=== PATIENT | female | born 1990 | race Caucasian/White ===

== ENCOUNTER 2023-08-01 11:36 | Outpatient (OUT) | payer SELFPAY ==
--- NOTE | 2023-08-01 11:52 | XR_ITS ---
The [place] [id number] Patient Name: FAIZAN CRANDALL MRN: [id number] date: 1990 Sex: F Assigned Patient Location: [facility] Current Patient Location: [facility] Accession/Order Number: [id number] Exam Date: 08/01/2023 11:57 Report Date: 08/01/2023 12:23 At the request of: MAXX ALANIS Procedure: XR finger LT min 2V STUDY: XR finger LT min 2V, [id number] HISTORY: Finger Sprain COMPARISON: None FINDINGS/IMPRESSION: Faint transverse lucency through the base of the third middle phalanx (seen on the oblique view) which could represent variant trabeculation versus nondisplaced fracture. Recommend follow-up x-rays in 10-14 days for further evaluation. No other potentially acute fracture. No dislocation or suspicious osseous lesion. Electronically authenticated by: JUAN JOSE LLANOS Date: 08/01/2023 12:23
== END 2023-08-01 11:37 | disposition home or self-care (01) ==
LOC: RAD 11:41
PROVIDERS: Visit Provider Nurse Practitioner Family
DX: S63.613A Unspecified sprain of left middle finger, initial encounter (principal)
CPT/HCPCS: 73140

== ENCOUNTER 2023-09-14 10:28 | Outpatient (OUT) | payer OTHER, SELFPAY ==
--- NOTE | 2023-09-14 10:33 | MR_ITS ---
The [address] [address] Patient Name: FAIZAN CRANDALL MRN: [id number] date: 1990 Sex: F Assigned Patient Location: MRI Current Patient Location: MRI Accession/Order Number: [id number] Exam Date: 09/14/2023 10:45 Report Date: 09/14/2023 14:53 At the request of: CECILE AVENDAÑO Procedure: MR head/brain wo con MR head/brain wo con COMPARISON: None. CLINICAL HISTORY: Chronic migraine headaches. Increased severity and frequency TECHNIQUE: Sagittal, axial,and coronal T1, axial flair, axial T2 FSE, axial DWI FINDINGS: There is no diffusion abnormality.. Motion mildly degrades exam. The brain demonstrates normal morphology and signal. There is no mass, mass effect, nor hydrocephalus. The vascular flow voids are patent. The internal auditory canals appear unremarkable. The mastoid air cells are patent. There is mild ethmoid sinus mucosal disease. There are no areas of hemosiderin staining. The orbits, sella, and craniocervical junction appear unremarkable MR/MR head/brain wo con IMPRESSION: SOME LIMITATION WITH MOTION. NO MRI EVIDENCE FOR ACUTE ISCHEMIA. UNREMARKABLE UNENHANCED MRI APPEARANCE OF THE BRAIN. MILD SINUS MUCOSAL DISEASE Electronically authenticated by: MOSES LOVE Date: 09/14/2023 14:53
== END 2023-09-14 10:29 | disposition home or self-care (01) ==
LOC: MRI 10:29
PROVIDERS: Visit Provider Nurse Practitioner Family
DX: R27.0 Ataxia, unspecified (principal); G43.709 Chronic migraine without aura, not intractable, without status migrainosus; G44.52 New daily persistent headache (NDPH)
CPT/HCPCS: 70551

== ENCOUNTER 2023-09-17 10:01 | Outpatient (OUT) | payer OTHER, SELFPAY ==
--- NOTE | 2023-09-17 | ECG_ITS ---
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
[2023-09-17 10:47] LABS: Basophils Percent Auto 0.4 % (0.2-2.0); Eosinophils Absolute Auto 0.2 10^3/uL (0.0-0.7); Eosinophils Percent Auto 2.3 % (0.9-7.0); Hematocrit 41.2 % (36.0-48.0); Hemoglobin 13.1 g/dL (12.0-16.0); Immature Granulocytes Abs Auto 0.04 10^3/uL (0.00-0.03); Immature Granulocytes Pct Auto 0.4 % (0.0-0.5); Lymphocytes Absolute Auto 2.8 10^3/uL (1.2-3.8); Lymphocytes Percent Auto 28.6 % (20.5-60.0); Mean Corpuscular HGB Conc 31.8 g/dL (29.9-35.2); Mean Corpuscular Hemoglobin 28.5 pg (26.7-34.0); Mean Corpuscular Volume 89.8 fL (81.0-99.0); Monocytes Absolute Auto 0.5 10^3/uL (0.3-0.8); Monocytes Percent Auto 4.9 % (1.7-12.0); Neutrophils Absolute Auto 6.1 10^3/uL (1.4-6.5); Neutrophils Percent Auto 63.4 % (43.0-75.0); Platelet Count 239 10^3/uL (150-450); Red Blood Count 4.59 10^6/uL (4.20-5.40); Red Cell Distribution Width 13.3 % (11.0-15.0); White Blood Count 9.7 10^3/uL (4.0-11.0)
[2023-09-17 11:03] LABS: Alanine Aminotransferase 40 U/L (14-59); Albumin Globulin Ratio 0.8; Albumin Level 3.6 g/dL (3.4-5.0); Alkaline Phosphatase 102 U/L (46-116); Anion Gap 9.9; Aspartate Amino Transferase 19 U/L (15-37); BUN Creatinine Ratio 21.5; Bilirubin Total 0.3 mg/dL (0.2-1.0); Calcium 8.7 mg/dL (8.5-10.1); Carbon Dioxide 30.4 mmol/L (21.0-32.0); Chloride 101 mmol/L (98-107); Estimated GFR (African America >60 (>=60); Estimated GFR (Non-African Ame >60 (>=60); Globulin 4.3 g/dL; Glucose 89 mg/dL (74-106); Potassium 4.3 mmol/L (3.5-5.1); Sodium 137 mmol/L (136-145); Total Protein 7.9 g/dL (6.4-8.2)
== END 2023-09-17 10:02 | disposition home or self-care (01) ==
LOC: CARD 10:01
DX: Z01.810 Encounter for preprocedural cardiovascular examination (principal); G56.03 Carpal tunnel syndrome, bilateral upper limbs
CPT/HCPCS: 36415; 80053; 85025; 93005

== ENCOUNTER 2024-04-05 08:50 | Outpatient (OUT) | payer OTHER, SELFPAY ==
--- OUTSIDE RECORDS SUMMARY | 2024-04-05 08:54 | XMS_ITS | CCD ---
Author Organization [facility] Care Team Providers Care Embedded Engineer Name Role Phone Gui Alvarez III Primary Care Physician Unavailable Primary Care Provider Unavailabl e PROVIDER, UNKNOWN Attending Unavailable PROVIDER, UNKNOWN Admitting Unavailable JAVI, DR CLARENCE Garcia Admitting Unavailable JAVI, DR CLARENCE Garcia Attending Unavailable JAVI, DR CLARENCE Garcia Consulting Unavailable MISC, DR GARCIA Primary Care Unavailable SARA, GIANA RAMIREZ Consulting Unavailable ERNESTO, ALLISON Consulting Unavailable GLORIA, DR MCCRAY Admitting Unavailable CYNTHIA, DR ALLISON Coffey Consulting Unavailable MISC, DR GARCIA Primary Care Unavailable GLORIA, DR MCCRAY Attending Unavailable GLORIA, DR MCCRAY Consulting Unavailable JAVI, DR CLARENCE Garcia Admitting Unavailable MISC, DR GARCIA Primary Care Unavailable JAVI, DR CLARENCE Garcia Attending Unavailable JAVI, DR CLARENCE Garcia Consulting Unavailable BIJAN, PILAR Attending Unavailable BIJAN, PILAR Consulting Unavailable MISC, DR GARCIA Primary Care Unavailable BIJAN, PILAR Admitting Unavailable KIKO KNOX Consulting Unavailable ELTABRYAN, DR WONG Admitting Unavailable REQUEST, DR VLEAZQUEZ LISTED Primary Care Unavaila bogdan PEARLTA, DR WONG Attending Unavailable RADHA, DR WONG Consulting Unavailable DO Gui Alvarez III Primary Care Provider MD Philipp Espitia Attending Provider [phone] Jun Peng Unavailable DO Chong Cat Attending Provider MARYSE Peng Attending Provider Chong Cat Unavailable DO Gui Alvarez III R Primary Care Provider MD Philipp Espitia Attending Provider DO Chong Cat Attending Provider MARYSE Peng Attending Provider ROSANNA PERALTA Attending Unavailable ANITA CORONA Attending Unavailable Brayden Bennett Admitting Unavailab Brayden De La Rosa Attending Unavailab le Alvarez III, Gui R Primary Care Unavailabl Chong Dixon Attending Unavailable Alvarez III, [facility] R Primary Care Unavailabl e Chong Cat Admitting Unavailable Alvarez III, Gui R Primary Care Unavailabl e Stephania, Chong A Admitting Unavailable Chong Cat Attending Unavailable Chong Cat Attending Unavailable Alvarez III, [facility] R Primary Care Unavailabl e Stephania, Chong Hinojosa Admitting Unavailable Jun Peng Admitting Unavailable Jun Peng Attending Unavailable Alvarez III, [facility] R Primary Care Unavailabl Philipp Prakash Admitting Unavailable Philipp Espitia Attending Unavailable [facility], [facility] Primary Care Unavailabl e TIFFANY IRAHETA Attending Unavailable Allergies Allergy Classification Reported Allergen(s) Allergy Type Date of Onset Reaction(s) Facility (20 sources) Nalbuphine; Translations: [nalbuphine] Drug Allergy 9 shortness of breath, rash, Anaphylaxis, Unknown [facility] (20 sources) predniSONE; Translations: [prednisone] Drug Allergy 9 Hives, Itching, Unknown [facility] (1 source) Nalbuphine Drug Allergy [facility] (1 source) predniSONE Drug Allergy 2 [facility] (1 source) Nalbuphine Drug Allergy 4 [facility] (1 source) predniSONE Drug Allergy 4 [facility] Medications Current Medications Medication Drug Class(es) Dates Sig (Normalized) Sig (Original) amitriptyline hydrochloride 25 mg oral tablet (18 sources) Tricyclic Antidepressant Start: 09-21-2023 take 25 mg by mouth once daily Amitriptyline Active 25 MG PO Daily September 21, 2023 12:00am Start: 05-24-2021 take 1 tablet by sarah th once daily at bedtime amitriptyline 10 mg Tab 10 mg = 1 tab(s), Oral, Once a day (at bedtime), # 90 tab(s), Refills(s) 3, Pharmacy: [facility], 158, cm, 05/24/21 12:23:00 EDT, Height/Length Dosing, 110.3, kg, 05/24/21 12:23:00 EDT, Weight Dosing Start Date: 05/24/21 Status: Ordered Start: 09-08-2019 End: 09-21-2023 take 10 mg by mouth three times daily Amitriptyline Discontinued 10 MG PO Three times daily September 08, 2019 12:00am September 21, 2023 8:35am colchicine 0.6 mg oral tablet (4 sources) Start: 10-06-2022 End: 10-15-2023 take 1 tablet by mouth twice daily colchicine 0.6 mg Tab 0.6 mg, Oral, BID, X 90 day(s), # 180 tab(s), Refills(s) 3, Pharmacy: [facility]acy #[id number], 158, cm, 10/06/22 11:50:00 EST, Height/Length Dosing, 108.4, kg, 10/06/22 11:50:00 EST, Weight Dosing Start Date: 10/20/22 Stop Date: 10/15/23 Status: Ordered colestipol hydrochloride 1000 mg oral tablet (1 source) Bile Acid Sequestrant Start: 02-05-2024 take 1 g by mouth twice daily Colestipol Active 1 GM PO Twice daily 60 February 05, 2024 12:00am dicyclomine hydrochloride 20 mg oral tablet (12 sources) Anticholinergic Start: 10-03-2023 take 20 mg by mouth three times daily Dicyclomine Active 20 MG PO Three times daily October 19, 2023 1:00am Start: 09-08-2019 End: 09-21-2023 take 10 mg by mouth four times daily Dicyclomine Discontinued 10 MG PO Four times daily September 08, 2019 12:00am September 21, 2023 8:35am Levonorg-Eth Estrad Triphasic (3 sources) Progestin, Estrogen, Progestin-containing Intrauterine Device Start: 09-08-2019 take 50-0.4 tablets by mouth once daily Levonorg-Eth Estrad Triphasic (Trivora (28)) 50-30 (6)/75-40 (5)/125-30(10) Tablet Active 1 TAB PO Daily September 08, 2019 12:00am Fiber (9 sources) Fiber Active ibuprofen 600 mg oral tablet (4 sources) Nonsteroidal Anti-inflammatory Drug Start: 10-06-2022 End: 10-01-2023 take 1 tablet by mouth every eight hours ibuprofen 600 mg Tab 600 mg = 1 tab(s), Oral, q8hr, X 90 day(s), # 270 tab(s), Refills(s) 3, Pharmacy: [facility]/pharmacy #[id number], 158, cm, 10/06/22 11:50:00 EST, Height/Length Dosing, 108.4, kg, 10/06/22 11:50:00 EST, Weight Dosing Start Date: 10/06/22 Stop Date: 10/01/23 Status: Ordered indomethacin 25 mg oral capsule (1 source) Nonsteroidal Anti-inflammatory Drug Start: 09-27-2022 End: 10-11-2022 take 1 capsule by mouth three times daily indomethacin 25 mg Cap 25 mg = 1 cap(s), Oral, TID, X 14 day(s), # 42 cap(s), Refills(s) 0, Pharmacy: [facility]/pharmacy #[id number], 158, cm, 09/26/22 11:41:00 EST, Height/Length Dosing, 107, kg, 09/26/22 11:41:00 EST, Weight Dosing Start Date: 09/27/22 Stop Date: 10/11/22 Status: Ordered L.Rhamnosus-B.Anim trae (Crunchfish) 3 billion cell capsule (1 source) Start: 02-05-2024 L.Rhamnosus-B.Anim trae (Crunchfish) 3 billion cell capsule Active CAP PO February 05, 2024 12:00am lisinopril 20 mg oral tablet (12 sources) Angiotensin Converting Enzyme Inhibitor Start: 09-04-2023 take 20 mg by mouth once daily Lisinopril Active 20 MG PO Daily September 21, 2023 12:00am loperamide hydrochloride 2 mg oral tablet (15 sources) Opioid Agonist Start: 09-08-2019 take 2 mg by mouth every four hours Loperamide Active 2 MG PO Q4H September 08, 2019 12:00am omeprazole 40 mg oral tablet (17 sources) Proton Pump Inhibitor Start: 02-05-2024 take 40 mg by mouth twice daily Omeprazole Active 40 MG PO Twice daily 60 February 05, 2024 12:00am Start: 02-05-2024 take 40 mg by mouth once daily Omeprazole Active 40 MG PO Daily February 05, 2024 12:00am Start: 09-26-2023 take 1 tablet by sarah th once daily Omeprazole 40 MG 1 tablet 30 minutes before morning meal Orally Once a day for 90 days 40mg Sep, Active Start: 09-26-2023 take 1 tablet by sarah th once daily Omeprazole 20 MG 1 tablet 30 minutes before morning meal Orally Once a day for 90 days Sep, Active take 1 tablet by sarah th once daily PriLOSEC OTC 20 MG 1 tablet 30 minutes before morning meal Orally Once a day for 30 days Active ondansetron 4 mg disintegrating oral tablet (10 sources) Serotonin-3 Receptor Antagonist Start: 02-05-2024 take 4 mg by mouth three times daily Ondansetron Active 4 MG PO Three times daily 90 February 05, 2024 12:00am Start: 09-08-2019 End: 09-21-2023 take 4 mg by mouth every eight hours Ondansetron Hcl Discontinued 4 MG PO Q8H September 08, 2019 12:00am September 21, 2023 8:36am probiotic (4 sources) probiotic as directed Active psyllium 3400 mg powder for oral suspension (1 source) Start: 02-05-2024 Psyllium Husk (Aspartame) ([employer] Fiber) 3.4 gram/5.8 gram powder Active EACH PO February 05, 2024 12:00am traMADol hydrochloride 50 mg oral tablet (10 sources) Opioid Agonist Start: 09-20-2023 take 1 tablet by mouth every six hours traMADol HCl 50 MG 1 tablet as needed Orally every 6 hours for 5 days to be used post op Sep, Active Completed/Discontinued Medications Medication Drug Class(es) Dates Sig (Normalized) Sig (Original) cholecalciferol 0.025 mg oral tablet (6 sources) Vitamin D Start: 09-12-2019 End: 09-21-2023 take 2000 [IU] by mouth once daily Cholecalciferol (Vitamin D3) Discontinued 2000 UNIT PO Daily 60 September 12, 2019 12:00am September 21, 2023 8:35am gabapentin 100 mg oral capsule (6 sources) Anti-epileptic Agent Start: 09-08-2019 End: 09-21-2023 take 100 mg by mouth at bedtime Gabapentin Discontinued 100 MG PO Bedtime September 08, 2019 12:00am September 21, 2023 8:35am Levonorg-Eth Estrad Triphasic (Trivora (28)) 50-30 (6)/75-40 (5)/125-30(10) Tablet (3 sources) Start: 09-08-2019 End: 09-21-2023 take 50-0.4 tablets by mouth once daily Levonorg-Eth Estrad Triphasic (Trivora (28)) 50-30 (6)/75-40 (5)/125-30(10) Tablet Discontinued 1 TAB PO Daily September 07, 2019 11:00pm September 21, 2023 7:36am Start: 09-08-2019 End: 09-21-2023 take 50-0.4 tablets by mouth once daily Levonorg-Eth Estrad Triphasic (Trivora (28)) 50-30 (6)/75-40 (5)/125-30(10) Tablet Discontinued 1 TAB PO Daily September 08, 2019 12:00am September 21, 2023 8:36am lithium carbonate 450 mg extended release oral tablet (6 sources) Start: 09-12-2019 End: 09-21-2023 take 900 mg by mouth once daily at bedtime Enterprise Carbonate Discontinued 900 MG PO Daily at bedtime 60 September 12, 2019 12:00am September 21, 2023 8:35am Omeprazole Magnesium (Prilosec Otc) 20 mg tablet,delayed release (DR/EC) (3 sources) Start: 09-21-2023 End: 02-05-2024 take 1 tablet by mouth once daily Omeprazole Magnesium (Prilosec Otc) 20 mg tablet,delayed release (DR/EC) Discontinued 20 MG PO Daily September 21, 2023 12:00am February 05, 2024 10:24am Start: 09-21-2023 take 1 tablet by sarah once daily Omeprazole Magnesium (Prilosec Otc) 20 mg tablet,delayed release (DR/EC) Active 20 MG PO Daily September 20, 2023 11:00pm Start: 09-21-2023 take 1 tablet by sarah th once daily Omeprazole Magnesium (Prilosec Otc) 20 mg tablet,delayed release (DR/EC) Active 20 MG PO Daily September 21, 2023 12:00am vortioxetine 10 mg oral tablet (6 sources) Start: 09-12-2019 End: 09-21-2023 take 1 tablet by mouth at bedtime Vortioxetine (Trintellix) 10 mg Tablet Discontinued 15 MG PO Bedtime September 12, 2019 12:00am September 21, 2023 8:36am Problems Active Problems Problem Classification Problem Date Documented Da te Episodic/Chronic Abdominal pain (1 source) Abdominal pain; Translations: [Unspecified abdominal pain] Onset: 2 Episodic Anxiety disorders (11 sources) Mixed anxiety and depressive disorder 04-25-2022 Chronic Cardiac dysrhythmias (2 sources) Tachycardia, unspecified; Translations: [Tachycardia, unspecified] Onset: 4 Episodic Esophageal disorders (20 sources) Gastroesophageal reflux disease; Translations: [Gastro-esophageal reflux disease without esophagitis] Chronic Essential hypertension (2 sources) Essential (primary) hypertension; Translations: [Essential (primary) hypertension] Onset: 3 Chronic Mood disorders (12 sources) Depressive disorder; Translations: [Depression] 09-08-2019 Chronic Nonspecific chest pain (9 sources) Chest pain; Translations: [Chest pain, unspecified] Onset: 2 Episodic Other aftercare (1 source) Other care home (current) drug therapy; 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] Onset: 2 Episodic Other gastrointestinal disorders (15 sources) Irritable bowel syndrome; Translations: [Irritable bowel syndrome without diarrhea] 09-09-2019 Chronic Other gastrointestinal disorders (5 sources) Irritable bowel syndrome without diarrhea; Translations: [Irritable bowel syndrome] Chronic Other nervous system disorders (9 sources) Carpal tunnel syndrome; Translations: [Carpal tunnel syndrome, bilateral upper limbs] Chronic Other nervous system disorders (8 sources) Bilateral carpal tunnel syndrome; Translations: [Carpal tunnel syndrome, bilateral upper limbs] Chronic Other nutritional; endocrine; and metabolic disorders (20 sources) Body mass index 30+ - obesity 01-25-2021 Chronic Other nutritional; endocrine; and metabolic disorders (11 sources) Obesity 12-30-2020 Chronic Other nutritional; endocrine; and metabolic disorders (2 sources) Morbid (severe) obesity due to excess calories; Translations: [Morbid (severe) obesity due to excess calories] Onset: 3 Chronic Other nutritional; endocrine; and metabolic disorders (2 sources) Body mass index (BMI) 40.0-44.9, adult; Translations: [Body mass index (BMI) 40.0-44.9, adult] Onset: 3 Chronic Other skin disorders (4 sources) Rash and other nonspecific skin eruption; Translations: [RASH OTH NONSPECIFIC SKIN ERUPTION] Onset: 3 Episodic Arcelia-; endo-; and myocarditis; cardiomyopathy (except that caused by tuberculosis or sexually transmitted disease) (11 sources) Pericarditis 04-25-2022 Episodic Comment on above: 2020 Residual codes; unclassified (3 sources) Other specified postprocedural states Episodic Suicide and intentional self-inflicted injury (6 sources) Suicidal thoughts; Translations: [Suicidal ideations] 09-08-2019 Episodic Unclassified (1 source) OTH PERICARDIAL EFFUSION NONINFLAMM; Translations: [OTH PERICARDIAL EFFUSION NONINFLAMM] Onset: 2 Unclassified (2 sources) COUGH, UNSPECIFIED; Translations: [COUGH, UNSPECIFIED] Onset: 2 Unclassified (1 source) CONTACT W/AND (SUSP) EXPOS COVID-19; Translations: [CONTACT W/AND (SUSP) EXPOS COVID-19] Onset: 2 Unclassified (1 source) Carpal tunnel syndrome, right upper limb; Translations: [Carpal tunnel syndrome, right upper limb] Onset: 3 Unclassified (1 source) Carpal tunnel syndrome, left upper limb; Translations: [Carpal tunnel syndrome, left upper limb] Onset: 3 Unclassified (1 source) Irritable bowel syndrome without diarrhea; Translations: [Irritable bowel syndrome without diarrhea] Onset: 3 Unclassified (1 source) Carpal tunnel syndrome, bilateral upper limbs; Translations: [Carpal tunnel syndrome, bilateral upper limbs] Onset: 3 Past or Other Problems Problem Classification Problem Date Documented Da te Episodic/Chronic E Codes: Fall (1 source) Fall (on) (from) unspecified stairs and steps, initial encounter; Translations: [FALL ON FROM UNS STAIRS STEPS INIT] Onset: 08-23-2022 Episodic Immunizations and screening for infectious disease (11 sources) Infectious disease carrier Onset: 12-12-2015 12-15-2015 Episodic Comment on above: ESBL E coli in cervi vipul culture 12/12/15 Inflammation; infection of eye (except that caused by tuberculosis or sexually transmitteddisease) (1 source) Other mucopurulent conjunctivitis, bilateral; Translations: [OTH MUCOPURULNT CONJUNCTIVIT NELSON] Onset: 08-10-2022 Episodic Malaise and fatigue (1 source) Other fatigue; Translations: [Other fatigue] Onset: 08-14-2023 Episodic Other injuries and conditions due to external causes (3 sources) Unspecified injury of right foot, initial encounter; Translations: [UNSPECIFIED INJURY RT FOOT INITIAL] Onset: 08-22-2022 Episodic Other upper respiratory infections (1 source) Acute upper respiratory infection, unspecified; Translations: [ACUTE UP RESPIRATORY INFECTION UNS] Onset: 08-10-2022 Episodic Otitis media and related conditions (1 source) Otitis media, unspecified, left ear; Translations: [OTITIS MEDIA UNSPECIFIED LEFT EAR] Onset: 08-10-2022 Episodic Superficial injury; contusion (1 source) Contusion of right lesser toe(s) without damage to nail, initial encounter; Translations: [CONTUS RT LESR TOES W/O DMG NL INIT] Onset: 08-23-2022 Episodic Unclassified (20 sources) Onset: 10-08-2013 Resolved: 02-07-2021 05-27-2015 Unclassified (1 source) COUGH, UNSPECIFIED; Translations: [COUGH, UNSPECIFIED] Onset: 08-09-2022 Results Test Name Value Interpretation Reference Range Facility Office Visiton 02-13-2024 Follow-up visit [id number] Jennifer Motley 1990 F Date Provider Department Center 02/13/2024 Donnie-ROSANNA PERALTA CARD [facility] Family History Problem Relation Age of Onset Coronary artery disease Father Atrial fibrillation Father Family Status - Relation Status Age at Father Level of Service:25726 PA OFFICE/OUTPATIENT ESTABLISHED LOW MDM 20 MIN Normal [facility] HCG ( test) IA.soli d Ql (U)Ordered By: Thaddeus Marshall on 10-19-2023 HCG ( test) Ql (U) Negative [facility] HCG,Urineon 10-19-2023 Beta HCG ( test) Ql (U) Negative Normal [facility] Comment on above: Result Comment: PERF ORMED BY: [place] [address] PATHOLOGIST FLEET MECHANIC RHONA LOPEZ M.D. Performed By: #### C K, TSH3 #### [place] [address] [place] #### WILLIE #### [facility] , Basic Metabolic Panelon 11-0 Anion gap [Moles/Vol] Not performed Normal 6.0-15.0 [facility] Comment on above: Performed By: #### C K, TSH3 #### [place] [address] [place] #### WILLIE #### [facility] , Calcium [Mass/Vol] 9.3 mg/dL Normal 8.6-10.3 [facility] Comment on above: Performed By: #### C K, TSH3 #### [place] [address] [place] #### WILLIE #### [facility] , Chloride [Moles/Vol] 103 mmol/L Normal 98-107 [facility] Comment on above: Performed By: #### C K, TSH3 #### [place] [address] [place] #### WILLIE #### [facility] , CO2 [Moles/Vol] 28.0 mmol/L Normal 21.0-31.0 [facility] Comment on above: Performed By: #### C K, TSH3 #### [place] [address] [place] #### WILLIE #### [facility] , Creatinine [Mass/Vol] 0.63 mg/dL Normal 0.60-1.20 [facility] Comment on above: Performed By: #### C K, TSH3 #### [place] [address] [place] #### WILLIE #### [facility] , Creatinine Clr Calc Pharmacy 148.12 Normal [facility] Comment on above: Result Comment: PERF ORMED BY: [place] [address] PATHOLOGIST FLEET MECHANIC RHONA LOEPZ M.D. Performed By: #### C K, TSH3 #### [address] #### WILLIE #### [facility] , GFR/1.73 sq M.predicted MDRD (S/P/Bld) [Vol rate/Area] mL/min/{1.73_m2} Normal [facility] Comment on above: Performed By: #### C K, TSH3 #### [place] [address] [place] #### WILLIE #### [facility] , Glucose [Mass/Vol] 87 mg/dL Normal 70-100 [facility] Comment on above: Result Comment: Steele Glucose Reference Range is dependent on time and content of last meal. Glucose of more than 200 mg/dL in a nonstressed, ambulatory subject supports the diagnosis of Diabetes Mellitus. ADA recommended reference range Performed By: #### C K, TSH3 #### [place] [address] [place] #### WILLIE #### [facility] , Potassium Normal 3.5-5.1 [facility] Comment on above: Result Comment: Spec imen hemolyzed, redraw requested Performed By: #### C K, TSH3 #### [place] [address] [place] #### WILLIE #### [facility] , Sodium [Moles/Vol] 138 mmol/L Normal 136-145 [facility] Comment on above: Performed By: #### C K, TSH3 #### [facility] [address] [place] [address] [place] #### WILLIE #### [facility] , Urea nitrogen [Mass/Vol] 12 mg/dL Normal 7-25 [facility] Comment on above: Performed By: #### C K, TSH3 #### [facility] [address] [place] [address] [place] #### WILLIE #### [facility] , Calcium [Mass/volume] in Ser um or PlasmaOrdered By: Arthur Rao on 09-21-2023 Calcium [Mass/Vol] 9.3 mg/dL 8.6-10.3 [facility] Carbon dioxide, total [Moles /volume] in Serum or PlasmaOrdered By: Arthur Rao on 09-21-2023 CO2 [Moles/Vol] 28.0 mmol/L 21.0-31.0 [facility] Chloride [Moles/volume] in S yanique or PlasmaOrdered By: Arthur Rao on 09-21-2023 Chloride [Moles/Vol] 103 mmol/L 98-107 [facility] Creatinine [Mass/volume] in Serum or PlasmaOrdered By: Arthur Rao on 09-21-2023 Creatinine [Mass/Vol] 0.63 mg/dL 0.60-1.20 [facility] Glucose [Mass/volume] in Ser um or PlasmaOrdered By: Arthur Rao on 09-21-2023 Glucose [Mass/Vol] 87 mg/dL 70-100 [facility] Comment on above: ADA recommended refe rence rangeRandom Glucose Reference Range is dependent on time and content of last meal. Glucose of more than 200 mg/dL in a nonstressed, ambulatory subject supports the diagnosis of Diabetes Mellitus. HCG ( test) IA.rapi d Ql (U)Ordered By: Arthur Rao on 09-21-2023 HCG ( test) Ql (U) Negative [facility] HCG,Urineon 09-21-2023 Beta HCG ( test) Ql (U) Negative Normal [facility] Comment on above: Result Comment: PERF ORMED BY: [place] [address] PATHOLOGIST FLEET MECHANIC RHONA LOPEZ M.D. Performed By: #### C K, TSH3 #### [place] [address] [place] #### WILLIE #### [facility] , No Panel InformationOrdered By: Arthur Rao on 09-21-2023 Estimated GFR (CKD-EPI) > 60.0 mL/Min [facility] Creatinine Clearance (Chem 148.12 [facility] Potassium [Moles/volume] in Serum or PlasmaOrdered By: Arthur Rao on 09-21-2023 Potassium [Moles/Vol] See comment 3.5-5.1 [facility] Comment on above: Specimen hemolyzed, redraw requested Serum or plasma anion gap de terminationOrdered By: Arthur Rao on 09-21-2023 Anion gap [Moles/Vol] TNP [facility] Comment on above: Test not performed Sodium [Moles/volume] in Ser um or PlasmaOrdered By: Arthur Rao on 09-21-2023 Sodium [Moles/Vol] 138 mmol/L 136-145 [facility] Urea nitrogen [Mass/volume] in Serum or PlasmaOrdered By: Arthur Rao on 09-21-2023 Urea nitrogen [Mass/Vol] 12 mg/dL 7-25 [facility] C reactive protein [Mass/vol ume] in Serum or PlasmaOrdered By: Jun Peng on 09-19-2023 CRP [Mass/Vol] 1.7 mg/dL 0.0-0.5 [facility] C-Reactive Proteinon 023 C-Reactive Protein 1.7 mg/dL High 0.0-0.5 [facility] Comment on above: Order Comment: Reaso n for Exam Irritable bowel syndrome, unspecified type Performed By: #### C RP, TSH3, ESR, CUSTOOL #### [facility] [address] [place] [address] [place] #### ELASTASE STOOL, HIV SCREEN, OPEXAM, CALPROTECT, CELIAC #### [facility] , Calprotectin [Mass/mass] in StoolOrdered By: Jun Peng on 09-19-2023 Calprotectin (Stl) [Mass/Mass] 32 ug/g 0-120 [facility] Comment on above: Concentration Interp retation Follow-Up< 5 - 50 ug/g Normal None>50 -120 ug/g Borderline Re-evaluate in 4-6 weeks >120 ug/g Abnormal Repeat as clinically indicatedPerformed at: [facility] [address] [id number] Director: Diomedes Arguello MD, Phone: [phone] Calprotectin, Fecalon 2022 Calprotectin, Fecal 32 Normal 0-120 [facility] Comment on above: Order Comment: Reaso n for Exam Irritable bowel syndrome, unspecified type Result Comment: Conc entration Interpretation Follow-Up < 5 - 50 ug/g Normal None >50 -120 ug/g Borderline Re-evaluate in 4-6 weeks >120 ug/g Abnormal Repeat as clinically indicated Performed at: [facility] [address] [id number] Super[employer] Department: Diomedes Arguello MD, Phone: [phone] PERFORMED BY: [place] [address] PATHOLOGIST FLEET MECHANIC RHONA LOPEZ M.D. Performed By: #### C K, TSH3 #### [facility] [address] #### WILLIE #### [facility] , Celiacon 09-19-2023 Deamidated Gliadin Abs, IgA 6 Normal 0-19 [facility] Comment on above: Order Comment: Reaso n for Exam Irritable bowel syndrome, unspecified type Result Comment: Nega tive 0 - 19 Weak Positive 20 - 30 Moderate to Strong Positive >30 Performed By: #### C RP, TSH3, ESR, CUSTOOL #### [address] #### ELASTASE STOOL, HIV SCREEN, OPEXAM, CALPROTECT, CELIAC #### [facility] , Deamidated Gliadin Abs, IgG 2 Normal 0-19 [facility] Comment on above: Order Comment: Reaso n for Exam Irritable bowel syndrome, unspecified type Result Comment: Nega tive 0 - 19 Weak Positive 20 - 30 Moderate to Strong Positive >30 Performed By: #### C RP, TSH3, ESR, CUSTOOL #### [address] #### ELASTASE STOOL, HIV SCREEN, OPEXAM, CALPROTECT, CELIAC #### [facility] , Endomysial Antibody IgA Negative Normal Negative T [facility] Comment on above: Order Comment: Reaso n for Exam Irritable bowel syndrome, unspecified type Performed By: #### C RP, TSH3, ESR, CUSTOOL #### [address] #### ELASTASE STOOL, HIV SCREEN, OPEXAM, CALPROTECT, CELIAC #### [facility] , Immunoglobulin A, Qn, Serum 424 mg/dL High 87-352 [facility] Comment on above: Order Comment: Reaso n for Exam Irritable bowel syndrome, unspecified type Result Comment: Perf ormed at: - [facility] [address] [id number] Supervisor [employer] Department: Korey Perkins PhD, Phone: [phone] Performed By: #### C RP, TSH3, ESR, CUSTOOL #### [place] [address] [place] #### ELASTASE STOOL, HIV SCREEN, OPEXAM, CALPROTECT, CELIAC #### [facility] , T-Transglutaminase (tTG) IgA <2 Normal 0-3 [facility] Comment on above: Order Comment: Reaso n for Exam Irritable bowel syndrome, unspecified type Result Comment: Nega tive 0 - 3 Weak Positive 4 - 10 Positive >10 Tissue Transglutaminase (tTG) has been identified as the endomysial antigen. Studies have demonstr- ated that endomysial IgA antibodies have over 99% specificity for gluten sensitive enteropathy. Performed By: #### C RP, TSH3, ESR, CUSTOOL #### [address] #### ELASTASE STOOL, HIV SCREEN, OPEXAM, CALPROTECT, CELIAC #### [facility] , T-Transglutaminase (tTG) IgG 2 Normal 0-5 [facility] Comment on above: Order Comment: Reaso n for Exam Irritable bowel syndrome, unspecified type Result Comment: Nega tive 0 - 5 Weak Positive 6 - 9 Positive >9 Performed By: #### C RP, TSH3, ESR, CUSTOOL #### [address] #### ELASTASE STOOL, HIV SCREEN, OPEXAM, CALPROTECT, CELIAC #### [facility] , Elastase.pancreatic [Mass/ma ss] in StoolOrdered By: Jun Peng on 09-19-2023 Elastase.pancreatic (Stl) [Mass/Mass] 478 >200 [facility] Comment on above: Result Units: ug [address] st./g Severe Pancreatic Insufficiency: <100 Moderate Pancreatic Insufficiency: 100 - 200 Normal: >200Performed at: - [facility] [id number] Director: Diomedes Arguello MD, Phone: [phone] Erythrocyte Sedimentation Ra taiwo 09-19-2023 ESR (Bld) [Velocity] 41 mm/h High 0-19 [facility] Comment on above: Order Comment: Reaso n for Exam Irritable bowel syndrome, unspecified type Result Comment: PERF ORMED BY: [place] [address] PATHOLOGIST FLEET MECHANIC RHONA LOPEZ M.D. Performed By: #### C RP, TSH3, ESR, CUSTOOL #### [address] #### ELASTASE STOOL, HIV SCREEN, OPEXAM, CALPROTECT, CELIAC #### [facility] , Erythrocyte sedimentation ra te by Photometric methodOrdered By: Jun Peng on 09-19-2023 ESR Photometric method (Bld) [Velocity] 41 mm/hr 0-19 [facility] HIV 1/O/2 Antigen/Antibodyon 09-19-2023 HIV Screen 4th Generation Non-Reactive Normal Non Reactive [facility] Comment on above: Order Comment: Reaso n for Exam Irritable bowel syndrome, unspecified type Result Comment: HIV Negative HIV-1/HIV-2 antibodies and HIV-1 p24 antigen were NOT detected. There is no laboratory evidence of HIV infection. Performed at: [facility] [address] [place], [place] [id number] Supervisor [employer] Department: Korey Perkins PhD, Phone: [phone] PERFORMED BY: [place] [address] PATHOLOGIST FLEET MECHANIC RHONA LOPEZ M.D. Performed By: #### C RP, TSH3, ESR, CUSTOOL #### [address] #### ELASTASE STOOL, HIV SCREEN, OPEXAM, CALPROTECT, CELIAC #### [facility] , HIV 1 and HIV-2 antibody ass ay with HIV-1 p24 antigen detectionOrdered By: Jun Peng on 09-19-2023 HIV 1+2 Ab+HIV1 p24 Ag IA Ql Non-Reactive Non Reactive [facility] Comment on above: HIV NegativeHIV-1/HI V-2 antibodies and HIV-1 p24 antigen were NOTdetected. There is no laboratory evidence of HIV infection.Performed at: [facility] [address] [id number] Director: Korey Perkins PhD, Phone: [phone] IgA [Mass/volume] in Serum o r PlasmaOrdered By: Jun Peng on 09-19-2023 IgA [Mass/Vol] 424 mg/dL [address] [place] [address] Comment on above: Performed at: [facility] [address] [id number] Director: Korey Perkins PhD, Phone: [phone] No Panel InformationOrdered By: Jun Peng on 09-19-2023 Endomysial IgA Antibody Negative Negative [facility] Ova and Parasite Result 1 [facility] Ova and Parasite Result 1 N/A [facility] OVA AND PARASITEon 3 OVA AND PARASITE Reason for Exam Irritable bowel syndrome, unspecified type Stool Reason for Exam: Irritable bowel syndrome, unspecified type : Stool Final report These results were obtained using wet preparation(s) and trichrome stained smear. This test does not include testing for Cryptosporidium parvum, Cyclospora, or Microsporidia. Reason for Exam Irritable bowel syndrome, unspecified type Stool Reason for Exam: Irritable bowel syndrome, unspecified type : Stool No ova, cysts, or parasites seen. One negative specimen does not rule out the possibility of a parasitic infection. Performed at: [facility] [place] [id number] Supervisor [employer] Department: Korey Perkins PhD, Phone: [phone] PERFORMED BY: [place] [address] PATHOLOGIST FLEET MECHANIC RHONA LOPEZ M.D. Normal [facility] Comment on above: Performed By: #### C K, TSH3 #### [address] #### WILLIE #### [facility] , Ova or parasites identificat ionOrdered By: Jun Peng on 09-19-2023 Ova and parasites identified LM Nom (Unsp spec) [facility] Ova and parasites identified LM Nom (Unsp spec) N/A [facility] Pancreatic Elastase, Stoolon 09-19-2023 Pancreatic Elastase, Stool 478 Normal >200 [facility] Comment on above: Order Comment: Reaso n for Exam Irritable bowel syndrome, unspecified type Result Comment: Resu lt Units: ug Elast./g Severe Pancreatic Insufficiency: <100 Moderate Pancreatic Insufficiency: 100 - 200 Normal: >200 Performed at: - [facility] [address] [id number] Supervisor [employer] Department: Diomedes Arguello MD, Phone: [phone] PERFORMED BY: [place] [address] PATHOLOGIST FLEET MECHANIC RHONA LOPEZ M.D. Performed By: #### C RP, TSH3, ESR, CUSTOOL #### [place] [address] [place] #### ELASTASE STOOL, HIV SCREEN, OPEXAM, CALPROTECT, CELIAC #### [facility] , Serum gliadin peptide IgA an tibody assay (units/volume)Ordered By: Jun Peng on 09-19-2023 Gliadin peptide IgA Qn (S) 6 units 0-19 [facility] Comment on above: Negative 0 - 19 Weak Positive 20 - 30 Moderate to Strong Positive >30 Serum gliadin peptide IgG an tibody assay (units/volume)Ordered By: Jun Peng on 09-19-2023 Gliadin peptide IgG Qn (S) 2 units 0-19 [facility] Comment on above: Negative 0 - 19 Weak Positive 20 - 30 Moderate to Strong Positive >30 Serum tissue transglutaminas e (tTG) IgA antibody assay (units/volume)Ordered By: Jun Peng on 09-19-2023 tTG IgA Qn (S) <2 U/mL 0-3 [facility] Comment on above: Negative 0 - 3 Weak Positive 4 - 10 Positive >10 Tissue Transglutaminase (tTG) has been identified as the endomysial antigen. Studies have demonstr- ated that endomysial IgA antibodies have over 99% specificity for gluten sensitive enteropathy. Serum tissue transglutaminas e (tTG) IgG antibody assay (units/volume)Ordered By: Jun Peng on 09-19-2023 tTG IgG Qn (S) 2 U/mL 0-5 [facility] Comment on above: Negative 0 - 5 Weak Positive 6 - 9 Positive >9 Stool Cultureon 09-19-2023 Stool culture Reason for Exam Irritable bowel syndrome, unspecified type Stool Reason for Exam: Irritable bowel syndrome, unspecified type : Stool Negative for Shiga Toxin 1 Negative for Shiga Toxin 2 A negative Shiga Toxin result may occur if the antigen level in the specimen is below the detection limit of the assay. Stool culture results No Salmonella, Shigella, Campy or E. coli 0157:H7 Isolated PERFORMED BY: [place] [address] PATHOLOGIST FLEET MECHANIC RHONA LOPEZ M.D. Normal [facility] Comment on above: Performed By: #### C RP, TSH3, ESR, CUSTOOL #### [facility] [address] [place] [address] #### ELASTASE STOOL, HIV SCREEN, OPEXAM, CALPROTECT, CELIAC #### [facility] , Stool bacteria identificatio n by cultureOrdered By: Jun Peng on 09-19-2023 Bacteria identified Cx Nom (Stl) [facility] Stool ova and parasites iden tification by concentrationOrdered By: Jun Peng on 09-19-2023 Ova and parasites identified Concentration Nom (Stl) N/A [facility] Stool ova and parasites iden tification by trichrome stainOrdered By: Jun Peng on 09-19-2023 Ova and parasites identified Trichrome stain Nom ([facility]) N/A [facility] Thyroid Stimulating Hormoneo n 09-19-2023 TSH Qn 1.58 m[IU]/L Normal 0.45-5.33 [facility] Comment on above: Order Comment: Reaso n for Exam Irritable bowel syndrome, unspecified type Result Comment: PERF ORMED BY: [place] [address] PATHOLOGIST FLEET MECHANIC RHONA LOPEZ M.D. Performed By: #### C RP, TSH3, ESR, CUSTOOL #### [place] [address] [place] #### ELASTASE STOOL, HIV SCREEN, OPEXAM, CALPROTECT, CELIAC #### [facility] , Thyrotropin [Units/volume] i n Serum or PlasmaOrdered By: Jun Peng on 09-19-2023 TSH Qn 1.58 m[IU]/L 0.45-5.33 [facility] XR hand BI 3Von 09-11-2023 XR hand BI 3V [facility] [place] [address] [place] [address] XRay Report Signed Patient: Jennifer Motley MR# : [id number] : 1990 Acct:[id number] Age/Sex: 33 / F ADM Date: 09/11/23 Loc: [facility] Room: Type: [facility] Attending Dr: Chong Cat DO Copies to: Chong Cat DO Ordering Provider: Chong Cat DO Date of Service: 09/11/23 XR/XR hand BI 3V: Bilateral carpal tunnel syndrome BILATERAL HANDS - 4 views each COMPARISON: None CLINICAL DATA: Bilateral chronic hand pain, greater on the left. AP, lateral and oblique views were obtained along with supplemental AP views of the thumbs. There is no acute fracture, dislocation or bony destruction. There is no disproportionate joint space narrowing or prominent hypertrophy. No soft tissue abnormalities are noted. XR/XR hand BI 3V IMPRESSION: NO ACUTE BONY FINDINGS. Impression dictated by: Jazzmine Hill M.D.09/11/2023 1:32 PM Dictation Location: [place] [address] Transcribed By: [facility] 09/11/23 1332 Dictated By: Jazzmine Hill MD 09/11/23 1326 Signed By: 09/11/23 1332 Normal [facility] Auth for Release of Medical Recordson 09-05-2023 Auth for Release of Medical Records [id number] Normal [facility] WILLIE Antinuclear Antibodieson 08-14-2023 Antinuclear Abs, IFA Negative Normal . [facility] Comment on above: Result Comment: Nega tive <1:80 Borderline 1:80 Positive >1:80 ICAP nomenclature: AC-0 For more information about Hep-2 cell patterns use ANApatterns.org, the official website for the International Consensus on Antinuclear Antibody (WILLIE) Patterns (ICAP). Performed at: [facility] [address] [id number] Supervisor [employer] Department: Korey Perkins PhD, Phone: [phone] PERFORMED BY: [place] [address] PATHOLOGIST FLEET MECHANIC RHONA LOPEZ M.D. Performed By: #### C K, TSH3 #### [address] #### WILLIE #### [facility] , Creatine Kinaseon 08-14-2023 CK [Catalytic activity/Vol] 118 U/L Normal 30-223 [facility] Comment on above: Result Comment: PERF ORMED BY: [place] [address] PATHOLOGIST FLEET MECHANIC RHONA LOPEZ M.D. Performed By: #### C K, TSH3 #### [place] [address] [place] #### WILLIE #### [facility] , Creatine kinase [Enzymatic a ctivity/volume] in Serum or PlasmaOrdered By: Philipp Espitia on 08-14-2023 CK [Catalytic activity/Vol] 118 U/L 30-223 [facility] Serum nuclear antibody titer Ordered By: Philipp Espitia on 08-14-2023 Nuclear Ab (S) [Titer] Negative . [facility] Comment on above: Negative <1:80 Borde rline 1:80 Positive >1:80ICAP nomenclature: AC-0For more information about Hep-2 cell patterns useANApaCultivate IT Solutions & Management Pvt[employer] Ltd[employer]erSafeBoot.org, the official website for theInternational Consensus on Antinuclear Antibody (WILLIE)Patterns (ICAP).Performed at: [facility] [employer] [id number] Director: Korey Perkins PhD, Phone: [phone] Thyroid Stimulating Hormoneo n 08-14-2023 TSH Qn 1.12 m[IU]/L Normal 0.45-5.33 [facility] Comment on above: Result Comment: PERF ORMED BY: [place] [address] PATHOLOGIST FLEET MECHANIC RHONA LOPEZ M.D. Performed By: #### C K, TSH3 #### [place] [address] [place] #### WILLIE #### [facility] , Thyrotropin [Units/volume] i n Serum or PlasmaOrdered By: Philipp Espitia on 08-14-2023 TSH Qn 1.12 m[IU]/L 0.45-5.33 [facility] Office Visiton 07-20-2023 Follow-up visit [id number] Jennifer Motley 1990 F Date Provider Department Center 07/20/2023 [facility] Family History Problem Relation Age of Onset Coronary artery disease Father Atrial fibrillation Father Family Status - Relation Status Age at Father Level of Service:08797 PA OFFICE/OUTPATIENT ESTABLISHED LOW MDM 20-29 MIN Normal [facility] FREE T4on 11-27-2022 Free T4 [Mass/Vol] 0.79 ng/dL Normal 0.76-1.46 [facility] Comment on above: Performed By: #### F T4 #### [facility] [address] [place] [address] [address] Jon Jones HS-CRPon 11-27-2022 HS-CRP 0.70 mg/L Normal <=3.00 [facility] Comment on above: Performed By: #### C MP, TSH, HSCRPT #### [facility] [address] [place] [address] [address] Jon Jones PROF 14(COMP METB)on 023 Albumin [Mass/Vol] 4.4 g/dL Normal 3.4-5.0 [facility] Comment on above: Performed By: #### C MP, TSH, HSCRPT #### [facility] [address] [place] [address] [address] Jon Jones Albumin/Globulin [Mass ratio] 1.1 {ratio} Normal [facility] Comment on above: Performed By: #### C MP, TSH, HSCRPT #### [facility] [address] [place] [address] [address] Jon Jones ALP [Catalytic activity/Vol] 109 U/L Normal 46-116 [facility] Comment on above: Performed By: #### C MP, TSH, HSCRPT #### [facility] [address] [place] [address] [address] Jon Jones ALT [Catalytic activity/Vol] 103 U/L Critically high 14-59 [facility] Comment on above: Performed By: #### C MP, TSH, HSCRPT #### [facility] [address] [place] [address] [address] oJn Jones Anion gap [Moles/Vol] 13.9 mmol/L Normal [facility] Comment on above: Performed By: #### C MP, TSH, HSCRPT #### [facility] [address] [place] [address] [address] Jon Jones AST [Catalytic activity/Vol] 55 U/L Critically high 15-37 [facility] Comment on above: Performed By: #### C MP, TSH, HSCRPT #### [facility] [address] [place] [address] [address] Jon Jones Bilirubin [Mass/Vol] 0.3 mg/dL Normal 0.2-1.0 [facility] Comment on above: Performed By: #### C MP, TSH, HSCRPT #### [facility] [address] [place] [address] [address] Jon Jones Calcium [Mass/Vol] 9.1 mg/dL Normal 8.5-10.1 [facility] Comment on above: Performed By: #### C MP, TSH, HSCRPT #### [facility] [address] [place] [address] [address] Jon Jones Chloride [Moles/Vol] 101 mmol/L Normal 98-107 [facility] Comment on above: Performed By: #### C MP, TSH, HSCRPT #### [facility] [address] [place] [address] [address] Jon Jones CO2 [Moles/Vol] 26.0 mmol/L Normal 21.0-32.0 [place] Comment on above: Performed By: #### C MP, TSH, HSCRPT #### [facility] [address] [place] [address] [address] Jon Jones Creatinine [Mass/Vol] 0.64 mg/dL Normal 0.55-1.02 [facility] Comment on above: Performed By: #### C MP, TSH, HSCRPT #### [facility] [address] [place] [address] [address] Jon Jones EGFR-AF PALESTINIAN >60 Normal >=60 [place] Comment on above: Performed By: #### C MP, TSH, HSCRPT #### [facility] [address] [place] [address] [address] Jon Jones EGFR-NON AF PALESTINIAN >60 Normal >=60 [facility] Comment on above: Performed By: #### C MP, TSH, HSCRPT #### [facility] [address] [place] [address] [address] Jon Jones Globulin (S) [Mass/Vol] 3.9 g/dL Normal [facility] Comment on above: Performed By: #### C MP, TSH, HSCRPT #### [facility] [address] [place] [address] [address] Jon Jones Glucose [Mass/Vol] 88 mg/dL Normal 74-106 [facility] Comment on above: Performed By: #### C MP, TSH, HSCRPT #### [facility] [address] [place] [address] [address] Jon Jones Potassium [Moles/Vol] 3.9 mmol/L Normal 3.5-5.1 [facility] Comment on above: Performed By: #### C MP, TSH, HSCRPT #### [facility] [address] [place] [address] [address] Jon Jones Protein [Mass/Vol] 8.3 g/dL Critically high 6.4-8.2 [facility] Comment on above: Performed By: #### C MP, TSH, HSCRPT #### [facility] [address] [place] [address] [address] Jon Jones Sodium [Moles/Vol] 137 mmol/L Normal 136-145 [facility] Comment on above: Performed By: #### C MP, TSH, HSCRPT #### [facility] [address] [place] [address] [address] Jon Jones Urea nitrogen [Mass/Vol] 15.0 mg/dL Normal 7.0-18.0 [facility] Comment on above: Performed By: #### C MP, TSH, HSCRPT #### [facility] [address] [place] [address] Dr. Jon Jones Urea nitrogen/Creatinine [Mass ratio] 23.4 mg/mg Normal [facility] Comment on above: Performed By: #### C MP, TSH, HSCRPT #### [facility] [address] [place] [address] Dr. Jon Jones SED RATE WESTBANNERRENon 2022 SED RATE 16 mm/hr Normal <=20 [facility] Comment on above: Performed By: #### S EDR ####[facility] [address] [place] [address]Dr. Jon Jones TSHon 11-27-2022 TSH 2.019 uIU/mL Normal 0.358-3.740 [facility] Comment on above: Performed By: #### C MP, TSH, HSCRPT #### [facility] [address] [place] [address] Dr. Jon Jones CBC AUTO DIFFon 11-02-2022 BASO # 0.0 103/ul Normal 0.0-0.1 [facility] Comment on above: Performed By: #### C BC ####[facility] [address] [place] [address]Dr. Jon Jones Basophils/100 WBC (Bld) 0.3 % Normal 0.2-2.0 [facility] Comment on above: Performed By: #### C BC ####[facility] [address] [place] [id number]. Jon Jones EO # 0.1 103/ul Normal 0.0-0.7 [facility] Comment on above: Performed By: #### C BC ####[facility] [address] [place] [address]Dr. Jon Jones Eosinophils/100 WBC (Bld) 0.8 % Critically low 0.9-7.0 [facility] Comment on above: Performed By: #### C BC ####[facility] [address] [place], [place] [address]Dr. Jon Jones Erythrocyte distribution width (RBC) [Ratio] 13.1 % Normal 11.0-15.0 [facility] Comment on above: Performed By: #### C BC ####[facility] [address] [place], [place] [address]Dr. Jon Jones Hematocrit (Bld) [Volume fraction] 42.9 % Normal 36.0-48.0 [facility] Comment on above: Performed By: #### C BC ####[facility] [address] [place], [place] [address]Dr. Jon Jones Hemoglobin (Bld) [Mass/Vol] 14.4 g/dL Normal 12.0-16.0 [facility] Comment on above: Performed By: #### C BC ####[facility] [address] [place], [place] [address]Dr. Jon Jones IG # 0.04 10e3/ul Critically high 0.00-0.03 [facility] Comment on above: Performed By: #### C BC ####[facility] [address] [place], [place] [address]Dr. Jon Jones IG % 0.4 % Normal 0.0-0.5 [facility] Comment on above: Performed By: #### C BC ####[facility] [address] [place], [place] [address]Dr. Jon Jones LYMPH # 2.5 103/ul Normal 1.2-3.8 [facility] Comment on above: Performed By: #### C BC ####[facility] [address] [place] [id number]. Vivianmalachi Jones Lymphocytes/100 WBC (Bld) 26.0 % Normal 20.5-60.0 [facility] Comment on above: Performed By: #### C BC ####[facility] [address] [place] [id number]. Jon Jones MANUAL DIFF REQ NO Normal [facility] Comment on above: Performed By: #### C BC ####[facility] [address] [place] [id number]. Jon Jones MCH (RBC) [Entitic mass] 29.2 pg Normal 26.7-34.0 [facility] Comment on above: Performed By: #### C BC ####[facility] [address] [place], [place] [address]Dr. Jon Jones MCHC (RBC) [Mass/Vol] 33.6 g/dL Normal 29.9-35.2 [facility] Comment on above: Performed By: #### C BC ####[facility] [address] [place] [address]Dr. Jon Jones MCV (RBC) [Entitic vol] 87.0 fL Normal 81.0-99.0 [facility] Comment on above: Performed By: #### C BC ####[facility] [address] [place], [place] [address]Dr. Jon Jones MONO # 0.7 103/ul Normal 0.3-0.8 [facility] Comment on above: Performed By: #### C BC ####[facility] [address] [place] [address]Dr. Jon Jones Monocytes/100 WBC (Bld) 7.4 % Normal 1.7-12.0 [facility] Comment on above: Performed By: #### C BC ####[facility] [address] [place], [place] [address]Dr. Jon Jones NEUT # 6.1 103/ul Normal 1.4-6.5 [facility] Comment on above: Performed By: #### C BC ####[facility] [address] [place] [id number]. Jon Jones Neutrophils/100 WBC (Bld) 65.1 % Normal 43.0-75.0 [facility] Comment on above: Performed By: #### C BC ####[facility] [address] [place] [id number]. Jon Jones Platelet mean volume (Bld) [Entitic vol] 11.0 fL Normal 9.5-13.5 [facility] Comment on above: Performed By: #### C BC ####[facility] [address] [place] [id number]. Jon Jones PLT 217 103/ul Normal 150-450 [facility] Comment on above: Performed By: #### C BC ####[facility] [address] [place] [id number]. Jon Jones RBC 4.93 106/ul Normal 4.20-5.40 [facility] Comment on above: Performed By: #### C BC ####[facility] [address] [place] [id number]. Jon Jones WBC 9.4 103/ul Normal 4.0-11.0 [facility] Comment on above: Performed By: #### C BC ####[facility] [address] [place] [id number]. Jon Jones CTA CHEST WO W CONon 12-15-2 022 CTA CHEST WO W CON EXAMINATION: CTA CHEST WO W CON HISTORY: CHEST PAIN, UNSPECIFIED COMPARISON: No relevant comparison available. TECHNIQUE: Axial, Coronal, and Sagittal images were created without and with IV contrast. Dose reduction techniques were achieved by using automated exposure control and/or adjustment of mA and/or kV according to patient size and/or use of iterative reconstruction technique. FINDINGS: LUNGS: No visible pulmonary disease. PLEURA: No mass, effusion, or pneumothorax. VASCULATURE: Normal postcontrast opacification of the central pulmonary arterial tree with no filling defects GAVINO: No mass or adenopathy. MEDIASTINUM: No mass or adenopathy. CARDIAC: No enlargement. Small pericardial effusion measuring up to 10 mm thick. No significant coronary atherosclerosis AORTA: No aneurysm or dissection. CHEST WALL: No mass or axillary adenopathy. BONES: Degenerative changes LIMITED ABDOMEN: Diffuse hypoattenuation consistent with hepatic steatosis OTHER: Negative. IMPRESSION: No central pulmonary thromboembolic disease Electronically authenticated by: ALLISON MARIE Date: 2022-11-02 10:23 Normal [facility] PROF CHEM 8 (BAS METB)on Anion gap [Moles/Vol] 14.3 mmol/L Normal [facility] Comment on above: Performed By: #### B MP, HSTROPN #### [facility] [address] [address] [address] Jon Jones Calcium [Mass/Vol] 9.3 mg/dL Normal 8.5-10.1 [facility] Comment on above: Performed By: #### B MP, HSTROPN #### [facility] [address] [address] [address] Jon Jones Chloride [Moles/Vol] 100 mmol/L Normal 98-107 [facility] Comment on above: Performed By: #### B MP, HSTROPN #### [facility] [address] [address] [address] Jon Jones CO2 [Moles/Vol] 28.6 mmol/L Normal 21.0-32.0 [place] Comment on above: Performed By: #### B MP, HSTROPN #### [facility] [address] [address] [address] Jon Jones Creatinine [Mass/Vol] 0.61 mg/dL Normal 0.55-1.02 [facility] Comment on above: Performed By: #### B MP, HSTROPN #### [facility] [address] [address] [address] Jon Jones EGFR-AF PALESTINIAN >60 Normal >=60 [facility] Comment on above: Performed By: #### B MP, HSTROPN #### [facility] [address] [address] [address] Jon Jones EGFR-NON AF PALESTINIAN >60 Normal >=60 [facility] Comment on above: Performed By: #### B MP, HSTROPN #### [facility] [address] [address] [address] Jon Jones Glucose [Mass/Vol] 101 mg/dL Normal 74-106 [facility] Comment on above: Performed By: #### B MP, HSTROPN #### [facility] [address] [place] [address] Dr. Jon Jones Potassium [Moles/Vol] 4.1 mmol/L Normal 3.5-5.1 [facility] Comment on above: Performed By: #### B MP, HSTROPN #### [facility] [address] [place] [address] Dr. Jon Jones Sodium [Moles/Vol] 139 mmol/L Normal 136-145 [facility] Comment on above: Performed By: #### B MP, HSTROPN #### [facility] [address] [place] [address] Dr. Jon Jones Urea nitrogen [Mass/Vol] 14.0 mg/dL Normal 7.0-18.0 [facility] Comment on above: Performed By: #### B MP, HSTROPN #### [facility] [address] [place] [address] Dr. Jon Jones Urea nitrogen/Creatinine [Mass ratio] 22.9 mg/mg Normal [facility] Comment on above: Performed By: #### B MP, HSTROPN #### [facility] [address] [place] [address] Dr. Jon Jones TROPONIN, HIGH SENSITIVITYon 11-02-2022 HSTROP 9.2 pg/mL Normal 4.0-51.3 [facility] Comment on above: Result Comment: CUT- OFF POINTS HAVE BEEN ESTABLISHED BASED ON THE FOURTH UNIVERSAL DEFINITIONS OF MYOCARDIAL INFARCTION. THE UPPER REFERENCE LIMIT (URL) OF TROPONIN, DEFINED THE 99TH PERCENTILE OF cTnI DISTRIBUTION IN A REFERENCE POPULATION, HAS BEEN CONFIRMED THE DECISION THRESHOLD FOR SD DIAGNOSIS. Performed By: #### B MP, HSTROPN #### [facility] [address] [place] [address] Dr. Jon Jones XR FOOT RT MIN 3 VIEWSon XR FOOT RT MIN 3 VIEWS EXAM: XR FOOT RT MIN 3 VIEWS HISTORY: Fall COMPARISON: None. TECHNIQUE: 3 views FINDINGS: No osseous lesion, fracture, dislocation or subluxation. Joint spaces are normal. No visualized effusion. No visualized soft tissue edema. IMPRESSION: Normal x-rays Electronically authenticated by: ALLISON OROZCO Date: 2022-08-22 20:21 Normal [facility] Covid-19 PCR ([facility])on 07-21 SARS-CoV-2 (COVID-19) RNA SANJU+probe Ql (Unsp spec) Not detected Normal NOT DETECTED [facility] Comment on above: Result Comment: When diagnostic testing is negative, the possibility of a false negative should be considered in the context of a patient's recent exposures and the presence of clinical signs and symptoms consistent with SARS-CoV-2. This test is not yet approved or cleared by the [place] FDA. When there are no FDA-approved or cleared tests available, and other criteria are met, FDA can make tests available under an emergency access mechanism called an Emergency Use Authorization (EUA). The EUA for this test is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 and lateral. Left lower leg-AP and lateral. Left ankle-AP, lateral views. COMPARISON: None available. RESULT: No fracture or malalignment of the left lower extremity from the left hip joint down through the ankle. EXAM 07/29/11: RIGHT FEMUR, KNEE, LOWER LEG AND ANKLE X-RAY SERIES HISTORY: Polytrauma, critical, upper ext injury suspected TECHNIQUE: Right femur-AP and lateral views. Right knee-AP and lateral. Right lower leg-AP and lateral. Right ankle-AP, lateral views. COMPARISON: None available. RESULT: No acute fracture or malalignment. Right knee joint negative for joint effusion. Visible joint spaces and articular surfaces are preserved. COMBINED IMPRESSION: 1. Right elbow, forearm and wrist: Comminuted intra-articular fracture of the right distal radius without significant displacement of fragments. 2. Left shoulder: No fracture or malalignment. 3. Left lower extremity: No acute fracture or malalignment from hip to ankle. 4. Right lower extremity: No acute fracture or malalignment from hip to ankle. [employer] Representative: NORMA Transcribe Date/Time: Sep 28 2020 8:12P Dictated by : GALILEO MANUEL MD This examination was interpreted and the report reviewed and electronically signed by: GALILEO MANUEL MD on Sep 28 2020 8:25PM EST [id number] N [facility] XR ANKLE 2V AP/LAT RTon 09-19 XR ANKLE 2V AP/LAT RT * * *Final Report* * * DATE OF EXAM: Sep 28 2020 8:03PM [id number] - XR ANKLE 2V AP/LAT RT / PROCEDURE REASON: Polytrauma, critical, lower ext injury suspected * * * * Physician Interpretation * * * * EXAM /12/22: RIGHT ELBOW, forearm and wrist X-RAY SERIES HISTORY: Polytrauma, critical, upper ext injury suspected TECHNIQUE: Right elbow-3 views. Right forearm-AP and lateral views. Right wrist-3 views. COMPARISON: None available. RESULT: Acute comminuted fracture involving the radiostyloid with extension into the distal radius articular surface. No significant displacement of fragments. Right elbow intact without fracture, malalignment or joint fluid. Remainder of the right forearm is intact. EXAM 4: LEFT SHOULDER X-RAY SERIES HISTORY: Shoulder pain, traumatic TECHNIQUE: AP, Grashey, lateral scapular Y-view COMPARISON: None available. RESULT: No fracture, dislocation or destructive changes. Joint spaces and articular surfaces are preserved. EXAM : LEFT FEMUR X-RAY SERIES HISTORY: Polytrauma, critical, lower extremity injury TECHNIQUE: Left femur-AP and lateral views. Left knee-AP and lateral. Left lower leg-AP and lateral. Left ankle-AP, lateral views. COMPARISON: None available. RESULT: No fracture or malalignment of the left lower extremity from the left hip joint down through the ankle. EXAM 07/29/11: RIGHT FEMUR, KNEE, LOWER LEG AND ANKLE X-RAY SERIES HISTORY: Polytrauma, critical, upper ext injury suspected TECHNIQUE: Right femur-AP and lateral views. Right knee-AP and lateral. Right lower leg-AP and lateral. Right ankle-AP, lateral views. COMPARISON: None available. RESULT: No acute fracture or malalignment. Right knee joint negative for joint effusion. Visible joint spaces and articular surfaces are preserved. COMBINED IMPRESSION: 1. Right elbow, forearm and wrist: Comminuted intra-articular fracture of the right distal radius without significant displacement of fragments. 2. Left shoulder: No fracture or malalignment. 3. Left lower extremity: No acute fracture or malalignment from hip to ankle. 4. Right lower extremity: No acute fracture or malalignment from hip to ankle. [employer] Bank[employer] Representative: NORMA Transcribe Date/Time: Sep 28 2020 8:12P Dictated by : GALILEO MANUEL MD This examination was interpreted and the report reviewed and electronically signed by: GALILEO MANUEL MD on Sep 28 2020 8:25PM EST [id number] N [facility] XR ELBOW 2V AP/LAT RTon 11-1 XR ELBOW 2V AP/LAT RT * * *Final Report* * * DATE OF EXAM: Sep 28 2020 8:03PM [id number] - XR ELBOW 2V AP/LAT RT / PROCEDURE REASON: Polytrauma, critical, upper ext injury suspected * * * * Physician Interpretation * * * * EXAM : RIGHT ELBOW, forearm and wrist X-RAY SERIES HISTORY: Polytrauma, critical, upper ext injury suspected TECHNIQUE: Right elbow-3 views. Right forearm-AP and lateral views. Right wrist-3 views. COMPARISON: None available. RESULT: Acute comminuted fracture involving the radiostyloid with extension into the distal radius articular surface. No significant displacement of fragments. Right elbow intact without fracture, malalignment or joint fluid. Remainder of the right forearm is intact. EXAM 4: LEFT SHOULDER X-RAY SERIES HISTORY: Shoulder pain, traumatic TECHNIQUE: AP, Grashey, lateral scapular Y-view COMPARISON: None available. RESULT: No fracture, dislocation or destructive changes. Joint spaces and articular surfaces are preserved. EXAM 5/6/7/8: LEFT FEMUR X-RAY SERIES HISTORY: Polytrauma, critical, lower extremity injury TECHNIQUE: Left femur-AP and lateral views. Left knee-AP and lateral. Left lower leg-AP and lateral. Left ankle-AP, lateral views. COMPARISON: None available. RESULT: No fracture or malalignment of the left lower extremity from the left hip joint down through the ankle. EXAM 07/29/11: RIGHT FEMUR, KNEE, LOWER LEG AND ANKLE X-RAY SERIES HISTORY: Polytrauma, critical, upper ext injury suspected TECHNIQUE: Right femur-AP and lateral views. Right knee-AP and lateral. Right lower leg-AP and lateral. Right ankle-AP, lateral views. COMPARISON: None available. RESULT: No acute fracture or malalignment. Right knee joint negative for joint effusion. Visible joint spaces and articular surfaces are preserved. COMBINED IMPRESSION: 1. Right elbow, forearm and wrist: Comminuted intra-articular fracture of the right distal radius without significant displacement of fragments. 2. Left shoulder: No fracture or malalignment. 3. Left lower extremity: No acute fracture or malalignment from hip to ankle. 4. Right lower extremity: No acute fracture or malalignment from hip to ankle. [employer] Bank[employer] Representative: PSCB Transcribe Date/Time: Sep 28 2020 8:12P Dictated by : GALILEO MANUEL MD This examination was interpreted and the report reviewed and electronically signed by: GALILEO MANUEL MD on Sep 28 2020 8:25PM EST [id number] N [facility] XR FEMUR 2V AP/LAT LTon 09-19 XR FEMUR 2V AP/LAT LT * * *Final Report* * * DATE OF EXAM: Sep 28 2020 8:03PM [id number] - XR FEMUR 2V AP/LAT LT / PROCEDURE REASON: Polytrauma, critical, lower ext injury suspected * * * * Physician Interpretation * * * * EXAM : RIGHT ELBOW, forearm and wrist X-RAY SERIES HISTORY: Polytrauma, critical, upper ext injury suspected TECHNIQUE: Right elbow-3 views. Right forearm-AP and lateral views. Right wrist-3 views. COMPARISON: None available. RESULT: Acute comminuted fracture involving the radiostyloid with extension into the distal radius articular surface. No significant displacement of fragments. Right elbow intact without fracture, malalignment or joint fluid. Remainder of the right forearm is intact. EXAM 4: LEFT SHOULDER X-RAY SERIES HISTORY: Shoulder pain, traumatic TECHNIQUE: AP, Grashey, lateral scapular Y-view COMPARISON: None available. RESULT: No fracture, dislocation or destructive changes. Joint spaces and articular surfaces are preserved. EXAM : LEFT FEMUR X-RAY SERIES HISTORY: Polytrauma, critical, lower extremity injury TECHNIQUE: Left femur-AP and lateral views. Left knee-AP and lateral. Left lower leg-AP and lateral. Left ankle-AP, lateral views. COMPARISON: None available. RESULT: No fracture or malalignment of the left lower extremity from the left hip joint down through the ankle. EXAM 07/29/11: RIGHT FEMUR, KNEE, LOWER LEG AND ANKLE X-RAY SERIES HISTORY: Polytrauma, critical, upper ext injury suspected TECHNIQUE: Right femur-AP and lateral views. Right knee-AP and lateral. Right lower leg-AP and lateral. Right ankle-AP, lateral views. COMPARISON: None available. RESULT: No acute fracture or malalignment. Right knee joint negative for joint effusion. Visible joint spaces and articular surfaces are preserved. COMBINED IMPRESSION: 1. Right elbow, forearm and wrist: Comminuted intra-articular fracture of the right distal radius without significant displacement of fragments. 2. Left shoulder: No fracture or malalignment. 3. Left lower extremity: No acute fracture or malalignment from hip to ankle. 4. Right lower extremity: No acute fracture or malalignment from hip to ankle. [employer] Representative: NORMA Transcribe Date/Time: Sep 28 2020 8:12P Dictated by : GALILEO MANUEL MD This examination was interpreted and the report reviewed and electronically signed by: GALILEO MANUEL MD on Sep 28 2020 8:25PM EST [id number] N [facility] XR FEMUR 2V AP/LAT RTon 09-19 XR FEMUR 2V AP/LAT RT * * *Final Report* * * DATE OF EXAM: Sep 28 2020 8:03PM [id number] - XR FEMUR 2V AP/LAT RT / PROCEDURE REASON: Polytrauma, critical, lower ext injury suspected * * * * Physician Interpretation * * * * EXAM : RIGHT ELBOW, forearm and wrist X-RAY SERIES HISTORY: Polytrauma, critical, upper ext injury suspected TECHNIQUE: Right elbow-3 views. Right forearm-AP and lateral views. Right wrist-3 views. COMPARISON: None available. RESULT: Acute comminuted fracture involving the radiostyloid with extension into the distal radius articular surface. No significant displacement of fragments. Right elbow intact without fracture, malalignment or joint fluid. Remainder of the right forearm is intact. EXAM 4: LEFT SHOULDER X-RAY SERIES HISTORY: Shoulder pain, traumatic TECHNIQUE: AP, Grashey, lateral scapular Y-view COMPARISON: None available. RESULT: No fracture, dislocation or destructive changes. Joint spaces and articular surfaces are preserved. EXAM : LEFT FEMUR X-RAY SERIES HISTORY: Polytrauma, critical, lower extremity injury TECHNIQUE: Left femur-AP and lateral views. Left knee-AP and lateral. Left lower leg-AP and lateral. Left ankle-AP, lateral views. COMPARISON: None available. RESULT: No fracture or malalignment of the left lower extremity from the left hip joint down through the ankle. EXAM 07/29/11: RIGHT FEMUR, KNEE, LOWER LEG AND ANKLE X-RAY SERIES HISTORY: Polytrauma, critical, upper ext injury suspected TECHNIQUE: Right femur-AP and lateral views. Right knee-AP and lateral. Right lower leg-AP and lateral. Right ankle-AP, lateral views. COMPARISON: None available. RESULT: No acute fracture or malalignment. Right knee joint negative for joint effusion. Visible joint spaces and articular surfaces are preserved. COMBINED IMPRESSION: 1. Right elbow, forearm and wrist: Comminuted intra-articular fracture of the right distal radius without significant displacement of fragments. 2. Left shoulder: No fracture or malalignment. 3. Left lower extremity: No acute fracture or malalignment from hip to ankle. 4. Right lower extremity: No acute fracture or malalignment from hip to ankle. [employer] Representative: PSCBri Transcribe Date/Time: Sep 28 2020 8:12P Dictated by : GALILEO MANUEL MD This examination was interpreted and the report reviewed and electronically signed by: GALILEO MANUEL MD on Sep 28 2020 8:25PM EST [id number] N Normal [facility] XR FOREARM 2V AP/LAT RTon XR FOREARM 2V AP/LAT RT * * *Final Repor t* * * DATE OF EXAM: Sep 28 2020 8:03PM [id number] - XR FOREARM 2V AP/LAT RT / PROCEDURE REASON: Polytrauma, critical, upper ext injury suspected * * * * Physician Interpretation * * * * EXAM : RIGHT ELBOW, forearm and wrist X-RAY SERIES HISTORY: Polytrauma, critical, upper ext injury suspected TECHNIQUE: Right elbow-3 views. Right forearm-AP and lateral views. Right wrist-3 views. COMPARISON: None available. RESULT: Acute comminuted fracture involving the radiostyloid with extension into the distal radius articular surface. No significant displacement of fragments. Right elbow intact without fracture, malalignment or joint fluid. Remainder of the right forearm is intact. EXAM 4: LEFT SHOULDER X-RAY SERIES HISTORY: Shoulder pain, traumatic TECHNIQUE: AP, Grashey, lateral scapular Y-view COMPARISON: None available. RESULT: No fracture, dislocation or destructive changes. Joint spaces and articular surfaces are preserved. EXAM : LEFT FEMUR X-RAY SERIES HISTORY: Polytrauma, critical, lower extremity injury TECHNIQUE: Left femur-AP and lateral views. Left knee-AP and lateral. Left lower leg-AP and lateral. Left ankle-AP, lateral views. COMPARISON: None available. RESULT: No fracture or malalignment of the left lower extremity from the left hip joint down through the ankle. EXAM 07/29/11: RIGHT FEMUR, KNEE, LOWER LEG AND ANKLE X-RAY SERIES HISTORY: Polytrauma, critical, upper ext injury suspected TECHNIQUE: Right femur-AP and lateral views. Right knee-AP and lateral. Right lower leg-AP and lateral. Right ankle-AP, lateral views. COMPARISON: None available. RESULT: No acute fracture or malalignment. Right knee joint negative for joint effusion. Visible joint spaces and articular surfaces are preserved. COMBINED IMPRESSION: 1. Right elbow, forearm and wrist: Comminuted intra-articular fracture of the right distal radius without significant displacement of fragments. 2. Left shoulder: No fracture or malalignment. 3. Left lower extremity: No acute fracture or malalignment from hip to ankle. 4. Right lower extremity: No acute fracture or malalignment from hip to ankle. [employer] Representative: NORMA Transcribe Date/Time: Sep 28 2020 8:12P Dictated by : GALILEO MANUEL MD This examination was interpreted and the report reviewed and electronically signed by: GALILEO MANUEL MD on Sep 28 2020 8:25PM EST [id number] N Normal [facility] XR KNEE 2V AP/LAT LTon 09-28 XR KNEE 2V AP/LAT LT * * *Final Report* * * DATE OF EXAM: Sep 28 2020 8:03PM [id number] - XR KNEE 2V AP/LAT LT / PROCEDURE REASON: Polytrauma, critical, lower ext injury suspected * * * * Physician Interpretation * * * * EXAM : RIGHT ELBOW, forearm and wrist X-RAY SERIES HISTORY: Polytrauma, critical, upper ext injury suspected TECHNIQUE: Right elbow-3 views. Right forearm-AP and lateral views. Right wrist-3 views. COMPARISON: None available. RESULT: Acute comminuted fracture involving the radiostyloid with extension into the distal radius articular surface. No significant displacement of fragments. Right elbow intact without fracture, malalignment or joint fluid. Remainder of the right forearm is intact. EXAM 4: LEFT SHOULDER X-RAY SERIES HISTORY: Shoulder pain, traumatic TECHNIQUE: AP, Grashey, lateral scapular Y-view COMPARISON: None available. RESULT: No fracture, dislocation or destructive changes. Joint spaces and articular surfaces are preserved. EXAM : LEFT FEMUR X-RAY SERIES HISTORY: Polytrauma, critical, lower extremity injury TECHNIQUE: Left femur-AP and lateral views. Left knee-AP and lateral. Left lower leg-AP and lateral. Left ankle-AP, lateral views. COMPARISON: None available. RESULT: No fracture or malalignment of the left lower extremity from the left hip joint down through the ankle. EXAM 07/29/11: RIGHT FEMUR, KNEE, LOWER LEG AND ANKLE X-RAY SERIES HISTORY: Polytrauma, critical, upper ext injury suspected TECHNIQUE: Right femur-AP and lateral views. Right knee-AP and lateral. Right lower leg-AP and lateral. Right ankle-AP, lateral views. COMPARISON: None available. RESULT: No acute fracture or malalignment. Right knee joint negative for joint effusion. Visible joint spaces and articular surfaces are preserved. COMBINED IMPRESSION: 1. Right elbow, forearm and wrist: Comminuted intra-articular fracture of the right distal radius without significant displacement of fragments. 2. Left shoulder: No fracture or malalignment. 3. Left lower extremity: No acute fracture or malalignment from hip to ankle. 4. Right lower extremity: No acute fracture or malalignment from hip to ankle. [employer] Representative: NORMA Transcribe Date/Time: Sep 28 2020 8:12P Dictated by : GALILEO MANUEL MD This examination was interpreted and the report reviewed and electronically signed by: GALILEO MANUEL MD on Sep 28 2020 8:25PM EST [id number] N Normal [facility] XR KNEE 2V AP/LAT RTon 09-28 XR KNEE 2V AP/LAT RT * * *Final Report* * * DATE OF EXAM: Sep 28 2020 8:03PM FVX 5207 - XR KNEE 2V AP/LAT RT / PROCEDURE REASON: Polytrauma, critical, lower ext injury suspected * * * * Physician Interpretation * * * * EXAM : RIGHT ELBOW, forearm and wrist X-RAY SERIES HISTORY: Polytrauma, critical, upper ext injury suspected TECHNIQUE: Right elbow-3 views. Right forearm-AP and lateral views. Right wrist-3 views. COMPARISON: None available. RESULT: Acute comminuted fracture involving the radiostyloid with extension into the distal radius articular surface. No significant displacement of fragments. Right elbow intact without fracture, malalignment or joint fluid. Remainder of the right forearm is intact. EXAM 4: LEFT SHOULDER X-RAY SERIES HISTORY: Shoulder pain, traumatic TECHNIQUE: AP, Grashey, lateral scapular Y-view COMPARISON: None available. RESULT: No fracture, dislocation or destructive changes. Joint spaces and articular surfaces are preserved. EXAM : LEFT FEMUR X-RAY SERIES HISTORY: Polytrauma, critical, lower extremity injury TECHNIQUE: Left femur-AP and lateral views. Left knee-AP and lateral. Left lower leg-AP and lateral. Left ankle-AP, lateral views. COMPARISON: None available. RESULT: No fracture or malalignment of the left lower extremity from the left hip joint down through the ankle. EXAM 07/29/11: RIGHT FEMUR, KNEE, LOWER LEG AND ANKLE X-RAY SERIES HISTORY: Polytrauma, critical, upper ext injury suspected TECHNIQUE: Right femur-AP and lateral views. Right knee-AP and lateral. Right lower leg-AP and lateral. Right ankle-AP, lateral views. COMPARISON: None available. RESULT: No acute fracture or malalignment. Right knee joint negative for joint effusion. Visible joint spaces and articular surfaces are preserved. COMBINED IMPRESSION: 1. Right elbow, forearm and wrist: Comminuted intra-articular fracture of the right distal radius without significant displacement of fragments. 2. Left shoulder: No fracture or malalignment. 3. Left lower extremity: No acute fracture or malalignment from hip to ankle. 4. Right lower extremity: No acute fracture or malalignment from hip to ankle. [employer] Representative: PSCB Transcribe Date/Time: Sep 28 2020 8:12P Dictated by : GALILEO MANUEL MD This examination was interpreted and the report reviewed and electronically signed by: GALILEO MANUEL MD on Sep 28 2020 8:25PM EST [id number] N [facility] XR SHLDR >/=3V AP/BONNIE AP/OTH R LTon 09-28-2020 XR SHLDR >/=3V AP/BONNIE AP/OTHR LT * * *Final Report* * * DATE OF EXAM: Sep 28 2020 8:03PM FVX 5252 - XR SHLDR >/=3V AP/BONNIE AP/OTHR LT / PROCEDURE REASON: Shoulder pain, traumatic * * * * Physician Interpretation * * * * EXAM : RIGHT ELBOW, forearm and wrist X-RAY SERIES HISTORY: Polytrauma, critical, upper ext injury suspected TECHNIQUE: Right elbow-3 views. Right forearm-AP and lateral views. Right wrist-3 views. COMPARISON: None available. RESULT: Acute comminuted fracture involving the radiostyloid with extension into the distal radius articular surface. No significant displacement of fragments. Right elbow intact without fracture, malalignment or joint fluid. Remainder of the right forearm is intact. EXAM 4: LEFT SHOULDER X-RAY SERIES HISTORY: Shoulder pain, traumatic TECHNIQUE: AP, Grashey, lateral scapular Y-view COMPARISON: None available. RESULT: No fracture, dislocation or destructive changes. Joint spaces and articular surfaces are preserved. EXAM : LEFT FEMUR X-RAY SERIES HISTORY: Polytrauma, critical, lower extremity injury TECHNIQUE: Left femur-AP and lateral views. Left knee-AP and lateral. Left lower leg-AP and lateral. Left ankle-AP, lateral views. COMPARISON: None available. RESULT: No fracture or malalignment of the left lower extremity from the left hip joint down through the ankle. EXAM 07/29/11: RIGHT FEMUR, KNEE, LOWER LEG AND ANKLE X-RAY SERIES HISTORY: Polytrauma, critical, upper ext injury suspected TECHNIQUE: Right femur-AP and lateral views. Right knee-AP and lateral. Right lower leg-AP and lateral. Right ankle-AP, lateral views. COMPARISON: None available. RESULT: No acute fracture or malalignment. Right knee joint negative for joint effusion. Visible joint spaces and articular surfaces are preserved. COMBINED IMPRESSION: 1. Right elbow, forearm and wrist: Comminuted intra-articular fracture of the right distal radius without significant displacement of fragments. 2. Left shoulder: No fracture or malalignment. 3. Left lower extremity: No acute fracture or malalignment from hip to ankle. 4. Right lower extremity: No acute fracture or malalignment from hip to ankle. [employer] Representative: NORMA Transcribe Date/Time: Sep 28 2020 8:12P Dictated by : GALILEO MANUEL MD This examination was interpreted and the report reviewed and electronically signed by: GALILEO MANUEL MD on Sep 28 2020 8:25PM EST [id number] N [facility] XR TIBIA FIBULA 2V AP/LAT LT on 09-28-2020 XR TIBIA FIBULA 2V AP/LAT LT * * *Final Report* * * DATE OF EXAM: Sep 28 2020 8:03PM FVX [id number] - XR TIBIA FIBULA 2V AP/LAT LT / PROCEDURE REASON: Polytrauma, critical, lower ext injury suspected * * * * Physician Interpretation * * * * EXAM : RIGHT ELBOW, forearm and wrist X-RAY SERIES HISTORY: Polytrauma, critical, upper ext injury suspected TECHNIQUE: Right elbow-3 views. Right forearm-AP and lateral views. Right wrist-3 views. COMPARISON: None available. RESULT: Acute comminuted fracture involving the radiostyloid with extension into the distal radius articular surface. No significant displacement of fragments. Right elbow intact without fracture, malalignment or joint fluid. Remainder of the right forearm is intact. EXAM 4: LEFT SHOULDER X-RAY SERIES HISTORY: Shoulder pain, traumatic TECHNIQUE: AP, Grashey, lateral scapular Y-view COMPARISON: None available. RESULT: No fracture, dislocation or destructive changes. Joint spaces and articular surfaces are preserved. EXAM : LEFT FEMUR X-RAY SERIES HISTORY: Polytrauma, critical, lower extremity injury TECHNIQUE: Left femur-AP and lateral views. Left knee-AP and lateral. Left lower leg-AP and lateral. Left ankle-AP, lateral views. COMPARISON: None available. RESULT: No fracture or malalignment of the left lower extremity from the left hip joint down through the ankle. EXAM 07/29/09/30: RIGHT FEMUR, KNEE, LOWER LEG AND ANKLE X-RAY SERIES HISTORY: Polytrauma, critical, upper ext injury suspected TECHNIQUE: Right femur-AP and lateral views. Right knee-AP and lateral. Right lower leg-AP and lateral. Right ankle-AP, lateral views. COMPARISON: None available. RESULT: No acute fracture or malalignment. Right knee joint negative for joint effusion. Visible joint spaces and articular surfaces are preserved. COMBINED IMPRESSION: 1. Right elbow, forearm and wrist: Comminuted intra-articular fracture of the right distal radius without significant displacement of fragments. 2. Left shoulder: No fracture or malalignment. 3. Left lower extremity: No acute fracture or malalignment from hip to ankle. 4. Right lower extremity: No acute fracture or malalignment from hip to ankle. [employer] Representative: NORMA Transcribe Date/Time: Sep 28 2020 8:12P Dictated by : GALILEO MANUEL MD This examination was interpreted and the report reviewed and electronically signed by: GALILEO MANUEL MD on Sep 28 2020 8:25PM EST [id number] N [facility] XR TIBIA FIBULA 2V AP/LAT RT on 09-28-2020 XR TIBIA FIBULA 2V AP/LAT RT * * *Final Report* * * DATE OF EXAM: Sep 28 2020 8:03PM FVX [id number] - XR TIBIA FIBULA 2V AP/LAT RT / PROCEDURE REASON: Polytrauma, critical, lower ext injury suspected * * * * Physician Interpretation * * * * EXAM : RIGHT ELBOW, forearm and wrist X-RAY SERIES HISTORY: Polytrauma, critical, upper ext injury suspected TECHNIQUE: Right elbow-3 views. Right forearm-AP and lateral views. Right wrist-3 views. COMPARISON: None available. RESULT: Acute comminuted fracture involving the radiostyloid with extension into the distal radius articular surface. No significant displacement of fragments. Right elbow intact without fracture, malalignment or joint fluid. Remainder of the right forearm is intact. EXAM 4: LEFT SHOULDER X-RAY SERIES HISTORY: Shoulder pain, traumatic TECHNIQUE: AP, Grashey, lateral scapular Y-view COMPARISON: None available. RESULT: No fracture, dislocation or destructive changes. Joint spaces and articular surfaces are preserved. EXAM 03/24/05/26: LEFT FEMUR X-RAY SERIES HISTORY: Polytrauma, critical, lower extremity injury TECHNIQUE: Left femur-AP and lateral views. Left knee-AP and lateral. Left lower leg-AP and lateral. Left ankle-AP, lateral views. COMPARISON: None available. RESULT: No fracture or malalignment of the left lower extremity from the left hip joint down through the ankle. EXAM 07/29/11: RIGHT FEMUR, KNEE, LOWER LEG AND ANKLE X-RAY SERIES HISTORY: Polytrauma, critical, upper ext injury suspected TECHNIQUE: Right femur-AP and lateral views. Right knee-AP and lateral. Right lower leg-AP and lateral. Right ankle-AP, lateral views. COMPARISON: None available. RESULT: No acute fracture or malalignment. Right knee joint negative for joint effusion. Visible joint spaces and articular surfaces are preserved. COMBINED IMPRESSION: 1. Right elbow, forearm and wrist: Comminuted intra-articular fracture of the right distal radius without significant displacement of fragments. 2. Left shoulder: No fracture or malalignment. 3. Left lower extremity: No acute fracture or malalignment from hip to ankle. 4. Right lower extremity: No acute fracture or malalignment from hip to ankle. [employer] Representative: PSCB Transcribe Date/Time: Sep 28 2020 8:12P Dictated by : GALILEO MANUEL MD This examination was interpreted and the report reviewed and electronically signed by: GALILEO MANUEL MD on Sep 28 2020 8:25PM EST [id number] N Normal [facility] XR WRIST 3V PA/LAT/OBL RTon 09-28-2020 XR WRIST 3V PA/LAT/OBL RT * * *Final Report* * * DATE OF EXAM: Sep 28 2020 8:03PM FVX [id number] - XR WRIST 3V PA/LAT/OBL RT / PROCEDURE REASON: Polytrauma, critical, upper ext injury suspected * * * * Physician Interpretation * * * * EXAM : RIGHT ELBOW, forearm and wrist X-RAY SERIES HISTORY: Polytrauma, critical, upper ext injury suspected TECHNIQUE: Right elbow-3 views. Right forearm-AP and lateral views. Right wrist-3 views. COMPARISON: None available. RESULT: Acute comminuted fracture involving the radiostyloid with extension into the distal radius articular surface. No significant displacement of fragments. Right elbow intact without fracture, malalignment or joint fluid. Remainder of the right forearm is intact. EXAM 4: LEFT SHOULDER X-RAY SERIES HISTORY: Shoulder pain, traumatic TECHNIQUE: AP, Grashey, lateral scapular Y-view COMPARISON: None available. RESULT: No fracture, dislocation or destructive changes. Joint spaces and articular surfaces are preserved. EXAM : LEFT FEMUR X-RAY SERIES HISTORY: Polytrauma, critical, lower extremity injury TECHNIQUE: Left femur-AP and lateral views. Left knee-AP and lateral. Left lower leg-AP and lateral. Left ankle-AP, lateral views. COMPARISON: None available. RESULT: No fracture or malalignment of the left lower extremity from the left hip joint down through the ankle. EXAM 07/29/11: RIGHT FEMUR, KNEE, LOWER LEG AND ANKLE X-RAY SERIES HISTORY: Polytrauma, critical, upper ext injury suspected TECHNIQUE: Right femur-AP and lateral views. Right knee-AP and lateral. Right lower leg-AP and lateral. Right ankle-AP, lateral views. COMPARISON: None available. RESULT: No acute fracture or malalignment. Right knee joint negative for joint effusion. Visible joint spaces and articular surfaces are preserved. COMBINED IMPRESSION: 1. Right elbow, forearm and wrist: Comminuted intra-articular fracture of the right distal radius without significant displacement of fragments. 2. Left shoulder: No fracture or malalignment. 3. Left lower extremity: No acute fracture or malalignment from hip to ankle. 4. Right lower extremity: No acute fracture or malalignment from hip to ankle. [employer] Representative: NORMA Transcribe Date/Time: Sep 28 2020 8:12P Dictated by : GALILEO MANUEL MD This examination was interpreted and the report reviewed and electronically signed by: GALILEO MANUEL MD on Sep 28 2020 8:25PM EST [id number] Normal [facility] Vital Signs Date Time Vital Sign Value Performing Clinician Facility 02-05-2024 10:0400 Body height 157.48 cm [facility] 02-05-2024 10:0400 Body mass index (BMI) [Ratio] 41.7 kg/m2 [facility] 02-05-2024 10:0400 Body weight 103.41 kg [facility] 02-05-2024 10:-0400 Diastolic blood pressure 82 mm[Hg] [facility] 02-05-2024 10:-0400 Heart rate 91 /min [facility] 02-05-2024 10:-0400 Systolic blood pressure 132 mm[Hg] [facility] 10-19-2023 08:15-0500 Diastolic blood pressure 67 mm[Hg] DO Gui Alvarez III Work Phone: [facility] 10-19-2023 08:15-0500 Heart rate 77 /min DO Gui Alvarez III Work Phone: [facility] 10-19-2023 08:15-0500 Respiratory rate 16 /min DO Gui Alvarez III Work Phone: [facility] 10-19-2023 08:15-0500 SaO2% (BldA) [Mass fraction] 100 % DO Gui Alvarez III Work Phone: [facility] 10-19-2023 08:15-0500 Systolic blood pressure 110 mm[Hg] DO Gui Alvarez III Work Phone: [facility] 10-19-2023 07:45-0500 Inhaled oxygen flow rate 6 L/min DO Gui Alvarez III Work Phone: [facility] 10-19-2023 07:15-0500 Body mass index (BMI) [Ratio] 42.4 kg/m2 DO Gui Alvarez III Work Phone: [facility] 10-19-2023 07:04-0500 Body height 157.48 cm DO Gui Alvarez III Work Phone: [facility] 10-19-2023 07:04-0500 Body weight 105.23 kg DO Gui Alvarez III Work Phone: [facility] 10-19-2023 06:03-0500 Body temperature 98.3 [degF] DO Gui Alvarez III Work Phone: [facility] 10-03-2023 11:00-0500 Body height 157.48 cm Jun Peng Other [facility] [employer] Other 10-03-2023 11:00-0500 Body mass index (BMI) [Ratio] 41.88 kg/m2 Jun Peng Other [employer] [facility] [employer] Other 10-03-2023 11:00-0500 Body weight 103.87 kg Jun Peng Other [employer] Other 10-03-2023 11:00-0500 Diastolic blood pressure 68 mm[Hg] Jun Peng Other [employer] Other 10-03-2023 11:00-0500 Systolic blood pressure 125 mm[Hg] Jun Peng Other [employer] Other 09-21-2023 11:23-0400 Diastolic blood pressure 56 mm[Hg] DO Gui Alvarez III Work Phone: [facility] 09-21-2023 11:23-0400 Heart rate 69 /min DO Gui Alvarez III Work Phone: [facility] 09-21-2023 11:23-0400 Respiratory rate 16 /min DO Gui Alvarez III Work Phone: [facility] 09-21-2023 11:23-0400 SaO2% (BldA) [Mass fraction] 93 % DO Gui Alvarez III Work Phone: [facility] 09-21-2023 11:23-0400 Systolic blood pressure 105 mm[Hg] DO Gui Alvarez III Work Phone: [facility] 09-21-2023 09:43-0400 Body height 157.48 cm DO Gui Alvarez III Work Phone: [facility] 09-21-2023 09:43-0400 Body mass index (BMI) [Ratio] 42.7 kg/m2 DO Gui Alvarez III Work Phone: [facility] 09-21-2023 09:43-0400 Body weight 106.14 kg DO Gui Alvarez III Work Phone: [facility] 09-21-2023 08:28-0400 Body temperature 98 [degF] DO Gui Alvarez III Work Phone: [facility] 09-04-2023 11:00-0400 Body height 157.48 cm Jun Peng Other [employer] Other 09-04-2023 11:00-0400 Body mass index (BMI) [Ratio] 42.54 kg/m2 Jun Peng Other [employer] Other 09-04-2023 11:00-0400 Body weight 105.51 kg Jun Peng Other [employer] Other 09-04-2023 11:00-0400 Diastolic blood pressure 68 mm[Hg] Jun Peng Other [employer] Other 09-04-2023 11:00-0400 Systolic blood pressure 120 mm[Hg] Jun Peng Other [facility] [employer] Other 10-06-2022 11:48-0500 Diastolic blood pressure 88 mm[Hg] Alfredo Wen [facility] 10-06-2022 11:48-0500 Heart rate 100 /min Alfredo Wen [facility] 10-06-2022 11:48-0500 Respiratory rate 18 /min Alfredo Wen [facility] 10-06-2022 11:48-0500 SaO2% (BldA) [Mass fraction] 99 % Alfredo Wen [facility] 10-06-2022 11:48-0500 Systolic blood pressure 138 mm[Hg] Alfredo Wen [facility] 09-26-2022 11:39-0500 Blood Pressure Location Alfredo Wen [facility] 09-26-2022 11:39-0500 Diastolic blood pressure 80 mm[Hg] Alfredo Wen [facility] 09-26-2022 11:39-0500 Heart rate 96 /min Alfredo Wen [facility] 09-26-2022 11:39-0500 Respiratory rate 18 /min Alfredo Wen [facility] 09-26-2022 11:39-0500 SaO2% (BldA) [Mass fraction] 100 % Alfredo Wen [facility] 09-26-2022 11:39-0500 Systolic blood pressure 139 mm[Hg] Alfredo Wen [facility] 07-31-2022 22:50-0400 Diastolic blood pressure 78 mm[Hg] [address] 07-31-2022 22:50-0400 Heart rate 72 /[facility]-31-[facility]22 22:50-0400 Respiratory rate 13 /min [facility] 07-31-2022 22:50-0400 SaO2% (BldA) [Mass fraction] 97 % [facility] Comment on above: RA 07-31-2022 22:50-0400 Systolic blood pressure 135 mm[Hg] [facility] 07-07-2022 01:00-0400 Body temperature 98.6 [degF] Kaylinn Dokken [facility] 07-07-2022 01:00-0400 Diastolic blood pressure 63 mm[Hg] Kaylinn Dokken [facility] 07-07-2022 01:00-0400 Heart rate 70 /min Kaylinn Dokken [facility] 07-07-2022 01:00-0400 Mean blood pressure 75 mm[Hg] Kaylinn Dokken [facility] 07-07-2022 01:00-0400 Respiratory rate 18 /min Kaylinn Dokken [facility] 07-07-2022 01:00-0400 SaO2% (BldA) [Mass fraction] 100 % Kaylinn Dokken [facility] 07-07-2022 01:00-0400 Systolic blood pressure 98 mm[Hg] Kaylinn Dokken [facility] 07-07-2022 00:00-0400 Diastolic blood pressure 60 mm[Hg] Kaylinn Dokken [facility] 07-07-2022 00:00-0400 Heart rate 72 /min Kaylinn Dokken [facility] 07-07-2022 00:00-0400 Mean blood pressure 77 mm[Hg] Kaylinn Dokken [facility] 07-07-2022 00:00-0400 Respiratory rate 17 /min Kaylinn Dokken [facility] 07-07-2022 00:00-0400 SaO2% (BldA) [Mass fraction] 96 % Kaylinn Dokken [facility] 07-07-2022 00:00-0400 Systolic blood pressure 110 mm[Hg] Kaylinn Dokken [facility] 07-06-2022 23:00-0400 Diastolic blood pressure 118 mm[Hg] Kaylinn Dokken [facility] 07-06-2022 23:00-0400 Heart rate 93 /min Kaylinn Dokken [facility] 07-06-2022 23:00-0400 Mean blood pressure 126 mm[Hg] Kaylinn Dokken [facility] 07-06-2022 23:00-0400 SaO2% (BldA) [Mass fraction] 97 % Kaylinn Dokken [facility] 07-06-2022 23:00-0400 Systolic blood pressure 143 mm[Hg] Kaylinn Dokken [facility] 07-06-2022 22:47-0400 Heart rate 75 /min Kaylinn Dokken [facility] 06-12-2022 15:52-0400 Blood Pressure Location Alfredo Wen [facility] 06-12-2022 15:52-0400 Diastolic blood pressure 80 mm[Hg] Alfredo Wen [facility] 06-12-2022 15:52-0400 Heart rate 74 /min Alfredo Wen [facility] 06-12-2022 15:52-0400 Respiratory rate 18 /min Alfredo Wen [facility] 06-12-2022 15:52-0400 SaO2% (BldA) [Mass fraction] 100 % Alfredo Wen [facility] 06-12-2022 15:52-0400 Systolic blood pressure 140 mm[Hg] Alfredo Wen [facility] 05-12-2022 15:51-0400 Blood Pressure Location Alfredo Wen [facility] 05-12-2022 15:51-0400 Diastolic blood pressure 81 mm[Hg] Alfredo Wen [facility] 05-12-2022 15:51-0400 Heart rate 85 /min Alfredo Wen [facility] 05-12-2022 15:51-0400 Respiratory rate 18 /min Alfredo Wen [facility] 05-12-2022 15:51-0400 SaO2% (BldA) [Mass fraction] 98 % Alfredo Wen [facility] 05-12-2022 15:51-0400 Systolic blood pressure 123 mm[Hg] Alfredo Wen [facility] 04-25-2022 13:48-0400 Diastolic blood pressure 72 mm[Hg] Favio Doran [facility] 04-25-2022 13:48-0400 Heart rate 85 /min Favio Doran [facility] 04-25-2022 13:48-0400 Mean blood pressure 85 mm[Hg] Favio Doran [facility] 04-25-2022 13:48-0400 Respiratory rate 12 /min Favio Andreea [facility] 04-25-2022 13:48-0400 SaO2% (BldA) [Mass fraction] 97 % Favio Andreea [facility] 04-25-2022 13:48-0400 Systolic blood pressure 111 mm[Hg] Favio Andreea [facility] 04-25-2022 13:27-0400 Heart rate 70 /min Favio Andreea [facility] 04-25-2022 13:27-0400 Respiratory rate 12 /min Favio Andreea [facility] 04-25-2022 13:27-0400 SaO2% (BldA) [Mass fraction] 98 % Favio Andreea [facility] 04-25-2022 12:16-0400 Diastolic blood pressure 86 mm[Hg] Favio Andreea [facility] 04-25-2022 12:16-0400 Heart rate 72 /min Favio Andreea [facility] 04-25-2022 12:16-0400 Hourly Rounding Favio Andreea [facility] 04-25-2022 12:16-0400 Mean blood pressure 99 mm[Hg] Favio Andreea [facility] 04-25-2022 12:16-0400 Promise to Return Favio Andreea [facility] 04-25-2022 12:16-0400 Respiratory rate 22 /min Favio Andreea [facility] 04-25-2022 12:16-0400 SaO2% (BldA) [Mass fraction] 96 % Favio Andreea [facility] 04-25-2022 12:16-0400 Systolic blood pressure 125 mm[Hg] Favio Meyere [facility] 04-25-2022 11:21-0400 Hourly Rounding Faivo Meyere [facility] 04-25-2022 11:21-0400 Promise to Return Favio Meyere [facility] 04-25-2022 11:20-0400 Diastolic blood pressure 80 mm[Hg] Favio Andreea [facility] 04-25-2022 11:20-0400 Mean blood pressure 94 mm[Hg] Favio Meyere [facility] 04-25-2022 11:20-0400 Systolic blood pressure 122 mm[Hg] Favio Meyere [facility] 04-25-2022 10:53-0400 gluc 113 mg/dL Favio Andreea [facility] 04-25-2022 10:53-0400 gluc Favio Meyere [facility] 04-25-2022 10:46-0400 Body temperature 97.88 [degF] Favio Meyere [facility] 04-25-2022 10:46-0400 Heart rate 85 /min Favio Andreea [facility] 04-25-2022 10:46-0400 Respiratory rate 18 /min Favio Meyere [facility] Encounters Encounter Date Encounter Type Care Provider Facility Start: 04-02-2024 End: 04-02-2024 ambulatory TIFFANY IRAHETA Not Available Start: 02-13-2024 End: 02-13-2024 ambulatory ROSANNA [facility] Start: 02-05-2024 End: 02-05-2024 ambulatory [facility] Work Phone: Start: 02-05-2024 End: 02-05-2024 Patient encounter procedure [facility] Work Phone: Start: 01-02-2024 ambulatory Brayden Bartholomew acility:[facility] Start: 11-07-2023 End: 11-07-2023 ambulatory Jun Peng Other [facility] Other Start: 11-07-2023 Telephone encounter [facility] Start: 11-05-2023 End: 11-05-2023 ambulatory Jun Peng Other [facility] Other Start: 11-05-2023 Telephone encounter Jun Bartholomew [facility] Start: 10-30-2023 End: 10-30-2023 ambulatory Chong Cat Other [facility] Other Start: 10-30-2023 Postop follow up visit related to original px Chong Cat [facility] Start: 10-19-2023 End: 10-19-2023 ambulatory Gui R Alvarez III Facility:[facility] Start: 10-19-2023 End: 10-19-2023 Admission to same day surgery center DO Gui Alvarez III Work Phone: [facility] [place] Start: 10-19-2023 End: 10-19-2023 ambulatory DO Gui R Alvarez III Work Phone: [facility] Work Phone: Start: 10-03-2023 End: 10-03-2023 ambulatory Jun Peng Other [facility] Other Start: 10-03-2023 Office outpatient visit 15 minutes Jun Peng [facility] Start: 10-02-2023 End: 10-02-2023 ambulatory Chong Cat Other [facility] Other Start: 10-02-2023 Postop follow up visit related to original px Chong Cat [facility] Start: 09-26-2023 End: 09-26-2023 ambulatory Jun Peng Other [facility] Other Start: 09-26-2023 Telephone encounter Jun Peng [facility] Start: 09-21-2023 End: 09-21-2023 ambulatory Chong Cat Facility:[facility] Start: 09-21-2023 End: 09-21-2023 Admission to same day surgery center DO Gui Alvarez III Work Phone: [facility] [place] Start: 09-21-2023 End: 09-21-2023 ambulatory DO Gui R Alvarez III Work Phone: [facility] Work Phone: Start: 09-20-2023 End: 09-20-2023 ambulatory Chong Cat Other [facility] Other Start: 09-20-2023 Telephone encounter Chong Cat [facility] Start: 09-19-2023 End: 09-19-2023 ambulatory Jun Peng Facility:[facility] Start: 09-19-2023 End: 09-19-2023 ambulatory DO Gui R Alvarez III Work Phone: [facility] Work Phone: Start: 09-19-2023 End: 09-19-2023 Patient encounter procedure DO Gui Alvarez III Work Phone: [facility] [place] Work Phone: Start: 09-11-2023 End: 09-11-2023 ambulatory Chong Cat Facility:[facility] Start: 09-11-2023 End: 09-11-2023 ambulatory DO Gui R Alvarez III Work Phone: [facility] Work Phone: Start: 09-11-2023 End: 09-11-2023 Patient encounter procedure DO Gui Alvarez III Work Phone: [facility] Start: 09-07-2023 End: 09-07-2023 ambulatory Jun Peng Other [facility] Other Start: 09-07-2023 Telephone encounter [facility] Start: 09-04-2023 End: 09-04-2023 ambulatory Jun Pneg Other [facility] Other Start: 09-04-2023 Office outpatient new 30 minutes Jun Peng [facility] Start: 08-14-2023 End: 08-14-2023 ambulatory Philipp Vargasjohntyesha Facility:[facility] Start: 08-14-2023 End: 08-14-2023 ambulatory DO Gui R Alvarez III Work Phone: [facility] Work Phone: Start: 08-14-2023 End: 08-14-2023 Patient encounter procedure DO Gui Alvarez III Work Phone: [facility] [address] Work Phone: Start: 07-20-2023 End: 07-20-2023 ambulatory ANITA CORONA [facility] Start: 11-27-2022 End: 11-28-[address] ROSANNA PERALTA Facility:[facility] Start: 11-19-2022 End: 11-19-[address] CLARENCE CALDWELL Facility:[facility] Start: 11-02-2022 End: 11-02-[address] SHAZIA CASTRO Facility:[facility] Start: 10-06-2022 End: 10-21-2022 Pre-admission assessment Alfredo Wen [facility] Start: 10-06-2022 End: 10-06-2022 Patient encounter procedure Alfredo Wen [facility] Start: 09-26-2022 End: 09-26-2022 Patient encounter procedure Alfredo Wen [facility] Start: 08-22-2022 End: 08-22-[address] CLARENCE CALDWELL Facility:[facility] Start: 08-09-2022 End: 08-09-2022 ambulatory PILAR THAKKAR Facility:[facility] Start: 08-02-2022 End: 08-09-2022 ambulatory UNKNOWN PROVIDER [facility] Start: 08-01-2022 End: 08-01-2022 Patient encounter procedure Alfredo Wen [facility] Start: 07-31-2022 End: 07-31-2022 ambulatory [facility] Triage, Treat and Transport Start: 07-31-2022 End: 07-31-2022 Emergency department patient visit [facility] Emergency Triage, Treat and Transport Comment on above: Arrived Start: 07-06-2022 End: 07-07-2022 Emergency department patient visit Libertad Doan [facility] Start: 06-12-2022 End: 06-12-2022 Patient encounter procedure Alfredo Wen [facility] Start: 06-08-2022 End: 06-08-2022 Patient encounter procedure Alfredo Wen [facility] Start: 05-27-2022 End: 05-27-2022 Patient encounter procedure Alfredo Wen [facility] Start: 05-19-2022 End: 05-19-2022 Patient encounter procedure Alfredo Anthony Behzad [facility] Start: 05-12-2022 End: 05-12-2022 Patient encounter procedure Alfredo Anthony Behzad [facility] Start: 04-25-2022 End: 04-25-2022 Emergency department patient visit Favio Doran [facility] Procedures Date Procedure Procedure Detail Performing Clinician Start: 10-19-2023 Decompression of med gaston nerve DO Gui Alvarez III Work Phone: Start: 09-21-2023 Decompression of med gaston nerve DO Gui Alvarez III Work Phone: Start: 09-19-2023 Microbial ova-parasi te examination, fecal DO Gui Alvarez III Work Phone: Start: 09-19-2023 Ova and Parasite Result 1 DO Gui Alvarez III Work Phone: Start: 09-19-2023 Ova OR parasites identification DO Gui Alvarez III Work Phone: Start: 09-19-2023 Stool culture for bacteria DO Gui Alvarez III Work Phone: Start: 09-11-2023 Plain X-ray of bilat eral hands DO Gui Alvarez III Work Phone: Start: 02-07-2021 section Favio juáerz Start: 09-28-2020 Antibody screen Comment on above: Performed By: #### T SCR ####[address] [id number] Start: 03-20-2014 suction curettage Favio Doran Start: 08-28-2013 R/O right superficia l neck mass Favio Doran 2014 Favio Droan Myringotomy and inse rtion of T tube Favio Doran Plan of Treatment Date Care Activity Detail Author Start: 2042 Shingles (RZV) Vaccine (1 of 2) Shingles (RZV) Vaccine (1 of 2) [facility] Start: 10-20-2023 [facility] Start: 10-19-2023 End: 10-19-2023 [facility] Start: 09-21-2023 End: 09-21-2023 [facility] Start: 09-19-2023 Ova and Parasite Concentrate Exam Ova and Parasite Concentrate Exam [facility] Start: 08-14-2023 [facility] Start: 08-19-2022 Influenza vaccination Influenza Vaccine (#1) [facility] Start: 2013 Screening for malignant neoplasm of cervix Pap Smear [facility] Start: 2010 Hepatitis C screening Hepatitis C Antibody [facility] Start: 2010 Tetanus + diphtheria + acellular pertussis vaccine (product) Tdap Booster [facility] Start: 2007 HIV screening HIV Test [facility] Start: 02-28-1993 COVID-19 Vaccine (#1) COVID-19 Vaccine (#1) [facility] Bacteria identified in Stool by Culture [facility] Calprotectin [Mass/m ass] in Stool [facility] Elastase.pancreatic [Mass/mass] in Stool [facility] Endomysial antibody IgA level [facility] Gliadin peptide IgA Ab [Units/volume] in Serum [facility] Gliadin peptide IgG Ab [Units/volume] in Serum [facility] HIV 1+2 Ab+HIV1 p24 Ag [Presence] in Serum or Plasma by Immunoassay [facility] Homogenous nuclear A b pattern [Titer] in Serum [facility] IgA [Mass/volume] in Serum or Plasma [facility] Nuclear Ab [Titer] in Serum [facility] Ova and parasites identified in Unspecified specimen by Light microscopy [facility] Tissue transglutamin ase IgA Ab [Units/volume] in Serum [facility] Tissue transglutamin ase IgG Ab [Units/volume] in Serum [facility] Immunizations Immunization Date Immunization Notes Care Provider Reese hahn 02-07-2021 tetanus toxoid, redu marek diphtheria toxoid, and acellular pertussis vaccine, adsorbed; Translations: [Adacel (Tdap)] Favio Doran [facility] Comment on above: Reason for Medicatio n: Other (see comment) 12-16-2020 tetanus toxoid, redu marek diphtheria toxoid, and acellular pertussis vaccine, adsorbed Favio Doran [facility] 09-10-2019 influenza, injectabl e, quadrivalent, preservative free DO Gui Alvarez III Work Phone: [facility] 05-08-2015 tetanus toxoid, redu marek diphtheria toxoid, and acellular pertussis vaccine, adsorbed Favio Doran [facility] Payers Date Payer Category Payer Unknown [id number] 2023 Self-pay [id number] 2022 Unknown 1 1992 Unknown [id number] 2.16. [id number] 1992 Unknown [id number] 2.16.84 [id number] 1992 Unknown [id number] 2.16.84 [id number] 1992 Unknown [id number] 2.16.84 [id number] 1992 Unknown [id number] 2.16.84 [id number] 1992 Unknown [id number] 2.16.84 [id number] 1992 Unknown [id number] 2.16.84 [id number] 1959 Unknown [id number] Unknown Kendrickre [id number] Unknown [id number] 2.16.8 [id number] Unknown [id number] 2.16.8 [id number] Unknown [id number] 2.16.8 [id number] Unknown [id number] 2.16.8 [id number] Unknown [id number] 2.16.8 [id number] Unknown [id number] 2.16.8 [id number] Social History Date Type Detail Facility Start: 05-24-2021 End: 10-19-2023 Tobacco smoking status Never smoked tobacco (finding) [facility] Comment on above: denies Tobacco smoking status Never [facility] Comment on above: denies Sex Assigned At Female [facility] Tobacco smoking status NHIS Tobacco smoking consumption unknown [facility] Start: 1992 Sex Assigned At Not on file [facility] Start: 1992 Sex Assigned At Female [facility] Goals Date Patient Goal Desired Activity /State Functional Status Date Assessment Result Facility 10-06-2022 Functional Status No [facility] 09-26-2022 Functional Status N/A [facility] 07-06-2022 Functional Status N/A [facility] 06-12-2022 Functional Status N/A [facility] 05-12-2022 Functional Status N/A [facility] Clinical Notes 06-12-2020 to 02-13-2024 Note Date & Type Note Facility 02-13-[address] [facility] Cardiology Clinic Note Chief Complaint: Patient here for 6 mo follow up hypertension. Lisinopril was increased to 20mg daily at last apt in Jul 2023. Both her mother and father since last visit. She did see GI and rheumatology, and was diagnosed with fibromyalgia. She states her chest pain is no different than before. BP at home is running in the 130-140's/87-91. HR is elevated today in the office, but her Apple Watch says her average resting HR is 62. HPI: Sonia Motley is a 33 y.o. female Who started having chest pain when she was with her now 2-year-old son. She was apparently diagnosed with pericarditis at some time in the past. She was started on nonsteroidal anti-inflammatory drugs with no significant relief. She was recently started on colchicine; this has not improved her symptoms and indeed has caused her to have severe diarrhea. She has a history of inflammatory bowel disease. Her chest pain is constant, it is unrelated to exertion. It is unrelated to deep breaths. She states that it occasionally gets worse when she lies down at night. She has no associated exertional shortness of breath. She also complains of palpitations. She has had Elevated blood pressure readings recently. She has had multiple stress test in the past that have been nonischemic. She had an echocardiogram that showed a small pericardial effusion and a recent echocardiogram that showed the effusion to be trivial UPDATE 02/13/2024 She has had a very stressful. Since I last saw her; unfortunately both her parents . Her father had a heart attack after and in October. Her mother was diagnosed with metastatic cancer and in January. Her chest pain has been on and off since. It is associated with chest wall tenderness. 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 Her blood pressure at home has been improved. The upper number is typically in the 130s to 140s. Heart rate is usually in the 70s to 90s per her description. Pertinently, she is in discomfort this morning with pain and tenderness over the left chest. Cardiology ROS: Review of Systems Cardiovascular: Positive for chest pain ( discomfort ). Neurological: Positive for headaches and numbness. Sees neurology All other systems reviewed and are negative. Past Medical History She has a past medical history of IBS (irritable bowel syndrome) and Pericarditis. Surgical History She has a past surgical history that includes section, classic. Social History She reports that she has never smoked. She has never used smokeless tobacco. She reports that she does not drink alcohol. No history on file for drug use. Family History Family History Problem Relation Name Age of Onset Coronary artery disease Father Atrial fibrillation Father Allergies Nalbuphine and Prednisone Medications Current Outpatient Medications: lisinopril 20 mg tablet, Take 1 tablet (20 mg) by mouth in the morning., Disp: 90 tablet, Rfl: 3 Last Recorded Vitals BP (!) 126/92 (BP Location: Left arm, Patient Position: Sitting) Pulse (!) 112 Ht 1.575 m (5' 2 ) Wt 106 kg (233 lb) SpO2 98% BMI 42.62 kg/m??? Physical Examination: GENERAL: alert and oriented x3, well developed, in no acute distress. HEAD: atraumatic, normocephalic. EYES: ELI, EOMI. NECK: trachea midline, no JVD present, no carotid bruits present. CARDIAC: S1, S2 present. RRR. No murmur, rubs, or gallops. RESPIRATORY: CTAB, no increased effort of breathing, no rales, rhonchi, or wheezing. ABDOMEN: soft, nontender, nondistended. EXTREMITIES: no lower extremity edema, peripheral pulses are 2+ bilaterally. No rash/skin discoloration present. NEURO: strength/sensation equal and symmetric in bilateral upper and lower extremities. PSYCH: appropriate mood, affect, and judgement. 12 lead EKG 02/13/2024 Normal sinus Normal ECG HR 86 bpm Assessment: Atypical chest pain Newly diagnosed hypertension Palpitations Shortness of breath Obesity Inflammatory bowel disease Fibromyalgia Plan: Her chest discomfort is likely related to her fibromyalgia She is to monitor her heart rate and blood pressure at home and let her family physician know if significant fluctuations. Her antihypertensive regimen can be adjusted as appropriate. She is to continue follow-up with her selenium plant operator and pheresis specialist. Given her current clinical picture, plausible explanations for her chest pain, and multiple prior investigations, I do not believe further cardiovascular testing is warranted. We would be happy to see her on an as-needed basis. Rosanna Peralta MD, MPH, FACC, [facility] Interventional Cardiology Pager Email: [email or web address] 11-07-2023 Evaluation note Encounter Date Diagnosis Assessment Notes Oct, Irritable bowel syndrome, unspecified type (ICD-10 - K58.9) Oct, GERD (gastroesophage al reflux disease) (ICD-10 - K21.9) [facility] Other 12-18-2023 Evaluation note* Encounter Date Diagnosis Assessment Notes Treatment Notes Treatment Clinical Notes Oct, Irritable bowel syndrome, unspecified type (ICD-10 - K58.9) Oct, GERD (gastroesophageal reflux disease) (ICD-10 - K21.9) [facility] Other 12-12-2023 Evaluation note* Encounter Date Diagnosis Assessment Notes Treatment Notes Treatment Clinical Notes Oct, Status post carpal tunnel release (ICD-10 - Z98.890) Patient is doing well after surgery. Incision is healing well. Sutures were removed today. Incisional care was discussed with the patient. Recommend covering with a Band-Aid for a few more days. No strenuous activity with this hand for another 1-2 weeks. No scrubbing or incisional massages until 4 weeks. Follow-up as needed or call the office with questions. [facility] Other 11-15-2023 Evaluation note* Encounter Date Diagnosis Assessment Notes Treatment Notes Treatment Clinical Notes Sep, GERD (gastroesophageal reflux disease) (ICD-10 - K21.9) Sep, Irritable bowel syndrome, unspecified type (ICD-10 - K58.9) Pt states she is having a bowel movement 3-6 times a day. Pt advised to control celiac by gluten free diet Pt to hold imodium prn - to use this on a bad day Pt to start dicyclomine 20mg tid- before eating Pt RTO in a month [facility] Other 11-14-2023 Evaluation note* Encounter Date Diagnosis Assessment Notes Treatment Notes Treatment Clinical Notes Sep, Status post carpal tunnel release (ICD-10 - Z98.890) Patient is doing well after surgery. Incision is healing well. Sutures were removed today. Incisional care was discussed with the patient. Recommend covering with a Band-Aid for a few more days. No strenuous activity with this hand for another 1-2 weeks. No scrubbing or incisional massages until 4 weeks. Follow-up as needed or call the office with questions. She is scheduled for right carpal tunnel release on 10/19/23. She will follow up 10-14 days after next surgery. [facility] Other 11-08-2023 Evaluation note* Encounter Date Diagnosis Assessment Notes Treatment Notes Treatment Clinical Notes Sep, Gastroesophageal ref lux disease without esophagitis (ICD-10 - K21.9) [facility] Other 11-02-2023 Evaluation note* Encounter Date Diagnosis Assessment Notes Treatment Notes Treatment Clinical Notes Sep, Other specified postprocedural states (ICD-10 - Z98.890) [facility] Other 10-17-2023 Evaluation note* Encounter Date Diagnosis Assessment Notes Treatment Notes Treatment Clinical Notes Aug, Irritable bowel syndrome, unspecified type (ICD-10 - K58.9) Patient reports that she has daily diarrhea Patient reports that she did have a colonoscopy/EGD that was unremarkable with Dr. Garibay records will be obtained Patient advised to take OTC probiotic Patient advised to increase water intake Patient can take OTC imodium up to 8 times daily RTO 1 month Aug, GERD (gastroesophageal reflux disease) (ICD-10 - K21.9) Patient is to increase Prilosec to 40 mg daily and is to take this 30 minutes prior to a meal [facility] Other 09-01-2023 NoteF/u with [facility]CPUn[facility]-2023 NoteHypertension is uncontrolled at home and b/p is typically 130-140/80-90 Will increase dose to lisinopril 20 mg daily with repeat bmp in 1-2 weeks to assess renal functionUnAshtabula County Medical Center09-01-2023 NotePatient here for elevated BP's lately. She called off work yesterday because she was shaky and felt out of it . Says BP was 143/86. Her chest discomfort went away when she started lisinopril. It has come back and is getting worse the past month. Denies palpitations and SOB. Says BP has been running high 130's-high 140's over 89-92. Review of Systems Cardiovascular: Positive for chest pain ( discomfort ). Neurological: Positive for light-headedness. All other systems reviewed and are negative.[facility] 07-20-2023 NoteUTP CARDIOLOGY PROGRESS NOTE HPI: Sonia Motley is a 32 y.o. female here for HTN Patient here for elevated BP's lately. She called off work yesterday because she was shaky and felt out of it . Says BP was 143/86. Her chest discomfort went away when she started lisinopril. It has come back and is getting worse the past month. Denies palpitations and SOB. Says BP has been running high 130's-high 140's over 89-92. She presents to clinic with 3 young very active boys- all under school age. Review of Systems Cardiovascular: Positive for chest pain ( discomfort ). Neurological: Positive for light-headedness. All other systems reviewed and are negative. Visit Vitals BP 125/83 (BP Location: Right arm, Patient Position: Sitting) Pulse 96 Ht 1.575 m (5' 2 ) Wt 103 kg (228 lb) SpO2 98% BMI 41.70 kg/m??? Smoking Status Never BSA 2.12 m??? Allergies Allergen Reactions Nalbuphine Rash and Shortness of breath Prednisone Hives Medications: Current Outpatient Medications on File Prior to Visit Medication Sig Dispense Refill [DISCONTINUED] lisinopril 10 mg tablet Take 1 tablet (10 mg) by mouth in the morning. 90 tablet 3 [DISCONTINUED] colchicine 0.6 mg tablet Take 0.6 mg by mouth in the morning and at bedtime. [DISCONTINUED] ibuprofen 600 mg tablet Take 600 mg by mouth in the morning, at noon, and at bedtime. No current facility-administered medications on file prior to visit. Physical Exam: Constitutional: Appearance: Normal appearance. Without apparent distress, obese HENT: Head: Normocephalic and atraumatic. Nose: Nose normal. Mouth/Throat: Mouth: Mucous membranes are moist. Eyes: Extraocular Movements: Extraocular movements intact. Conjunctiva/sclera: Conjunctivae normal. Neck: Vascular: No JVD. Cardiovascular: Rate and Rhythm: Normal rate and regular rhythm. Pulses: Dorsalis pedis pulses are 3 on the right side and 3on the left side. Posterior tibial pulses are 3 on the right side and 3 on the left side. Heart sounds: Normal heart sounds, S1 normal and S2 normal. Pulmonary: Effort: Pulmonary effort is normal. Breath sounds: Normal breath sounds. Abdominal: General: Bowel sounds are normal. Palpations: Abdomen is soft. Musculoskeletal: General: Normal range of motion. Cervical back: Normal range of motion. Right lower leg: No edema. Left lower leg: No edema. Skin: General: Skin is warm and dry. Capillary Refill: Capillary refill takes less than 2 seconds. Neurological: General: No focal deficit present. Mental Status: She is alert and oriented to person, place, and time. Psychiatric: Mood and Affect: Mood normal. Behavior: Behavior normal. Thought Content: Thought content normal. Judgment: Judgment normal. Labs: 11/27/22 Renal function normal K+ normal Liver functin stable Thyroid function normal Last lab values have been reviewed CV Testin05/2022 TTE Normal LV systolic function ejection fraction 75% RV normal in size and function Bilateral atrium is normal size Trivial mitral valve regurg Trivial tricuspid valve regurg with normal right-sided pressures. 07/2022 Treadmill stress test, normal myocardial perfusion, normal EF, no ischemia No echocardiogram results found for the past 12 months Assessment/Plan: Primary hypertension Hypertension is uncontrolled at home and b/p is typically 130-140/80-90 Will increase dose to lisinopril 20 mg daily with repeat bmp in 1-2 weeks to assess renal function Ob[facility] Plan note Future Scheduled Tests Laboratory* C-Reactive Protein High Sensitivity 10/06/22 Radiology* Echo Transthoracic Lmtd 12/27/22 * Echo Transthoracic Complete 10/06/22 [facility]09-14-2022 History of Present illness Narrative* Bereket Vaughn DO - 08/02/2022 1:04 PM EDT Images from the original note were not included. EMERGENCY TRIAGE, TREAT AND TRANSPORT (ET3) DOCUMENTATION OF TELEHEALTH VISIT Date / Time: 07/31/20222249 Name: Sonia Motley : 1990 SSN: (Not on file) [facility] [x] Verbal consent obtained [] Implied consent - patient with potential emergency medical condition requiring assessment of capacity to refuse treatment and/or transport VITAL SIGNS: see flowsheet documentation Reason for Telehealth Visit: Chief Complaint Patient presents with Chest symptoms/complaints History of Present Ilness: 31 yo female called EMS for chest pain. Onset intermittently for >1 year. Pt is more persistent today. Has been following w/ cardiology as an out pt. Had outpt stress that she couldn't complete so nuclear stress has been ordered and planned for tomorrow. No exertional component. Location is left upper chest w/ radiation to left arm. No SOB, palpitations, fever, chills, abd pain, NVD Additional pertinent PMHx, SocHx, FamHx: PMH cp Meds no AC Social no ETOH Review of Systems: Denies the following: denies SOB, palpitations, fever, chills Exam: General: Awake, no distress ENT: normocephalic, atraumatic Pulmonary: No respiratory distress Cardiovascular: Well perfused Neurologic: Oriented to person, place, time and events. Moving all extremities equally. Psychiatric: Appropriate. Good insight and judgement. Medical Decision Makin yo female with intermittent hx of CP Has appt for nuclear stress test tomorrow. EKG NSR, RR, no STEMI. No prior for comparison. Pt is non toxic well appearing in NAD. No indication of ACS or PE Considering the reassuring VS, chronic long standing hx of these sx and the fact that she is following w/ cardiology and has appt tomorrow for nuclear stress, I think it best we do everythignn we celestina make sure she makes the appt tomorrow for her stress test. She is not high risk of ACS and her current presentation are not typical of ACS. Pt updated on my concerns and desire to have her complete her out pt stress test tomorrow. She is in agreement with this course. No questions. Pt agrees with plan. Disposition Supported by Telehealth Assessment: ET3 transport decisions: Treat in place EMS Disposition Reported: Same ET3 Encounter Completed by: Bereket Vaughn DO documented in this [id number] Hospital Discharge instructions Patient Education 07/07/2022 01:32:46 Abdominal Pain, Adult, Yobn-kj-Fwli Abdominal Pain, Adult Many things can cause belly (abdominal) pain. Most times, belly pain is not dangerous. Many cases of belly pain can be watched and treated at home. Sometimes, though, belly pain is serious. Your doctor will try to find the cause of your belly pain. Follow these instructions at home: Medicines Take vjof-lci-qtxefac and prescription medicines only as told by your doctor. Do not take medicines that help you poop (laxatives) unless told by your doctor. General instructions Watch your belly pain for any changes. Drink enough fluid to keep your pee (urine) pale yellow. Keep all follow-up visits as told by your doctor. This is important. Contact a doctor if: Your belly pain changes or gets worse. You are not hungry, or you lose weight without trying. You are having trouble pooping (constipated) or have watery poop (diarrhea) for more than 2 3 days. You have pain when you pee or poop. Your belly pain wakes you up at night. Your pain gets worse with meals, after eating, or with certain foods. You are vomiting and cannot keep anything down. You have a fever. You have blood in your pee. Get help right away if: Your pain does not go away as soon as your doctor says it should. You cannot stop vomiting. Your pain is only in areas of your belly, such as the right side or the left lower part of the belly. You have bloody or black poop, or poop that looks like tar. You have very bad pain, cramping, or bloating in your belly. You have signs of not having enough fluid or water in your body (dehydration), such as: ?Dark pee, very little pee, or no pee. ?Cracked lips. ?Dry mouth. ?Sunken eyes. ?Sleepiness. ?Weakness. You have trouble breathing or chest pain. Summary Many cases of belly pain can be watched and treated at home. Watch your belly pain for any changes. Take tpff-yvx-rawxzpm and prescription medicines only as told by your doctor. Contact a doctor if your belly pain changes or gets worse. Get help right away if you have very bad pain, cramping, or bloating in your belly. This information is not intended to replace advice given to you by your health care provider. Make sure you discuss any questions you have with your health care provider. Document Released: 04/23/2009 Document Revised: 03/15/2020 Document Reviewed: 03/15/2020 [employer] Patient Education 2020 [employer]. Follow Up Care 07/06/2022 22:47:40 With:Gui Alvarez Address: [address] [place], [place] [address] [address] Business (1) When:07/10/2022 Comments:Can use the nausea medication every 6 hours as needed for nausea, please follow-up with your primary care doctor in the next 2 to 3 days for further evaluation management. If your pain worsens or if you have any new or concerning symptoms please return to the ED for further evaluation and management. [facility]08-18-2022 Evaluation + Plan noteExtracted from: Title:ED Note Author:Libertad Doan DO Date :07/06/22 Abdominal pain, acute (R10.9 : Unspecified abdominal pain) Orders: Al hydroxide/Mg hydroxide/simethicone, 30 mL, Susp-Oral, Oral, Once, Stop date 07/06/22 23:54:00 EDT, STAT, Start date 07/06/22 23:54:00 EDT atropine/hyoscyamine/PB/scopolamine, 10 mL, Elixir, Oral, Once, Stop date 07/06/22 23:54:00 EDT, STAT, Start date 07/06/22 23:54:00 EDT ketorolac, 30 mg = 1 mL, Injection, IntraMuscular, Once, Stop date 07/06/22 23:16:00 EDT, STAT, Start date 07/06/22 23:16:00 EDT, 07/06/22 23:16:00 EDT lidocaine topical, 200 mg, 10 mL, Soln-Oral, Oral, Once, Stop date 07/06/22 23:54:00 EDT, STAT, Start date 07/06/22 23:54:00 EDT ondansetron, 4 mg = 1 tab(s), Oral, q8hr, PRN Nausea/Vomiting, # 12 tab(s), Refills(s) 0 Sodium Chloride 0.9% intravenous solution 1,000 mL, 1,000 mL, IV, 20 mL/hr, STAT, Start date 07/06/22 23:54:00 EDT, 50 hour(s), Total volume (mL): 1,000, 108 kg, 2.17, m2 Automated Diff Basic Metabolic Panel CBC w/ Auto Diff eGFR Hepatic Function Panel Lipase Level U Beta Hcg Qual UA With Cult Reflex Future Appointments Appointment Date:08/01/2022 11:30:00 AM Scheduled Provider: Location:.[facility] Appointment Type:NM Myocard Spect Multi Rest/Stress-Res Appointment Date:08/01/2022 12:30:00 PM Scheduled [facility]: [facility] Type:NM Myocard Spect Multi Rest/Stress - R Appointment Date:08/01/2022 01:00:00 PM Scheduled Provider: Location:.[facility] Appointment Type:NM Myocard Spect Multi Rest/Stress-Str Appointment Date:08/01/2022 02:00:00 PM Scheduled Provider: Location:.[facility] Appointment Type:NM Myocar Spect Multi Rest/Stress - St Appointment Date:08/09/2022 03:15:00 PM Scheduled Provider:Alfredo Wen MD Location[facility] Appointment Type:Cardiology Follow Up (FT) Future Scheduled Tests Radiology* NM Myocardial Spect Rest/Stress 1 Day 08/01/22 [facility]06-07-2022 Hospital Discharge instructions Patient Education 04/25/2022 13:22:14 Pain Without a Known Cause Pain Without a Known Cause Pain can occur in any part of the body and can range from mild to severe. Sometimes no cause can befound for why you are having pain. Some types of pain that can occur without a known cause include: Headache. Back pain. Abdominal pain. Neck pain. Your health care provider will do tests to try to find the cause of your pain. If no cause is found, your health care provider may diagnose you with pain without a known cause. In some cases, your health care provider may repeat tests and look further for a possible cause. Follow these instructions at home: Managing pain, stiffness, and swelling Take iott-orv-uwzxpio and prescription medicines only as told by your health care provider. Do not drive or use heavy machinery while taking prescription pain medicine. Stop any activities that cause pain. Rest during periods of severe pain. If directed, put ice on the painful area: ?Put ice in a plastic bag. ?Place a towel between your skin and the bag. ? Leave the ice on for 20 minutes, 2 3 times a day. If directed, apply heat to the affected area. Use the heat source that your health care provider recommends, such as a moist heat pack or a heating pad. ?Place a towel between your skin and the heat source. ?Leave the heat on for 20 30 minutes. ?Remove the heat if your skin turns bright red. This is especially important if you are unable to feel pain, heat, or cold. You may have a greater risk of getting burned. General instructions Reduce your stress with activities such as yoga or meditation. Talk with your health care provider about other ways to reduce stress. Exercise regularly. Ask your health care provider what activities are safe for you. Eat a balanced diet that includes fruits and vegetables, whole grains, lean meat, and low-fat dairy. Talk with your health care provider if you have any questions about your diet. If you are taking prescription pain medicine, take actions to prevent or treat constipation. Your health care provider may recommend that you: ? Drink enough fluid to keep your urine pale yellow. ?Eat foods that are high in fiber, such as fresh fruits and vegetables, whole grains, and beans. ?Limit foods that are high in fat and processed sugars, such as fried and sweet foods. ?Take an nuuh-pje-eiglegm or prescription medicine for constipation. Contact a health care provider if you: Have pain, and no reason can be found for it. Do not get better, even after treatment. Get help right away if: Your pain is making you want to harm yourself. If you ever feel like you may hurt yourself or others, or have thoughts about taking your own life,get help right away. You can go to your nearest emergency department or call: Your local emergency services (911 in the [place] A suicide crisis helpline, such as the National Suicide Prevention Lifeline at . Thisis open 24 hours a day. Summary Pain can occur in any part of the body and can range from mild to severe. Your health care provider will do tests to try to find the cause of your pain. If no cause is found, your health care provider may diagnose you with pain without a known cause. To help your pain, take medicines as told by your health care provider, apply ice or heat, exercise, reduce stress, and eat a healthy diet. This information is not intended to replace advice given to you by your health care provider. Make sure you discuss any questions you have with your health care provider. Document Released: 07/31/2002 Document Revised: 01/01/2020 Document Reviewed: 11/25/2018 [employer] Patient Education 2020 [employer]. 04/25/2022 13:22:14 Nonspecific Chest Pain, Adult Nonspecific Chest Pain, Adult Chest pain can be caused by many different conditions. It can be caused by a condition that is life-threatening and requires treatment right away. It can also be caused by something that is not life-threatening. If you have chest pain, it can be hard to know the difference, so it is important to get help right away to make sure that you do not have a serious condition. Some life-threatening causes of chest pain include: Heart attack. A tear in the body's main blood vessel (aortic dissection). Inflammation around your heart (pericarditis). A problem in the lungs, such as a blood clot (pulmonary embolism) or a collapsed lung (pneumothorax). Some non life-threatening causes of chest pain include: Heartburn. Anxiety or stress. Damage to the bones, muscles, and cartilage that make up your chest wall. Pneumonia or bronchitis. Shingles infection (varicella-zoster virus). Chest pain can feel like: Pain or discomfort on the surface of your chest or deep in your chest. Crushing, pressure, aching, or squeezing pain. Burning or tingling. Dull or sharp pain that is worse when you move, cough, or take a deep breath. Pain or discomfort that is also felt in your back, neck, jaw, shoulder, or arm, or pain that spreads to any of these areas. Your chest pain may come and go. It may also be constant. Your health care provider will do lab tests and other studies to find the cause of your pain. Treatment will depend on the cause of your chest pain. Follow these instructions at home: Medicines Take stjx-knp-velxryr and prescription medicines only as told by your health care provider. If you were prescribed an antibiotic, take it as told by your health care provider. Do not stop taking the antibiotic even if you start to feel better. Lifestyle Rest as directed by your health care provider. Do not use any products that contain nicotine or tobacco, such as cigarettes and e-cigarettes. If you need help quitting, ask your health care provider. Do not drink alcohol. Make healthy lifestyle choices as recommended. These may include: ?Getting regular exercise. Ask your health care provider to suggest some activities that are safe for you. ?Eating a heart-healthy diet. This includes plenty of fresh fruits and vegetables, whole grains, low-fat (lean) protein, and low-fat dairy products. A dietitian can help you find healthy eating options.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 Directives No September 08, 2019 9:41am Advance Directive Response Recorded Date/ Time Advance Directives No September 08, 2019 8:41am Chief Complaint and Reason for Visit Chief Complaint fatigue/hx ofpericad tis/M79.1 Chief Complaint fatigue/hx ofpericad tis/M79.1 G56.03 K58.9 Chief Complaint fatigue/hx ofpericad tis/M79.1 G56.03 K58.9 Left Carpal Tunnel Syndrome Chief Complaint fatigue/hx ofpericad tis/M79.1 G56.03 K58.9 Left Carpal Tunnel Syndrome Right Carpal Tunnel Syndrome Chief Complaint follow up Reason for Visit GERD (gastroesophage al reflux disease) IBS (irritable bowel syndrome) Additional Source Comments INFORMATION SOURCE (unrecogn ized section and content) DATE CREATED AUTHOR 09/30/2020 [facility] DATE CREATED AUTHOR AUTHOR'S ORGANIZ ATION 10/07/2020 [facility] DATE CREATED AUTHOR AUTHOR'S ORGANIZ ATION 12/12/2021 [facility] DATE CREATED AUTHOR AUTHOR'S ORGANIZ ATION 08/28/2022 [facility] DATE CREATED AUTHOR AUTHOR'S ORGANIZ ATION 11/30/2022 [facility] DATE CREATED AUTHOR AUTHOR'S ORGANIZ ATION [facility]/13/2023 [facility] DATE CREATED AUTHOR AUTHOR'S ORGANIZ ATION 02/14/2024 [facility] DATE CREATED AUTHOR AUTHOR'S ORGANIZ ATION 03/10/2024 [facility] DATE CREATED AUTHOR AUTHOR'S ORGANIZ ATION 04/04/2024 [facility] EPIC Care Team (unrecognized sect ion and content) Team Status: Active Member Role Status Dates Gui Alvarez III , DO Primary Care Provider Active Team Status: Inactive Member Role Status Dates Gui Alvarez III , DO Primary Care Provider Active Philipp Espitia MD Attending Provider Active Team Status: Inactive Member Role Status Dates Gui Alvarez III , DO Primary Care Provider Active Chong Cat DO Attending Provider Active Team Status: Inactive Member Role Status Dates Gui Alvarez III , DO Primary Care Provider Active Jun Peng APRN Attending Provider Active Team Status: Inactive Member Role Status Dates Gui Alvarez III , DO Primary Care Provider Active Start: February 05, 2024 End: February 05, 2024 Jun Peng APRN Attending Provider Active Start: February 05, 2024 End: February 05, 2024 Reason for Visit (unrecogniz ed section and content) Reason Comments Chest symptoms/complaints Goals (unrecognized section and content) Goals may be documented in a n alternate section FOR RECORDS PERTAINING TO PATIENTS WHO ARE OR HAVE BEEN ENROLLED IN A CHEMICAL DEPENDENCY/SUBSTANCEABUSE PROGRAM, SOME INFORMATION MAY BE OMITTED. This clinical summary was aggregated from multiple sources. Caution should be exercised in using it in the provision of clinical care. This summary normalizes information from multiple sources, and as a consequence, information in this document may materially change the coding, format and clinical context of patient data. In addition, data may be omitted in some cases. CLINICAL DECISIONS SHOULD BE BASED ON THE PRIMARY CLINICAL RECORDS. [facility] [employer] [facility]. provides no warranty or guarantee of the accuracy or completeness of information in this document.
[2024-04-05 12:47] LABS: Estimated Average Glucose 108 mg/dL; Glycohemoglobin A1C 5.4 % (4.5-6.2)
== END 2024-04-05 08:51 | disposition home or self-care (01) ==
PROVIDERS: Visit Provider Nurse Practitioner Family
DX: R20.2 Paresthesia of skin (principal); Z79.899 Other long term (current) drug therapy
CPT/HCPCS: 36415; 82607; 83036; 84207; 84443

== ENCOUNTER 2024-04-05 08:56 | Outpatient (OUT) | payer OTHER, SELFPAY ==
--- OUTSIDE RECORDS SUMMARY | 2024-04-05 09:01 | XMS_ITS | CCD ---
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 Phone Gui Alvarez III Primary [...] ELTABRYAN, DR WONG Admitting Unavailable REQUEST, DR VELAZQUEZ LISTED Primary Care Unavaila bogdan PERALTA, DR WONG Attending Unavailable RADHA, DR WONG Consulting Unavailable DO Gui Alvarez III Primary Care Provider MD Philipp Espitia Attending Provider Jun Peng Unavailable DO Chong Cat Attending [...] Unavailabl Chong Dixon Attending Unavailable Alvarez III, [facility] R Primary Care Unavailabl e Chong Cat Admitting Unavailable Alvarez III, Gui R Primary Care Unavailabl e Stephania, Chong A Admitting Unavailable Chong Cat Attending Unavailable Chong Cat Attending Unavailable Alvarez III, [facility] R Primary Care Unavailabl e Stephania, Chong Hinojosa Admitting Unavailable Jun Peng Admitting Unavailable Jun Peng Attending Unavailable Alvarez III, [facility] R Primary Care Unavailabl Philipp Prakash Admitting Unavailable Philipp Espitia Attending Unavailable [facility], [facility] Primary Care Unavailabl e TIFFANY IRAHETA Attending Unavailable Allergies Allergy Classification Reported Allergen(s) Allergy Type Date of Onset Reaction(s) Facility (20 sources) Nalbuphine; Translations: [nalbuphine] Drug Allergy 9 shortness of breath, rash, Anaphylaxis, Unknown [facility] (20 sources) predniSONE; Translations: [prednisone] Drug Allergy 9 Hives, Itching, Unknown [facility] (1 source) Nalbuphine Drug Allergy [facility] (1 source) predniSONE Drug Allergy 2 [facility] (1 source) Nalbuphine Drug Allergy 4 [facility] Repository (1 source) predniSONE Drug Allergy 4 [facility] Repository Medications Current Medications Medication Drug Class(es) [...] day(s), # 180 tab(s), Refills(s) 3, Pharmacy: [facility]/pharmacy #[id number], 158, cm, 10/06/22 11:50:00 EST, Height/Length [...] day(s), # 270 tab(s), Refills(s) 3, Pharmacy: [facility]/pharmacy #[id number], 158, cm, 10/06/22 11:50:00 EST, Height/Length [...] day(s), # 42 cap(s), Refills(s) 0, Pharmacy: [facility]/pharmacy #[id number], 158, cm, 09/26/22 11:41:00 EST, Height/Length Dosing, 107, kg, 09/26/22 11:41:00 EST, Weight Dosing Start Date: 09/27/22 Stop Date: 10/11/22 Status: Ordered L.Rhamnosus-B.Anim trae (Wellcentive) 3 billion cell capsule (1 source) Start: 02-05-2024 L.Rhamnosus-B.Anim trae (Wellcentive) 3 billion cell capsule Active CAP PO [...] mg by mouth once daily at bedtime Copan Carbonate Discontinued 900 MG PO Daily at [...] 2 Episodic Other aftercare (1 source) Other group home (current) drug therapy; 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] Onset: 2 Episodic Other [...] Range Facility Office Visiton 02-13-2024 Follow-up visit [id number] Jennifer Motley 1990 F Date Provider Department Center 02/13/2024 Donnie-ROSANNA PERALTA [facility]ARD [facility] Family History Problem Relation Age of Onset Coronary artery disease Father Atrial fibrillation Father Family Status - Relation Status Age at Father Level of Service:88355 ME OFFICE/OUTPATIENT ESTABLISHED LOW MDM 20 MIN Normal [facility] HCG ( test) IA.soli d Ql (U)Ordered By: Thaddeus Marshall on 10-19-2023 HCG ( test) Ql (U) Negative [facility] HCG,Urineon 10-19-2023 Beta HCG ( test) Ql (U) Negative Normal [facility] Comment on above: Result Comment: PERF ORMED BY: [place] [address] PATHOLOGIST [employer]AG [employer]ODUCTION WORKER RHONA LOPEZ M.D. Performed By: #### C K, TSH3 #### [place] [address] [place] #### WILLIE #### [facility] , Basic Metabolic Panelon 11-0 Anion gap [Moles/Vol] Not performed Normal 6.0-15.[address] [facility] Comment on above: Performed By: #### C K, TSH3 #### [place] [address] [place] #### WILLIE #### [facility] , Calcium [Mass/Vol] 9.3 mg/dL Normal 8.6-10.3 [facility] Comment on above: Performed By: #### C K, TSH3 #### [place] [address] [place] #### WILLIE #### [facility] , Chloride [Moles/Vol] 103 mmol/L Normal 98-[address] [facility] Comment on above: Performed By: #### C K, TSH3 #### [place] [address] [place] #### WILLIE #### [facility] , CO2 [Moles/Vol] 28.0 mmol/L Normal 21.0-31.0 [facility] Comment on above: Performed By: #### C K, TSH3 #### [place] [address] [place] #### WILLIE #### [facility] , Creatinine [Mass/Vol] 0.63 mg/dL Normal 0.60-1.[address] [facility] Comment on above: Performed By: #### C K, TSH3 #### [place] [address] [place] #### WILLIE #### [facility] , Creatinine Clr Calc Pharmacy 148.[address] [facility] Comment on above: Result Comment: PERF ORMED BY: [place] [address] PATHOLOGIST [employer] WORKER RHONA LOPEZ M.D. Performed By: #### C K, TSH3 #### [address] #### WILLIE #### [facility] , GFR/1.73 sq M.predicted MDRD (S/P/Bld) [Vol rate/Area] mL/min/{1.73_m2} Normal [facility] Comment on above: Performed By: #### C K, TSH3 #### [place] [address] [place] #### WILLIE #### [facility] , Glucose [Mass/Vol] 87 mg/dL Normal 70-100 [facility] Comment on above: Result Comment: [place] Glucose Reference Range is dependent on time and content of last meal. Glucose of more than 200 mg/dL in a nonstressed, ambulatory subject supports the diagnosis of Diabetes Mellitus. ADA recommended reference range Performed By: #### C K, TSH3 #### [place] [address] [place] #### WILLIE #### [facility] , Potassium Normal 3.5-5.[address] [facility] Comment on above: Result Comment: Spec imen hemolyzed, redraw requested Performed By: #### C K, TSH3 #### [place] [address] [place] #### WILLIE #### [facility] , Sodium [Moles/Vol] 138 mmol/L Normal 136-145 [facility] Comment on above: Performed By: #### C K, TSH3 #### [facility] [address] [place] [address] [place] #### WILLIE #### [facility] , Urea nitrogen [Mass/Vol] 12 mg/dL Normal 7-[address] [facility] Comment on above: Performed By: #### C K, TSH3 #### [facility] [address] [place] [address] [place] #### WILLIE #### [facility] , Calcium [Mass/volume] in Ser um or PlasmaOrdered By: Arthur Rao on 09-21-2023 Calcium [Mass/Vol] 9.3 mg/dL 8.6-10.3 [facility] Carbon dioxide, total [Moles /volume] in Serum or PlasmaOrdered By: Arhtur Rao on 09-21-2023 CO2 [Moles/Vol] 28.0 mmol/L 21.0-31.0 [facility] Chloride [Moles/volume] in S yanique or PlasmaOrdered By: Arthur Rao on 09-21-2023 Chloride [Moles/Vol] 103 mmol/L 98-107 [facility] Creatinine [Mass/volume] in Serum or PlasmaOrdered By: Arthur Rao on 09-21-2023 Creatinine [Mass/Vol] 0.63 mg/dL 0.60-1.20 [facility] Glucose [Mass/volume] in Ser um or PlasmaOrdered By: Arthur Rao on 09-21-2023 Glucose [Mass/Vol] 87 mg/dL 70-100 [facility] Comment on above: ADA recommended refe rence rangeRandom Glucose Reference Range is dependent on time and content of last meal. Glucose of more than 200 mg/dL in a nonstressed, ambulatory subject supports the diagnosis of Diabetes Mellitus. HCG ( test) IA.rapi d Ql (U)Ordered By: Arthur Rao on 09-21-2023 HCG ( test) Ql (U) Negative [facility] HCG,Urineon 09-21-2023 Beta HCG ( test) Ql (U) Negative Normal [facility] Comment on above: Result Comment: PERF ORMED BY: [place] [address] PATHOLOGIST [employer] WORKER RHONA LOPEZ M.D. Performed By: #### C K, TSH3 #### [place] [address] [place] #### WILLIE #### [facility] , No Panel InformationOrdered By: Arthur Rao on 09-21-2023 Estimated GFR (CKD-EPI) > 60.0 mL/Min [facility] Creatinine Clearance (Chem 148.12 [facility] Potassium [Moles/volume] in Serum or PlasmaOrdered By: Arthur Rao on 09-21-2023 Potassium [Moles/Vol] See comment 3.5-5.1 [facility] Comment on above: Specimen hemolyzed, redraw requested Serum or plasma anion gap de terminationOrdered By: Arthur Rao on 09-21-2023 Anion gap [Moles/Vol] TNP [facility] Comment on above: Test not performed Sodium [Moles/volume] in Ser um or PlasmaOrdered By: Arthur Rao on 09-21-2023 Sodium [Moles/Vol] 138 mmol/L 136-145 [facility] Urea nitrogen [Mass/volume] in Serum or PlasmaOrdered By: Arthur Rao on 09-21-2023 Urea nitrogen [Mass/Vol] 12 mg/dL 7-25 [facility] C reactive protein [Mass/vol ume] in Serum or PlasmaOrdered By: Jun Peng on 09-19-2023 CRP [Mass/Vol] 1.7 mg/dL 0.0-0.5 [facility] C-Reactive Proteinon 023 C-Reactive Protein 1.7 mg/dL High 0.0-0.5 [facility] Comment on above: Order Comment: Reaso n for Exam Irritable bowel syndrome, unspecified type Performed By: #### C RP, TSH3, ESR, CUSTOOL #### [facility] [address] [place] [address] [place] #### ELASTASE STOOL, HIV SCREEN, OPEXAM, CALPROTECT, CELIAC #### [facility] , Calprotectin [Mass/mass] in StoolOrdered By: Jun Peng on 09-19-2023 Calprotectin (Stl) [Mass/Mass] 32 ug/g 0-120 [facility] Comment on above: Concentration Interp retation Follow-Up< 5 - 50 ug/g Normal None>50 -120 ug/g Borderline Re-evaluate in 4-6 weeks >120 ug/g Abnormal Repeat as clinically indicatedPerformed at: [facility] [address] [id number] Director: Diomedes Arguello MD, Phone: [phone] Calprotectin, Fecalon 2022 Calprotectin, Fecal 32 Normal 0-120 [facility] Comment on above: Order Comment: Reaso n for Exam Irritable bowel syndrome, unspecified type Result Comment: Conc entration Interpretation Follow-Up < 5 - 50 ug/g Normal None >50 -120 ug/g Borderline Re-evaluate in 4-6 weeks >120 ug/g Abnormal Repeat as clinically indicated Performed at: [facility] [id number] Switchboard Installer: Diomedes Arguello MD, Phone: [phone] PERFORMED BY: [place] [address] PATHOLOGIST [employer] WORKER RHONA LOPEZ M.D. Performed By: #### C K, TSH3 #### [facility] [address] #### WILLIE #### [facility] , Celiacon 09-19-2023 Deamidated Gliadin Abs, IgA 6 Normal 0-[address] [facility] Comment on above: Order Comment: Reaso n for Exam Irritable bowel syndrome, unspecified type Result Comment: Nega tive 0 - 19 Weak Positive 20 - 30 Moderate to Strong Positive >30 Performed By: #### C RP, TSH3, ESR, CUSTOOL #### [address] #### ELASTASE STOOL, HIV SCREEN, OPEXAM, CALPROTECT, CELIAC #### [facility] , Deamidated Gliadin Abs, IgG 2 Normal 0-[address] [facility] Comment on above: Order Comment: Reaso n for Exam Irritable bowel syndrome, unspecified type Result Comment: Nega tive 0 - 19 Weak Positive 20 - 30 Moderate to Strong Positive >30 Performed By: #### C RP, TSH3, ESR, CUSTOOL #### [address] #### ELASTASE STOOL, HIV SCREEN, OPEXAM, CALPROTECT, CELIAC #### [facility] , Endomysial Antibody IgA Negative Normal Negative T [facility] Comment on above: Order Comment: Reaso n for Exam Irritable bowel syndrome, unspecified type Performed By: #### C RP, TSH3, ESR, CUSTOOL #### [address] #### ELASTASE STOOL, HIV SCREEN, OPEXAM, CALPROTECT, CELIAC #### [facility] , Immunoglobulin A, Qn, Serum 424 mg/dL High 87-[address] [facility] Comment on above: Order Comment: Reaso n for Exam Irritable bowel syndrome, unspecified type Result Comment: Perf ormed at: - [facility] [address] [id number] Switchboard Installer: Korey Perkins PhD, Phone: [phone] Performed By: #### C RP, TSH3, ESR, CUSTOOL #### [place] [address] [place] #### ELASTASE STOOL, HIV SCREEN, OPEXAM, CALPROTECT, CELIAC #### [facility] , T-Transglutaminase (tTG) IgA <2 Normal 0-[address] [facility] Comment on above: Order Comment: [...] #### C RP, TSH3, ESR, CUSTOOL #### [address] #### ELASTASE STOOL, HIV SCREEN, OPEXAM, CALPROTECT, CELIAC #### [facility] , T-Transglutaminase (tTG) IgG 2 Normal 0-[address] [facility] Comment on above: Order Comment: Reaso n for Exam Irritable bowel syndrome, unspecified type Result Comment: Nega tive 0 - 5 Weak Positive 6 - 9 Positive >9 Performed By: #### C RP, TSH3, ESR, CUSTOOL #### [address] #### ELASTASE STOOL, HIV SCREEN, OPEXAM, CALPROTECT, CELIAC #### [facility] , Elastase.pancreatic [Mass/ma ss] in StoolOrdered By: Jun Peng on 09-19-2023 Elastase.pancreatic (Stl) [Mass/Mass] 478 >200 [facility] Comment on above: Result Units: ug [address] st./g Severe Pancreatic Insufficiency: <100 Moderate Pancreatic Insufficiency: 100 - 200 Normal: >200Performed at: - [facility] [id number] Director: Diomedes Arguello MD, Phone: [phone] Erythrocyte Sedimentation Ra taiwo 09-19-2023 ESR (Bld) [Velocity] 41 mm/h High 0-[address] [facility] Comment on above: Order Comment: Reaso n for Exam Irritable bowel syndrome, unspecified type Result Comment: PERF ORMED BY: [place] [address] PATHOLOGIST [employer] WORKER RHONA LOPEZ M.D. Performed By: #### C RP, TSH3, ESR, CUSTOOL #### [address] #### ELASTASE STOOL, HIV SCREEN, OPEXAM, CALPROTECT, CELIAC #### [facility] , Erythrocyte sedimentation ra te by Photometric methodOrdered By: Jun Peng on 09-19-2023 ESR Photometric method (Bld) [Velocity] 41 mm/hr 0-19 [facility] HIV 1/O/2 Antigen/Antibodyon 09-19-2023 HIV Screen 4th Generation Non-Reactive Normal Non Reactive [facility] Comment on above: Order Comment: Reaso n for Exam Irritable bowel syndrome, unspecified type Result Comment: HIV Negative HIV-1/HIV-2 antibodies and HIV-1 p24 antigen were NOT detected. There is no laboratory evidence of HIV infection. Performed at: [facility] [place] [address] [place], [place] [id number] Switchboard Installer: Korey Perkins PhD, Phone: [phone] PERFORMED BY: [place] [address] PATHOLOGIST [employer] PRODUCTION WORKER RHONA LOPEZ M.D. Performed By: #### C RP, TSH3, ESR, CUSTOOL #### [address] #### ELASTASE STOOL, HIV SCREEN, OPEXAM, CALPROTECT, CELIAC #### [facility] , HIV 1 and HIV-2 antibody ass ay with HIV-1 p24 antigen detectionOrdered By: Jun Peng on 09-19-2023 HIV 1+2 Ab+HIV1 p24 Ag IA Ql Non-Reactive Non Reactive [facility] Comment on above: HIV NegativeHIV-1/HI V-2 antibodies and HIV-1 p24 antigen were NOTdetected. There is no laboratory evidence of HIV infection.Performed at: [facility] [address] [id number] Director: Korey Perkins PhD, Phone: [phone] IgA [Mass/volume] in Serum o r PlasmaOrdered By: Jun Peng on 09-19-2023 IgA [Mass/Vol] 424 mg/dL [address] [place] [address] Comment on above: Performed at: [facility] [address] [id number] Director: Korey Perkins PhD, Phone: [phone] No Panel InformationOrdered By: Jun Peng on 09-19-2023 Endomysial IgA Antibody Negative Negative [facility] Ova and Parasite Result 1 [facility] Ova and Parasite Result 1 N/A [facility] OVA AND PARASITEon 3 OVA AND PARASITE [...] possibility of a parasitic infection. Performed at: [facility] [place] [id number] Switchboard Installer: Korey Perkins PhD, Phone: [phone] PERFORMED BY: [place] [address] PATHOLOGIST [employer] PRODUCTION WORKER RHONA LOPEZ M.D. Normal [facility] Comment on above: Performed By: #### C K, TSH3 #### [address] #### WILLIE #### [facility] , Ova or parasites identificat ionOrdered By: Jun Peng on 09-19-2023 Ova and parasites identified LM Nom (Unsp spec) [facility] Ova and parasites identified LM Nom (Unsp spec) N/A [facility] Pancreatic Elastase, Stoolon 09-19-2023 Pancreatic Elastase, Stool 478 Normal >[address] [facility] Comment on above: Order Comment: Reaso n for Exam Irritable bowel syndrome, unspecified type Result Comment: Resu lt Units: ug Elast./g Severe Pancreatic Insufficiency: <100 Moderate Pancreatic Insufficiency: 100 - 200 Normal: >200 Performed at: - [facility] [address] [id number] Switchboard Installer: Diomedes Arguello MD, Phone: [phone] PERFORMED BY: [place] [address] PATHOLOGIST [employer] PRODUCTION WORKER RHONA LOPEZ M.D. Performed By: #### C RP, TSH3, ESR, CUSTOOL #### [place] [address] [place] #### ELASTASE STOOL, HIV SCREEN, OPEXAM, CALPROTECT, CELIAC #### [facility] , Serum gliadin peptide IgA an tibody assay (units/volume)Ordered By: Jun Peng on 09-19-2023 Gliadin peptide IgA Qn (S) 6 units 0-19 [facility] Comment on above: Negative 0 - 19 Weak Positive 20 - 30 Moderate to Strong Positive >30 Serum gliadin peptide IgG an tibody assay (units/volume)Ordered By: Jun Peng on 09-19-2023 Gliadin peptide IgG Qn (S) 2 units 0-19 [facility] Comment on above: Negative 0 - 19 Weak Positive 20 - 30 Moderate to Strong Positive >30 Serum tissue transglutaminas e (tTG) IgA antibody assay (units/volume)Ordered By: Jun Peng on 09-19-2023 tTG IgA Qn (S) <2 U/mL 0-3 [facility] Comment on above: Negative 0 - 3 Weak Positive 4 - 10 Positive >10 Tissue Transglutaminase (tTG) has been identified as the endomysial antigen. Studies have demonstr- ated that endomysial IgA antibodies have over 99% specificity for gluten sensitive enteropathy. Serum tissue transglutaminas e (tTG) IgG antibody assay (units/volume)Ordered By: Jun Peng on 09-19-2023 tTG IgG Qn (S) 2 U/mL 0-5 [facility] Comment on above: Negative 0 - 5 [...] or E. coli 0157:H7 Isolated PERFORMED BY: [place] [address] PATHOLOGIST [employer] WORKER RHONA LOPEZ M.D. Normal [facility] Comment on above: Performed By: #### C RP, TSH3, ESR, CUSTOOL #### [facility] [address] [place] [address] #### ELASTASE STOOL, HIV SCREEN, OPEXAM, CALPROTECT, CELIAC #### [facility] , Stool bacteria identificatio n by cultureOrdered By: Jun Peng on 09-19-2023 Bacteria identified Cx Nom (Stl) [facility] Stool ova and parasites iden tification by concentrationOrdered By: Jun Peng on 09-19-2023 Ova and parasites identified Concentration Nom (Stl) N/A [facility] Stool ova and parasites iden tification by trichrome stainOrdered By: Jun Peng on 09-19-2023 Ova and parasites identified Trichrome stain Nom ([facility]) N/A [facility] Thyroid Stimulating Hormoneo n 09-19-2023 TSH Qn 1.58 m[IU]/L Normal 0.45-5.33 [facility] Comment on above: Order Comment: Reaso n for Exam Irritable bowel syndrome, unspecified type Result Comment: PERF ORMED BY: [place] [address] PATHOLOGIST [employer] WORKER RHONA LOPEZ M.D. Performed By: #### C RP, TSH3, ESR, CUSTOOL #### [place] [address] [place] #### ELASTASE STOOL, HIV SCREEN, OPEXAM, CALPROTECT, CELIAC #### [facility] , Thyrotropin [Units/volume] i n Serum or PlasmaOrdered By: Jun Peng on 09-19-2023 TSH Qn 1.58 m[IU]/L 0.45-5.33 [facility] XR hand BI 3Von 09-11-2023 XR hand BI 3V [facility] [place] [address] [place] [address] XRay Report Signed Patient: Jennifer Motley MR# : [id number] : 1990 Acct:[id number] Age/Sex: 33 / F ADM Date: 09/11/23 [address]: [facility] Room: Type: [facility] Attending Dr: Chong Cat DO Copies to: [...] Jazzmine Hill M.D.09/11/2023 1:32 PM Dictation Location: [place] [address] Transcribed By: [facility] 09/11/23 1332 Dictated By: Jazzmine Hill MD 09/11/23 1326 Signed By: 09/11/[address] [facility] Auth for Release of Medical Recordson 09-05-2023 Auth for Release of Medical Records [id number] Normal [facility] WILLIE Antinuclear Antibodieson 08-14-2023 Antinuclear Abs, IFA Negative Normal . [facility] Comment on above: Result Comment: Nega tive <1:80 Borderline 1:80 Positive >1:80 ICAP nomenclature: AC-0 For more information about Hep-2 cell patterns use ANApatterns.org, the official website for the International Consensus on Antinuclear Antibody (WILLIE) Patterns (ICAP). Performed at: [facility] [id number] Switchboard Installer: Korey Perkins PhD, Phone: [phone] PERFORMED BY: [place] [address] PATHOLOGIST [employer] PRODUCTION WORKER RHONA LOPEZ M.D. Performed By: #### C K, TSH3 #### [address] #### WILLIE #### [facility] , Creatine Kinaseon 08-14-2023 CK [Catalytic activity/Vol] 118 U/L Normal 30-[address] [facility] Comment on above: Result Comment: PERF ORMED BY: [place] [address] PATHOLOGIST [employer] WORKER RHONA LOPEZ M.D. Performed By: #### C K, TSH3 #### [place] [address] [place] #### WILLIE #### [facility] , Creatine kinase [Enzymatic a ctivity/volume] in Serum or PlasmaOrdered By: Pihlipp Espitia on 08-14-2023 CK [Catalytic activity/Vol] 118 U/L 30-223 [facility] Serum nuclear antibody titer Ordered By: Philipp Espitia on 08-14-2023 Nuclear Ab (S) [Titer] Negative . [facility] Comment on above: Negative <1:80 Borde rline 1:80 Positive >1:80ICAP nomenclature: AC-0For more information about Hep-2 cell patterns useANApaQUALIA (formerly known as LocalResponse)erGoldpocket Interactive.org, the official website for theInternational Consensus on Antinuclear Antibody (WILLIE)Patterns (ICAP).Performed at: [facility] [id number] Director: Korey Perkins PhD, Phone: [phone] Thyroid Stimulating Hormoneo n 08-14-2023 TSH Qn 1.12 m[IU]/L Normal 0.45-5.33 [facility] Comment on above: Result Comment: PERF ORMED BY: [place] [address] PATHOLOGIST [employer] WORKER RHONA LOPEZ M.D. Performed By: #### C K, TSH3 #### [place] [address] [place] #### WILLIE #### [facility] , Thyrotropin [Units/volume] i n Serum or PlasmaOrdered By: Philipp Espitia on 08-14-2023 TSH Qn 1.12 m[IU]/L 0.45-5.33 [facility] Office Visiton 07-20-2023 Follow-up visit [id number] Jennifer Motley 1990 F Date Provider Department Center 07/20/2023 ANITA BALLARD [facility] Family History Problem Relation Age of Onset Coronary artery disease Father Atrial fibrillation Father Family Status - Relation Status Age at Father Level of Service:28498 ME OFFICE/OUTPATIENT ESTABLISHED LOW MDM 20-29 MIN Normal [facility] FREE T4on 11-27-2022 Free T4 [Mass/Vol] 0.79 ng/dL Normal 0.76-1.46 [facility] Comment on above: Performed By: #### F T4 #### [facility] [address] [place] [address] [address] Jon Jones HS-CRPon 11-27-2022 HS-CRP 0.70 mg/L Normal <=3.00 [facility] Comment on above: Performed By: #### C MP, TSH, HSCRPT #### [facility] [address] [place] [address] [address] Jon Jones PROF 14(COMP METB)on 023 Albumin [Mass/Vol] 4.4 g/dL Normal 3.4-5.0 [facility] Comment on above: Performed By: #### C MP, TSH, HSCRPT #### [facility] [address] [address] [address] Jon Jones Albumin/Globulin [Mass ratio] 1.1 {ratio} Normal [facility] Comment on above: Performed By: #### C MP, TSH, HSCRPT #### [facility] [address] [address] [address] Jon Jones ALP [Catalytic activity/Vol] 109 U/L Normal 46-116 [facility] Comment on above: Performed By: #### C MP, TSH, HSCRPT #### [facility] [address] [address] [address] Jon Jones ALT [Catalytic activity/Vol] 103 U/L Critically high 14-59 [facility] Comment on above: Performed By: #### C MP, TSH, HSCRPT #### [facility] [address] [address] [address] Jon Jones Anion gap [Moles/Vol] 13.9 mmol/L Normal [facility] Comment on above: Performed By: #### C MP, TSH, HSCRPT #### [facility] [address] [address] [address] Jon Jones AST [Catalytic activity/Vol] 55 U/L Critically high 15-37 [facility] Comment on above: Performed By: #### C MP, TSH, HSCRPT #### [facility] [address] [address] [address] Jon Jones Bilirubin [Mass/Vol] 0.3 mg/dL Normal 0.2-1.0 [facility] Comment on above: Performed By: #### C MP, TSH, HSCRPT #### [facility] [address] [address] [address] Jon Jones Calcium [Mass/Vol] 9.1 mg/dL Normal 8.5-10.1 [facility] Comment on above: Performed By: #### C MP, TSH, HSCRPT #### [facility] [address] [address] [address] Jon Jones Chloride [Moles/Vol] 101 mmol/L Normal 98-107 [facility] Comment on above: Performed By: #### C MP, TSH, HSCRPT #### [facility] [address] [address] [address] Jon Jones CO2 [Moles/Vol] 26.0 mmol/L Normal 21.0-32.0 [facility] Comment on above: Performed By: #### C MP, TSH, HSCRPT #### [facility] [address] [address] [address] Jon Jones Creatinine [Mass/Vol] 0.64 mg/dL Normal 0.55-1.02 [facility] Comment on above: Performed By: #### C MP, TSH, HSCRPT #### [facility] [address] [address] [address] Jon Jones EGFR-AF RWANDAN >60 Normal >=60 [facility] Comment on above: Performed By: #### C MP, TSH, HSCRPT #### [facility] [address] [address] [address] Jon Jones EGFR-NON AF RWANDAN >60 Normal >=60 [facility] Comment on above: Performed By: #### C MP, TSH, HSCRPT #### [facility] [address] [address] [address] Jon Jones Globulin (S) [Mass/Vol] 3.9 g/dL Normal [facility] Comment on above: Performed By: #### C MP, TSH, HSCRPT #### [facility] [address] [address] [address] Jon Jones Glucose [Mass/Vol] 88 mg/dL Normal 74-106 [facility] Comment on above: Performed By: #### C MP, TSH, HSCRPT #### [facility] [address] [address] [address] Jon Jones Potassium [Moles/Vol] 3.9 mmol/L Normal 3.5-5.1 [facility] Comment on above: Performed By: #### C MP, TSH, HSCRPT #### [facility] [address] [address] [address] Jon Jones Protein [Mass/Vol] 8.3 g/dL Critically high 6.4-8.2 [facility] Comment on above: Performed By: #### C MP, TSH, HSCRPT #### [facility] [address] [address] [address] Jon Jones Sodium [Moles/Vol] 137 mmol/L Normal 136-145 [facility] Comment on above: Performed By: #### C MP, TSH, HSCRPT #### [facility] [address] [address] [address] Jon Jones Urea nitrogen [Mass/Vol] 15.0 mg/dL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 09-04-2023 11:00-0400 Body mass index (BMI) [Ratio] 42.54 kg/m2 Jun Peng Other [employer] Other 09-04-2023 11:00-0400 Body weight 105.51 kg Jun Peng Other [employer] Other 09-04-2023 11:00-0400 Diastolic blood pressure 68 mm[Hg] Jun Peng Other [employer] Other 09-04-2023 11:00-0400 Systolic blood pressure 120 mm[Hg] Jun Peng Other [facility] [employer] Other 10-06-2022 11:48-0500 Diastolic blood pressure 88 mm[Hg] Alfredo Wen [facility] 10-06-2022 11:48-0500 Heart rate 100 /min Alfredo [facility] 10-06-2022 11:48-0500 Respiratory rate 18 /min [facility]o [facility] 10-06-2022 11:48-0500 SaO2% (BldA) [Mass fraction] 99 % Alfredo [facility] 10-06-2022 11:48-0500 Systolic blood pressure 138 mm[Hg] Alfredo [facility] 09-26-2022 11:39-0500 Blood Pressure Location Alfredo Wen [facility] 09-26-2022 11:39-0500 Diastolic blood pressure 80 mm[Hg] Alfredo [facility] 09-26-2022 11:39-0500 Heart rate 96 /min [facility]o [facility] 09-26-2022 11:39-0500 Respiratory rate 18 /min [facility]o [facility] 09-26-2022 11:39-0500 SaO2% (BldA) [Mass fraction] 100 % Alfredo [facility] 09-26-2022 11:39-0500 Systolic blood pressure 139 mm[Hg] Alfredo Wen [facility] 07-31-2022 22:50-0400 Diastolic blood pressure 78 mm[Hg] [address] 07-31-2022 22:50-0400 Heart rate 72 /min [facility] 22:50-0400 Respiratory rate 13 /min [facility] 07-31-2022 22:50-0400 SaO2% (BldA) [Mass fraction] 97 % [facility] Comment on above: RA 07-31-2022 22:50-0400 Systolic blood pressure 135 mm[Hg] [facility] 07-07-2022 01:00-0400 Body temperature 98.6 [degF] Kaylinn Dokken [facility] 07-07-2022 01:00-0400 Diastolic blood pressure 63 mm[Hg] Kaylinn Dokken [facility] 07-07-2022 01:00-0400 Heart rate 70 /min [facility]linn [facility] 07-07-2022 01:00-0400 Mean blood pressure 75 mm[Hg] Kaylinn Dokken [facility] 07-07-2022 01:00-0400 Respiratory rate 18 /min [facility]linn [facility] 07-07-2022 01:00-0400 SaO2% (BldA) [Mass fraction] 100 % [facility]linn Dok[facility] 07-07-2022 01:00-0400 Systolic blood pressure 98 mm[Hg] Kaylinn Dok[facility] 07-07-2022 00:00-0400 Diastolic blood pressure 60 mm[Hg] Kaylinn D[facility] 07-07-2022 00:00-0400 Heart rate 72 /min [facility] 07-07-2022 00:00-0400 Mean blood pressure 77 mm[Hg] Kaylinn D[facility] 07-07-2022 00:00-0400 Respiratory rate 17 /min [facility] 07-07-2022 00:00-0400 SaO2% (BldA) [Mass fraction] 96 % [facility]linn D[facility] 07-07-2022 00:00-0400 Systolic blood pressure 110 mm[Hg] Kaylinn D[facility] 07-06-2022 23:00-0400 Diastolic blood pressure 118 mm[Hg] Kaylinn [facility] 07-06-2022 23:00-0400 Heart rate 93 /min [facility] 07-06-2022 23:00-0400 Mean blood pressure 126 mm[Hg] Kaylinn [facility] 07-06-2022 23:00-0400 SaO2% (BldA) [Mass fraction] 97 % [facility]linn [facility] 07-06-2022 23:00-0400 Systolic blood pressure 143 mm[Hg] [facility]linn [facility] 07-06-2022 22:47-0400 Heart rate 75 /min [facility] 06-12-2022 15:52-0400 Blood Pressure Location Alfredo Wen [facility] 06-12-2022 15:52-0400 Diastolic blood pressure 80 mm[Hg] [facility]o [facility] 06-12-2022 15:52-0400 Heart rate 74 /min [facility]o [facility] 06-12-2022 15:52-0400 Respiratory rate 18 /min [facility]o [facility] 06-12-2022 15:52-0400 SaO2% (BldA) [Mass fraction] 100 % [facility]o [facility] 06-12-2022 15:52-0400 Systolic blood pressure 140 mm[Hg] [facility]o [facility] 05-12-2022 15:51-0400 Blood Pressure Location Alfredo Wen [facility] 05-12-2022 15:51-0400 Diastolic blood pressure 81 mm[Hg] Alfredo [facility] 05-12-2022 15:51-0400 Heart rate 85 /min [facility]o [facility] 05-12-2022 15:51-0400 Respiratory rate 18 /min [facility]o [facility] 05-12-2022 15:51-0400 SaO2% (BldA) [Mass fraction] 98 % [facility]o [facility] 05-12-2022 15:51-0400 Systolic blood pressure 123 mm[Hg] Alfredo [facility] 04-25-2022 13:48-0400 Diastolic blood pressure 72 mm[Hg] Favio Doran [facility] 04-25-2022 13:48-0400 Heart rate 85 /min Favio Doran [facility] 04-25-2022 13:48-0400 Mean blood pressure 85 mm[Hg] Favio Doran [facility] 04-25-2022 13:48-0400 Respiratory rate 12 /min Favio Andreea [facility] 04-25-2022 13:48-0400 SaO2% (BldA) [Mass fraction] 97 % Favio Andreea [facility] 04-25-2022 13:48-0400 Systolic blood pressure 111 mm[Hg] Favio Andreea [facility] 04-25-2022 13:27-0400 Heart rate 70 /min Favio [facility]reea [facility] 04-25-2022 13:27-0400 Respiratory rate 12 /min Favio [facility]reea [facility] 04-25-2022 13:27-0400 SaO2% (BldA) [Mass fraction] 98 % Favio Andreea [facility] 04-25-2022 12:16-0400 Diastolic blood pressure 86 mm[Hg] Favio [facility]reea [facility] 04-25-2022 12:16-0400 Heart rate 72 /min Favio [facility]reea [facility] 04-25-2022 12:16-0400 Hourly Rounding Favio Andreea [facility] 04-25-2022 12:16-0400 Mean blood pressure 99 mm[Hg] Favio Andreea [facility] 04-25-2022 12:16-0400 Promise to Return Favio Andreea [facility] 04-25-2022 12:16-0400 Respiratory rate 22 /min Favio [facility]reea [facility] 04-25-2022 12:16-0400 SaO2% (BldA) [Mass fraction] 96 % Favio Andreea [facility] 04-25-2022 12:16-0400 Systolic blood pressure 125 mm[Hg] Favio Meyere [facility] 04-25-2022 11:21-0400 Hourly [address] Favio Meyere [facility] 04-25-2022 11:21-0400 Promise to Return Favio Meyere [facility] 04-25-2022 11:20-0400 Diastolic blood pressure 80 mm[Hg] Favio Andreea [facility] 04-25-2022 11:20-0400 Mean blood pressure 94 mm[Hg] Favio Meyere [facility] 04-25-2022 11:20-0400 Systolic blood pressure 122 mm[Hg] Favio Meyere [facility] 04-25-2022 10:53-0400 gluc 113 mg/dL Favio Andreea [facility] 04-25-2022 10:53-[address] [facility] 04-25-2022 10:46-0400 Body temperature 97.88 [degF] Favio Meyere [facility] 04-25-2022 10:46-0400 Heart rate 85 /min Favio Andreea [facility] 04-25-2022 10:46-0400 Respiratory rate 18 /min Favio Meyere [facility] Encounters Encounter Date Encounter Type Care Provider Facility Start: 04-02-2024 End: 04-02-2024 ambulatory TIFFANY IRAHETA Not Available Start: 02-13-2024 End: 02-13-2024 ambulatory ROSANNA [facility] Start: 02-05-2024 End: 02-05-2024 ambulatory [facility] Work Phone: Start: 02-05-2024 End: 02-05-[address] [facility] Work Phone: Start: 01-02-2024 ambulatory Brayden Bartholomew acility:[facility] Start: 11-07-2023 End: 11-07-2023 ambulatory Jun Peng Other [facility] Other Start: 11-07-2023 Telephone encounter Jun [facility]ome[facility] Start: 11-05-2023 End: 11-05-2023 ambulatory Jun Peng Other [facility] Other Start: 11-05-2023 Telephone encounter Jun [facility]tholomew [facility] Start: 10-30-2023 End: 10-30-2023 ambulatory Chong Cat Other [facility] Other Start: 10-30-2023 Postop follow up visit related to original px Chong Cat [facility] Start: 10-19-2023 End: 10-19-2023 ambulatory Gui R Alvarez III Facility:[facility] Start: 10-19-2023 End: 10-19-2023 Admission to same day surgery center DO Gui Alvarez III Work Phone: [facility] [place] Start: 10-19-2023 End: 10-19-2023 ambulatory DO Gui R Alvarez III Work Phone: [facility] Work Phone: Start: 10-03-2023 End: 10-03-2023 ambulatory Jun Peng Other [facility] Other Start: 10-03-2023 Office outpatient visit 15 minutes Jun Peng [facility] Start: 10-02-2023 End: 10-02-2023 ambulatory Chong Cat Other [facility] Other Start: 10-02-2023 Postop follow up visit related to original px Chong Cat [facility] Start: 09-26-2023 End: 09-26-2023 ambulatory Jun Peng Other [facility] Other Start: 09-26-2023 Telephone encounter Jun Peng [facility] Start: 09-21-2023 End: 09-21-2023 ambulatory Chong Cat Facility:[facility] Start: 09-21-2023 End: 09-21-2023 Admission to same day surgery center DO Gui Alvarez III Work Phone: [facility] [place] Start: 09-21-2023 End: 09-21-2023 ambulatory DO Gui R Alvarez III Work Phone: [facility] Work Phone: Start: 09-20-2023 End: 09-20-2023 ambulatory Chong Cat Other [facility] Other Start: 09-20-2023 Telephone encounter Chong Cat [facility] Start: 09-19-2023 End: 09-19-2023 ambulatory Jun Peng Facility:[facility] Start: 09-19-2023 End: 09-19-2023 ambulatory DO Gui R Alvarez III Work Phone: [facility] Work Phone: Start: 09-19-2023 End: 09-19-2023 Patient encounter procedure DO Gui Alvarez III Work Phone: [facility] [place] Work Phone: Start: 09-11-2023 End: 09-11-2023 ambulatory Chong Cat Facility:[facility] Start: 09-11-2023 End: 09-11-2023 ambulatory DO Gui R Alvarez III Work Phone: [facility] Work Phone: Start: 09-11-2023 End: 09-11-2023 Patient encounter procedure DO Gui Alvarez III Work Phone: [facility] Start: 09-07-2023 End: 09-07-2023 ambulatory Jun Peng Other [facility] Other Start: 09-07-2023 Telephone encounter [facility] Start: 09-04-2023 End: 09-04-2023 ambulatory Jun Peng Other [facility] Other Start: 09-04-2023 Office outpatient new 30 minutes Jun Peng [facility] Start: 08-14-2023 End: 08-14-2023 ambulatory Philipp Vargasjohntyesha Facility:[facility] Start: 08-14-2023 End: 08-14-2023 ambulatory DO Gui R Alvarez III Work Phone: [facility] Work Phone: Start: 08-14-2023 End: 08-14-2023 Patient encounter procedure DO Gui Alvarez III Work Phone: [facility] [address] Work Phone: Start: 07-20-2023 End: 07-20-2023 ambulatory ANITA CORONA [facility] Start: 11-27-2022 End: 11-28-[address] ROSANNA PERALTA Facility:[facility] Start: 11-19-2022 End: 11-19-[address] CLARENCE CALDWELL Facility:[facility] Start: 11-02-2022 End: 11-02-[address] SHAZIA CASTRO Facility:[facility] Start: 10-06-2022 End: 10-21-2022 Pre-admission assessment Alfredo Wen [facility] Start: 10-06-2022 End: 10-06-2022 Patient encounter procedure Alfredo Wen [facility] Start: 09-26-2022 End: 09-26-2022 Patient encounter procedure Alfredo Wen [facility] Start: 08-22-2022 End: 08-22-[address] CLARENCE CALDWELL Facility:[facility] Start: 08-09-2022 End: 08-09-2022 ambulatory PILAR THAKKAR Facility:[facility] Start: 08-02-2022 End: 08-09-2022 ambulatory [facility] PROVIDER [facility] Start: 08-01-2022 End: 08-01-2022 Patient encounter procedure [facility]o [facility] Start: 07-31-2022 End: 07-31-2022 ambulatory [facility] T[facility] Treat and Transport Start: 07-31-2022 End: 07-31-2022 Emergency department patient visit [facility] Emergency Triage, Treat and Transport Comment on above: Arrived Start: 07-06-2022 End: 07-07-2022 Emergency department patient visit Libertad Doan [facility] Start: 06-12-2022 End: 06-12-2022 Patient encounter procedure [facility]o [facility] Start: 06-08-2022 End: 06-08-2022 Patient encounter procedure [facility]o [facility] Start: 05-27-2022 End: 05-27-2022 Patient encounter procedure Alfredo [facility] Start: 05-19-2022 End: 05-19-2022 Patient encounter procedure Alfredo Anthony Behzad [facility] Start: 05-12-2022 End: 05-12-2022 Patient encounter procedure Alfredo Anthony [facility]zad [facility] Start: 04-25-2022 End: 04-25-2022 Emergency department patient visit Favio Doran [facility] Procedures Date Procedure Procedure Detail Performing Clinician Start: 10-19-2023 Decompression of med gasotn nerve DO Gui Alvarez III Work Phone: [...] III Work Phone: Start: 02-07-2021 section Favio juárez Start: 09-28-2020 Antibody screen Comment on above: Performed By: #### T SCR ####[address] [id number] Start: 03-20-2014 suction curettage Favio Doran Start: 08-28-2013 R/O right superficia l neck mass Favio Doran 2014 Favio Doran Myringotomy and inse rtion of T tube Favio Doran Plan of Treatment Date Care Activity Detail Author Start: 2042 Shingles (RZV) Vaccine (1 of 2) Shingles (RZV) Vaccine (1 of 2) [facility] Start: 10-20-2023 [facility] Start: 10-19-2023 End: 10-19-2023 [facility] Start: 09-21-2023 End: 09-21-2023 [facility] Start: 09-19-2023 Ova and Parasite Concentrate Exam Ova and Parasite Concentrate Exam [facility] Start: 08-14-2023 [facility] Start: 08-19-2022 Influenza vaccination Influenza Vaccine (#1) [facility] Start: 2013 Screening for malignant neoplasm of cervix Pap Smear [facility] Start: 2010 Hepatitis C screening Hepatitis C Antibody [facility] Start: 2010 Tetanus + diphtheria + acellular pertussis vaccine (product) [facility] Start: 2007 HIV screening HIV Test [facility] Start: 02-28-1993 COVID-19 Vaccine (#1) COVID-19 Vaccine (#1) [facility] Bacteria identified in Stool by Culture [facility] Calprotectin [Mass/m ass] in Stool [facility] Elastase.pancreatic [Mass/mass] in Stool [facility] Endomysial antibody IgA level [facility] Gliadin peptide IgA Ab [Units/volume] in Serum [facility] Gliadin peptide IgG Ab [Units/volume] in Serum [facility] HIV 1+2 Ab+HIV1 p24 Ag [Presence] in Serum or Plasma by Immunoassay [facility] Homogenous nuclear A b pattern [Titer] in Serum [facility] IgA [Mass/volume] in Serum or Plasma [facility] Nuclear Ab [Titer] in Serum [facility] Ova and parasites identified in Unspecified specimen by Light microscopy [facility] Tissue transglutamin ase IgA Ab [Units/volume] in Serum [facility] Tissue transglutamin ase IgG Ab [Units/volume] in Serum [facility] Immunizations Immunization Date Immunization Notes Care Provider Reese hahn 02-07-2021 tetanus toxoid, redu marek diphtheria toxoid, and acellular pertussis vaccine, adsorbed; Translations: [Adacel (Tdap)] Favio Doran [facility] Comment on above: Reason for Medicatio n: Other (see comment) 12-16-2020 tetanus toxoid, redu marek diphtheria toxoid, and acellular pertussis vaccine, adsorbed Favio Doran [facility] 09-10-2019 influenza, injectabl e, quadrivalent, preservative free DO Gui Alvarez III Work Phone: [facility] 05-08-2015 tetanus toxoid, redu marek diphtheria toxoid, and acellular pertussis vaccine, adsorbed Favio Doran [facility] Payers Date Payer Category Payer Unknown [id number] 2023 Self-pay [id number] 2022 Unknown 1 1992 Unknown [id number] 2.16. [id number] 1992 Unknown [id number] 2.16.84 0.1.192915.3.579.2.593 1992 Unknown [id number] 2.16.84 0.1.837797.3.579.2.593 1992 Unknown [id number] 2.16.84 0.1.024721.3.579.2.593 1992 Unknown [id number] 2.16.84 0.1.573352.3.579.2.593 1992 Unknown [id number] 2.16.84 0.1.819927.3.579.2.593 1992 Unknown [id number] 2.16.84 0.1.731463.3.579.2.1259 1959 Unknown [id number] Unknown Kendrickre [id number] Unknown [id number] 2.16.8 40.1.002404.3.579.2.531 Unknown [id number] 2.16.8 40.1.631668.3.579.2.531 Unknown [id number] 2.16.8 40.1.041623.3.579.2.531 Unknown [id number] 2.16.8 40.1.572540.3.579.2.531 Unknown [id number] 2.16.8 40.1.486717.3.579.2.531 Unknown [id number] 2.16.8 40.1.999368.3.579.2.531 Social History Date Type Detail Facility Start: 05-24-2021 End: 10-19-2023 Tobacco smoking status Never smoked tobacco (finding) [facility] Comment on above: denies Tobacco smoking status Never [facility] Comment on above: denies Sex Assigned At Female [facility] Tobacco smoking status NHIS Tobacco smoking consumption unknown [facility] Start: 1992 Sex Assigned At Not on file [facility] Start: 1990 Sex Assigned At Female [facility] Goals Date Patient Goal Desired Activity /State Functional Status Date Assessment Result Facility 10-06-2022 Functional Status No [facility] 09-26-2022 Functional Status N/A [facility] 07-06-2022 Functional Status N/A [facility] 06-12-2022 Functional Status N/A [facility] 05-12-2022 Functional Status N/A [facility] Clinical Notes 06-12-2020 to 02-13-2024 Note Date & Type Note Facility 02-13-2024 Note [facility] Cardiology Clinic Note Chief Complaint: Patient here [...] She was diagnosed with fibromyalgia by her grazing aide. 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 Given her current clinical picture, plausible explanations for her chest pain, and multiple prior investigations, I do not believe further cardiovascular testing is warranted. We would be happy to see her on an as-needed basis. Rosanna Peralta MD, MPH, FACC, ANA LAURA, [facility] Interventional Cardiology Pager Email: [email or web address] 11-07-2023 Evaluation note Encounter Date Diagnosis Assessment Notes Oct, Irritable bowel syndrome, unspecified type (ICD-10 - K58.9) Oct, GERD (gastroesophage al reflux disease) (ICD-10 - K21.9) [facility] Other 12-18-2023 Evaluation note* Encounter Date Diagnosis Assessment Notes Treatment Notes Treatment Clinical Notes Oct, Irritable bowel syndrome, unspecified type (ICD-10 - K58.9) Oct, GERD (gastroesophageal reflux disease) (ICD-10 - K21.9) [facility] Other 12-12-2023 Evaluation note* Encounter Date Diagnosis [...] needed or call the office with questions. [facility] Other 11-15-2023 Evaluation note* Encounter Date Diagnosis [...] before eating Pt RTO in a month [facility] Other 11-14-2023 Evaluation note* Encounter Date Diagnosis [...] follow up 10-14 days after next surgery. [facility] Other 11-08-2023 Evaluation note* Encounter Date Diagnosis Assessment Notes Treatment Notes Treatment Clinical Notes Sep, Gastroesophageal ref lux disease without esophagitis (ICD-10 - K21.9) [facility] Other 11-02-2023 Evaluation note* Encounter Date Diagnosis Assessment Notes Treatment Notes Treatment Clinical Notes Sep, Other specified postprocedural states (ICD-10 - Z98.890) [facility] Other 10-17-2023 Evaluation note* Encounter Date Diagnosis [...] this 30 minutes prior to a meal [facility] Other 09-01-2023 [facility]2023 NoteHypertension is uncontrolled at home and b/p is typically 130-140/80-90 Will increase dose to lisinopril 20 mg daily with repeat bmp in 1-2 weeks to assess renal functionUnRegency Hospital Company09-01-2023 NotePatient here for elevated BP's lately. She [...] light-headedness. All other systems reviewed and are negative.[facility] 07-20-2023 NoteUTP CARDIOLOGY PROGRESS NOTE HPI: Sonia [...] function Obesity F[facility] Evaluation + Plan note Future Scheduled Tests Laboratory* C-Reactive Protein High Sensitivity 10/06/22 Radiology* Echo Transthoracic Lmtd 12/27/22 * Echo Transthoracic Complete 10/06/22 [facility]09-14-2022 History of Present illness Narrative* Bereket Vaughn DO - 08/02/2022 1:04 PM EDT Images from the original note were not included. EMERGENCY TRIAGE, TREAT AND TRANSPORT (ET3) DOCUMENTATION OF TELEHEALTH VISIT Date / Time: 07/31/20222249 Name: Sonia Motley : 1990 SSN: (Not on file) EMS Agency: [facility] [x] Verbal consent obtained [] Implied [...] by: Bereket Vaughn DO documented in this [id number] Hospital Discharge instructions Patient Education 07/07/2022 01:32:46 Abdominal Pain, Adult, Tfwe-zp-Xuug Abdominal Pain, Adult Many things can cause belly (abdominal) pain. Most times, belly pain is not dangerous. Many cases of belly pain can be watched and treated at home. Sometimes, though, belly pain is serious. Your doctor will try to find the cause of your belly pain. Follow these instructions at home: Medicines Take ucba-leb-vwqisac and prescription medicines only as told by [...] your belly pain for any changes. Take hzuk-qbd-bmmxapm and prescription medicines only as told by [...] 04/23/2009 Document Revised: 03/15/2020 Document Reviewed: 03/15/2020 [employer] Patient Education 2020 [employer]. Follow Up Care 07/06/2022 22:47:40 With:Gui Alvarez Address: [address] [place], [place] [address] [address] Business (1) When:07/10/2022 Comments:Can use the nausea medication every 6 hours as needed for nausea, please follow-up with your primary care doctor in the next 2 to 3 days for further evaluation management. If your pain worsens or if you have any new or concerning symptoms please return to the ED for further evaluation and management. [facility]08-18-2022 Evaluation + Plan noteExtracted from: Title:ED [...] Rest/Stress-Res Appointment Date:08/01/2022 12:30:00 PM Scheduled [facility]: [facility] Type:NM Myocard Spect Multi Rest/Stress [...] NM Myocardial Spect Rest/Stress 1 Day 08/01/22 [facility]06-07-2022 Hospital Discharge instructions Patient Education 04/25/2022 [...] home: Managing pain, stiffness, and swelling Take wdtx-npv-kydgafm and prescription medicines only as told by [...] as fried and sweet foods. ?Take an sawg-gbs-kkohogi or prescription medicine for constipation. Contact a [...] 07/31/2002 Document Revised: 01/01/2020 Document Reviewed: 11/25/2018 [employer] Patient Education 2020 [employer]. 04/25/2022 13:22:14 Nonspecific Chest Pain, Adult Nonspecific [...] Follow these instructions at home: Medicines Take bjrl-lyp-szmpqbp and prescription medicines only as told by [...] 08/15/2006 Document Revised: 05/08/2019 Document Reviewed: 05/08/2019 [employer] Patient Education [employer]. Follow Up Care 04/25/2022 10:43:39 With:Alfredo Wen Address: [address] [place] [phone] Business (1) When:04/28/2022 13:22:01 With:Gui Alvarez Address: [address] [place] [phone]- Business (1) When:Within 3 Day(s) [facility]06-07-2022 Evaluation + Plan noteExtracted from: Title:ED [...] Troponin 9 Hr. XR Chest Single View [facility]07-23-2021 NoteHNO ID: [id number] Author: Catrachita Mcguire DO Service: ? Author [...] results and radiologist's interpretation, available in the [facility] health record. Images were reviewed with the patient/family members in the office today. My personal interpretation of the performed imaging is healing fracture CLINICAL IMPRESSION / ASSESSMENT: (S52.813R) Other closed intra-articular fracture of distal end [...] treatment plan as detailed above. Catrachita Mcguire, DOCUniversity Hospitals [facility]07-23-2021 NoteHNO ID: [id number] Author: Nikita Ang RT(R) Service: Radiology Author Type: Pre Sales Technical Engineer Type: Progress Notes Filed: 06/10/2021 3:22 PM [...] BY: RT Son(R) June 10, 2021 3:19 [facility]04-23-2021 NoteHNO ID: [id number] Author: GIANA Johnston (Pa) Service: ? Author Type: Physician Electrical Calibrator Type: Progress Notes Filed: 03/11/2021 4:17 PM [...] negative. ACTIVE PROBLEM LIST Bipolar 1 Disorder ([facility]) History of Prior With Iugr Obesity Anxiety Disorder Panic Attack Due to Exceptional Stress Schizophrenia ([facility]) Trauma PAST MEDICAL HISTORY Diagnosis Date - Anxiety disorder 09/28/2020 - Bipolar 1 disorder ([facility]) 09/28/2020 - History of prior with IUGR 09/28/2020 X 2 - Obesity 09/28/2020 BMI = 43.77 No 1 hr GCT yet - Panic attack due to exceptional stress 09/28/2020 - Schizophrenia ([facility]) 09/28/2020 PAST SURGICAL HISTORY Procedure Laterality Date [...] strength. Wrist extension: 5/5 Wrist flexion: 5/5 Spring Maker: 5/5 Tests Phalen?s Sign: negative Tinel's sign [...] strength. Wrist extension: 5/5 Wrist flexion: 5/5 Spring Maker: 5/5 Tests Phalen?s Sign: negative Alyson's test: negative Other Erythema: absent Scars: absent Sen (more content not included)...[facility]03-09-2021 NoteHNO ID: [id number] Author: Lang Jacobson (Pa) Service: ? Author Type: Physician Electrical Calibrator Type: Progress Notes Filed: 01/27/2021 6:32 PM [...] due to exceptional stress 09/28/2020 - Schizophrenia ([facility]) 09/28/2020 Current Medications Current Outpatient Medications on [...] Follow-up: 4-6 weeks with hand provider. GIANA [facility]03-09-2021 NoteHNO ID: [id number] Author: Allison (Rt) Neetu Estrada Service: ? Author Type: Pre Sales Technical Engineer Type: Progress Notes Filed: 01/25/2021 3:16 PM [...] BY: RT Fadi January 25, 2021 1:57 [facility]01-26-2021 NoteHNO ID: [id number] Author: Neetu Aponte (Rt) Service: ? Author Type: Pre Sales Technical Engineer Type: Progress Notes Filed: 12/14/2020 1:45 PM Note Text: Radiology Service Progress Note PATIENT NAME: Sonia Motley DATE OF SERVICE: December 14, 2020 [...] BY: RT Fadi December 14, 2020 1:44 [facility]01-26-2021 NoteHNO ID: [id number] Author: Lang Jacobson (Pa) Service: ? Author Type: Physician Electrical Calibrator Type: Progress Notes Filed: 12/14/2020 2:20 PM [...] due to exceptional stress 09/28/2020 - Schizophrenia ([facility]) 09/28/2020 Current Medications Current Outpatient Medications on [...] - Follow-up: 6 weeks, repeat x-rays. GIANA [facility]07-25-2020 Evaluation + Plan note Future Appointments Appointment Date:06/08/2022 03:00:00 PM Scheduled Provider: Location:[facility] Appointment Type:CV Echo (FT) Appointment Date:06/12/2022 03:45:00 PM Scheduled Provider:Alfredo Wen MD Location:[facility] Clinic Appointment Type:Cardiology Follow Up (FT) Future Scheduled Tests Laboratory* C-Reactive Protein High Sensitivity 05/12/22 * Lipid Panel 05/12/22 Radiology* Echo Transthoracic Complete 06/08/22 [facility]07-25-2020 Evaluation + Plan note Future Appointments Appointment Date:06/08/2022 03:00:00 PM Scheduled Provider: Location:.[facility] Appointment Type:CV Echo (FT) Appointment Date:06/12/2022 03:45:00 PM Scheduled Provider:Alfredo Wen MD Location:[facility] Appointment Type:Cardiology Follow Up (FT) Future Scheduled Tests Radiology* Echo Transthoracic [facility] Future Appointments Appointment Date:05/19/2022 02:30:00 PM Scheduled Provider: Location:.[facility] Appointment Type:CV Stress (FT) Appointment Date:06/12/2022 03:45:00 PM Scheduled Provider:Alfredo Wen MD Location:[facility] Appointment Type:Cardiology Follow Up (FT) Future Scheduled Tests Laboratory* C-Reactive Protein High Sensitivity 05/12/22 * Lipid Panel 05/12/22 Radiology* Echo Transthoracic Complete 05/12/22 * ECG Stress Exercise [facility] Future Appointments Appointment Date:06/12/2022 03:45:00 PM Scheduled Provider:Alfredo Wen MD Location:[facility] Appointment Type:Cardiology [facility] Future Appointments Appointment Date:07/13/2022 03:30:00 PM Scheduled Provider:Alfredo Wen MD Location:[facility] Appointment Type:Cardiology Follow Up (FT) Future Scheduled Tests Radiology* NM Myocardial Spect Rest/Stress 1 Day [facility] Future Appointments Appointment Date:08/09/2022 03:15:00 PM Scheduled Provider:Alfredo Wen MD Location:[facility] Clinic Appointment Type:Cardiology [facility] Future Scheduled Tests Radiology* Echo Transthoracic Lmtd [facility] Future Appointments Appointment Date:10/20/2022 11:45:00 AM Scheduled Provider:Alfredo Wen MD Location:[facility] Appointment Type:Cardiology Follow Up (FT) Future Scheduled Tests Laboratory* C-Reactive Protein High Sensitivity 10/06/22 Radiology* Echo Transthoracic Lmtd 12/27/22 * Echo Transthoracic [facility] Diagnosis Chest pain, unspecified type- Primary documented [facility]No assessment information availableSelect [facility] Work Phone: Evaluation noteNo InformationNortJefferson Health [employer]ches [employer] Other Evaluation note* Diagnosis Onset Date Resolution Status GERD (gastroesophageal reflux disease) acute IBS (irritable bowel syndrome) chronic [facility] Work Phone: History general Narrative - Reported* Type Description Date Medical History high blood pressure Medical History heartburn Surgical History C section X3 Surgical History D&C Surgical History cyst removal Hospitalization History childbirth [email or web address] [facility] [employer] Other Hospital course Narrative No data available [facility] this section [facility] No data available for this section [facility] Additional Instructions Post-operative Instructions Carpal Tunnel Surgery Chong Cat DO Orthopedic Surgeon [facility] The following instructions will help you know [...] any questions or concerns. Office number - [facility] Work Phone: Progress note No data available for this section [facility] Summary Purpose Family History No Family [...] section and content) DATE CREATED AUTHOR 09/30/2020 [facility] DATE CREATED AUTHOR AUTHOR'S ORGANIZ ATION 10/07/2020 [facility] DATE CREATED AUTHOR AUTHOR'S ORGANIZ ATION 12/12/2021 [facility] DATE CREATED AUTHOR AUTHOR'S ORGANIZ ATION 08/28/2022 [facility] DATE CREATED AUTHOR AUTHOR'S ORGANIZ ATION 11/30/2022 [facility] DATE CREATED AUTHOR AUTHOR'S ORGANIZ ATION 10/13/2023 [facility] DATE CREATED AUTHOR AUTHOR'S ORGANIZ ATION 02/14/2024 [facility] DATE CREATED AUTHOR AUTHOR'S ORGANIZ ATION 03/10/2024 [facility] DATE CREATED AUTHOR AUTHOR'S ORGANIZ ATION 04/04/2024 [facility] dical Specialists EPIC Care Team (unrecognized sect [...] BE BASED ON THE PRIMARY CLINICAL RECORDS. [facility] [employer] [facility]. provides no warranty or guarantee of the accuracy or completeness of information in this document.
[2024-04-05 09:58] LABS: Basophils Percent Auto 0.3 % (0.2-2.0); Eosinophils Absolute Auto 0.1 10^3/uL (0.0-0.7); Eosinophils Percent Auto 0.8 % (0.9-7.0); Hematocrit 41.1 % (36.0-48.0); Hemoglobin 13.1 g/dL (12.0-16.0); Immature Granulocytes Abs Auto 0.02 10^3/uL (0.00-0.03); Immature Granulocytes Pct Auto 0.2 % (0.0-0.5); Lymphocytes Absolute Auto 2.8 10^3/uL (1.2-3.8); Lymphocytes Percent Auto 29.9 % (20.5-60.0); Mean Corpuscular HGB Conc 31.9 g/dL (29.9-35.2); Mean Corpuscular Hemoglobin 28.2 pg (26.7-34.0); Mean Corpuscular Volume 88.6 fL (81.0-99.0); Monocytes Absolute Auto 0.6 10^3/uL (0.3-0.8); Neutrophils Percent Auto 62.8 % (43.0-75.0); Platelet Count 256 10^3/uL (150-450); Red Blood Count 4.64 10^6/uL (4.20-5.40); Red Cell Distribution Width 13.8 % (11.0-15.0); White Blood Count 9.5 10^3/uL (4.0-11.0)
[2024-04-05 10:59] LABS: Alanine Aminotransferase 47 U/L (14-59); Albumin Globulin Ratio 0.8; Albumin Level 3.6 g/dL (3.4-5.0); Alkaline Phosphatase 115 U/L (46-116); Anion Gap 7.9; Aspartate Amino Transferase 29 U/L (15-37); BUN Creatinine Ratio 22.6; Bilirubin Total 0.4 mg/dL (0.2-1.0); Calcium 9.2 mg/dL (8.5-10.1); Carbon Dioxide 31.3 mmol/L (21.0-32.0); Chloride 102 mmol/L (98-107); Estimated GFR (African America >60 (>=60); Estimated GFR (Non-African Ame >60 (>=60); Globulin 4.6 g/dL; Glucose 92 mg/dL (74-106); Potassium 4.2 mmol/L (3.5-5.1); Sodium 137 mmol/L (136-145); Total Protein 8.2 g/dL (6.4-8.2)
[2024-04-05 11:08] LABS: TSH W/ REFLEX FT4 0.937 uIU/mL (0.358-3.740)
[2024-04-06 08:10] LABS: Prolactin 13.2 ng/mL (4.8-33.4)
== END 2024-04-05 08:57 | disposition home or self-care (01) ==
PROVIDERS: Visit Provider Obstetrics & Gynecology
DX: R20.2 Paresthesia of skin (principal); Z79.899 Other long term (current) drug therapy; N92.6 Irregular menstruation, unspecified; R61 Generalized hyperhidrosis; L67.8 Other hair color and hair shaft abnormalities; Z13.29 Encounter for screening for other suspected endocrine disorder
CPT/HCPCS: 36415; 80053; 82607; 82627; 83036; 84146; 84207; 84402; 84403; 84443; 85025

== ENCOUNTER 2025-08-13 13:50 | Emergency (ER) | payer OTHER, SELFPAY ==
[2025-08-13 14:01] VITALS: BP 160/93; PULSE 106; TEMP 36.9; O2SAT 98; BMI 42.9
--- OUTSIDE RECORDS SUMMARY | 2025-08-13 14:36 | XMS_ITS | CCD ---
Author Organization [facility] Care Team Providers Care Silver Recovery Operator Name Role Phone Gui Alvarez III [...] GLORIA, DR MCCRAY Admitting Unavailable CYNTHIA, DR LALISON Coffey Consulting Unavailable MISC, DR GARCIA Primary [...] REQUEST, DR VELAZQUEZ LISTED Primary Care Unavaila ble RADHA, DR WONG Attending Unavailable RADHA, DR WONG Consulting Unavailable DO Gui Alvarez III Primary Care Provider MD Philipp Espitia Attending Provider Una Peng Unavailable DO Chong Cat Attending Provider [phone] MARYSE Peng Attending Provider Chong Cat Unavailable DO Gui Alvarez III Primary Care Provider MD Philipp Espitia Attending Provider [phone] DO Meliton Catin A Attending Provider [phone] MARYSE Peng Attending Provider ROSANNA PERALTA Attending Unavailable ANITA CORONA Attending Unavailable Alvarez III, DO Gui R Primary Care Provider MD Brayden Bennett Attending Provider Alvarez III, DO Gui R Primary Care Provider MD Brayden Bennett Attending Provider Ly, DO Salud Mendenhall Attending Provider [phone] Alvarez III, DO Gui R Primary Care Provider MD Brayden Bennett Attending Provider Alvarez DO, Gui Primary Care Provider [phone] Salud Bowman Admitting Unavailable Salud Bowman Attending Unavailable Alvarez III, Gui R Primary Care Unavailabl e Sheng Zuleta Attending Unavailable Sheng Zuleta Admitting Unavailable Alvarez III, Gui R Primary Care Unavailabl e Alvarez III, Gui R Primary Care Unavailabl e Brayden Bennett Attending Unavailab Brayden De La Rosa Admitting Unavailab Kun Fleming Attending Unavailable Yamile Gaspar Attending Unavailable Yamile Gaspar Attending Unavailable Favio Doran Attending Unavailable Yamile Gaspar Admitting Unavailable Yamile Gaspar Attending Unavailable Timmis, Osito H Admitting Unavailable Timmis, Osito H Attending Unavailable Timmis, Osito H Referring Unavailable JULIET PENG Attending Unavail able JULIET PENG Referring Unavail able JULIET PENG Admitting Unavail able Alvarez, Gui R Referring Unavailable FRAN Limon Admitting Unavailabl e Lyn Limon Attending Unavailable Alvarez, Gui R Referring Unavailable Lyn Limon Attending Unavailable Alvarez, Gui R Referring Unavailable Lyn Limon Attending Unavailable Alvarez, Gui R Referring Unavailable Limon, Lyn Admitting Unavailable Lyn Limon Attending Unavailable Davidson Jiang H Attending Unavailable Favio Doran Attending Unavailable Luis DO, Christopher Unavailable Alvarez DO, Gui Primary Care Provider Alvarez, Gui R Attending Unavailable Alvarez, Gui R Referring Unavailable Apolinar, Davidson H Attending Unavailable Yamile Gaspar Attending Unavailable Luis LONG, Christopher Unavailable Alvarez DO, Gui Primary Care Provider Alvarez III DO, Gui R Primary Care Provider Una Peng APRN Attending Provider Kathe Figueroa DO Attending Provider Dwayne Byers, Edgar Attending Provider Luis LONG, Christopher Unavailable OSITO BILLY Attending Unavailable HOLLEY BARAHONA Attending Unavailable SERGE SINGH Attending Unavailable EDGAR RICE Attending Unavailable HOLLEY BARAHONA Referring Unavailable ALMAZ DORSEY Attending Unavailable SERGE SINGH Attending Unavailable SERGE SINGH Attending Unavailable SERGE SINGH Attending Unavailable HOLLEY BARAHONA Attending Unavailable ELOISA SOTO Attending Unavailable HOLLEY BARAHONA Attending Unavailable ELOISA SOTO Attending Unavailable KHOA TERRELLM Jose Attending Unavailable NIDHI CONSTANTIN R Attending Unavailable OSITO BILLY Attending Unavailable SERGE SINGH Attending Unavailable Eloisa SOTO Admitting Unavailable Eloisa SOTO Attending Unavailable Favio Doran Attending Unavailable Mac Jolly Admitting Unavailable Mac Jolly Attending Unavailable Alvarez, Gui R Referring Unavailable Alvarez, Gui R Referring Unavailable Alvarez, Gui R Attending Unavailable SHU SOTO Attending Unavaila SHU Chappell Admitting Unavaila Kathe Hardy Referring Unavailable Fuentes Cooper Attending Unavailable Alvarez, Gui R Referring Unavailable Cathy Limonanda Attending Unavailable Cathy Limonanda Admitting Unavailable SHU SOTO Attending Unavaila bogdan SOTO, SHU Amin Admitting Unavaila ble BRITTANY, SHU Amin Referring Unavaila ble Allergies Allergy Classification Reported Allergen(s) Allergy Type Date of Onset Reaction(s) Facility Corticosteroids (2 sources) predniSONE; Translations: [Prednisone] Drug Allergy 4 Itching, Hives [facility] Nalbuphine (2 sources) Nalbuphine; Translations: [Nalbuphine] Drug Allergy 4 Anaphylaxis, shortness of breath, rash [facility] (20 sources) Nalbuphine; Translations: [nalbuphine] Drug Allergy 9 shortness of breath, rash, Anaphylaxis, Unknown [facility] (20 sources) predniSONE; Translations: [prednisone] Drug Allergy 9 Hives, Itching, Unknown [facility] (1 source) Nalbuphine Drug Allergy [facility] (1 source) predniSONE Drug Allergy 2 [facility] (20 sources) Prednisone Propensity to adverse reactions 4 [facility] (1 source) Nalbuphine Drug Allergy 4 [facility] (1 source) predniSONE Drug Allergy 4 [facility] (20 sources) Azithromycin; Translations: [azithromycin] Drug Allergy 5 Diarrhea (finding), Diarrhea [facility] Medications Current Medications Medication Drug Class(es) Dates Sig (Normalized) Sig (Original) acetaminophen 325 mg oral tablet (20 sources) take 2 tablets by mouth every six hours as needed acetaminophen (Tylenol) 325 MG tablet Take 650 mg by mouth every 6 (six) hours if needed Active acetaminophen 325 mg / butalbital 50 mg / caffeine 40 mg oral tablet (20 sources) Barbiturate, Central Nervous System Stimulant, Methylxanthine take 1 tablet by mouth every six hours as needed butalbital-acetami nophen-caffeine 50-325-40 MG tablet Take 1 tablet by mouth every 6 (six) hours if needed for migraine Active Albuterol (Eqv-Ventolin HFA) 90 mcg/inh inhalation aerosol (5 sources) Start: 12-20-2024 Albuterol (Eqv-Ventolin HFA) 90 mcg/inh inhalation aerosol 180 mcg, 2 inh, Inhalation, q6hr Wheezing, 8 gm, Refill(s) 0, [facility]/pharmacy #[id number], 157, cm, 12/20/24 12:20:00 EST, Height/Length Dosing, 106.8, kg, 12/20/24 12:20:00 EST, Weight Dosing Start Date: 12/20/24 Status: Ordered Quantity: 8.0 Unit: g Repeat number: 1 Indications: Bronchitis, not specified as acute or chronic; Influenza due to other identified influenza virus with other respiratory manifestations; Start: 12-20-2024 take 8 g by inhalati on every six hours Albuterol (Eqv-Ventolin HFA) 90 mcg/inh inhalation aerosol 180 mcg, 2 inh, Inhalation, q6hr Wheezing, 8 gm, Refill(s) 0, [facility]/pharmacy #[id number], 157, cm, 12/20/24 12:20:00 EST, Height/Length Dosing, 106.8, kg, 12/20/24 12:20:00 EST, Weight Dosing Start Date: 12/20/24 Status: Ordered alosetron 1 mg oral tablet (20 sources) Serotonin-3 Receptor Antagonist Start: 01-12-2025 alosetron (Lotronex) 1 MG tablet 02/10/2025 Active Start: 07-01-2024 End: 02-19-2025 alosetron (Lotronex) 0.5 MG tablet Take 0.5 mg by mouth 07/01/2024 02/19/2025 Discontinued (Dose adjustment) Start: 07-01-2024 End: 01-12-2025 take 1 tablet by mouth twice daily alosetron 0.5 mg oral tablet 0.5 mg = 1 tab(s), Oral, BID, Refills(s) 0 Start Date: 01/13/25 Status: Ordered Repeat number: 1 aluminum chloride 200 mg/ml topical solution (20 sources) Start: 12-29-2024 Start: 07-31-2024 End: 08-15-2024 Aluminum Chloride (Drysol Da b-O-Matic) 20 % solution Discontinued 1 APPLIC TOPICAL Daily at bedtime July 31, 2024 12:00am August 15, 2024 12:20pm Start: 07-25-2024 End: 11-20-2024 aluminum chloride (Drysol) 2 0 % external solution Indications: Primary focal hyperhidrosis Apply to arm pits. Do not apply to broken or freshly shaven skin. 30 day supply 60 mL 11 11/20/2024 Active amitriptyline hydrochloride 25 mg oral tablet (20 sources) Tricyclic Antidepressant Start: 02-05-2025 End: 05-28-2025 take 1 tablet by mouth at bedtime amitriptyline (Elavil) 50 MG tablet Indications: Chronic migraine without aura without status migrainosus, not intractable , Fibromyalgia TAKE 1 TABLET BY MOUTH AT BEDTIME 30 tablet 1 02/05/2025 05/28/2025 Discontinued Start: 10-21-2024 End: 12-20-2024 take 1 tablet by mouth at bedtime amitriptyline (Elavil) 50 MG tablet Indications: Chronic migraine without aura without status migrainosus, not intractable (CMS/HCC) , Fibromyalgia TAKE 1 TABLET BY MOUTH AT BEDTIME 30 tablet 1 12/16/2024 Active Start: 08-11-2024 End: 10-10-2024 take 1 tablet by mouth at bedtime amitriptyline (Elavil) 50 MG tablet Indications: Chronic migraine without aura without status migrainosus, not intractable (CMS/HCC) , Fibromyalgia Take 1 tablet (50 mg) by mouth at bedtime 30 tablet 1 08/11/2024 10/10/2024 Active Start: 04-17-2024 take 50 mg by mouth once daily Amitriptyline Active 50 MG PO Daily April 17, 2024 10:48am Start: 04-07-2024 End: 05-06-2025 take 2 tablets by mouth at bedtime amitriptyline (Elavil) 25 MG tablet Take 50 mg by mouth at bedtime 05/06/2025 Active Start: 09-21-2023 End: 04-17-2024 take 1 tablet by mouth once daily Amitriptyline 25 mg tablet Discontinued 25 MG PO Daily September 21, 2023 12:00am April 17, 2024 10:50am Start: 05-24-2021 take 1 tablet by sarah th once daily at bedtime amitriptyline 10 mg Tab 10 mg = 1 tab(s), Oral, Once a day (at bedtime), # 90 tab(s), Refills(s) 3, [facility], 158, cm, 05/24/21 12:23:00 EDT, Height/Length Dosing, 110.3, kg, 05/24/21 12:23:00 EDT, Weight Dosing Start Date: 05/24/21 Status: Ordered Start: 09-08-2019 End: 09-21-2023 take 1 tablet by mouth three times daily Amitriptyline 10 mg tablet Discontinued 10 MG PO Three times daily September 08, 2019 12:00am September 21, 2023 8:35am amoxicillin 875 mg oral tablet (2 sources) Penicillin-class Antibacterial Start: 01-13-2025 End: 01-23-2025 take 1 tablet by mouth twice daily amoxicillin 875 mg Tab 875 mg = 1 tab(s), Oral, BID, X 10 day(s), # 20 tab(s), Refills(s) 0, Pharmacy: [facility]/pharmacy #[id number], 157, cm, 01/13/25 12:26:00 EST, Height/Length Dosing, 106.3, kg, 01/13/25 12:26:00 EST, Weight Dosing Start Date: 01/13/25 Stop Date: 01/23/25 Status: Ordered aspirin 81 mg delayed release oral tablet (7 sources) Platelet Aggregation Inhibitor, Nonsteroidal Anti-inflammatory Drug End: 10-07-2024 take 1 tablet by mouth once daily aspirin 81 MG EC tablet Take 81 mg by mouth Daily 10/07/2024 Discontinued betamethasone 0.5 mg/ml topical cream (20 sources) Corticosteroid Start: 11-20-2024 End: 02-19-2025 betamethasone dipropionate 0.05 % cream Indications: Other atopic dermatitis Apply to affected areas, up to twice a day when flared, do not use one the face, groin, or underarms, 30 day supply 45 g 11 02/19/2025 Active brompheniramine maleate 0.4 mg/ml / dextromethorphan hydrobromide 2 mg/ml / pseudoephedrine hydrochloride 6 mg/ml oral solution (5 sources) alpha-Adrenergic Agonist, Uncompetitive B-wwnbsi-Q-aspartate Receptor Antagonist, Sigma-1 Agonist Start: 12-20-2024 take 5 mL by mouth four times daily for cough and congestion Bromfed DM oral syrup 5 mL, Oral, QID for cough and congestion, 200 mL, Refill(s) 0, [facility]/pharmacy #[id number], 157, cm, 12/20/24 12:20:00 EST, Height/Length Dosing, 106.8, kg, 12/20/24 12:20:00 EST, Weight Dosing Start Date: 12/20/24 Status: Ordered Quantity: 200.0 Unit: mL Repeat number: 1 Indications: Bronchitis, not specified as acute or chronic; Influenza due to other identified influenza virus with other respiratory manifestations; 12 hr buPROPion hydrochloride 150 mg extended release oral tablet (17 sources) Aminoketone Start: 05-12-2025 take 1 tablet by mouth once daily Start: 04-01-2025 buPROPion 150 mg/24 hours XL Tab 150 mg = 1 tab(s), Refills(s) 0 Start Date: 04/01/25 Status: Ordered Repeat number: 1 Start: 03-30-2025 buPROPion XL ( Wellbutrin XL) 150 MG 24 hr tablet 1 (one) time each day at the same time 03/30/2025 Active cetirizine hydrochloride 10 mg oral tablet (20 sources) Histamine-1 Receptor Antagonist Start: 12-30-2024 take 1 tablet by mouth in the morning [facility] Allergy Relief,Cetirizine, 10 MG tablet Take 10 mg by mouth in the morning and 10 mg before bedtime. 12/30/2024 Active clindamycin 10 mg/ml topical lotion (20 sources) Lincosamide Antibacterial Start: 02-19-2025 clindamycin (Cleocin T) 1 % lotion Indications: Acne vulgaris Apply thin later to affected areas on the body, once daily, 30 day supply 60 mL 11 02/19/2025 Active colchicine 0.6 mg oral tablet (5 sources) Start: 10-06-2022 End: 10-15-2023 take 0.6 mg by mouth twice daily colchicine 0.6 mg, Oral, BID Start Date: 10/06/22 Status: Ordered colestipol hydrochloride 1000 mg oral tablet (14 sources) Bile Acid Sequestrant Start: 04-07-2024 take 2 tablets by mouth twice daily colestipol 1 g Tab 2 gm = 2 tab(s), Oral, BID, with a full glass of water, # 120 tab(s), Refills(s) 0 Start Date: 04/07/24 Status: Ordered Start: 02-05-2024 End: 04-17-2024 Colestipol 1 gram tablet Dis continued 1 GM PO Twice daily 180 90 February 11, 2024 4:15pm April 17, 2024 10:57am dicyclomine hydrochloride 20 mg oral tablet (20 sources) Anticholinergic Start: 10-03-2023 End: 01-12-2025 take 1 tablet by mouth in the morning, then take 1 tablet by mouth in the evening, then take 1 tablet by mouth at bedtime dicyclomine (Bentyl) 20 MG tablet Take 1 tablet by mouth in the morning and 1 tablet in the evening and 1 tablet before bedtime. 01/18/2024 Active Start: 09-08-2019 End: 09-21-2023 take 1 capsule by mouth four times daily Dicyclomine 10 mg capsule Discontinued 10 MG PO Four times daily September 08, 2019 12:00am September 21, 2023 8:35am escitalopram 10 mg oral tablet (20 sources) Serotonin Reuptake Inhibitor Start: 12-20-2024 take 1 tablet by mouth once daily take 1 tablet by mouth once neeraj y escitalopram (Lexapro) 20 MG tablet Take 20 mg by mouth Daily Active esomeprazole 40 mg delayed release oral capsule (20 sources) Proton Pump Inhibitor Start: 12-29-2024 End: 03-27-2025 esomeprazole (NexIUM) [address] capsule 01/25/2025 Active Ethinyl Estradiol / Ferrous fumarate / Norethindrone (20 sources) Estrogen Start: 03-31-2025 norethindrone- ethinyl estradiol (Aurovela 12/08) 1-20 MG-MCG tablet Indications: Oral contraceptive pill surveillance TAKE 1 TABLET BY MOUTH EVERY DAY 84 tablet 1 03/31/2025 Active Start: 01-31-2025 End: 03-31-2025 take 1 tablet by mouth once daily 12/08 1-20 MG-MCG tablet Take 1 tablet by mouth Daily 01/31/2025 03/31/2025 Discontinued Start: 01-31-2025 take 1 tablet by sraah once daily 12/08 1-20 MG-MCG tablet Take 1 tablet by mouth Daily 01/31/2025 Active Start: 08-15-2024 End: 10-13-2024 Norethindrone-E.Estradiol-Ir on (Aurovela Fe 1-20 (28)) 1 mg-20 mcg (21)/75 mg (7) tablet Discontinued 1 TAB PO Daily August 15, 2024 12:00am October 13, 2024 11:18am Start: 08-15-2024 End: 10-13-2024 Norethindrone-E.Estradiol-Ir on (Aurovela Fe 1-20 (28)) 1 mg-20 mcg (21)/75 mg (7) tablet Discontinued 1 TAB PO Daily August 14, 2024 11:00pm October 13, 2024 10:18am Start: 05-26-2024 take 1 tablet by sarah th once daily Aurovela Fe 1/20 oral tablet 1 tab(s), Oral, Daily, Refill(s) 0 Start Date: 05/26/24 Status: Ordered Repeat number: 1 Start: 04-29-2024 End: 10-07-2024 norethindrone-ethinyl estrad iol (Loestrin Fe 12/08) 1-20 MG-MCG tablet Indications: Irregular periods/menstrual cycles , Oral contraception initiation Take 1 tablet by mouth Daily 84 tablet 3 04/29/2024 10/07/2024 Discontinued Start: 04-29-2024 norethindrone- ethinyl estradiol (Loestrin Fe 12/08) 1-20 MG-MCG tablet Indications: Irregular periods/menstrual cycles , Oral contraception initiation Take 1 tablet by mouth Daily 84 tablet 3 04/29/2024 Active eucalyptol 0.92 mg/ml / menthol 0.42 mg/ml / methyl salicylate 0.6 mg/ml / thymol 0.64 mg/ml mouthwash (15 sources) Mouthwashes (Bio tene Dry Mouth) liquid DIRECTED MOUTH/THROAT DAILY Active famotidine 40 mg oral tablet (20 sources) Histamine-2 Receptor Antagonist Start: take 1 tablet by mouth in the morning famotidine (Pepcid) 40 MG tablet Take 40 mg by mouth in the morning and 40 mg before bedtime. 10/04/2024 Active Start: 07-01-2024 End: 08-04-2024 take 1 tablet by mouth twice daily Fiber (9 sources) Fiber Active fluconazole 150 mg oral tablet (1 source) Azole Antifungal Start: 06-27-20 End: 06-27-20 take 1 tablet by mouth once fluconazole 150 mg Tab 150 mg = 1 tab(s), Oral, Once, # 1 tab(s), Refills(s) 0, Pharmacy: [facility]/pharmacy #[id number], 157, cm, 06/25/24 2:31:00 EDT, Height/Length Dosing, 105.1, kg, 06/25/24 2:31:00 EDT, Weight Dosing Start Date: 06/27/24 Stop Date: 06/27/24 Status: Ordered glycopyrrolate 2 mg oral tablet (20 sources) Start: 02-20-20 take 3 tablets by mouth once daily glycopyrrolate (Robinul-Forte) 2 MG tablet Indications: Primary focal hyperhidrosis Take 3 tablets by mouth, once daily, 30 day supply 90 tablet 11 02/19/2025 Active Start: 02-19-2025 glycopyrrolate (Robinul) 1 MG tablet Indications: Primary focal hyperhidrosis Take 3 tablets ONCE daily, 30 day supply. 90 tablet 11 02/19/2025 Active Start: 12-20-2024 take 2 tablets by mo ut once daily in the morning glycopyrrolate 1 mg oral tablet See Instructions, 2mg tabs- 3 tabs every morning, Refills(s) 0 Start Date: 12/20/24 Status: Ordered Repeat number: 1 Start: 08-29-2024 End: 11-20-2025 take 1 tablet by mouth in the morning glycopyrrolate (Robinul) 2 MG tablet Indications: Primary focal hyperhidrosis Take 1 tablet (2 mg) by mouth in the morning and 1 tablet (2 mg) before bedtime. 60 tablet 3 11/20/2024 02/19/2025 Discontinued (Reorder) Start: 07-25-2024 End: 07-25-2025 take 1 tablet by mouth once Glycopyrrolate 1 mg tablet Discontinued 1 MG PO Once July 31, 2024 12:00am May 12, 2025 3:35pm hydrOXYzine hydrochloride 25 mg oral tablet (11 sources) Antihistamine Start: 06-25-2024 take 1 tablet by mouth four times daily as needed hydrOXYzine hydrochloride 25 mg Tab 25 mg = 1 tab(s), Oral, QID, PRN for itching, # 40 tab(s), Refills(s) 0, Pharmacy: [facility]/pharmacy #[id number], 157, cm, 06/25/24 2:31:00 EDT, Height/Length Dosing, 105.1, kg, 06/25/24 2:31:00 EDT, Weight Dosing Start Date: 06/25/24 Status: Ordered Quantity: 40.0 Unit: tab(s) Repeat number: 1 ibuprofen 600 mg oral tablet (13 sources) Nonsteroidal Anti-inflammatory Drug Start: 10-06-2022 End: 10-01-2023 take 1 tablet by mouth every eight hours ibuprofen 600 mg Tab 600 mg = 1 tab(s), Oral, q8hr Start Date: 10/06/22 Status: Ordered indomethacin 25 mg oral capsule (1 source) Nonsteroidal Anti-inflammatory Drug Start: 09-27-2022 End: 10-11-2022 take 1 capsule by mouth three times daily indomethacin 25 mg Cap 25 mg = 1 cap(s), Oral, TID, X 14 day(s), # 42 cap(s), Refills(s) 0, Pharmacy: [facility]/pharmacy #[id number], 158, cm, 09/26/22 11:41:00 EST, Height/Length Dosing, 107, kg, 09/26/22 11:41:00 EST, Weight Dosing Start Date: 09/27/22 Stop Date: 10/11/22 Status: Ordered 12 hr loratadine 5 mg / pseudoephedrine sulfate 120 mg extended release oral tablet (1 source) alpha-Adrenergic Agonist Start: 01-31-2025 End: 02-10-2025 loratadine-pseudo ephedrine 5 mg-120 mg ER Tab 1 tab(s), Oral, q12hr for 10 day(s), 20 tab(s), Refill(s) 0, [facility]/pharmacy #[id number], 157, cm, 01/31/25 10:05:00 EDT, Height/Length Dosing, 104.4, kg, 01/31/25 10:05:00 EDT, Weight Dosing Start Date: 01/31/25 Stop Date: 02/10/25 Status: Ordered methylPREDNISolone 4 mg oral tablet (1 source) Corticosteroid Start: 12-20-2024 End: 12-26-2024 Medrol 4 mg Tab = 1 packet(s), Oral, As Directed, as directed on package labeling, X 6 day(s), # 21 tab(s), Refills(s) 0, Pharmacy: [facility]/pharmacy #[id number], 157, cm, 12/20/24 12:20:00 EST, Height/Length Dosing, 106.8, kg, 12/20/24 12:20:00 EST, Weight Dosing Start Date: 12/20/24 Stop Date: 12/26/24 Status: Ordered Misc Natural Products (FIBER 7 PO) (15 sources) End: 01-05-2025 Misc Natural Products (FIBER 7 PO) Take by mouth 01/05/2025 Discontinued (Therapy completed) Misc Natural Pro ducts (FIBER 7 PO) Take by mouth Active naproxen 500 mg oral tablet (4 sources) Nonsteroidal Anti-inflammatory Drug Start: 09-01-2024 take 1 tablet by mouth twice daily as needed for pain Naprosyn 500 mg Tab 500 mg = 1 tab(s), Oral, BID, PRN for pain, # 20 tab(s), Refills(s) 0, Pharmacy: [facility]/pharmacy #[id number], 157.5, cm, 09/01/24 10:51:00 EDT, Height/Length Dosing, 106.8, kg, 09/01/24 10:51:00 EDT, Weight Dosing Start Date: 09/01/24 Status: Ordered naratriptan 2.5 mg oral tablet (20 sources) Serotonin-1b and Serotonin-1d Receptor Agonist Start: 04-02-2025 naratriptan (Amerge) 2.5 MG tablet Indications: Chronic migraine without aura without status migrainosus, not intractable TAKE 1 TABLET NEEDED AT ONSET OF MIGRAINE.MAY REPEAT DOSE ONCE IN 4 HRS IF IT PERSISTS.MAX 2/24HR 9 tablet 1 04/02/2025 Active Start: 01-26-2025 naratriptan (A merge) 2.5 MG tablet Indications: Chronic migraine without aura without status migrainosus, not intractable (CMS/HCC) TAKE 1 TABLET NEEDED AT ONSET OF MIGRAINE.MAY REPEAT DOSE ONCE IN 4 HRS IF IT PERSISTS.MAX 2/24HR 9 tablet 1 01/26/2025 Active Start: 12-29-2024 naratriptan 2. 5 mg Tab as needed for migraines, Refills(s) 0 Start Date: 04/01/25 Status: Ordered Repeat number: 1 Start: 09-11-2024 naratriptan (A merge) 2.5 MG tablet Indications: Chronic migraine without aura without status migrainosus, not intractable (CMS/HCC) Take 1 tablet by mouth as needed at the onset of migraine. May repeat dose (1 tablet) once after 4 hours if migraine persists. Take NO more than 2 doses in 24 hours. 9 tablet 2 09/11/2024 Active omeprazole 40 mg delayed release oral capsule (20 sources) Proton Pump Inhibitor Start: 02-05-2024 End: 05-12-2025 take 1 capsule by mouth before mealtime omeprazole (PriLOSEC) [address] capsule Take 40 mg by mouth in the morning. Take before meals. 02/05/2024 Active Start: 02-05-2024 End: 04-17-2024 take 1 capsule by mouth once daily Omeprazole 40 mg capsule,delayed release(DR/EC) Discontinued 40 MG PO Daily February 05, 2024 12:00am April 17, 2024 10:49am Start: 02-05-2024 End: 04-17-2024 take 40 mg by mouth once daily Omeprazole Discontinued 40 MG PO Daily February 05, 2024 12:00am April 17, 2024 10:49am Start: 09-26-2023 take 1 tablet by sarah th once daily Omeprazole 40 MG 1 tablet 30 minutes before morning meal Orally Once a day for 90 days 40mg Sep, Active Start: 09-21-2023 End: 10-07-2024 take 1 tablet by mouth once daily Omeprazole 20 MG 1 tablet 30 minutes before morning meal Orally Once a day for 90 days Sep, Active take 1 tablet by sarah th once daily PriLOSEC OTC 20 MG 1 tablet 30 minutes before morning meal Orally Once a day for 30 days Active ondansetron 4 mg disintegrating oral tablet (20 sources) Serotonin-3 Receptor Antagonist Start: 12-20-2024 take 1 tablet by mouth every eight hours as needed for nausea Zofran 4 mg Tab 4 mg = 1 tab(s), Oral, q8hr, PRN Nausea/Vomiting, # 12 tab(s), Refills(s) 0, Pharmacy: [facility]/pharmacy #[id number], 157, cm, 12/20/24 12:20:00 EST, Height/Length Dosing, 106.8, kg, 12/20/24 12:20:00 EST, Weight Dosing Start Date: 12/20/24 Status: Ordered Quantity: 12.0 Unit: tab(s) Repeat number: 1 Start: 02-05-2024 take 1 tablet by sarah th every twenty-four hours as needed for nausea and vomiting ondansetron ODT (Zofran-ODT) 4 MG disintegrating tablet Take 4 mg by mouth Daily as needed for nausea or vomiting 02/05/2024 Active Start: 02-05-2024 End: 01-26-2025 take 1 tablet by mouth three times daily as needed for nausea and vomiting Start: 09-08-2019 End: 09-21-2023 take 1 tablet by mouth every eight hours as needed for nausea Ondansetron Hcl 4 mg tablet Discontinued 4 MG PO Q8H as needed for Nausea September 08, 2019 12:00am September 21, 2023 8:36am phentermine hydrochloride 37.5 mg oral tablet (20 sources) Sympathomimetic Amine Anorectic Start: 02-13-2025 take 1 tablet by mouth once daily phentermine (Adipex-P) 37.5 MG tablet Take 37.5 mg by mouth Daily 02/13/2025 Active pregabalin 100 mg oral capsule (20 sources) Start: 06-01-2025 pregabalin (Lyrica) 100 MG capsule Take 150 mg by mouth in the morning and 150 mg before bedtime. 06/01/2025 Active Start: 12-29-2024 take 2 capsules by m outh twice daily Start: 07-18-2024 End: 04-12-2025 take 1 capsule by mouth twice daily pregabalin 150 mg Cap 150 mg = 1 cap(s), Oral, BID, X 90 day(s), # 180 cap(s), Refills(s) 1, Pharmacy: [facility]/pharmacy #[id number], 157.5, cm, 10/14/24 11:14:00 EST, Height/Length Dosing, 108, kg, 10/14/24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 MAMMOGRAPHY IS VERY IMPORTANT TO YOUR HEALTH. THE CURRENT [employer] RECOMMENDS ANNUAL MAMMOGRAPHY BEGINNING AT AGE 40. THIS FACILITY UTILIZES A REMINDER SYSTEM TO ENSURE ALL PATIENTS RECEIVE REMINDER NOTIFICATIONS AT THE APPROPRIATE TIME BASED ON THE RECOMMENDATIONS OF THIS EXAM. Report Ordering Provider: , FINAL REPORT Dictated: 07/14/2025 3:01 pm Francisco J Tucker MD Signed (Electronic Signature): 07/14/2025 3:10 pm Signed by: Francisco J Tucker MD Transcribed by: YINA Technologist: AP Assessment: BI-RADS Category 1-Negative Recommendation: Normal interval follow-up [facility] Radiology, Radiologist, - 07/14/2025 Exam Date/Time: 07/14/2025 13:34 EDT Reason for Exam: N64.3 Report IMPRESSION: BIRADS 1 NEGATIVE, NORMAL INTERVAL FOLLOW-UP Follow-up: CLINICALLY INDICATED PER REFERRING PHYSICIAN Breast Density: Scattered areas of fibroglandular density. Vascular calcifications: Absent. EXAM: MA Mamm Diag w/CAD if perf and 3D Samir DATE: 07/14/2025 1:07 PM CLINICAL HISTORY: N64.3. COMPARISONS: None available. TECHNIQUE: Routine full-field digital mammograms and 3D breast tomosynthesis were obtained of both breasts. FINDINGS: There are no dominant masses, suspicious microcalcifications, or areas of architectural distortion identified on this baseline study. Dense Breast: No. CAD analysis was performed and used in the interpretation. Board Certified Radiologists. Accredited by the ACR and FDA. MAMMOGRAPHY IS VERY IMPORTANT TO YOUR HEALTH. THE CURRENT [employer] AND [employer] GUID[employer]ES RECOMMENDS ANNUAL MAMMOGRAPHY BEGINNING AT AGE 40. THIS FACILITY UTILIZES A REMINDER SYSTEM TO ENSURE ALL PATIENTS RECEIVE REMINDER NOTIFICATIONS AT THE APPROPRIATE TIME BASED ON THE RECOMMENDATIONS OF THIS EXAM. Report Ordering Provider: , FINAL REPORT Dictated: 07/14/2025 3:01 pm Francisco J Tucker MD Signed (Electronic Signature): 07/14/2025 3:10 pm Signed by: Francisco J Tucker MD Transcribed by: YINA Technologist: AP Assessment: BI-RADS Category 1-Negative Recommendation: Normal interval follow-up [facility] Radiology Study observation (narrative) [facility] MA MAMM DIAG W/CAD IF PERF A ND 3D BILOrdered By: Radiologist Radiology on 07-14-2025 [facility] Work Phone: MA Mamm Diag w/CAD if perf a nd 3D Bilon 07-14-2025 MA Mamm Diag w/CAD if perf and 3D Samir Exam Date/Time: 07/14/2025 13:34 EDT Reason for Exam: N64.3 Report IMPRESSION: BIRADS 1 NEGATIVE, NORMAL INTERVAL FOLLOW-UP Follow-up: CLINICALLY INDICATED PER REFERRING PHYSICIAN Breast Density: Scattered areas of fibroglandular density. Vascular calcifications: Absent. EXAM: MA Mamm Diag w/CAD if perf and 3D Samir DATE: 07/14/2025 1:07 PM CLINICAL HISTORY: N64.3. COMPARISONS: None available. TECHNIQUE: Routine full-field digital mammograms and 3D breast tomosynthesis were obtained of both breasts. FINDINGS: There are no dominant masses, suspicious microcalcifications, or areas of architectural distortion identified on this baseline study. Dense Breast: No. CAD analysis was performed and used in the interpretation. Board Certified Radiologists. Accredited by the ACR and FDA. MAMMOGRAPHY IS VERY IMPORTANT TO YOUR HEALTH. THE CURRENT [employer] AND [employer] GUID[employer]ES RECOMMENDS ANNUAL MAMMOGRAPHY BEGINNING AT AGE 40. THIS FACILITY UTILIZES A REMINDER SYSTEM TO ENSURE ALL PATIENTS RECEIVE REMINDER NOTIFICATIONS AT THE APPROPRIATE TIME BASED ON THE RECOMMENDATIONS OF THIS EXAM. Report Ordering Provider: , FINAL REPORT Dictated: 07/14/2025 3:01 pm Francisco J Tucker MD Signed (Electronic Signature): 07/14/2025 3:10 pm Signed by: Francisco J Tucker MD Transcribed by: YINA Technologist: CHARLEY Assessment: BI-RADS Category 1-Negative Recommendation: Normal interval follow-up Normal [facility] Quanton 06-02-2025 BETA HCG QNT <1 Normal 1-3 [facility] Comment on above: 'F NON < 1 - 3' ' 0.2 - 1 WEEK = 5 TO 50' ' 1 - 2 WEEKS = 50 - 500' ' 2 - 3 WEEKS = 100 - 5000' ' 3 - 4 WEEKS = 500 - 50154' ' 4 - 5 WEEKS = 1000 - 42054' ' 5 - 6 WEEKS = 31191 - 340869' ' 6 - 8 WEEKS = 09958 - 995990' ' 8 - 12 WEEKS = 58487 - 689218' Result Comment: 'F N ON < 1 - 3' ' 0.2 - 1 WEEK = 5 TO 50' ' 1 - 2 WEEKS = 50 - 500' ' 2 - 3 WEEKS = 100 - 5000' ' 3 - 4 WEEKS = 500 - 46573' ' 4 - 5 WEEKS = 1000 - 30505' ' 5 - 6 WEEKS = 31536 - 057869' ' 6 - 8 WEEKS = 25416 - 354934' ' 8 - 12 WEEKS = 17246 - 136093' Performed By: #### 2 [id number] #### [facility] [address] [place] [address] [facility] BHCG QUANTon 06-02-2025 Original Ordering Provider: SHU GIFFORD [facility] HCG ( test) Ql (U)o n 06-02-2025 Preg Test, Ur Negative Negative [facility] Prolactinon 06-02-2025 Prolactin 9.77 ng/mL Normal 3.34-26.72 [facility] Comment on above: Performed By: #### 2 [id number] #### [facility] [address] [place] [address] TSHon 06-02-2025 TSH Qn 1.23 m[IU]/L Normal 0.34-5.60 [facility] Comment on above: Performed By: #### 2 [id number] #### [facility] [address] [place] [address] Auditory function testson Bilateral Mild sensorineural hearing loss at 6K Hz only [facility] Nonvisit Note - PTon 025 Nonvisit Note - PT Nonvisit Note - PT Pt. did not show to 04/15/25 outpatient PT re-eval appt. This was pt.'s last scheduled visit. Normal [facility] Nonvisit Note - PTon 025 Nonvisit Note - PT Nonvisit Note - PT Pt cancelled appointment this date. Normal [facility] ED Note-Physicianon 02-22-20 ED Note-Physician ED Note-Physician Basic Information Time Seen: Prasanna Billings PA-C 02/20/2025 13:53 Chief Complaint c/o migraine that started around 1130, EMS states when they picked her up she mentioned new onset of left sided numbness. hx of migraines. History of Present Illness A 34-year-old female reports to the emergency department via EMS with concerns of a migraine. Reports migraine started around 1130. Reports that she had numbness in the left side of her body associate with this. States that this is new but does have chronic migraines. She reports that she is on amitriptyline for migraines and does see neurology. She reports that she cannot really move left side of her body. She states that she is having a headache associated with this. Denies any fevers or chills. Denies any chest pain shortness of breath. Review of Systems No other aggravating or relieving factors no other associated symptoms no other prior treatments or complaints. Family: Reviewed and noncontributory Social: lives at home Review of systems negative unless otherwise specified in the HPI. Physical Exam Vitals & Measurements T: 36.7 ???C(Oral) HR: 70(Monitored) RR: 16 BP: 152/102 SpO2: 100% HT: 157 cm WT: 107.9 kg BMI: 43.77 General: The patient appears well and in no apparent distress. Patient is resting comfortably on bed. Afebrile Skin: Warm, dry, no pallor noted. Head: Normocephalic, atraumatic Neck: No JVD Eye: PERRLA, EOMI ENT: Moist mucus membranes Cardiovascular: Regular rate. normal peripheral perfusion Respiratory: No respiratory distress. no accessory muscle use. no obvious audible wheezing. Lung sounds clear to auscultation Chest Wall: no deformity Musculoskeletal: normal ROM, no deformity, no swelling GI: No obvious distention Neurological: A&Ox4. moves all extremities equal strength and symmetry. Reports mild numbness and tingling left side of the body, but moves all extremities without any drift. No acute distress. Psychiatric: Cooperative and appropriate Medical Decision Making MEDICAL DECISION MAKING Number and Complexity of Problems Differential Diagnosis: [] [facility] Data External documents reviewed: [] My EKG interpretation: reviewed My CT interpretation: Reviewed My X-ray interpretation: reviewed My Ultrasound interpretation: [] Decision rules/scores evaluated: [] Discussed with: [] Treatment and Disposition ED Course: 34-year-old female reports emerged from department with concerns of migraine like headache, worsening symptoms. Reports left-sided weakness. Initial presentation here, she has no focal logical deficits. She complains of left-sided weakness, but moves all extremities with equal strength. No drift is noted on my exam. She is alert oriented x 4. Does talk to me throughout encounter. A rapid response stroke was called based on nursing protocol, but does not believe this is at all a stroke. Patient did have a stat CT of her head, that was negative for any acute findings. I did give patient migraine cocktail, with great improvement of her symptoms. No TNK was given to due to the CHOLO stroke scale being a 1, as well as no concern for ischemic stroke at this time. She did have improvement of her symptoms. I believe that this is likely more of a migraine like headache, as well as some behavioral/psychiatri c element playing a part with her symptoms as her symptoms changed from not being able to talk, to talking, to moving all extremities. Patient was able to ambulate out of the emergency department upon discharge. Discussed return precautions. Discussed follow-up with PCP. Follow-up with your primary care provider in 3 to 5 days. If symptoms worsen, do not improve, or new symptoms arise please report back to emergency department for further evaluation. The patient was understanding and agreeable to plan moving forward. Shared decision making: [] Code status: [] Assessment/Plan Migraine (G43.909: Migraine, unspecified, not intractable, without status migrainosus) Paresthesias (R20.2: Paresthesia of skin) Orders: diphenhydrAMINE, 25 mg = 0.5 mL, Injection, IV Push, Once, Stop date 02/20/25 14:16:00 EDT, STAT, Start date 02/20/25 14:16:00 EDT, 02/20/25 14:16:00 EDT ketorolac, 30 mg = 1 mL, Injection, IV Push, Once, Stop date 02/20/25 14:16:00 EDT, STAT, Start date 02/20/25 14:16:00 EDT, 02/20/25 14:16:00 EDT lorazepam, 1 mg = 0.5 mL, Injection, IV Push, Once, Stop date 02/20/25 15:39:00 EDT, STAT, Start date 02/20/25 15:39:00 EDT, 02/20/25 15:39:00 EDT ondansetron, 4 mg = 2 mL, Injection, IV Push, Once, Stop date 02/20/25 14:16:00 EDT, STAT, Start date 02/20/25 14:16:00 EDT, 02/20/25 14:16:00 EDT Sodium Chloride 0.9% intravenous solution, 1,000 mL, Soln-IV, IV, Once, Stop date 02/20/25 15:47:00 EDT, STAT, Start date 02/20/25 15:47:00 EDT, Infuse over 61, minute(s) Basic Metabolic Panel BB Draw & Hold Beta hCG Qual Cardiac Monitoring CBC w/ Auto Diff Communication Order Communicat (more content not included)... Normal [facility] Comment on above: Result Comment: Elec tronically Signed By: Prasanna Billings PA-C\.br\Date and Time Signed: 02/20/25 20:42 EDT\.br\Electronically Co-Signed By: Favio Doran DO\.br\Date and Time Co-Signed: 02/21/25 07:17 EDT B hCG Qualon 02-20-2025 Beta HCG ( test) Ql Negative Normal [facility] Comment on above: Performed By: #### 2 [id number] #### [facility] [address] [place] [address] BB Draw & Holdon 02-20-2025 BB D&H Sample drawn for Blood Ba Normal [facility] Comment on above: Performed By: #### 1 [id number] #### [facility] [address] [place] [address] BMPon 02-20-2025 Creatinine [Mass/Vol] 0.6 mg/dL Normal 0.5-1.3 [facility] Comment on above: Performed By: #### 2 [id number] #### [facility] [address] [place] [address] Urea nitrogen/Creatinine [Mass ratio] 15 No Units Normal 10-20 [facility] Comment on above: Performed By: #### 2 [id number] #### [facility] [address] [place] [address] Anion gap [Moles/Vol] 13 mmol/L Normal 6-16 [facility] Comment on above: Performed By: #### 2 [id number] #### [facility] [address] [place] [address] Calcium [Mass/Vol] 10.1 mg/dL Normal 8.9-11.1 [facility] Comment on above: Performed By: #### 2 [id number] #### [facility] [address] [place] [address] Chloride [Moles/Vol] 102 mmol/L Normal 101-111 [facility] Comment on above: Performed By: #### 2 [id number] #### [facility] [address] [place] [address] CO2 [Moles/Vol] 26 mmol/L Normal 21-31 [facility] Comment on above: Performed By: #### 2 [id number] #### [facility] [address] [place] [address] Glucose [Mass/Vol] 88 mg/dL Normal 55-199 [facility] Comment on above: Performed By: #### 2 [id number] #### [facility] [address] [place] [address] Potassium [Moles/Vol] 4.3 mmol/L Normal 3.5-5.3 [facility] Comment on above: Performed By: #### 2 [id number] #### [facility] [address] [place] [address] Sodium [Moles/Vol] 137 mmol/L Normal 135-145 [facility] Comment on above: Performed By: #### 2 [id number] #### [facility] [address] [place] [address] Urea nitrogen [Mass/Vol] 9 mg/dL Normal 5-21 [facility] Comment on above: Performed By: #### 2 [id number] #### [facility] [address] [place] [address] CBC w/ Auto Diffon 5 Basophils/100 WBC (Bld) 0.7 % Normal 0.0-2.0 [facility] Comment on above: Performed By: #### 2 [id number] #### [facility] [address] [place] [address] Basophils/Leukocytes Auto (Bld) [Pure # fraction] 0.1 E9/L Normal 0.0-0.2 [facility] Comment on above: Performed By: #### 2 [id number] #### [facility] [address] [place] [address] Eosinophils (Bld) [#/Vol] 0.0 E9/L Normal 0.0-0.5 [facility] Comment on above: Performed By: #### 2 [id number] #### [facility] [address] [place] [address] Eosinophils/100 WBC (Bld) 0.6 % Normal 0.0-8.0 [facility] Comment on above: Performed By: #### 2 [id number] #### [facility] [address] [place] [address] Erythrocyte distribution width (RBC) [Ratio] 15.2 % High 10.9-14.2 [facility] Comment on above: Performed By: #### 2 [id number] #### [facility] [address] [place] [address] Hematocrit (Bld) [Volume fraction] 42.9 % Normal 34.0-46.0 [facility] Comment on above: Performed By: #### 2 [id number] #### [facility] [address] [place] [address] Hemoglobin (Bld) [Mass/Vol] 14.7 g/dL Normal 12.0-16.0 [facility] Comment on above: Performed By: #### 2 [id number] #### [facility] [address] [place] [address] Lymphocytes (Bld) [#/Vol] 3.1 E9/L Normal 1.0-4.0 [facility] Comment on above: Performed By: #### 2 [id number] #### [facility] [address] [place] [address] Lymphocytes/100 WBC (Bld) 41.3 % Normal 14.0-50.0 [facility] Comment on above: Performed By: #### 2 [id number] #### [facility] [address] [place] [address] MCH (RBC) [Entitic mass] 28.6 pg Normal 27.0-34.0 [facility] Comment on above: Performed By: #### 2 [id number] #### [facility] [address] [place] [address] MCHC (RBC) [Mass/Vol] 34.2 g/dL Normal 31.4-36.0 [facility] Comment on above: Performed By: #### 2 [id number] #### [facility] [address] [place] [address] MCV (RBC) [Entitic vol] 83.7 fL Normal 80.0-100.0 [facility] Comment on above: Performed By: #### 2 [id number] #### [facility] [address] [place] [address] Monocytes (Bld) [#/Vol] 0.5 E9/L Normal 0.2-1.0 [facility] Comment on above: Performed By: #### 2 [id number] #### [facility] [address] [place] [address] Neutrophils (Bld) [#/Vol] 3.9 E9/L Normal 2.0-7.5 [facility] Comment on above: Performed By: #### 2 [id number] #### [facility] [address] [place] [address] Neutrophils/100 WBC (Bld) 50.6 % Normal 36.0-75.0 [facility] Comment on above: Performed By: #### 2 [id number] #### [facility] [address] [place] [address] Platelet 258.0 E9/L Normal 150.0-500.0 [facility] Comment on above: Performed By: #### 2 [id number] #### [facility] [address] [place] [address] Platelet mean volume (Bld) [Entitic vol] 9.1 fL Normal 6.4-10.8 [facility] Comment on above: Performed By: #### 2 [id number] #### [facility] [address] [place] [address] RBC (Bld) [#/Vol] 5.1 E12/L Normal 4.3-5.9 [facility] Comment on above: Performed By: #### 2 [id number] #### [facility] [address] [place] [address] WBC corrected for nucl RBC Auto (Bld) [#/Vol] 7.6 E9/L Normal 4.0-11.0 [facility] Comment on above: Performed By: #### 2 [id number] #### [facility] [address] [place] [address] CHEMISTRYOrdered By: SYSTEM SYSTEM on 02-20-2025 Anion gap [Moles/Vol] 13 mmol/L Normal 6 - 16 mEq/L [facility] Calcium [Mass/Vol] 10.1 mg/dL Normal 8.9 - 11. 1 mg/dL [facility] Chloride [Moles/Vol] 102 mmol/L Normal 101 - 1 11 mmol/L [facility] CO2 [Moles/Vol] 26 mmol/L Normal 21 - 31 mmol/L [facility] Creatinine [Mass/Vol] 0.6 mg/dL Normal 0.5 - 1.3 mg/dL [facility] eGFR 122 mL/min/1.73 m2 Normal >=59mL/mi n/ 1.73 m2 [facility] Glucose [Mass/Vol] 88 mg/dL Normal 55 - 199 mg/dL [facility] Potassium [Moles/Vol] 4.3 mmol/L Normal 3.5 - 5.3 mmol/L [facility] Sodium [Moles/Vol] 137 mmol/L Normal 135 - 145 mmol/L [facility] Troponin HS pg/mL Low 10.10 - 27.10 pg/mL [facility] Comment on above: Interpretive Data: T he 95% CI (Confidence Interval) PPV (Positive Predictive Value) for myocardial infarction in females is 38 pg/mL, in males 51 pg/mL. The results should be used in conjunction with clinical conditions of myocardial infarction. (Access High Sensitivity Troponin I Instructions For Use, Geraldine [place], June 2018) Urea nitrogen [Mass/Vol] 9 mg/dL Normal 5 - 21 mg/dL [facility] Urea nitrogen/Creatinine [Mass ratio] 15 mg/mg Normal 10 - 20 [facility] COAGULATIONOrdered By: Elisa Thapa on 02-20-2025 aPTT Coag (PPP) [Time] 31.2 s Normal 25.1 - 36.5 second(s) [facility] Comment on above: Interpretive Data: P arameter 15 days - 4 weeks 1 - 5 months 6 - 11 months 1 - 5 years 6 - 10 years 11 - 17 years PTT Mean: 35.4 (27.6-45.6) Mean: 33.5 (24.8-40.7) Mean: 32.4 (25.1-40.7) Mean: 31.6 (24.0-39.2) Mean: 31.6 (26.9-38.7) Mean: 31.0 (24.6-38.4) Pediatric Reference ranges were obtained from a study by Damion Arce et al. prepared from 1437 samples obtained at 7 different centers using the same coagulation reagent and instrumentation as [facility]. Currently there are no coagulation studies available worldwide for children to 14 days, and no normal ranges. Heparin therapeutic range (represented by Anti-Factor Xa activity of 0.2 - 0.4 U/mL) corresponds to PTT of 56.6 - 109.0 sec. INR Coag (PPP) [Relative time] 0.83 {INR} Invalid Interpretation Code [facility] Comment on above: Interpretive Data: I NR results are specifically intended to assess patients stabilized on long-term Anticoagulation therapy suggested INR s Less Intensive Anticoagulation 2.0 3.0 Conventional Range 3.0 4.5 PT Coag (PPP) [Time] 9.3 s Low 9.4 - 1 2.5 second(s) [facility] Comment on above: Interpretive Data: 1 5 days - 4 weeks 1 - 5 months 6 -11 months 1 5 years 6 10 years 11 -17 years Mean: 11.2 (9.5 12.6) Mean: 11.0 (9.7 12.8) Mean: 11.0 (9.8 13.0) Mean: 11.3 (9.9 13.4) Mean: 11.7 (10.0 14.6) Mean: 11.8 (10.0 - 14.1) Pediatric Reference ranges were obtained from a study by juan luis Jackson al. prepared from 1437 samples obtained at 7 different centers using the same coagulation reagent and instrumentation as [facility]. Currently there are no coagulation studies available worldwide for children to 14 days, and no normal ranges. CT Head or Brain w/o Contras ton 02-20-2025 CT Head or Brain w/o Contrast Exam Date/Time: 02/20/2025 14:04 EDT Reason for Exam: Neuro deficit, acute, stroke suspected;Stroke Report IMPRESSION: NO ACUTE INTRACRANIAL PROCESS IDENTIFIED. EXAM: CT Head or Brain w/o Contrast DATE: 02/20/2025 1:58 PM CLINICAL HISTORY: Stroke, Neuro deficit, acute, stroke suspected. COMPARISON: None available. TECHNIQUE: Routine. All CT scans at this facility use dose modulation, iterative reconstruction, and/or weight based dosing when appropriate to reduce radiation dose to as low as reasonably achievable. FINDINGS: There is no intracranial hemorrhage, mass effect, midline shift, extra-axial collection, evidence of hydrocephalus, skull fracture, or a recent ischemic infarct identified. There is no significant atrophy or white matter changes, for age. The mastoid air cells and visualized paranasal sinuses are essentially clear. Ordering Provider: Prasanna Billings FINAL REPORT Dictated: 02/20/2025 2:08 pm Francisco J Tucker MD Signed (Electronic Signature): 02/20/2025 2:08 pm Signed by: Francisco J Tucker MD Transcribed by: YINA Technologist: NAYA Holguin [facility] ED Clinical Summaryon 2024 ED Clinical Summary ED Clinical Summary [address] [address] ED Clinical Summary Person Information Name: SONIA MOTLEY [facility] Age: 34 Years : 1990 Sex: Female Language: Vietnamese PCP: Gui Alvarez III, DO Marital Status: Visit Id: Visit Reason: Paresthesia; Headache; MIGRAINE - LEFT SIDED NUMBNESS Speciality: Acuity: 2 Enc Type: Emergency Med Service: Emergency Arrival: 02/20/2025 13:51:14 Discharge: 02/20/2025 18:12:11 LOS: 000 04:21 Checkin: 02/20/2025 13:51:14 Checkout: 02/20/2025 18:12:11 Dispo Type: Home (Routine DC) EVENTS: Event Name Event Status Request Date/Time Start Date/Time Complete Date/Time Arrive Complete 02/20/2025 13:51:14 02/20/2025 13:51:14 02/20/2025 13:51:14 Document Home Meds Request 02/20/2025 13:51:14 Triage Complete 02/20/2025 13:51:14 02/20/2025 13:59:37 02/20/2025 13:59:37 Bed Assign Complete 02/20/2025 13:51:14 02/20/2025 13:51:14 02/20/2025 13:51:14 Dr Exam Complete 02/20/2025 13:51:14 02/20/2025 13:53:53 02/20/2025 13:53:53 RN Exam Complete 02/20/2025 13:51:14 02/20/2025 14:18:56 02/20/2025 14:18:56 Registration Complete 02/20/2025 13:53:53 02/20/2025 15:05:48 02/20/2025 15:05:48 Dr Exam Complete 02/20/2025 13:54:02 02/20/2025 13:54:02 02/20/2025 13:54:02 Dr Exam Complete 02/20/2025 13:54:04 02/20/2025 13:54:04 02/20/2025 13:54:04 EKG Complete 02/20/2025 13:54:46 02/20/2025 14:10:35 NPO Request 02/20/2025 13:54:46 Pending Labs Complete 02/20/2025 13:54:46 02/20/2025 15:36:57 02/20/2025 17:00:47 Blood Collect Request 02/20/2025 13:54:46 Lab Complete 02/20/2025 13:54:46 02/20/2025 16:03:32 Patient Care Request 02/20/2025 13:54:46 CT Complete 02/20/2025 13:54:46 02/20/2025 13:58:43 02/20/2025 14:04:48 X-Ray Complete 02/20/2025 13:54:46 02/20/2025 14:08:16 02/20/2025 14:26:09 RT Request 02/20/2025 13:54:46 Meds Admin Complete 02/20/2025 14:17:08 02/20/2025 14:41:27 RR Stroke Request 02/20/2025 14:18:56 Pending Labs Complete 02/20/2025 14:19:26 02/20/2025 14:19:26 02/20/2025 16:03:32 Lab Complete 02/20/2025 14:19:26 02/20/2025 14:19:26 02/20/2025 16:03:32 Wet Read Complete 02/20/2025 14:26:09 02/20/2025 14:34:56 02/20/2025 14:34:56 Reg Complete Request 02/20/2025 15:05:48 Reg Bed Request Complete 02/20/2025 15:05:48 02/20/2025 15:05:48 02/20/2025 15:05:48 Meds Admin Complete 02/20/2025 15:40:01 02/20/2025 15:52:46 Meds Admin Complete 02/20/2025 15:47:24 02/20/2025 15:52:46 Pending Labs Cancel 02/20/2025 17:00:47 02/20/2025 17:00:47 02/20/2025 17:03:26 Lab Cancel 02/20/2025 17:00:47 02/20/2025 17:00:47 02/20/2025 17:03:26 Pending Labs Complete 02/20/2025 17:11:08 02/20/2025 17:42:28 Pending Labs Complete 02/20/2025 17:36:45 02/20/2025 17:36:45 02/20/2025 17:36:45 Discharge Complete 02/20/2025 18:00:05 02/20/2025 18:12:16 02/20/2025 18:12:16 Transfer Complete 02/20/2025 18:12:16 02/20/2025 18:12:16 02/20/2025 18:12:16 ADDRESS: [address] [place] [id number] PHYS DOC NOTES: MEDICAL INFORMATION: Prescriptions Given: Medications to Continue with No Changes Other Medications albuterol (Albuterol (Eqv-Ventolin HFA) 90 mcg/inh inhalation aerosol) 2 Inhalation Inhalation every 6 hours as needed Wheezing. Refills: 0. alosetron (alosetron 0.5 mg oral tablet) amitriptyline (amitriptyline 25 mg Tab) 1 Tablets By Mouth once a day (at bedtime). brompheniramine/dextr omethorphan/PSE (Bromfed DM oral syrup) 5 Milliliter By Mouth 4 times a day as needed for cough and congestion. Refills: 0. dicyclomine (dicyclomine 20 mg Tab) 1 Tablets By Mouth 3 times a day. escitalopram (escitalopram 10 mg Tab) ethinyl estradiol-norethindro ne (Aurovela Fe 1/20 oral tablet) 1 Tablets By Mouth every day. famotidine (famotidine 40 mg Tab) 1 Tablets By Mouth once a day (at bedtime). fluticasone nasal (fluticasone Nasal 0.05 mg/inh [place]) 2 Sprays Nasal Inhalation every day. each nostril. glycopyrrolate (glycopyrrolate 1 mg oral tablet) hydrOXYzine (hydrOXYzine hydrochloride 25 mg Tab) 1 Tablets By Mouth 4 times a day as needed for itching. Refills: 0. lisinopril (lisinopril 20 mg Tab) 1 Tablets By Mouth every day. omeprazole (omeprazole 40 mg Cap-DR) 1 Capsules By Mouth 2 times a day. ondansetron (Zofran 4 mg Tab) 1 Tablets By Mouth every 8 hours as needed Nausea/Vomiting. Refills: 0. pregabalin (pregabalin 100 mg Cap) 1 Capsules By Mouth 2 times a day. Refills: 1. pregabalin (pregabalin 150 mg Cap) 1 Capsules By Mouth 2 times a day for 90 Days. Refills: 1. promethazine (promethazine 25 mg Tab) 1 Tablets By Mouth 3 times a day. Refills: 0. spironolactone (spironolactone 25 mg Tab) PATIENT EDUCATION INFORMATION: Instructions: Paresthesia; Migraine Headache Follow up: With: Address: When: Gui Alvarez [address] [place] [address] [id number] [facility] (1) In 3 days 02/23/2025 Comments: Call Dr for diagnosis based follow up DIAGNOSIS: Migraine; Paresthesias Normal [facility] ED Patient Summaryon 025 ED Patient Summary ED Patient Summary [address] [address] Patient Discharge Instructions Person Information Name: SONIA MOTLEY Age: 34 Years Arrival Date: 02/20/2025 13:51:14 Discharge Diagnosis: Migraine; Paresthesias Primary Care Physician: Gui Alvarez III, DO Provider Information Primary Provider: Favio Doran DO [facility] Teacher:Prasanna Billings PA-C The exam and treatment you received in the Emergency Department were for an urgent problem and are not intended as complete care. It is important that you follow up with a doctor, nurse practitioner, or physician???s salon assistant for ongoing care. If your symptoms become worse or you do not improve as expected and you are unable to reach your usual health care provider, you should return to the Emergency Department. We are available 24 hours a day. SONIA MOTLEY has been given the following list of patient education materials, prescriptions and follow-up instructions: Follow-up Instructions: With: Address: When: Gui Alvarez [address] [place] [address] [id number] [facility] (1) In 3 days 02/23/2025 Comments: Call Dr for diagnosis based follow up In the event that this physician does not participate in your insurance network, please consult with your insurance company to find a nearby participating provider. Patient Education Materials: Paresthesia; Migraine Headache A MESSAGE TO ALL PATIENTS REGARDING OPIOIDS PRESCRIPTION OPIOIDS: WHAT YOU NEED TO KNOW Prescription opioids can be used to help relieve lglmlppm-ln-akmnaf pain and are often prescribed following a surgery or injury, or for certain health conditions. These medications can be an important part of the treatment but also come with serious risks. It is important to work with your healthcare provider to make sure you are getting the safest, most effective care. WHAT ARE THE RISKS AND SIDE EFFECTS OF OPIOID USE? Prescription opioids carry serious risks of addiction and overdose, especially with prolonged use. An opioid overdose, often marked by slowed breathing, can cause sudden . The use of prescription opioids can have a number of side effects as well, even when taken as directed: ??? Tolerance???meaning you might need to take more of the medication for the same pain relief ??? Physical dependence???meaning you have symptoms of withdrawal when a medication is stopped ??? Increased sensitivity to pain ??? Constipation ??? Nausea, vomiting, and dry mouth ??? Sleepiness and dizziness ??? Confusion ??? Depression ??? Low levels of testosterone that can result in lower sex drive, energy, and strength ??? Itching and sweating RISKS ARE GREATER WITH: ??? History of drug misuse, substance use disorder, or overdose ??? Mental health conditions (such as depression or anxiety) ??? Sleep apnea ??? Older age (65 years and older) ??? Avoid alcohol while taking prescription opioids. Also, unless specifically advised by your health care provider, medications to avoid include: ??? Benzodiazepines (such as Xanax or Valium) ??? Muscle relaxants (such as Soma or Flexeril) ??? Hypnotics (such as Ambien or Lunesta) ??? Other prescription opioids KNOW YOUR OPTIONS Talk to your health care provider about ways to manage your pain that don???t involve prescription opioids. Some of these options may actually work better and have fewer risks and side effects. Options may include: ??? Pain relievers such as acetaminophen, ibuprofen, and naproxen ??? Some medication that are also used for depression or seizures ??? Physical therapy and exercise ??? Cognitive behavioral therapy, a psychological, goal-directed approach, in which patients learn how to modify physical, behavioral, and emotional triggers of pain and stress. IF YOU ARE PRESCRIBED OPIOIDS FOR PAIN: ??? Never take opioids in greater amounts or more often than prescribed. ??? Follow up with your primary health care provider. o Work together to create a plan on how to manage your pain. o Talk about ways to help manage your pain that don???t involve prescription opioids. o Talk about any and all concerns and side effects. ??? Help prevent misuse and abuse o Never sell or share prescription opioids. o Never use another person???s prescription opioids. ??? Store prescription opioids in a secure place and out of reach of others (this may include visitors, children, friends, and family). ??? Safely dispose of unused prescription opioids: Find your community drug take-back program or your pharmacy mail-back program, or flush them down the toilet, following guidance from the Food and Drug Administration (www.fda.gov/Drugs/Re sourcesForYou). ??? Visit www.cdc.gov/drugoverd ose to learn about the risks of opioids abuse and overdose. (more content not included)... Normal [facility] EMS Documentationon 02-21-20 EMS Documentation Report Please click on link to see report Normal [facility] Comment on above: Result Comment: Miss cross Attachment - attachment exceeds size limitation [email or web address] Can be viewed in source system HEMATOLOGYOrdered By: SYSTEM SYSTEM on 02-20-2025 Basophils/100 WBC (Bld) 0.7 % Normal 0.0 - 2.0 % [facility] Hem[facility] Basophils/Leukocytes Auto (Bld) [Pure # fraction] 0.1 E9/L Normal 0.0 - 0.2 E9/L [facility] Eosinophils (Bld) [#/Vol] 0.0 E9/L Normal 0.0 - 0.5 E9/L [facility] Eosinophils/100 WBC (Bld) 0.6 % Normal 0.0 - 8.0 % [facility] Erythrocyte distribution width (RBC) [Ratio] 15.2 % High 10.9 - 14.2 % [facility] Hematocrit (Bld) [Volume fraction] 42.9 % Normal 34.0 - 46.0 % [facility] Hemoglobin (Bld) [Mass/Vol] 14.7 g/dL Normal 12.0 - 16.0 gm/dL [facility] Lymphocytes (Bld) [#/Vol] 3.1 E9/L Normal 1.0 - 4.0 E9/L [facility] Lymphocytes/100 WBC (Bld) 41.3 % Normal 14.0 - 50.0 % [facility] MCH (RBC) [Entitic mass] 28.6 pg Normal 27. 0 - 34.0 pg Rem[facility] Heme MCHC (RBC) [Mass/Vol] 34.2 g/dL Normal 31.4 - 36.0 gm/dL [facility] MCV (RBC) [Entitic vol] 83.7 fL Normal 80.0 - 100.0 fL [facility] Monocytes (Bld) [#/Vol] 0.5 E9/L Normal 0.2 - 1.0 E9/L [facility] Monocytes/100 WBC (Bld) 6.8 % Normal 4.0 - 14.0 % [facility] Neutrophils (Bld) [#/Vol] 3.9 E9/L Normal 2.0 - 7.5 E9/L [facility] Neutrophils/100 WBC (Bld) 50.6 % Normal 36.0 - 75.0 % [facility] Platelet 258.0 E9/L Normal 150.0 - 500.0 E9/L [facility] Platelet mean volume (Bld) [Entitic vol] 9.1 fL Normal 6.4 - 10.8 fL [facility]e RBC (Bld) [#/Vol] 5.1 E12/L Normal 4.3 - 5.9 E12/L [facility] WBC corrected for nucl RBC Auto (Bld) [#/Vol] 7.6 E9/L Normal 4.0 - 11.0 E9/L [facility] PT & PTTon 02-20-2025 aPTT Coag (PPP) [Time] 31.2 second(s) Normal 25.1-36.5 [facility] Comment on above: Result Comment: Para meter 15 days - 4 weeks 1 - 5 months 6 - 11 months 1 - 5 years 6 - 10 years 11 - 17 years PTT Mean: 35.4 (27.6-45.6) Mean: 33.5 (24.8-40.7) Mean: 32.4 (25.1-40.7) Mean: 31.6 (24.0-39.2) Mean: 31.6 (26.9-38.7) Mean: 31.0 (24.6-38.4) Pediatric Reference ranges were obtained from a study by orin Jackson prepared from 1437 samples obtained at 7 different centers using the same coagulation reagent and instrumentation as [facility]. Currently there are no coagulation studies available worldwide for children to 14 days, and no normal ranges. Heparin therapeutic range (represented by Anti-Factor Xa activity of 0.2 - 0.4 U/mL) corresponds to PTT of 56.6 - 109.0 sec. Performed By: #### 1 [id number] #### [facility] [address] [place] [address] INR Coag (PPP) [Relative time] 0.83 {INR} Invalid Interpretation Code [facility] Comment on above: Result Comment: INR results are specifically intended to assess patients stabilized on long-term Anticoagulation therapy suggested INR???s ???Less Intensive Anticoagulation??? 2.0 ??? 3.0 Conventional Range 3.0 ??? 4.5 Performed By: #### 1 [id number] #### [facility] [address] [place] [address] PT Coag (PPP) [Time] 9.3 second(s) Low 9.4-12.5 [facility] Comment on above: Result Comment: 15 d ays - 4 weeks 1 - 5 months 6 -11 months 1 ??? 5 years 6 ??? 10 years 11 -17 years Mean: 11.2 (9.5 ??? 12.6) Mean: 11.0 (9.7 ??? 12.8) Mean: 11.0 (9.8 ??? 13.0) Mean: 11.3 (9.9 ??? 13.4) Mean: 11.7 (10.0 ??? 14.6) Mean: 11.8 (10.0 - 14.1) Pediatric Reference ranges were obtained from a study by orin Jackson prepared from 1437 samples obtained at 7 different centers using the same coagulation reagent and instrumentation as [facility]. Currently there are no coagulation studies available worldwide for children to 14 days, and no normal ranges. Performed By: #### 1 [id number] #### [facility] [address] [place] [address] Pre-Arrival Noteon Pre-Arrival Note Pre-Arrival Note [facility] Current Date: 02/20/2025 13:51:47 EDT Gender: Date of : Age: 34 Pre-Arrival Type: EMS ETA: 02/20/2025 14:16:00 EDT Primary Care Physician: Presenting Problem: migraine, left sided numbness Pre-Arrival User: Jeni Manuel Referring Source: Location: [place] Completion Date/Time: 02/20/2025 13:45:00 [facility] Emergency Department Pre-Hospital Report Form Vital Signs: Pre-Hospital Report: Treatment in Route: Response to Treatment: Misc. Issues: Normal [facility] SEROLOGYOrdered By: Sarah Thapa on 02-20-2025 Beta HCG ( test) Ql Negative (02/20/25 2:14 PM) Normal [facility] Man Sero Troponin 0 Hr.on 02-20-2025 Troponin HS <2.30 Low 10.10-27.10 [facility] Comment on above: Result Comment: The 95% CI (Confidence Interval) PPV (Positive Predictive Value) for myocardial infarction in females is 38 pg/mL, in males 51 pg/mL. The results should be used in conjunction with clinical conditions of myocardial infarction. (Access High Sensitivity Troponin I Instructions For Use, Geraldine Britni, June 2018) Performed By: #### 1 [id number] #### [facility] [address] [place] [address] UA with Cult Rflxon 02-21-20 25 Bilirubin Ql (U) Negative Normal Negative [facility] Comment on above: Performed By: #### 4 [id number] #### [facility] [address] [place] [address] Clarity (U) Clear Normal Clear [facility] Comment on above: Performed By: #### 4 [id number] #### [facility] [address] [place] [address] Color (U) Light-Yellow Normal Yellow [facility] Comment on above: Result Comment: Micr oscopic readings are only performed on those samples that meet specific criteria set forth by [facility]. Performed By: #### 4 [id number] #### [facility] [address] [place] [address] Glucose Ql (U) Negative Normal Negative [facility] Comment on above: Performed By: #### 4 [id number] #### [facility] [address] [place] [address] Hemoglobin Auto test strip (U) [Mass/Vol] Negative Normal Negative [facility] Comment on above: Performed By: #### 4 [id number] #### [facility] [address] [place] [address] Ketones Auto test strip Ql (U) Negative Normal Negative [facility] Comment on above: Performed By: #### 4 [id number] #### [facility] [address] [place] [address] Leukocyte esterase Auto test strip Ql (U) Negative Normal Negative [facility] Comment on above: Performed By: #### 4 [id number] #### [facility] [address] [place] [address] Nitrite Auto test strip Ql (U) Negative Normal Negative [facility] Comment on above: Performed By: #### 4 [id number] #### [facility] [address] [place] [address] pH (U) 8.0 [pH] Invalid Interpretation Code 5.0-9.0 [facility] Comment on above: Performed By: #### 4 [id number] #### [facility] [address] [place] [address] Protein Ql (U) Negative Normal Negative [facility] Comment on above: Performed By: #### 4 [id number] #### [facility] [address] [place] [address] Specific gravity (U) [Rel density] 1.010 Invalid Interpretation Code 1.005-1.030 [facility] Comment on above: Performed By: #### 4 [id number] #### [facility] [address] [place] [address] Urobilinogen (U) [Mass/Vol] Negative Normal Negative [facility] Comment on above: Performed By: #### 4 [id number] #### [facility] [address] [place] [id number] Type of Urine collection method Clean Catch Normal [facility] Comment on above: Performed By: #### 4 [id number] #### [facility] [address] [place] [address] Bilirubin Ql (U) see comment Invalid Interpretation Code [facility] Comment on above: Order Comment: ANGE Kahn in ER that more urine is needed to perform Urinalysis testing. Result Comment: Favian tity of urine insufficient for testing. Please recollect. Performed By: #### 4 [id number] #### [facility] [address] [place] [address] Clarity (U) see comment Invalid Interpretation Code [facility] Comment on above: Order Comment: ANGE dutton to Criss in ER that more urine is needed to perform Urinalysis testing. Result Comment: Favian tity of urine insufficient for testing. Please recollect. Performed By: #### 4 [id number] #### [facility] [address] [place] [address] Color (U) see comment Invalid Interpretation Code [facility] Comment on above: Order Comment: ANGE Kahn in ER that more urine is needed to perform Urinalysis testing. Result Comment: Favian tity of urine insufficient for testing. Please recollect. Microscopic readings are only performed on those samples that meet specific criteria set forth by [facility]. Performed By: #### 4 [id number] #### [facility] [address] [place] [address] Glucose Ql (U) see comment Invalid Interpretation Code [facility] Comment on above: Order Comment: ANGE lagos Criss in ER that more urine is needed to perform Urinalysis testing. Result Comment: Favian tity of urine insufficient for testing. Please recollect. Performed By: #### 4 [id number] #### [facility] [address] [place] [address] Hemoglobin Auto test strip (U) [Mass/Vol] see comment Invalid Interpretation Code [facility] Comment on above: Order Comment: ANGE dutton to Criss in ER that more urine is needed to perform Urinalysis testing. Result Comment: Favian tity of urine insufficient for testing. Please recollect. Performed By: #### 4 [id number] #### [facility] [address] [place] [address] Ketones Auto test strip Ql (U) see comment Invalid Interpretation Code [facility] Comment on above: Order Comment: ANGE dutton to Criss in ER that more urine is needed to perform Urinalysis testing. Result Comment: Favian tity of urine insufficient for testing. Please recollect. Performed By: #### 4 [id number] #### [facility] [address] [place] [address] Leukocyte esterase Auto test strip Ql (U) see comment Invalid Interpretation Code [facility] Comment on above: Order Comment: ANGE dutton to Criss in ER that more urine is needed to perform Urinalysis testing. Result Comment: Favian tity of urine insufficient for testing. Please recollect. Performed By: #### 4 [id number] #### [facility] [address] [place] [address] Nitrite Auto test strip Ql (U) see comment Invalid Interpretation Code [facility] Comment on above: Order Comment: ANGE Kahn in ER that more urine is needed to perform Urinalysis testing. Result Comment: Favian tity of urine insufficient for testing. Please recollect. Performed By: #### 4 [id number] #### [facility] [address] [place] [address] pH (U) see comment Invalid Interpretation Code 5.0-9.0 [facility] Comment on above: Order Comment: ANGE lagos [facility] in ER that more urine is needed to perform Urinalysis testing. Result Comment: Favian tity of urine insufficient for testing. Please recollect. Performed By: #### 4 [id number] #### [facility] [address] [place] [address] Protein Ql (U) see comment Invalid Interpretation Code [facility] Comment on above: Order Comment: ANGE lagos [facility] in ER that more urine is needed to perform Urinalysis testing. Result Comment: Favian tity of urine insufficient for testing. Please recollect. Performed By: #### 4 [id number] #### [facility] [address] [place] [address] Specific gravity (U) [Rel density] see comment Invalid Interpretation Code 1.005-1.030 [facility] Comment on above: Order Comment: ANGE lagos [facility] in ER that more urine is needed to perform Urinalysis testing. Result Comment: Favian tity of urine insufficient for testing. Please recollect. Performed By: #### 4 [id number] #### [facility] [address] [place] [address] Urobilinogen (U) [Mass/Vol] see comment Invalid Interpretation Code [facility] Comment on above: Order Comment: ANGE lagos Criss in ER that more urine is needed to perform Urinalysis testing. Result Comment: Favian tity of urine insufficient for testing. Please recollect. Performed By: #### 4 [id number] #### [facility] [address] [place] [address] Type of Urine collection method Clean Catch Normal [facility] Comment on above: Order Comment: ANGE lagos Criss in ER that more urine is needed to perform Urinalysis testing. Performed By: #### 4 [id number] #### [facility] [address] [place] [address] URINALYSISOrdered By: SYSTEM SYSTEM on 02-20-2025 Bilirubin Ql (U) Negative Normal Negativemg/ dL [facility] UA Auto SS Clarity (U) Clear (02/20/25 5:16 PM) Normal Clear [facility] UA Auto SS Color (U) Light-Yellow 2 (02/20/25 5:16 PM) Normal Yellow [facility] UA Auto SS Comment on above: Interpretive Data: M icroscopic readings are only performed on those samples that meet specific criteria set forth by [facility]. Glucose Ql (U) Negative Normal Negativemg/ dL [facility] UA Auto SS Hemoglobin Auto test strip (U) [Mass/Vol] Negative Normal Negativemg/ dL [facility] UA Auto SS Ketones Auto test strip Ql (U) Negative Normal Negativemg/ dL [facility] UA Auto SS Leukocyte esterase Auto test strip Ql (U) Negative Normal NegativeLeu /uL [facility] UA Auto SS Nitrite Auto test strip Ql (U) Negative Normal Negativemg/ dL [facility] UA Auto SS pH (U) 8.0 *NA* (02/20/25 5:16 PM) Invalid Interpretation Code 5.0 - 9.0 [facility] UA Auto SS Protein Ql (U) Negative Normal Negativemg/ dL FT UA Auto SS Specific gravity (U) [Rel density] 1.010 *NA* (02/20/25 5:16 PM) Invalid Interpretation Code 1.005 - 1.030 [facility] UA Auto SS Urobilinogen (U) [Mass/Vol] Negative Normal Negativemg/ dL [facility] UA Auto SS URINALYSISOrdered By: Jeni Manuel on 02-20-2025 UA Spec Desc Clean Catch (02/20/25 5:16 PM) Normal [facility] UA Auto SS URINALYSISOrdered By: Ann Thapa on 02-20-2025 Bilirubin Ql (U) see comment Invalid Interpretation Code [facility] UA Auto SS Comment on above: Result Comment: Favian tity of urine insufficient for testing. Please recollect. Clarity (U) see comment Invalid Interpretation Code [facility] UA Auto SS Comment on above: Result Comment: Favian tity of urine insufficient for testing. Please recollect. Color (U) see comment Invalid Interpretation Code [facility] UA Auto SS Comment on above: Result Comment: Favian tity of urine insufficient for testing. Please recollect. Interpretive Data: M icroscopic readings are only performed on those samples that meet specific criteria set forth by [facility]. Glucose Ql (U) see comment Invalid Interpretation Code [facility] UA Auto SS Comment on above: Result Comment: Favian tity of urine insufficient for testing. Please recollect. Hemoglobin Auto test strip (U) [Mass/Vol] see comment Invalid Interpretation Code [facility] Auto SS Comment on above: Result Comment: Favian tity of urine insufficient for testing. Please recollect. Ketones Auto test strip Ql (U) see comment Invalid Interpretation Code [facility] Auto SS Comment on above: Result Comment: Favian tity of urine insufficient for testing. Please recollect. Leukocyte esterase Auto test strip Ql (U) see comment Invalid Interpretation Code [facility] Auto SS Comment on above: Result Comment: Favian tity of urine insufficient for testing. Please recollect. Nitrite Auto test strip Ql (U) see comment Invalid Interpretation Code [facility] Auto SS Comment on above: Result Comment: Favian tity of urine insufficient for testing. Please recollect. pH (U) see comment Invalid Interpretation Code 5.0 - 9.0 [facility] Auto SS Comment on above: Result Comment: Favian tity of urine insufficient for testing. Please recollect. Protein Ql (U) see comment Invalid Interpretation Code [facility] Auto SS Comment on above: Result Comment: Favian tity of urine insufficient for testing. Please recollect. Specific gravity (U) [Rel density] see comment Invalid Interpretation Code 1.005 - 1.030 [facility] Auto SS Comment on above: Result Comment: Favian tity of urine insufficient for testing. Please recollect. Urobilinogen (U) [Mass/Vol] see comment Invalid Interpretation Code [facility] Auto SS Comment on above: Result Comment: Favian tity of urine insufficient for testing. Please recollect. URINALYSISOrdered By: Prasanna ludwig on 02-20-2025 UA Spec Desc Clean Catch (02/20/25 3:36 PM) Normal [facility] Auto XR Chest Single Viewon 02-20 XR Chest Single View Exam Date/Time: 02/20/2025 14:26 EDT Reason for Exam: Chest pain Report IMPRESSION: NO EVIDENCE OF ACTIVE CARDIOPULMONARY DISEASE, WITHIN THE LIMITS OF THE STUDY. EXAM: XR Chest Single View DATE: 02/20/2025 2:19 PM CLINICAL HISTORY: Chest pain. COMPARISON: None available. TECHNIQUE: A portable upright AP radiograph of the chest was obtained. FINDINGS: There are significantly shallow inspiratory volumes, without significant pulmonary infiltrate, cardiomegaly, vascular congestion, sizable pleural effusion, pneumothorax, or displaced fractures identified. Ordering Provider: Prasanna Billings FINAL REPORT Dictated: 02/20/2025 4:28 pm Francisco J Tucker MD Signed (Electronic Signature): 02/20/2025 4:28 pm Signed by: Francisco J Tucker MD Transcribed by: YINA Technologist: CC Normal [facility] eGFRon 02-20-2025 eGFR 122 mL/min/1.73 m2 Normal >=59 [facility] Comment on above: Performed By: #### 1 [id number] #### [facility] [address] [place] [address] B hCG Qualon 01-31-2025 Beta HCG ( test) Ql Negative Normal [facility] Comment on above: Performed By: #### 2 [id number] #### [facility] [address] [place] [address] BMPon 01-31-2025 Anion gap [Moles/Vol] 15 mmol/L Normal 6-16 [facility] Comment on above: Performed By: #### 2 [id number] #### [facility] [address] [place] [address] Calcium [Mass/Vol] 9.7 mg/dL Normal 8.9-11.1 [facility] Comment on above: Performed By: #### 2 [id number] #### [facility] [address] [place] [address] Chloride [Moles/Vol] 101 mmol/L Normal 101-111 [facility] Comment on above: Performed By: #### 2 [id number] #### [facility] [address] [place] [address] CO2 [Moles/Vol] 24 mmol/L Normal 21-31 [facility] Comment on above: Performed By: #### 2 [id number] #### [facility] [address] [place] [address] Creatinine [Mass/Vol] 0.6 mg/dL Normal 0.5-1.3 [facility] Comment on above: Performed By: #### 2 [id number] #### [facility] [address] [place] [address] Glucose [Mass/Vol] 118 mg/dL Normal 55-199 [facility] Comment on above: Performed By: #### 2 [id number] #### [facility] [address] [place] [address] Potassium [Moles/Vol] 3.6 mmol/L Normal 3.5-5.3 [facility] Comment on above: Performed By: #### 2 [id number] #### [facility] [address] [place] [address] Sodium [Moles/Vol] 136 mmol/L Normal 135-145 [facility] Comment on above: Performed By: #### 2 [id number] #### [facility] [address] [place] [address] Urea nitrogen [Mass/Vol] 17 mg/dL Normal 5-21 [facility] Comment on above: Performed By: #### 2 [id number] #### [facility] [address] [place] [address] Urea nitrogen/Creatinine [Mass ratio] 28 No Units High 10-20 [facility] Comment on above: Performed By: #### 2 [id number] #### [facility] [address] [place] [address] CBC w/ Auto Diffon 5 Basophils/100 WBC (Bld) 0.8 % Normal 0.0-2.0 [facility] Comment on above: Performed By: #### 2 [id number] #### [facility] [address] [place] [address] Basophils/Leukocytes Auto (Bld) [Pure # fraction] 0.1 E9/L Normal 0.0-0.2 [facility] Comment on above: Performed By: #### 2 [id number] #### [facility] [address] [place] [address] Eosinophils (Bld) [#/Vol] 0.1 E9/L Normal 0.0-0.5 [facility] Comment on above: Performed By: #### 2 [id number] #### [facility] [address] [place] [address] Eosinophils/100 WBC (Bld) 0.5 % Normal 0.0-8.0 [facility] Comment on above: Performed By: #### 2 [id number] #### [facility] [address] [place] [address] Erythrocyte distribution width (RBC) [Ratio] 15.6 % High 10.9-14.2 [facility] Comment on above: Performed By: #### 2 [id number] #### [facility] [address] [place] [address] Hematocrit (Bld) [Volume fraction] 45.6 % Normal 34.0-46.0 [facility] Comment on above: Performed By: #### 2 [id number] #### [facility] [address] [place] [address] Hemoglobin (Bld) [Mass/Vol] 15.1 g/dL Normal 12.0-16.0 [facility] Comment on above: Performed By: #### 2 [id number] #### [facility] [address] [place] [address] Lymphocytes (Bld) [#/Vol] 2.1 E9/L Normal 1.0-4.0 [facility] Comment on above: Performed By: #### 2 [id number] #### [facility] [address] [place] [address] Lymphocytes/100 WBC (Bld) 12.4 % Low 14.0-50.0 [facility] Comment on above: Performed By: #### 2 720407 #### [facility] [address] [place] [address] MCH (RBC) [Entitic mass] 28.1 pg Normal 27.0-34.0 [facility] Comment on above: Performed By: #### 2 [id number] #### [facility] [address] [place] [address] MCHC (RBC) [Mass/Vol] 33.1 g/dL Normal 31.4-36.0 [facility] Comment on above: Performed By: #### 2 [id number] #### [facility] [address] [place] [address] MCV (RBC) [Entitic vol] 85.0 fL Normal 80.0-100.0 [facility] Comment on above: Performed By: #### 2 [id number] #### [facility] [address] [place] [address] Monocytes (Bld) [#/Vol] 0.7 E9/L Normal 0.2-1.0 [facility] Comment on above: Performed By: #### 2 737874 #### [facility] [address] [place] [address] Neutrophils (Bld) [#/Vol] 14.2 E9/L High 2.0-7.5 [facility] Comment on above: Performed By: #### 2 [id number] #### [facility] [address] [place] [address] Neutrophils/100 WBC (Bld) 82.5 % High 36.0-75.0 [facility] Comment on above: Performed By: #### 2 420327 #### [facility] [address] [place] [address] Platelet 261.0 E9/L Normal 150.0-500.0 [facility] Comment on above: Performed By: #### 2 [id number] #### [facility] [address] [place] [address] Platelet mean volume (Bld) [Entitic vol] 9.0 fL Normal 6.4-10.8 [facility] Comment on above: Performed By: #### 2 [id number] #### [facility] [address] [place] [address] RBC (Bld) [#/Vol] 5.4 E12/L Normal 4.3-5.9 [facility] Comment on above: Performed By: #### 2 [id number] #### [facility] [address] [place] [address] WBC corrected for nucl RBC Auto (Bld) [#/Vol] 17.2 E9/L High 4.0-11.0 [facility] Comment on above: Result Comment: Arcelia pheral smear review performed. Performed By: #### 2 [id number] #### [facility] [address] [place] [address] CHEMISTRYOrdered By: SYSTEM SYSTEM on 01-31-2025 Albumin [Mass/Vol] 4.4 g/dL Normal 3.3 - 5.0 gm/dL Remisol Chem Albumin/Globulin [Mass ratio] 1.2 {ratio} Normal 1.1 - 2.2 [facility] ALP [Catalytic activity/Vol] 100 [iU]/d High 21 - 98 Int._Unit/L [facility] ALT No additional P-5'-P [Catalytic activity/Vol] 24 [iU]/d Normal 6 - 46 Int._Unit/L [facility] Anion gap [Moles/Vol] 15 mmol/L Normal 6 - 16 mEq/L [facility] AST [Catalytic activity/Vol] 20 [iU]/d Normal 5 - 43 Int._Unit/L [facility] Bilirubin [Mass/Vol] 0.4 mg/dL Normal 0.0 - 1 .1 mg/dL [facility] Bilirubin.direct [Mass/Vol] 0.1 mg/dL Normal 0.0 - 0.4 mg/dL [facility] Bilirubin.indirect [Mass or moles/Vol] 0.3 mg/dL Normal 0.1 - 0.9 mg/dL [facility] Calcium [Mass/Vol] 9.7 mg/dL Normal 8.9 - 11. 1 mg/dL [facility] Chloride [Moles/Vol] 101 mmol/L Normal 101 - 1 11 mmol/L [facility] CO2 [Moles/Vol] 24 mmol/L Normal 21 - 31 mmol/L [facility] Creatinine [Mass/Vol] 0.6 mg/dL Normal 0.5 - 1.3 mg/dL [facility] eGFR 122 mL/min/1.73 m2 Normal >=59mL/mi n/ 1.73 m2 [facility] Globulin (S) [Mass/Vol] 3.7 g/dL Normal 1.4 - 4.0 gm/dL [facility] Glucose [Mass/Vol] 118 mg/dL Normal 55 - 199 mg/dL [facility] Lipase [Catalytic activity/Vol] 17 U/L Normal 13 - 58 unit/L [facility] Potassium [Moles/Vol] 3.6 mmol/L Normal 3.5 - 5.3 mmol/L [facility] Protein [Mass/Vol] 8.1 g/dL High 6.0 - 7.8 gm/dL [facility] Sodium [Moles/Vol] 136 mmol/L Normal 135 - 145 mmol/L [facility] Urea nitrogen [Mass/Vol] 17 mg/dL Normal 5 - 21 mg/dL [facility] Urea nitrogen/Creatinine [Mass ratio] 28 mg/mg High 10 - 20 [facility] ED Clinical Summaryon 2024 ED Clinical Summary ED Clinical Summary [place] [address] ED Clinical Summary Person Information Name: SONIA MOTLEY [facility] Age: 34 Years : 1990 Sex: Female Language: Vietnamese PCP: Gui Alvarez III, DO Marital Status: Visit Id: Visit Reason: Throat pain - Adult; Ear pain; Vomiting; Nausea; Abdominal pain; SOB Speciality: Acuity: 3 Enc Type: Emergency Med Service: Emergency Arrival: 01/31/2025 09:59:01 Discharge: 01/31/2025 13:51:36 LOS: 000 03:52 Checkin: 01/31/2025 09:59:01 Checkout: 01/31/2025 13:51:36 Dispo Type: Home (Routine DC) EVENTS: Event Name Event Status Request Date/Time Start Date/Time Complete Date/Time Arrive Complete 01/31/2025 09:59:01 01/31/2025 09:59:01 01/31/2025 09:59:01 Document Home Meds Request 01/31/2025 09:59:01 Triage Complete 01/31/2025 09:59:01 01/31/2025 10:05:36 01/31/2025 10:05:36 Bed Assign Complete 01/31/2025 09:59:01 01/31/2025 09:59:01 01/31/2025 09:59:01 Dr Exam Complete 01/31/2025 09:59:01 01/31/2025 10:01:26 01/31/2025 10:01:26 RN Exam Complete 01/31/2025 09:59:01 01/31/2025 10:07:49 01/31/2025 10:07:49 Registration Complete 01/31/2025 10:01:26 01/31/2025 10:25:28 01/31/2025 10:25:28 Dr Exam Complete 01/31/2025 10:05:46 01/31/2025 10:05:46 01/31/2025 10:05:46 Pending Labs Complete 01/31/2025 10:12:22 01/31/2025 12:19:27 Lab Complete 01/31/2025 10:12:22 01/31/2025 11:29:43 Meds Admin Complete 01/31/2025 10:12:22 01/31/2025 10:27:42 Reg Complete Request 01/31/2025 10:25:28 Reg Bed Request Complete 01/31/2025 10:25:28 01/31/2025 10:25:28 01/31/2025 10:25:28 Pending Labs Complete 01/31/2025 10:34:07 01/31/2025 10:34:07 01/31/2025 10:59:59 Lab Complete 01/31/2025 10:34:07 01/31/2025 10:34:07 01/31/2025 10:59:59 Pending Labs Complete 01/31/2025 10:35:36 01/31/2025 10:35:36 01/31/2025 10:35:36 Discharge Complete 01/31/2025 13:23:59 01/31/2025 13:51:41 01/31/2025 13:51:41 Transfer Complete 01/31/2025 13:51:41 01/31/2025 13:51:41 01/31/2025 13:51:41 ADDRESS: [address] [place] [id number] PHYS DOC NOTES: MEDICAL INFORMATION: Prescriptions Given: New Medications [facility]/pharmacy #[id number], [address] [place] [id number], [phone] loratadine-pseudoephe drine (loratadine-pseudoeph edrine 5 mg-120 mg ER Tab) 1 Tablets By Mouth every 12 hours for 10 Days. Refills: 0. promethazine (promethazine 25 mg Tab) 1 Tablets By Mouth 3 times a day. Refills: 0. Medications to Continue with No Changes Other Medications albuterol (Albuterol (Eqv-Ventolin HFA) 90 mcg/inh inhalation aerosol) 2 Inhalation Inhalation every 6 hours as needed Wheezing. Refills: 0. alosetron (alosetron 0.5 mg oral tablet) amitriptyline (amitriptyline 25 mg Tab) 1 Tablets By Mouth once a day (at bedtime). brompheniramine/dextr omethorphan/PSE (Bromfed DM oral syrup) 5 Milliliter By Mouth 4 times a day as needed for cough and congestion. Refills: 0. dicyclomine (dicyclomine 20 mg Tab) 1 Tablets By Mouth 3 times a day. escitalopram (escitalopram 10 mg Tab) ethinyl estradiol-norethindro ne (Aurovela Fe 1/20 oral tablet) 1 Tablets By Mouth every day. famotidine (famotidine 40 mg Tab) 1 Tablets By Mouth once a day (at bedtime). fluticasone nasal (fluticasone Nasal 0.05 mg/inh [place]) 2 Sprays Nasal Inhalation every day. each nostril. glycopyrrolate (glycopyrrolate 1 mg oral tablet) hydrOXYzine (hydrOXYzine hydrochloride 25 mg Tab) 1 Tablets By Mouth 4 times a day as needed for itching. Refills: 0. lisinopril (lisinopril 20 mg Tab) 1 Tablets By Mouth every day. omeprazole (omeprazole 40 mg Cap-DR) 1 Capsules By Mouth 2 times a day. ondansetron (Zofran 4 mg Tab) 1 Tablets By Mouth every 8 hours as needed Nausea/Vomiting. Refills: 0. pregabalin (pregabalin 100 mg Cap) 1 Capsules By Mouth 2 times a day. Refills: 1. pregabalin (pregabalin 150 mg Cap) 1 Capsules By Mouth 2 times a day for 90 Days. Refills: 1. spironolactone (spironolactone 25 mg Tab) PATIENT EDUCATION INFORMATION: Instructions: Nausea and Vomiting, Adult; Sinus Infection, Adult Follow up: With: Address: When: Gui Alvarez [address] [place] [address], [facility] [place] [id number] [place] (1) In 3 days 02/03/2025 DIAGNOSIS: Nausea and vomiting; Sinusitis Normal [facility] ED Note-Physicianon 02-01-20 ED Note-Physician ED Note-Physician Basic Information Time Seen: Sanchez Iglesias PA-C 01/31/2025 10:01 Chief Complaint c/o throat pain, ear pain, cough, nausea, vomiting, abdominal pain for the past month, was seenat urgent care, unable to recall meds they gave her, states all symptoms have worsened in last 3 days. EMS gave brucemalachi in route History of Present Illness 34-year-old female comes to the ED for evaluation of sinus pain and congestion. She states been ongoing issue for several months. She states been ongoing issue for several months. Today she developed some vomiting was ultimately prompted to come to the ED. She does state when her symptoms started she was seen in urgent care and given some antibiotics but did not have much improvement. She denies any chest pain or abdominal pain. Denies feeling short of breath. Review of Systems A 10 point review of systems is negative except as noted above. Medical and Surgical History: Reviewed and noted Social history: Lives at home Tobacco: Denies Physical Exam Vitals & Measurements T: 36.6 ???C(Oral) HR: 78(Monitored) RR: 18 BP: 112/90 SpO2: 99% HT: 157 cm WT: 104.4 kg BMI: 42.35 Nurses notes and vital signs reviewed and patient is not hypoxic. General: Well-appearing, does not appear ill Skin: Warm, dry. Head: Atraumatic. Neck: No JVD. Eye: Normal conjunctiva. Ears, Nose, Mouth, and Throat: Sinus congestion, no difficulty with speaking or swallowing. TMs are clear. External canals are clear. There is no pharyngeal erythema, tonsil hypertrophy exudates. No stridor, trismus or drooling. Speech is clear and appropriate. No lymphadenopathy. Cardiovascular: Not tachycardic Chest wall: Respiratory: Respirations are nonlabored. Back: Normal range of motion. Musculoskeletal: Normal ROM with no gross deformity. Gastrointestinal: Soft and nontender Urological: Neurological: Awake and alert. No focal deficits. Follows commands. Psychiatric: Cooperative. Medical Decision Making Patient presents with sinus congestion ear pain throat pain and vomiting over the last 7 months. Physical symptoms have intensified over the last few days. She was given Reglan by EMS and given Benadryl here as she seemed to have some agitation from the Reglan. Subsequently vomiting are well-controlled. Take oral hydration well. Laboratory studies are reviewed and noted. Grossly stable. Does have some hematuria but is currently on menstrual period. Overall with serial examinations she states she feels significantly improved. She is requesting something to help with her sinus congestion. She is already been on antibiotics, we will add decongestants today. She has an allergy to steroids. She is to follow-up with her PCP. Patient was encouraged to return to the ED if symptoms worsen or change. Assessment/Plan Nausea and vomiting (R11.2: Nausea with vomiting, unspecified) Sinusitis (J32.9: Chronic sinusitis, unspecified) Orders: diphenhydrAMINE, 25 mg = 0.5 mL, Injection, IV Push, Once, Stop date 01/31/25 10:12:00 EDT, STAT, Start date 01/31/25 10:12:00 EDT, 01/31/25 10:12:00 EDT loratadine-pseudoephe drine, 1 tab(s), Oral, q12hr for 10 day(s), 20 tab(s), Refill(s) 0, [facility]/pharmacy #[id number], 157, cm, 01/31/25 10:05:00 EDT, Height/Length Dosing, 104.4, kg, 01/31/25 10:05:00 EDT, Weight Dosing promethazine, 25 mg = 1 tab(s), Oral, TID, # 15 tab(s), Refills(s) 0, Pharmacy: [facility]/pharmacy #[id number], 157, cm, 01/31/25 10:05:00 EDT, Height/Length Dosing, 104.4, kg, 01/31/25 10:05:00 EDT, Weight Dosing Basic Metabolic Panel Beta hCG Qual CBC w/ Auto Diff eGFR Extra Blue Tube Extra Vazquez Tube Hepatic Function Panel Lipase Level UA with Cult Rflx Medications Administered Given diphenhydrAMINE 50 mg/mL Inj, 25 mg, IV Push Disposition Plan Patient Discharge Condition Disposition: Discharged home Condition: Improved and stable Counseled: Patient and/or family were counseled to workup, results, treatment plan and follow-up recommendations Discharge Prescription List Prescriptions loratadine-pseudoephe drine 5 mg-120 mg ER Tab, 1 tab(s), Oral, q12hr promethazine 25 mg Tab, 25 mg= 1 tab(s), Oral, TID Follow-up With When Contact Information Gui Alvarez In 3 days 02/03/[address] [place] [address] [facility] (1) Additional Instructions: Patient Education Nausea and Vomiting, Adult Sinus Infection, Adult Attestation I performed a substantive part of the MDM during the patient???s E/M visit. I personally made or approved the documented management plan and acknowledge its risk of complications. (Independent Interpretation) My (EKG/X-Ray/US/CT) interpretation as above. (Discussion) Management/test interpretation discussed with APC. This report was transcribed using voice recognition software. Every effort was made to ensure accuracy, however, inadvertently computerized ceramic saw tender mistakes may be present. Appropriate healthcare PPE was used in evalu (more content not included)... Normal [facility] Comment on above: Result Comment: Elec tronically Signed By: Sanchez Iglesias PA-C\.br\Date and Time Signed: 01/31/25 16:39 EDT\.br\Electronically Co-Signed By: Davidson Jiang M.D.\.br\Date and Time Co-Signed: 01/31/25 18:21 EDT ED Patient Summaryon 025 ED Patient Summary ED Patient Summary [address] [address] Patient Discharge Instructions Person Information Name: SONIA MOTLEY Age: 34 Years Arrival Date: 01/31/2025 09:59:01 Discharge Diagnosis: Nausea and vomiting; Sinusitis Primary Care Physician: Gui Alvarez III, DO Provider Information Primary Provider: Davidson Jiang M.D. [facility] Teacher:Sanchez Iglesias PA-C The exam and treatment you received in the Emergency Department were for an urgent problem and are not intended as complete care. It is important that you follow up with a doctor, nurse practitioner, or physician???s salon assistant for ongoing care. If your symptoms become worse or you do not improve as expected and you are unable to reach your usual health care provider, you should return to the Emergency Department. We are available 24 hours a day. SONIA MOTLEY has been given the following list of patient education materials, prescriptions and follow-up instructions: Follow-up Instructions: With: Address: When: Gui Alvarez [address] [place] [id number] Business (1) In 3 days 02/03/2025 In the event that this physician does not participate in your insurance network, please consult with your insurance company to find a nearby participating provider. Patient Education Materials: Nausea and Vomiting, Adult; Sinus Infection, Adult A MESSAGE TO ALL PATIENTS REGARDING OPIOIDS PRESCRIPTION OPIOIDS: WHAT YOU NEED TO KNOW Prescription opioids can be used to help relieve wupxkane-zx-azmwkx pain and are often prescribed following a surgery or injury, or for certain health conditions. These medications can be an important part of the treatment but also come with serious risks. It is important to work with your healthcare provider to make sure you are getting the safest, most effective care. WHAT ARE THE RISKS AND SIDE EFFECTS OF OPIOID USE? Prescription opioids carry serious risks of addiction and overdose, especially with prolonged use. An opioid overdose, often marked by slowed breathing, can cause sudden . The use of prescription opioids can have a number of side effects as well, even when taken as directed: ??? Tolerance???meaning you might need to take more of the medication for the same pain relief ??? Physical dependence???meaning you have symptoms of withdrawal when a medication is stopped ??? Increased sensitivity to pain ??? Constipation ??? Nausea, vomiting, and dry mouth ??? Sleepiness and dizziness ??? Confusion ??? Depression ??? Low levels of testosterone that can result in lower sex drive, energy, and strength ??? Itching and sweating RISKS ARE GREATER WITH: ??? History of drug misuse, substance use disorder, or overdose ??? Mental health conditions (such as depression or anxiety) ??? Sleep apnea ??? Older age (65 years and older) ??? Avoid alcohol while taking prescription opioids. Also, unless specifically advised by your health care provider, medications to avoid include: ??? Benzodiazepines (such as Xanax or Valium) ??? Muscle relaxants (such as Soma or Flexeril) ??? Hypnotics (such as Ambien or Lunesta) ??? Other prescription opioids KNOW YOUR OPTIONS Talk to your health care provider about ways to manage your pain that don???t involve prescription opioids. Some of these options may actually work better and have fewer risks and side effects. Options may include: ??? Pain relievers such as acetaminophen, ibuprofen, and naproxen ??? Some medication that are also used for depression or seizures ??? Physical therapy and exercise ??? Cognitive behavioral therapy, a psychological, goal-directed approach, in which patients learn how to modify physical, behavioral, and emotional triggers of pain and stress. IF YOU ARE PRESCRIBED OPIOIDS FOR PAIN: ??? Never take opioids in greater amounts or more often than prescribed. ??? Follow up with your primary health care provider. o Work together to create a plan on how to manage your pain. o Talk about ways to help manage your pain that don???t involve prescription opioids. o Talk about any and all concerns and side effects. ??? Help prevent misuse and abuse o Never sell or share prescription opioids. o Never use another person???s prescription opioids. ??? Store prescription opioids in a secure place and out of reach of others (this may include visitors, children, friends, and family). ??? Safely dispose of unused prescription opioids: Find your community drug take-back program or your pharmacy mail-back program, or flush them down the toilet, following guidance from the Food and Drug Administration (www.fda.gov/Drugs/Re sourcesForYou). ??? Visit www.cdc.gov/drugoverd ose to learn about the risks of opioids abuse and overdose. ??? If you be (more content not included)... Normal [facility] Extra Blueon 01-31-2025 Tube Collected Plasma Yes Invalid Interpretation Code [facility] Comment on above: Performed By: #### 1 [id number] #### [facility] [address] [place] [address] HEMATOLOGYOrdered By: SYSTEM SYSTEM on 01-31-2025 Basophils/100 WBC (Bld) 0.8 % Normal 0.0 - 2.0 % Remisol Heme Basophils/Leukocytes Auto (Bld) [Pure # fraction] 0.1 E9/L Normal 0.0 - 0.2 E9/L Remisol Heme Eosinophils (Bld) [#/Vol] 0.1 E9/L Normal 0.0 - 0.5 E9/L Remisol Heme Eosinophils/100 WBC (Bld) 0.5 % Normal 0.0 - 8.0 % Remisol Heme Erythrocyte distribution width (RBC) [Ratio] 15.6 % High 10.9 - 14.2 % Remisol Heme Hematocrit (Bld) [Volume fraction] 45.6 % Normal 34.0 - 46.0 % Remisol Heme Hemoglobin (Bld) [Mass/Vol] 15.1 g/dL Normal 12.0 - 16.0 gm/dL Remisol Heme Lymphocytes (Bld) [#/Vol] 2.1 E9/L Normal 1.0 - 4.0 E9/L Remisol Heme Lymphocytes/100 WBC (Bld) 12.4 % Low 14.0 - 50.0 % Remisol Heme MCH (RBC) [Entitic mass] 28.1 pg Normal 27. 0 - 34.0 pg Remisol Heme MCHC (RBC) [Mass/Vol] 33.1 g/dL Normal 31.4 - 36.0 gm/dL Remisol Heme MCV (RBC) [Entitic vol] 85.0 fL Normal 80.0 - 100.0 fL Remisol Heme Monocytes (Bld) [#/Vol] 0.7 E9/L Normal 0.2 - 1.0 E9/L Remisol Heme Monocytes/100 WBC (Bld) 3.8 % Low 4.0 - 14.0 % Remisol Heme Neutrophils (Bld) [#/Vol] 14.2 E9/L High 2.0 - 7.5 E9/L Remisol Heme Neutrophils/100 WBC (Bld) 82.5 % High 36.0 - 75.0 % Remisol Heme Platelet 261.0 E9/L Normal 150.0 - 500.0 E9/L Remisol Heme Platelet mean volume (Bld) [Entitic vol] 9.0 fL Normal 6.4 - 10.8 fL Remisol Heme RBC (Bld) [#/Vol] 5.4 E12/L Normal 4.3 - 5.9 E12/L Remisol Heme WBC corrected for nucl RBC Auto (Bld) [#/Vol] 17.2 E9/L High 4.0 - 11.0 E9/L [facility] Comment on above: Result Comment: Arcelia pheral smear review performed. Hep Func Panelon 01-31-2025 Albumin [Mass/Vol] 4.4 g/dL Normal 3.3-5.0 [facility] Comment on above: Performed By: #### 2 [id number] #### [facility] [address] [place] [address] Albumin/Globulin (S) [Mass conc ratio] 1.2 Normal 1.1-2.2 [facility] Comment on above: Performed By: #### 2 [id number] #### [facility] [address] [place] [address] ALP [Catalytic activity/Vol] 100 Int._Unit/L High 21-98 [facility] Comment on above: Performed By: #### 2 [id number] #### [facility] [address] [place] [address] ALT No additional P-5'-P [Catalytic activity/Vol] 24 Int._Unit/L Normal 6-46 [facility] Comment on above: Performed By: #### 2 [id number] #### [facility] [address] [place] [address] AST [Catalytic activity/Vol] 20 Int._Unit/L Normal 5-43 [facility] Comment on above: Performed By: #### 2 [id number] #### [facility] [address] [place] [address] Bilirubin [Mass/Vol] 0.4 mg/dL Normal 0.0-1.1 Fish [facility] Comment on above: Performed By: #### 2 [id number] #### [facility] [address] [place] [address] Bilirubin.direct [Mass/Vol] 0.1 mg/dL Normal 0.0-0.4 [facility] Comment on above: Performed By: #### 2 [id number] #### [facility] [address] [place] [address] Bilirubin.indirect [Mass or moles/Vol] 0.3 mg/dL Normal 0.1-0.9 [facility] Comment on above: Performed By: #### 2 [id number] #### [facility] [address] [place] [address] Globulin (S) [Mass/Vol] 3.7 g/dL Normal 1.4-4.0 [facility] Comment on above: Performed By: #### 2 [id number] #### [facility] [address] [place] [address] Protein [Mass/Vol] 8.1 g/dL High 6.0-7.8 [facility] Comment on above: Performed By: #### 2 [id number] #### [facility] [address] [place] [address] Lipase Levelon 01-31-2025 Lipase [Catalytic activity/Vol] 17 U/L Normal 13-58 [facility] Comment on above: Performed By: #### 2 [id number] #### [facility] [address] [place] [address] Pre-Arrival Noteon Pre-Arrival Note Pre-Arrival Note Pre-Arrival Summary Name: , [facility] Current Date: 01/31/2025 09:59:22 EDT Gender: Female Date of : Age: 34 Pre-Arrival Type: EMS ETA: 01/31/2025 10:20:00 EDT Primary Care Physician: Presenting Problem: N/V amd SOB Pre-Arrival User: Hank Gunter RN Referring Source: Location: [place] Completion Date/Time: 01/31/2025 09:50:00 [facility] Emergency Department Pre-Hospital Report Form Vital Signs: Pre-Hospital Report: Treatment in Route: Response to Treatment: Misc. Issues: Normal [facility] SEROLOGYOrdered By: Barbara caro on 01-31-2025 Beta HCG ( test) Ql Negative (01/31/25 10:22 AM) Normal [facility] Man Sero UA with Cult Rflxon 02-01-20 25 Bacteria Auto Ql (U) 1+ /HPF Abnormal Trace Fish er [facility] Comment on above: Performed By: #### 4 [id number] #### [facility] [address] [place] [address] Bilirubin Ql (U) Negative Normal Negative [facility] Comment on above: Performed By: #### 4 [id number] #### [facility] [address] [place] [address] Clarity (U) Turbid Abnormal Clear [facility] Comment on above: Performed By: #### 4 [id number] #### [facility] [address] [place] [address] Color (U) Yellow Normal Yellow [facility] Comment on above: Result Comment: Micr oscopic readings are only performed on those samples that meet specific criteria set forth by [facility]. Performed By: #### 4 [id number] #### [facility] [address] [place] [address] Epithelial cells.squamous Auto (Urine sed) [#/Area] 5-8 Invalid Interpretation Code [facility] Comment on above: Performed By: #### 4 [id number] #### [facility] [address] [place] [address] Glucose Ql (U) Negative Normal Negative [facility] Comment on above: Performed By: #### 4 [id number] #### [facility] [address] [place] [address] Hemoglobin Auto test strip (U) [Mass/Vol] 3+ mg/dL Abnormal Negative [facility] Comment on above: Performed By: #### 4 [id number] #### [facility] [address] [place] [address] Ketones Auto test strip Ql (U) Trace Abnormal Negative [facility] Comment on above: Performed By: #### 4 [id number] #### [facility] [address] [place] [address] Leukocyte esterase Auto test strip Ql (U) 25 Jhonny/uL Normal Negative [facility] Comment on above: Performed By: #### 4 [id number] #### [facility] [address] [place] [address] Mucus Auto Ql (U) 2+ CD:[id number] Abnormal Negative [facility] Comment on above: Performed By: #### 4 [id number] #### [facility] [address] [place] [address] Nitrite Auto test strip Ql (U) Negative Normal Negative [facility] Comment on above: Performed By: #### 4 [id number] #### [facility] [address] [place] [address] pH (U) 8.0 [pH] Invalid Interpretation Code 5.0-9.0 [facility] Comment on above: Performed By: #### 4 [id number] #### [facility] [address] [place] [address] Protein Ql (U) 1+ mg/dL Abnormal Negative [facility] Comment on above: Performed By: #### 4 [id number] #### [facility] [address] [place] [address] RBC Ql (U) >75 Abnormal 0-3 [facility] Comment on above: Performed By: #### 4 [id number] #### [facility] [address] [place] [address] Specific gravity (U) [Rel density] 1.022 Invalid Interpretation Code 1.005-1.030 [facility] Comment on above: Performed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 carry serious risks of addiction and overdose, especially with prolonged use. An opioid overdose, often marked by slowed breathing, can cause sudden . The use of prescription opioids can have a number of side effects as well, even when taken as directed: ? Tolerance?meaning you might need to take more of the medication for the same pain relief ? Physical dependence?meaning you have symptoms of withdrawal when a medication is stopped ? Increased sensitivity to pain ? Constipation ? Nausea, vomiting, and dry mouth ? Sleepiness and dizziness ? Confusion ? Depression ? Low levels of testosterone that can result in lower sex drive, energy, and strength ? Itching and sweating RISKS ARE GREATER WITH: ? History of drug misuse, substance use disorder, or overdose ? Mental health conditions (such as depression or anxiety) ? Sleep apnea ? Older age (65 years and older) ? Avoid alcohol while taking prescription opioids. Also, unless specifically advised by your health care provider, medications to avoid include: ? Benzodiazepines (such as Xanax or Valium) ? Muscle relaxants (such as Soma or Flexeril) ? Hypnotics (such as Ambien or Lunesta) ? Other prescription opioids KNOW YOUR OPTIONS Talk to your health care provider about ways to manage your pain that don?t involve prescription opioids. Some of these options may actually work better and have fewer risks and side effects. Options may include: ? Pain relievers such as acetaminophen, ibuprofen, and naproxen ? Some medication that are also used for depression or seizures ? Physical therapy and exercise ? Cognitive behavioral therapy, a psychological, goal-directed approach, in which patients learn how to modify physical, behavioral, and emotional triggers of pain and stress. IF YOU ARE PRESCRIBED OPIOIDS FOR PAIN: ? Never take opioids in greater amounts or more often than prescribed. ? Follow up with your primary health care provider. o Work together to create a plan on how to manage your pain. o Talk about ways to help manage your pain that don?t involve prescription opioids. o Talk about any and all concerns and side effects. ? Help prevent misuse and abuse o Never sell or share prescription opioids. o Never use another person?s prescription opioids. ? Store prescription opioids in a secure place and out of reach of others (this may include visitors, children, friends, and family). ? Safely dispose of unused prescription opioids: Find your community drug take-back program or your pharmacy mail-back program, or flush them down the toilet, following guidance from the Food and Drug Administration (www.fda.gov/Drugs/Re sourcesForYou). ? Visit www.cdc.gov/drugoverd ose to learn about the risks of opioids abuse and overdose. ? If you believe you may be struggling with addiction, tell your health date night caregiver and ask for guidance or call [facility]?S National Helpline at 5-515-284-CZIL. [id number] (more content not included)... Normal [facility] [place] US Liveron 06-04-2024 US Liver Exam Date/Time: 06/04/2024 08:21 EDT Reason for Exam: [id number] Report IMPRESSION: Hepatic steatosis EXAMINATION: Ultrasound liver CLINICAL HISTORY: Hepatic steatosis COMPARISONS: None FINDINGS: The liver shows no focal parenchymal abnormality. No hepatic lesion dilatation. There is diffuse increased echogenicity. This is a nonspecific finding that can be seen with fatty infiltration. The gallbladder shows no surrounding pericholecystic fluid. The wall is not thickened. It measures 2.0 mm. Common bile duct measures 4.7 mm. The pancreas the visualized. The right cages no surrounding perinephric fluid. No hydronephrosis. Ordering Provider: UNA PENG FINAL REPORT Dictated: 06/04/2024 8:20 pm George Baez Signed (Electronic Signature): 06/04/2024 8:20 pm Signed by: George Baez Transcribed by: YINA Technologist: HW Normal [facility] [place] Amphetamine Screen Ql (U)Ord ered By: Salud Bowman on 05-20-2024 Amphetamines Ql (U) Negative Negative [facility] Barbiturates [Presence] in U rine by Screen methodOrdered By: Salud Bowman on 05-20-2024 Barbiturates Screen Ql (U) Negative Negative [facility] Benzodiazepines Screen Ql (U )Ordered By: Salud Bowman on 05-20-2024 Benzodiazepines Ql (U) Negative Negative [facility] Benzoylecgonine [Presence] i n Urine by Screen methodOrdered By: Salud Bowman on 05-20-2024 Benzoylecgonine Screen Ql (U) Negative Negative [facility] Cannabinoids [Presence] in U rine by Screen methodOrdered By: Salud Bowman on 05-20-2024 Cannabinoids Screen Ql (U) Negative Negative [facility] Comment on above: These are unconfirme d results and should not be used for legal purposes. Drug Cut-Off Concentration: AMPH 1000 ng/mL ANTHONY 200 ng/mL ARNAUD 200 ng/mL COCM 300 ng/mL OP 300 ng/mL PCP 25 ng/mL THC 20 ng/mL Drug Screen,Urineon 05-20-20 24 Amphetamine Screen,Urine Negative Normal Negative [facility] Comment on above: Performed By: #### U RDS #### [address] Barbiturate Screen,Urine Negative Normal Negative [facility] Comment on above: Performed By: #### U RDS #### [place] [address] [place] Benzodiazepines Screen,Urine Negative Normal Negative [facility] Comment on above: Performed By: #### U RDS #### [place] [address] [place] Cannabinoid Screen,Urine Negative Normal Negative [facility] Comment on above: Result Comment: Thes e are unconfirmed results and should not be used for legal purposes. Drug Cut-Off Concentration: AMPH 1000 ng/mL ANTHONY 200 ng/mL ARNAUD 200 ng/mL COCM 300 ng/mL OP 300 ng/mL PCP 25 ng/mL THC 20 ng/mL PERFORMED BY: [place] [address] PATHOLOGIST DRY DRUG WORKER RHONA LOPEZ M.D. Performed By: #### U RDS #### [place] [address] [place] Cocaine Screen,Urine Negative Normal Negative [facility] Comment on above: Performed By: #### U RDS #### [place] [address] [place] Opiate Screen,Urine Negative Normal Negative [facility] Comment on above: Performed By: #### U RDS #### [facility] [address] Phencyclidine Screen,Urine Negative Normal Negative [facility] Comment on above: Performed By: #### U RDS #### [facility] [address] HCG ( test) [place].rapi d Ql (U)Ordered By: Salud Bowman on 05-20-2024 HCG ( test) Ql (U) Negative [facility] HCG,Urineon 05-20-2024 Beta HCG ( test) Ql (U) Negative Normal [facility] Comment on above: Result Comment: PERF ORMED BY: [place] [address] PATHOLOGIST DRY DRUG WORKER RHONA LOPEZ M.D. Performed By: #### U HCG #### [place] [address] [place] 05-20-2024 L Specimen: [id number] Received: 05/20/24 Status: JUSTA Pelletier Num: [id number] Spec Type: Surgical Subm Dr: Salud Bowman DO Tissues: A Colon Biopsy (RT COLON BX) B Colon Biopsy (LT COLON BX) Procedures: HE/4, Gross/Micro L4/2 Age/ Patient Sex Location Account Attending Physician Jennifer Motley 33/F [id number] Salud Bowman DO SPEC NUM: [id number] RECD: 05/20/24 STATUS: JUSTA PELLETIER NUM: [id number] MELI: 05/20/24- SUBM DR: Salud Bowman DO ENTERED: 05/20/[address] [facility] [address]: SPEC TYPE: Surgical DEPT: S ORDERED: HE/4, Gross/Micro L4/2 ORDERED: HE/4, Gross/Micro L4/2 Pathological Diagnosis A, right colon biopsy: -Colonic mucosa with 1 small focus of minor degree of focal active colitis in 1 fragment, otherwise without microscopic colitis, or any other specific abnormality observed B, left colon biopsy: -Colonic mucosa with focal mild nonspecific mucosal disruption, otherwise without microscopic colitis, or any other specific or significant abnormality observed Clinical Information Diarrhea, rectal bleeding, rule out microscopic colitis. Gross Description Received are 2 formalin filled containers each labeled with the patient's name, date of and specific specimen site. A. Further labeled right colon BX are 4 hughes mucosal tissue fragments ranging from 0.4 x 0.3 x 0.2 cm to 0.3 x 0.2 x 0.1 cm, entirely submitted in A1. B. Further labeled left colon BX are 3 hughes mucosal tissue fragments ranging from 0.7 x 0.2 x 0.1 cm to 0.3 x 0.3 x 0.1 cm, entirely submitted in B1. -------- Specimen: [id number] Received: 05/20/24 Status: JUSTA Pelletier Num: [id number] Spec Type: Surgical Subm Dr: Salud Bowman DO Tissues: A Colon Biopsy (RT COLON BX) B Colon Biopsy (LT COLON BX) Procedures: SERA/[place], Gross/Micro L4/2 -------- Patient: Jennifer Motley [id number] (Continued) -------- Specimen: [id number] Received: 05/20/24 (Continued) Signed (signature on file) Kavitha Jones MD 05/21/241950 -------- Specimen: [id number] Received: 05/20/24 Status: JUSTA Michaelkelsey Num: [id number] Spec Type: Surgical Subm Dr: Salud Bowman DO Tissues: A Colon Biopsy (RT COLON BX) B Colon Biopsy (LT COLON BX) Procedures: HE/[place], Gross/Micro L4/2 -------- Patient: Jennifer Motley [id number] (Continued) -------- Specimen: Received: 05/20/24 (Continued) Microscopic Description Microscopic examinations are performed supporting the above interpretation CPT Codes 50457 X. 2 -------- -------- Specimen: [id number] Received: 05/20/24 Status: JUSTA Michaelkelsey Num: [id number] Spec Type: Surgical Subm Dr: Salud Bowman DO Tissues: A Colon Biopsy (RT COLON BX) B Colon Biopsy (LT COLON BX) Procedures: Uday IRENE/Joss L4/2 -------- Patient: Jennifer Motley [id number] (Continued) -------- Signed (signature on file) Kavitha Jones MD 05/21/241950 Normal [facility] Opiates [Presence] in Urine by Screen methodOrdered By: Salud Bowman on 05-20-2024 Opiates Screen Ql (U) Negative Negative [facility] Phencyclidine Screen Ql (U)O rdered By: Salud Bowman on 05-20-2024 Phencyclidine Ql (U) Negative Negative [facility] Consent for Treatmenton 03-20 Consent for Treatment [id number] Normal [facility] [place] Consultation Noteon 04-07-20 Consultation Note Patient: SONIA MOTLEY Age: 33 years Sex: Female : 1990 Associated Diagnoses: None Author: Lyn Limon PA-C Basic Information Accompanied by: Family member. Source of history: Self. Referral source: Gui Alvarez III, DO History limitation: None. Chief Complaint 04/07/2024 10:29 EDT fibromyalgia-low back hips neck History of Present Illness Patient is a 33-year-old female who presents today with her 2 young sons. They are 3 and 6. She has a third son who is 9 who is in second grade. She states that she is here today after being diagnosed with fibromyalgia. She states that she was diagnosed in the fall by her wrapper leaf inspector and was recommended to go to aquatic therapy 3-4 times a week. 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 She states he does not have the time. She tried to see different rheumatologists to try to get some sort of treatment plan in place and she was advised that they do not treat fibromyalgia. She tracey her neck, upper back, hands, buttocks and legs on her visual analog scale. She rates it a 5/10. This affects her ability to get comfortable. It affects her quality of life. It affects her activities and affects her ability to do the things she wants to do. She states that she has done some research and she knows there are some medications that are used to treat fibromyalgia and she would like to get started on 1 if she can. She states that she has no problem coming to appointments. Review of Systems Constitutional: No fever, No chills. Eye: No recent visual problem. Ear/Nose/Mouth/Throat : No decreased hearing. Respiratory: No shortness of breath, No cough. Cardiovascular: No chest pain. Gastrointestinal: No nausea, No vomiting. Genitourinary: No dysuria, No hematuria. Hematology/Lymphatics : No bruising tendency, No bleeding tendency. Endocrine: No excessive thirst. Immunologic: Not immunocompromised. Musculoskeletal: Back pain, Neck pain, Muscle pain. Integumentary: No rash, No pruritus. Neurologic: Alert and oriented X4, No numbness, No tingling. Psychiatric: No anxiety, No depression. Health Status Allergies: Allergic Reactions (Selected) Severity Not Documented Nubain- Shortness of breath and rash. PredniSONE- Hives. Current medications: No qualifying data available Problem list: All Problems ESBL E. coli carrier / SNOMED CT 684771771 / Confirmed ESBL E coli in cervical culture 12/12/15 BMI 30+ - obesity / SNOMED CT 1478948921 / Confirmed BMI 30+ - obesity / SNOMED CT 8761243127 / Confirmed BMI 30+ - obesity / SNOMED CT 7321828593 / Confirmed Obesity / SNOMED CT 7929294891 / Confirmed Hypertension / SNOMED CT 9867967974 / Confirmed TMJ (dislocation of temporomandibular joint) / SNOMED CT 377755234 / Confirmed Obesity / SNOMED CT [id number] / Possible Inactive: Pericarditis / SNOMED CT 3969282 2020 Resolved: / SNOMED CT 554275846 Resolved: / SNOMED CT 113069365 Resolved: / SNOMED CT 057394772 Resolved: / SNOMED CT 012409456 Resolved: Anxiety depression / SNOMED CT 595775702 Canceled: Bipolar / SNOMED CT 452383136 Canceled: Schizophrenia / SNOMED CT 00978998 Canceled: Depression / SNOMED CT 887356221 Canceled: anxiety disorder Canceled: panic attacks Canceled: Missed miscarriage / SNOMED CT [id number] Canceled: Obesity complicating , first trimester / SNOMED CT 5851504367 Canceled: Supervision of high risk in first trimester / SNOMED CT 01771214 Canceled: Hx of intrauterine growth restriction in prior , currently / SNOMED CT 875765448 Canceled: Supervision of high risk in second trimester / SNOMED CT 48561997 Canceled: Obesity complicating , second trimester / SNOMED CT 0937655791 Canceled: Sinus arrhythmia seen on electrocardiogram / SNOMED CT 4854852404 Canceled: Supervision of high risk in third trimester / SNOMED CT 17884576 Canceled: Obesity complicating , third trimester / SNOMED CT 5786045782 Canceled: Previous section complicating , antepartum condition or complication / SNOMED CT 065359346 Histories Past Medical History: Resolved ([id number]): Onset on 05/21/2020 at 29 years. Resolved on 02/07/2021 at 30 years. ([id number]): Onset on 03/29/2017 at 26 years. Resolved on 12/27/2017 at 27 years. ([id number]): Onset on 09/19/2014 at 24 years. Resolved on 05/07/2015 at 24 years. ([id number]): Onset on 10/08/2013 at 23 years. Resolved in 2013 at 23 years. Anxiety depression ([id number]): Resolved. Family History: Hypertension Father Hypothyroidism Mother (Malika) Diabetes mellitus type 2 Mother (Malika) Psychosis Mother (Malika) Hyperlipidemia Father Mother (Malika) Procedure history: section (SNOM (more content not included)... [facility] Comment on above: Result Comment: Elec tronically Signed By: Lyn Limon PA-C\.br\Date and Time Signed: 04/07/24 11:02 EDT HIPAA Forms Officeon 024 HIPAA Forms Office [id number]# 1.00TIFF [facility] Legal Correspondence Officeo n 04-07-2024 Legal Correspondence Office [id number]# 1.00TIFF [facility] Office/Clinic Note-Physician on 04-07-2024 Office/Clinic Note-Physician [id number]# 1.00TIFF [facility] Patient Correspondenceon Patient Correspondence [id number]# 1.00TIFF Normal [facility] [place] Patient Correspondence [id number]# 1.00TIFF Normal [facility] Patient Correspondence [id number]# 1.00TIFF Normal [facility] Patient Correspondence [id number]# 1.00TIFF Normal [facility] Patient Correspondence [id number]# 1.00TIFF Normal [facility] [place] Patient History Officeon Patient History Office [id number]# 1.00TIFF Normal [facility] [place] Patient History Office [id number]# 1.00TIFF Normal [facility] [place] Office Visiton 02-13-2024 Follow-up visit [id number] Jennifer Motley 1990 F Date Provider Department Center 02/13/2024 Donnie-ROSANNA PERALTA [facility] [place] [facility] Family History Problem Relation Age of Onset Coronary artery disease Father Atrial fibrillation Father Family Status - Relation Status Age at Father Level of Service:52544 PA OFFICE/OUTPATIENT ESTABLISHED LOW MDM 20 MIN Normal [facility] HCG ( test) IA.rapi d Ql (U)Ordered By: Thaddeus Marshall on 10-19-2023 HCG ( test) Ql (U) Negative [facility] Calcium [Mass/volume] in Ser um or PlasmaOrdered By: Arthur Rao on 09-21-2023 Calcium [Mass/Vol] 9.3 mg/dL 8.6-10.3 [facility] Carbon dioxide, total [Moles /volume] in Serum or PlasmaOrdered By: Arthur Rao on 09-21-2023 CO2 [Moles/Vol] 28.0 mmol/L 21.0-31.0 [facility] Chloride [Moles/volume] in S yanique or PlasmaOrdered By: Arthur Rao on 09-21-2023 Chloride [Moles/Vol] 103 mmol/L 98-107 [facility] Creatinine [Mass/volume] in Serum or PlasmaOrdered By: Arthur Rao on 09-21-2023 Creatinine [Mass/Vol] 0.63 mg/dL 0.60-1.20 [facility] Glucose [Mass/volume] in Ser um or PlasmaOrdered By: Arthur Rao on 09-21-2023 Glucose [Mass/Vol] 87 mg/dL 70-100 [facility] Comment on above: ADA recommended refe rence rangeRandom Glucose Reference Range is dependent on time and content of last meal. Glucose of more than 200 mg/dL in a nonstressed, ambulatory subject supports the diagnosis of Diabetes Mellitus. HCG ( test) IA.rapi d Ql (U)Ordered By: Arthur Rao on 09-21-2023 HCG ( test) Ql (U) Negative [facility] No Panel InformationOrdered By: Arthur Rao on 09-21-2023 Estimated GFR (CKD-EPI) > 60.0 mL/Min [facility] Creatinine Clearance (Chem 148.12 [facility] Potassium [Moles/volume] in Serum or PlasmaOrdered By: Arthur Rao on 09-21-2023 Potassium [Moles/Vol] See comment 3.5-5.1 [facility] Comment on above: Specimen hemolyzed, redraw requested Serum or plasma anion gap de terminationOrdered By: Arthur Rao on 09-21-2023 Anion gap [Moles/Vol] TNP [facility] Comment on above: Test not performed Sodium [Moles/volume] in Ser um or PlasmaOrdered By: Arthur Rao on 09-21-2023 Sodium [Moles/Vol] 138 mmol/L 136-145 [facility] Urea nitrogen [Mass/volume] in Serum or PlasmaOrdered By: Arthur Rao on 09-21-2023 Urea nitrogen [Mass/Vol] 12 mg/dL 7-25 [facility] C reactive protein [Mass/vol ume] in Serum or PlasmaOrdered By: Una Peng on 09-19-2023 CRP [Mass/Vol] 1.7 mg/dL 0.0-0.5 [facility] Calprotectin [Mass/mass] in StoolOrdered By: Una Peng on 09-19-2023 Calprotectin (Stl) [Mass/Mass] 32 ug/g 0-120 [facility] Comment on above: Concentration Interp retation Follow-Up< 5 - 50 ug/g Normal None>50 -120 ug/g Borderline Re-evaluate in 4-6 weeks >120 ug/g Abnormal Repeat as clinically indicatedPerformed at: [facility] [id number] Director: Diomedes Arguello MD, Phone: [phone] Elastase.pancreatic [Mass/ma ss] in StoolOrdered By: Una Peng on 09-19-2023 Elastase.pancreatic (Stl) [Mass/Mass] 478 >200 [facility] Comment on above: Result Units: ug [address] st[address]g Severe Pancreatic Insufficiency: <100 Moderate Pancreatic Insufficiency: 100 - 200 Normal: >200Performed at: [facility] [id number] Director: Diomedes Arguello MD, Phone: [phone] Erythrocyte sedimentation ra te by Photometric methodOrdered By: Una Peng on 09-19-2023 ESR Photometric method (Bld) [Velocity] 41 mm/hr 0-19 [facility] HIV 1 and HIV-2 antibody ass ay with HIV-1 p24 antigen detectionOrdered By: Una Peng on 09-19-2023 HIV 1+2 Ab+HIV1 p24 Ag IA Ql Non-Reactive Non Reactive [facility] Comment on above: HIV NegativeHIV-1/HI V-2 antibodies and HIV-1 p24 antigen were NOTdetected. There is no laboratory evidence of HIV infection.Performed at: - [employer] [id number] Director: Korey Perkins PhD, Phone: [phone] IgA [Mass/volume] in Serum o r PlasmaOrdered By: Una Peng on 09-19-2023 IgA [Mass/Vol] 424 mg/dL 87-352 [facility] Comment on above: Performed at: [address] [id number] Director: Korey Perkins PhD, Phone: [phone] No Panel InformationOrdered By: Una Peng on 09-19-2023 Endomysial IgA Antibody Negative Negative F [facility] Ova and Parasite Result 1 [facility] Ova and Parasite Result 1 N/A [facility] Ova or parasites identificat ionOrdered By: Una Peng on 09-19-2023 Ova and parasites identified LM Nom (Unsp spec) [facility] Ova and parasites identified LM Nom (Unsp spec) N/A [facility] Serum gliadin peptide IgA an tibody assay (units/volume)Ordered By: Una Peng on 09-19-2023 Gliadin peptide IgA Qn (S) 6 units 0-19 [facility] Comment on above: Negative 0 - 19 Weak Positive 20 - 30 Moderate to Strong Positive >30 Serum gliadin peptide IgG an tibody assay (units/volume)Ordered By: Una Peng on 09-19-2023 Gliadin peptide IgG Qn (S) 2 units 0-19 [facility] Comment on above: Negative 0 - 19 Weak Positive 20 - 30 Moderate to Strong Positive >30 Serum tissue transglutaminas e (tTG) IgA antibody assay (units/volume)Ordered By: Una Peng on 09-19-2023 tTG IgA Qn (S) <2 U/mL 0-3 [facility] Comment on above: Negative 0 - 3 Weak Positive 4 - 10 Positive >10 Tissue Transglutaminase (tTG) has been identified as the endomysial antigen. Studies have demonstr- ated that endomysial IgA antibodies have over 99% specificity for gluten sensitive enteropathy. Serum tissue transglutaminas e (tTG) IgG antibody assay (units/volume)Ordered By: Una Peng on 09-19-2023 tTG IgG Qn (S) 2 U/mL 0-5 [facility] Comment on above: Negative 0 - 5 Weak Positive 6 - 9 Positive >9 Stool bacteria identificatio n by cultureOrdered By: Una Peng on 09-19-2023 Bacteria identified Cx Nom (Stl) [facility] Stool ova and parasites iden tification by concentrationOrdered By: Una Peng on 09-19-2023 Ova and parasites identified Concentration Nom (Stl) N/A [facility] Stool ova and parasites iden tification by trichrome stainOrdered By: Una Peng on 09-19-2023 Ova and parasites identified Trichrome stain Nom (Stl) N/A [facility] Thyrotropin [Units/volume] i n Serum or PlasmaOrdered By: Una Peng on 09-19-2023 TSH Qn 1.58 m[IU]/L 0.45-5.33 [facility] Creatine kinase [Enzymatic a ctivity/volume] in Serum or PlasmaOrdered By: Philipp Espitia on 08-14-2023 CK [Catalytic activity/Vol] 118 U/L 30-223 [facility] Serum nuclear antibody titer Ordered By: Philipp Espitia on 08-14-2023 Nuclear Ab (S) [Titer] Negative . [facility] Comment on above: Negative <1:80 Borde rline 1:80 Positive >1:80ICAP nomenclature: AC-0For more information about Hep-2 cell patterns useANApatterns.org, the official website for theInternational Consensus on Antinuclear Antibody (WILLIE)Patterns (ICAP).Performed at: [facility] [place]William [place] [id number] Director: Korey Perkins PhD, Phone: [phone] Thyrotropin [Units/volume] i n Serum or PlasmaOrdered By: Philipp Espitia on 08-14-2023 TSH Qn 1.12 m[IU]/L 0.45-5.33 [facility] Office Visiton 07-20-2023 Follow-up visit [id number] Jennifer Motley 1990 F Date Provider Department Center 07/20/2023 [facility] Family History Problem Relation Age of Onset Coronary artery disease Father Atrial fibrillation Father Family Status - Relation Status Age at Father Level of Service:39367 PA OFFICE/OUTPATIENT ESTABLISHED LOW MDM 20-29 MIN Normal [facility] FREE T4on 11-27-2022 Free T4 [Mass/Vol] 0.79 ng/dL Normal 0.76-1.46 [facility] Comment on above: Performed By: #### F T4 #### [facility] [address] [place] [address] Dr. Jon Jones HS-CRPon 11-27-2022 HS-CRP 0.70 mg/L Normal <=3.00 [facility] Comment on above: Performed By: #### C MP, TSH, HSCRPT #### [facility] [address] [place] [address] Dr. Jon Jones PROF 14(COMP METB)on 023 Albumin [Mass/Vol] 4.4 g/dL Normal 3.4-5.0 [facility] Comment on above: Performed By: #### C MP, TSH, HSCRPT #### [facility] [address] [place] [address] Dr. Jon Jones Albumin/Globulin [Mass ratio] 1.1 {ratio} Normal [facility] Comment on above: Performed By: #### C MP, TSH, HSCRPT #### [facility] [address] [place] [address] Dr. Jon Jones ALP [Catalytic activity/Vol] 109 U/L Normal 46-116 [facility] Comment on above: Performed By: #### C MP, TSH, HSCRPT #### [facility] [address] [place] [address] Dr. Jon Jones ALT [Catalytic activity/Vol] 103 U/L Critically high 14-59 [facility] Comment on above: Performed By: #### C MP, TSH, HSCRPT #### [facility] [address] [place] [address] Dr. Jon Jones Anion gap [Moles/Vol] 13.9 mmol/L Normal [facility] Comment on above: Performed By: #### C MP, TSH, HSCRPT #### [facility] [address] [place] [address] Dr. Jon Jones AST [Catalytic activity/Vol] 55 U/L Critically high 15-37 [facility] Comment on above: Performed By: #### C MP, TSH, HSCRPT #### [facility] [address] [address] [address] Jon Jones Bilirubin [Mass/Vol] 0.3 mg/dL Normal 0.2-1.0 [facility] Comment on above: Performed By: #### C MP, TSH, HSCRPT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 ####[place] [address] [place], [place] [phone] Troponin Ton 09-28-2020 Troponin T.cardiac [Mass/Vol] ug/L Normal 0.000-0.029 [facility] Comment on above: Performed By: #### T NT, CBC, ALCO, PTT, PT, CK, CMP, LIPA ####[place] [address] [place], [place] [phone] Type and Screenon 09-28-2020 ABO/RH(D) Positive [facility] Comment on above: Performed By: #### T SCR ####[place] [address] [place], [place] [phone] XR ANKLE 2V AP/LAT LTon 09-19 XR [...] fracture or malalignment from hip to ankle. Cardiovascular Lab Director: NORMA Transcribe Date/Time: Sep 28 2020 8:12P Dictated by : GALILEO MANUEL MD This examination was interpreted and the report reviewed and electronically signed by: GALILEO MANUEL MD on Sep 28 2020 8:25PM EST [id number] N [facility] XR ANKLE 2V AP/LAT RTon 11 XR ANKLE 2V AP/LAT RT * * [...] fracture or malalignment from hip to ankle. Cardiovascular Lab Director: PSCBri Transcribe Date/Time: Sep 28 2020 8:12P Dictated by : GALILEO MANUEL MD This examination was interpreted and the report reviewed and electronically signed by: GALILEO MANUEL MD on Sep 28 2020 8:25PM EST [id number] N [facility] XR ELBOW 2V AP/LAT RTon 09-19 XR ELBOW 2V AP/LAT RT * * [...] fracture or malalignment from hip to ankle. Cardiovascular Lab Director: NORMA Transcribe Date/Time: Sep 28 2020 8:12P Dictated by : GALILEO MANUEL MD This examination was interpreted and the report reviewed and electronically signed by: GALILEO MANUEL MD on Sep 28 2020 8:25PM EST [id number] N [facility] XR FEMUR 2V AP/LAT LTon 09-19 [...] fracture or malalignment from hip to ankle. Cardiovascular Lab Director: NORMA Transcribe Date/Time: Sep 28 2020 8:12P Dictated by : GALILEO MANUEL MD This examination was interpreted and the report reviewed and electronically signed by: GALILEO MANUEL MD on Sep 28 2020 8:25PM EST [id number] N [facility] XR FEMUR 2V AP/LAT RTon 09-19 [...] fracture or malalignment from hip to ankle. Cardiovascular Lab Director: NORMA Transcribe Date/Time: Sep 28 2020 8:12P Dictated by : GALILEO MANUEL MD This examination was interpreted and the report reviewed and electronically signed by: GALILEO MANUEL MD on Sep 28 2020 8:25PM EST [id number] N [facility] XR FOREARM 2V AP/LAT RTon XR FOREARM 2V AP/LAT RT * * *Final Repor t* * * DATE OF EXAM: Sep 28 2020 8:03PM FVX [id number] - XR FOREARM 2V AP/LAT RT / PROCEDURE REASON: Polytrauma, critical, upper ext injury suspected * * * * Physician Interpretation * * * * EXAM //: RIGHT ELBOW, forearm and wrist X-RAY SERIES [...] spaces and articular surfaces are preserved. EXAM //05/26: LEFT FEMUR X-RAY SERIES HISTORY: Polytrauma, critical, [...] fracture or malalignment from hip to ankle. Cardiovascular Lab Director: NORMA Transcribe Date/Time: Sep 28 2020 8:12P Dictated by : GALILEO MANUEL MD This examination was interpreted and the report reviewed and electronically signed by: GALILEO MANUEL MD on Sep 28 2020 8:25PM EST [id number] N [facility] XR KNEE 2V AP/LAT LTon 09-28 XR [...] fracture or malalignment from hip to ankle. Cardiovascular Lab Director: PSCB Transcribe Date/Time: Sep 28 2020 8:12P Dictated by : GALILEO MANUEL MD This examination was interpreted and the report reviewed and electronically signed by: GALILEO MANUEL MD on Sep 28 2020 8:25PM EST [id number] N [facility] XR KNEE 2V AP/LAT RTon 09-28 XR [...] fracture or malalignment from hip to ankle. Cardiovascular Lab Director: NORMA Transcribe Date/Time: Sep 28 2020 8:12P Dictated by : GALILEO MANUEL MD This examination was interpreted and the report reviewed and electronically signed by: GALILEO MANUEL MD on Sep 28 2020 8:25PM EST [id number] N [facility] XR SHLDR >/=3V AP/BONNIE AP/OTH R LTon [...] fracture or malalignment from hip to ankle. Cardiovascular Lab Director: NORMA Transcribe Date/Time: Sep 28 2020 8:12P Dictated by : GALILEO MANUEL MD This examination was interpreted and the report reviewed and electronically signed by: GALILEO MANUEL MD on Sep 28 2020 8:25PM EST [id number] N [facility] XR TIBIA FIBULA 2V AP/LAT LT [...] fracture or malalignment from hip to ankle. Cardiovascular Lab Director: PSCBri Transcribe Date/Time: Sep 28 2020 8:12P Dictated by : GALILEO MANUEL MD This examination was interpreted and the report reviewed and electronically signed by: GALILEO MANUEL MD on Sep 28 2020 8:25PM EST [id number] N [facility] XR TIBIA FIBULA 2V AP/LAT RT [...] fracture or malalignment from hip to ankle. Cardiovascular Lab Director: NORMA Transcribe Date/Time: Sep 28 2020 8:12P Dictated by : GALILEO MANUEL MD This examination was interpreted and the report reviewed and electronically signed by: GALILEO MANUEL MD on Sep 28 2020 8:25PM EST [id number] N [facility] [place] XR WRIST 3V PA/LAT/OBL RTon 09-28-2020 XR WRIST 3V PA/LAT/OBL RT * * *Final Report* * * DATE OF EXAM: Sep 28 2020 8:03PM FVX [id number] - XR WRIST 3V PA/LAT/OBL RT / PROCEDURE REASON: Polytrauma, critical, upper ext injury suspected * * * * Physician Interpretation * * * * EXAM //: RIGHT ELBOW, forearm and wrist X-RAY SERIES [...] spaces and articular surfaces are preserved. EXAM //05/26: LEFT FEMUR X-RAY SERIES HISTORY: Polytrauma, critical, [...] fracture or malalignment from hip to ankle. Cardiovascular Lab Director: NORMA Transcribe Date/Time: Sep 28 2020 8:12P Dictated by : GALILEO MANUEL MD This examination was interpreted and the report reviewed and electronically signed by: GALILEO MANUEL MD on Sep 28 2020 8:25PM EST [id number] N Normal [facility] Vital Signs Date Time Vital Sign Value Performing Clinician Facility 06-18-2025 15:45-0400 Body height 157.5 cm Constantin Dolce DPM FACFAS Work Phone: [facility] 06-18-2025 15:45-0400 Body mass index (BMI) [Ratio] 41.7 kg/m2 Constantin Dolce DPM FACFAS Work Phone: [facility] 06-18-2025 15:45-0400 Body weight 103.42 kg Constantin Dolce DPM FACFAS Work Phone: [facility] 06-18-2025 15:45-0400 Diastolic blood pressure 77 mm[Hg] Constantin Dolce DPM FACFAS Work Phone: [facility] 06-18-2025 15:45-0400 Heart rate 94 /min Constantin Dolce DPM FACFAS Work Phone: [facility] 06-18-2025 15:45-0400 Systolic blood pressure 128 mm[Hg] Constantin Dolce DPM FACFAS Work Phone: [facility] 06-04-2025 15:52-0400 Body height 157.5 cm Constantin Dolce DPM FACFAS Work Phone: [facility] 06-04-2025 15:52-0400 Body mass index (BMI) [Ratio] 41.7 kg/m2 Constantin Dolce DPM FACFAS Work Phone: [facility] 06-04-2025 15:52-0400 Body weight 103.42 kg Constantin Dolce DPM FACFAS Work Phone: [facility] 06-04-2025 15:52-0400 Respiratory rate 18 /min Constantin Dolce DPM FACFAS Work Phone: [facility] 06-02-2025 14:34-0400 Body height 157.5 cm Eloisa Soto [employer]UM D[employer]ER OPERATOR Work Phone: [facility] 06-02-2025 14:34-0400 Body mass index (BMI) [Ratio] 41.7 kg/m2 Eloisa Soto [employer] D[employer]ER OPERATOR Work Phone: [facility] 06-02-2025 14:34-0400 Body weight 103.42 kg Eloisa Soto [employer]UM D[employer]ER OPERATOR Work Phone: [facility] 06-02-2025 14:34-0400 Diastolic blood pressure 76 mm[Hg] Eloisa Soot [employer]UM DRIER OPERATOR Work Phone: [facility] 06-02-2025 14:34-0400 Systolic blood pressure 124 mm[Hg] Eloisa Arringtonman [employer] D[employer]ER OPERATOR Work Phone: [facility] 05-12-2025 15:21-0400 Diastolic blood pressure 82 mm[Hg] Gui Alvarez III DO Work Phone: [facility] 05-12-2025 15:21-0400 Heart rate 98 /min Gui Alvarez III DO Work Phone: [facility] 05-12-2025 15:21-0400 SaO2% (BldA) [Mass fraction] 97 % Gui Alvarez III DO Work Phone: [facility] 05-12-2025 15:21-0400 Systolic blood pressure 132 mm[Hg] Gui Alvarez III DO Work Phone: [facility] 04-01-2025 09:28-0400 Diastolic blood pressure 76 mm[Hg] Mac Jolly [facility] 04-01-2025 09:28-0400 Heart rate 84 /min Mac Jolly [facility] 04-01-2025 09:28-0400 Mean blood pressure 89 mm[Hg] Mac Jolly [facility] 04-01-2025 09:28-0400 Respiratory rate 16 /min Mac Jolly [facility] 04-01-2025 09:28-0400 Systolic blood pressure 114 mm[Hg] Mac Jolly [facility] 03-27-2025 10:20-0400 Body height 157.48 cm Gui Alvarez III DO Work Phone: [facility] 03-27-2025 10:20-0400 Body mass index (BMI) [Ratio] 41.5 kg/m2 Gui Alvarez III DO Work Phone: [facility] 03-27-2025 10:20-0400 Body weight 102.96 kg Gui Alvaerz III DO Work Phone: [facility] 03-27-2025 10:20-0400 Diastolic blood pressure 48 mm[Hg] Gui Alvarez III DO Work Phone: [facility] 03-27-2025 10:20-0400 Heart rate 104 /min Gui Alvarez III DO Work Phone: [facility] 03-27-2025 10:20-0400 Systolic blood pressure 148 mm[Hg] Gui Alvarez III DO Work Phone: [facility] 02-20-2025 17:30-0400 SaO2% (BldA) [Mass fraction] 100 % Favio Doran [facility] 02-20-2025 17:30-0400 Heart rate 70 /min Favio Meyere [facility] 02-20-2025 17:30-0400 Diastolic blood pressure 102 mm[Hg] Favio Meyere [facility] 02-20-2025 17:30-0400 Mean blood pressure 119 mm[Hg] Favio Meyere [facility] 02-20-2025 17:30-0400 Respiratory rate 16 /min Favio Meyere [facility] 02-20-2025 17:30-0400 Systolic blood pressure 152 mm[Hg] Favio Meyere [facility] 02-20-2025 17:00-0400 SaO2% (BldA) [Mass fraction] 100 % Favio Meyere [facility] 02-20-2025 17:00-0400 Heart rate 72 /min Favio Doran [facility] 02-20-2025 17:00-0400 Diastolic blood pressure 97 mm[Hg] Favio Meyere [facility] 02-20-2025 17:00-0400 Mean blood pressure 116 mm[Hg] Favio Meyere [facility] 02-20-2025 17:00-0400 Systolic blood pressure 153 mm[Hg] Favio Andreea [facility] 02-20-2025 16:00-0400 SaO2% (BldA) [Mass fraction] 99 % Favio Meyere [facility] 02-20-2025 16:00-0400 Diastolic blood pressure 92 mm[Hg] Favio Doran [facility] 02-20-2025 16:00-0400 Mean blood pressure 102 mm[Hg] Favio Doran [facility] 02-20-2025 16:00-0400 Systolic blood pressure 123 mm[Hg] Favio Doran [facility] 02-20-2025 14:13-0400 gluc 94 mg/dL Favio Doran [facility] 02-20-2025 13:55-0400 Body temperature 98.06 [degF] Favio Doran [facility] 02-20-2025 13:55-0400 Heart rate 81 /min Favio Doran [facility] 02-20-2025 13:55-0400 Respiratory rate 16 /min Favio Doran [facility] 02-17-2025 10:11-0400 Body height 157.5 cm Holley Barahona [employer]UM D[employer]ER OPERATOR Work Phone: [facility] 02-17-2025 10:11-0400 Body mass index (BMI) [Ratio] 41.7 kg/m2 Holley Barahona [employer]UM D[employer]ER OPERATOR Work Phone: [facility] 02-17-2025 10:11-0400 Body weight 103.42 kg Holley Barahona [employer]UM D[employer]ER OPERATOR Work Phone: [facility] 02-17-2025 10:11-0400 Diastolic blood pressure 78 mm[Hg] Holley Barahona [employer]UM D[employer]ER OPERATOR Work Phone: [facility] 02-17-2025 10:11-0400 Systolic blood pressure 118 mm[Hg] Holley Barahona [employer]UM D[employer]ER OPERATOR Work Phone: [facility] 01-31-2025 13:05-0400 Diastolic blood pressure 90 mm[Hg] [facility] 01-31-2025 13:05-0400 Heart rate 78 /min [facility] 01-31-2025 13:05-0400 Mean blood pressure 97 mm[Hg] [facility] 01-31-2025 13:05-0400 Respiratory rate 18 /min [facility] 01-31-2025 13:05-0400 SaO2% (BldA) [Mass fraction] 99 % [facility] 01-31-2025 13:05-0400 Systolic blood pressure 112 mm[Hg] [facility] 01-31-2025 12:07-0400 Diastolic blood pressure 48 mm[Hg] [facility] 01-31-2025 12:07-0400 Heart rate 77 /min [facility] 01-31-2025 12:07-0400 Mean blood pressure 72 mm[Hg] [facility] 01-31-2025 12:07-0400 Respiratory rate 18 /min [facility] 01-31-2025 12:07-0400 SaO2% (BldA) [Mass fraction] 99 % [facility] 01-31-2025 12:07-0400 Systolic blood pressure 119 mm[Hg] [facility] 01-31-2025 10:31-0400 Diastolic blood pressure 68 mm[Hg] [facility] 01-31-2025 10:31-0400 Heart rate 81 /min [facility] 01-31-2025 10:31-0400 Mean blood pressure 92 mm[Hg] [facility] 01-31-2025 10:31-0400 Respiratory rate 18 /min [facility] 01-31-2025 10:31-0400 SaO2% (BldA) [Mass fraction] 95 % [facility] 01-31-2025 10:31-0400 Systolic blood pressure 140 mm[Hg] [facility] 01-31-2025 09:59-0400 Body temperature 97.88 [degF] [facility] 01-31-2025 09:59-0400 Heart rate 77 /min [facility] 01-13-2025 12:23-0500 Blood Pressure Location Yamile Gaspar [facility] 01-13-2025 12:23-0500 Body temperature 97.88 [degF] Yamile Gaspar [facility] 01-13-2025 12:23-0500 Diastolic blood pressure 84 mm[Hg] Yamile Gaspar [facility] 01-13-2025 12:23-0500 Heart rate 97 /min Yamile Gaspar [facility] 01-13-2025 12:23-0500 SaO2% (BldA) [Mass fraction] 98 % Yamile Gaspar [facility] 01-13-2025 12:23-0500 Systolic blood pressure 126 mm[Hg] Yamile Gaspar [facility] 01-05-2025 08:59-0500 Body height 157.5 cm Osito Billy MD Work Phone: [facility] 01-05-2025 08:59-0500 Body mass index (BMI) [Ratio] 41.88 kg/m2 Osito Billy MD Work Phone: [facility] 01-05-2025 08:59-0500 Body weight 103.87 kg Osito Billy MD Work Phone: [facility] 01-05-2025 08:59-0500 Diastolic blood pressure 94 mm[Hg] Osito Billy MD Work Phone: [facility] 01-05-2025 08:59-0500 Heart rate 101 /min Osito Billy MD Work Phone: [facility] 01-05-2025 08:59-0500 Systolic blood pressure 129 mm[Hg] Osito Billy MD Work Phone: [facility] 12-29-2024 10:22-0500 Body height 157.48 cm [facility] 12-29-2024 10:22-0500 Body mass index (BMI) [Ratio] 41.3 kg/m2 [facility] 12-29-2024 10:22-0500 Body weight 102.51 kg [facility] 12-29-2024 10:22-0500 Diastolic blood pressure 98 mm[Hg] [facility] 12-29-2024 10:22-0500 Heart rate 87 /min [facility] 12-29-2024 10:22-0500 Systolic blood pressure 149 mm[Hg] [facility] 12-20-2024 12:18-0500 Blood Pressure Location Yamile Gaspar [facility] 12-20-2024 12:18-0500 Body temperature 98.42 [degF] Yamile Gaspar [facility] 12-20-2024 12:18-0500 Diastolic blood pressure 88 mm[Hg] Yamile Gaspar [facility] 12-20-2024 12:18-0500 Heart rate 109 /min Yamile Gaspar [facility] 12-20-2024 12:18-0500 SaO2% (BldA) [Mass fraction] 99 % Yamile Gaspar [facility] 12-20-2024 12:18-0500 Systolic blood pressure 138 mm[Hg] Yamile Gaspar [facility] 10-14-2024 11:07-0500 Diastolic blood pressure 89 mm[Hg] Lyn Limon [facility] 10-14-2024 11:07-0500 Heart rate 100 /min Lyn Limon [facility] 10-14-2024 11:07-0500 Mean blood pressure 106 mm[Hg] Lyn Limon [facility] 10-14-2024 11:07-0500 Respiratory rate 16 /min Lyn Limon [facility] 10-14-2024 11:07-0500 Systolic blood pressure 139 mm[Hg] Lyn Limon [facility] 10-13-2024 10:15-0500 Body height 157.48 cm [facility] 10-13-2024 10:15-0500 Body mass index (BMI) [Ratio] 43.1 kg/m2 [facility] 10-13-2024 10:15-0500 Body weight 107 kg [facility] 10-09-2024 13:17-0500 Body height 157.5 cm Holley Barahona DRUM DRIER OPERATOR Work Phone: [facility] 10-09-2024 13:17-0500 Body mass index (BMI) [Ratio] 43.53 kg/m2 Holley Barahona DRUM DRIER OPERATOR Work Phone: [facility] 10-09-2024 13:17-0500 Body weight 107.96 kg Holley Barahona DRUM DRIER OPERATOR Work Phone: [facility] 10-09-2024 13:17-0500 Diastolic blood pressure 86 mm[Hg] Holley Barahona DRUM DRIER OPERATOR Work Phone: [facility] 10-09-2024 13:17-0500 Heart rate 92 /min Holley Barahona [employer]UM DRIER OPERATOR Work Phone: [facility] 10-09-2024 13:17-0500 SaO2% (BldA) [Mass fraction] 97 % Holley Barahona DRUM DRIER OPERATOR Work Phone: [facility] 10-09-2024 13:17-0500 Systolic blood pressure 121 mm[Hg] Holley Barahona [employer]UM DRIER OPERATOR Work Phone: [facility] 10-07-2024 09:14-0500 Body mass index (BMI) [Ratio] 42.62 kg/m2 Eloisa Soto DRUM DRIER OPERATOR Work Phone: [facility] 10-07-2024 09:14-0500 Body weight 105.69 kg Eloisa Soto [employer]UM DRIER OPERATOR Work Phone: [facility] 10-07-2024 09:14-0500 Diastolic blood pressure 80 mm[Hg] Eloisa Soto DRUM DRIER OPERATOR Work Phone: [facility] 10-07-2024 09:14-0500 Systolic blood pressure 124 mm[Hg] Eloisa Soto [employer]UM DRIER OPERATOR Work Phone: [facility] 09-11-2024 13:09-0400 Body height 157.5 cm Holley Barahona DRUM DRIER OPERATOR Work Phone: [facility] 09-11-2024 13:09-0400 Body mass index (BMI) [Ratio] 42.62 kg/m2 Holley Barahona DRUM DRIER OPERATOR Work Phone: [facility] 09-11-2024 13:09-0400 Body weight 105.69 kg Holley Barahona DRUM DRIER OPERATOR Work Phone: [facility] 09-11-2024 13:09-0400 Diastolic blood pressure 82 mm[Hg] Holley Barahona DRUM DRIER OPERATOR Work Phone: [facility] 09-11-2024 13:09-0400 Heart rate 99 /min Holley Barahona DRUM DRIER OPERATOR Work Phone: [facility] 09-11-2024 13:09-0400 SaO2% (BldA) [Mass fraction] 99 % Holley Barahona DRUM DRIER OPERATOR Work Phone: [facility] 09-11-2024 13:09-0400 Systolic blood pressure 138 mm[Hg] Holley Barahona DRUM DRIER OPERATOR Work Phone: [facility] 09-01-2024 13:00-0400 Diastolic blood pressure 72 mm[Hg] Favio Andreea [facility] 09-01-2024 13:00-0400 Heart rate 77 /min Favio Andreea [facility] 09-01-2024 13:00-0400 Mean blood pressure 86 mm[Hg] Favio Andreea [facility] 09-01-2024 13:00-0400 SaO2% (BldA) [Mass fraction] 98 % Favio Andreea [facility] 09-01-2024 13:00-0400 Systolic blood pressure 113 mm[Hg] Favio Andreea [facility] 09-01-2024 12:30-0400 Diastolic blood pressure 68 mm[Hg] Favio Andreea [facility] 09-01-2024 12:30-0400 Heart rate 76 /min Favio Andreea [facility] 09-01-2024 12:30-0400 Mean blood pressure 89 mm[Hg] Favio Andreea [facility] 09-01-2024 12:30-0400 Respiratory rate 18 /min Favio Andreea [facility] 09-01-2024 12:30-0400 SaO2% (BldA) [Mass fraction] 96 % Favio Andreea [facility] 09-01-2024 12:30-0400 Systolic blood pressure 130 mm[Hg] Favio Andreea [facility] 09-01-2024 12:28-0400 Hourly Rounding Favio Andreea [facility] 09-01-2024 12:00-0400 Diastolic blood pressure 75 mm[Hg] Favio Andreea [facility] 09-01-2024 12:00-0400 Heart rate 72 /min Favio Doran [facility] 09-01-2024 12:00-0400 Mean blood pressure 91 mm[Hg] Favio Doran [facility] 09-01-2024 12:00-0400 Systolic blood pressure 122 mm[Hg] Favio Doran [facility] 09-01-2024 10:52-0400 Heart rate 85 /min Favio Doran [facility] 09-01-2024 10:45-0400 Body temperature 98.42 [degF] Favio Doran [facility] 09-01-2024 10:45-0400 Heart rate 83 /min Favio Doran [facility] 07-31-2024 09:46-0400 Body height 157.48 cm DO Gui Alvarez III Work Phone: [facility] 07-31-2024 09:46-0400 Body mass index (BMI) [Ratio] 43.1 kg/m2 DO Gui Alvarez III Work Phone: [facility] 07-31-2024 09:46-0400 Body weight 107.04 kg DO Gui Alvarez III Work Phone: [facility] 07-31-2024 09:46-0400 Diastolic blood pressure 84 mm[Hg] DO Gui Alvarez III Work Phone: [facility] 07-31-2024 09:46-0400 Systolic blood pressure 182 mm[Hg] DO Gui Alvarez III Work Phone: [facility] 07-18-2024 10:32-0400 Diastolic blood pressure 78 mm[Hg] Lyn Limon [facility] 07-18-2024 10:32-0400 Heart rate 83 /min Lyn Limon [facility] 07-18-2024 10:32-0400 Mean blood pressure 91 mm[Hg] Lyn Limon [facility] 07-18-2024 10:32-0400 Respiratory rate 16 /min Lyn Limon [facility] 07-18-2024 10:32-0400 Systolic blood pressure 118 mm[Hg] Lyn Limon [facility] 07-01-2024 11:02-0400 Body height 157.48 cm DO Gui Alvarez III Work Phone: [facility] 07-01-2024 11:02-0400 Body mass index (BMI) [Ratio] 41.1 kg/m2 DO [employer] Work Phone: [facility] 07-01-2024 11:02-0400 Body weight 102 kg DO Gui Alvarez III Work Phone: [facility] 06-25-2024 02:25-0400 Body temperature 98.24 [degF] Kun Rafaela [facility] 06-25-2024 02:25-0400 Diastolic blood pressure 85 mm[Hg] Kun Rafaela [facility] 06-25-2024 02:25-0400 Heart rate 109 /min Kun Rafaela [facility] 06-25-2024 02:25-0400 Respiratory rate 20 /min Kun Rafaela [facility] 06-25-2024 02:25-0400 SaO2% (BldA) [Mass fraction] 100 % Kun Rafaela [facility] 06-25-2024 02:25-0400 Systolic blood pressure 166 mm[Hg] Kun Russo [facility] 05-26-2024 10:12-0400 Diastolic blood pressure 81 mm[Hg] Lyn Limon [facility] 05-26-2024 10:12-0400 Heart rate 91 /min Lyn Limon [facility] 05-26-2024 10:12-0400 Mean blood pressure 99 mm[Hg] Lyn Limon [facility] 05-26-2024 10:12-0400 Respiratory rate 14 /min Lyn Limon [facility] 05-26-2024 10:12-0400 Systolic blood pressure 136 mm[Hg] Lyn Limon [facility] 05-20-2024 10:16-0400 Diastolic blood pressure 46 mm[Hg] DO Gui Alvarez III Work Phone: [facility] 05-20-2024 10:16-0400 Heart rate 58 /min DO Gui Alvarez III Work Phone: [facility] 05-20-2024 10:16-0400 Respiratory rate 16 /min DO Gui Alvarez III Work Phone: [facility] 05-20-2024 10:16-0400 SaO2% (BldA) [Mass fraction] 100 % DO Gui Alvarez III Work Phone: [facility] 05-20-2024 10:16-0400 Systolic blood pressure 92 mm[Hg] DO Gui Alvarez III Work Phone: [facility] 05-20-2024 08:18-0400 Body height 157.48 cm DO Gui Alvarez III Work Phone: [facility] 05-20-2024 08:18-0400 Body weight 105.68 kg DO Gui Alvarez III Work Phone: [facility] 04-17-2024 10:46-0400 Body height 157.48 cm DO Gui Alvarez III Work Phone: [facility] 04-17-2024 10:46-0400 Body mass index (BMI) [Ratio] 42.2 kg/m2 DO Gui Alvarez III Work Phone: [facility] 04-17-2024 10:46-0400 Body weight 104.77 kg DO Gui Alvarez III Work Phone: [facility] 04-17-2024 10:46-0400 Diastolic blood pressure 83 mm[Hg] DO Gui Alvarez III Work Phone: [facility] 04-17-2024 10:46-0400 Heart rate 126 /min DO Gui Alvarez III Work Phone: [facility] 04-17-2024 10:46-0400 Systolic blood pressure 122 mm[Hg] DO Gui Alvarez III Work Phone: [facility] 02-05-2024 10:21-0400 Body height 157.48 cm [facility] 02-05-2024 10:21-0400 Body mass index (BMI) [Ratio] 41.7 kg/m2 [facility] 02-05-2024 10:21-0400 Body weight 103.41 kg [facility] 02-05-2024 10:21-0400 Diastolic blood pressure 82 mm[Hg] [facility] 02-05-2024 10:21-0400 Heart rate 91 /min [facility] 02-05-2024 10:21-0400 Systolic blood pressure 132 mm[Hg] [facility] 10-19-2023 08:15-0500 Diastolic blood pressure 67 mm[Hg] DO Gui Alvarez III Work Phone: [facility] 10-19-2023 08:15-0500 Heart rate 77 /min DO Gui Alvarez III Work Phone: [facility] 10-19-2023 08:15-0500 Respiratory rate 16 /min DO Gui Alvarez III Work Phone: [facility] 10-19-2023 08:15-0500 SaO2% (BldA) [Mass fraction] 100 % DO Gui Alvarez III Work Phone: [facility] 10-19-2023 08:15-0500 Systolic blood pressure 110 mm[Hg] DO Gui Alvarez III Work Phone: [facility] 10-19-2023 07:45-0500 Inhaled oxygen flow rate 6 L/min DO Gui Alvarez III Work Phone: [facility] 10-19-2023 07:15-0500 Body mass index (BMI) [Ratio] 42.4 kg/m2 DO Gui Alvarez III Work Phone: [facility] 10-19-2023 07:04-0500 Body height 157.48 cm DO Gui Alvarez III Work Phone: [facility] 10-19-2023 07:04-0500 Body weight 105.23 kg DO Gui Alvarez III Work Phone: [facility] 10-19-2023 06:03-0500 Body temperature 98.3 [degF] DO Gui Alvarez III Work Phone: [facility] 10-03-2023 11:00-0500 Body height 157.48 cm Una Peng Other [employer] Other 10-03-2023 11:00-0500 Body mass index (BMI) [Ratio] 41.88 kg/m2 Una Peng Other [employer] Other 10-03-2023 11:00-0500 Body weight 103.87 kg Una Peng Other [employer] Other 10-03-2023 11:00-0500 Diastolic blood pressure 68 mm[Hg] Una Peng Other [facility] Other 10-03-2023 11:00-0500 Systolic blood pressure 125 mm[Hg] Una Peng Other [facility] Other 09-21-2023 11:23-0400 Diastolic blood pressure 56 mm[Hg] DO Gui Alvarez III Work Phone: [facility] 09-21-2023 11:23-0400 Heart rate 69 /min DO Gui Alvarez III Work Phone: [facility] 09-21-2023 11:23-0400 Respiratory rate 16 /min DO Gui Alvarez III Work Phone: [facility] 09-21-2023 11:23-0400 SaO2% (BldA) [Mass fraction] 93 % DO Gui Alvarez III Work Phone: [facility] 09-21-2023 11:23-0400 Systolic blood pressure 105 mm[Hg] DO Gui Alvarez III Work Phone: [facility] 09-21-2023 09:43-0400 Body height 157.48 cm DO Gui Alvarez III Work Phone: [facility] 09-21-2023 09:43-0400 Body mass index (BMI) [Ratio] 42.7 kg/m2 DO Gui Alvarez III Work Phone: [facility] 09-21-2023 09:43-0400 Body weight 106.14 kg DO Gui Alvarez III Work Phone: [facility] 09-21-2023 08:28-0400 Body temperature 98 [degF] DO Gui Alvarez III Work Phone: [facility] 09-04-2023 11:00-0400 Body height 157.48 cm Una Peng Other [employer] Other 09-04-2023 11:00-0400 Body mass index (BMI) [Ratio] 42.54 kg/m2 Una Coltonblanca Other [employer] Other 09-04-2023 11:00-0400 Body weight 105.51 kg Una Peng Other [employer] Other 09-04-2023 11:00-0400 Diastolic blood pressure 68 mm[Hg] Una Peng Other [employer] Other 09-04-2023 11:00-0400 Systolic blood pressure 120 mm[Hg] Una Peng Other [employer] Other 10-06-2022 11:48-0500 Diastolic blood pressure 88 mm[Hg] Alfredo Wen [facility] 10-06-2022 11:48-0500 Heart rate 100 /min Alfredo Wen [facility] 10-06-2022 11:48-0500 Respiratory rate 18 /min Alfredo Wen [facility] 10-06-2022 11:48-0500 SaO2% (BldA) [Mass fraction] 99 % Alfredo Wen [facility] 10-06-2022 11:48-0500 Systolic blood pressure 138 mm[Hg] Alfredo Wen [facility] 09-26-2022 11:39-0500 Blood Pressure Location Alfredo Wen [facility] 09-26-2022 11:39-0500 Diastolic blood pressure 80 mm[Hg] Alfredo Wen [facility] 09-26-2022 11:39-0500 Heart rate 96 /min Alfredo Wen [facility] 09-26-2022 11:39-0500 Respiratory rate 18 /min Alfredo Wen [facility] 09-26-2022 11:39-0500 SaO2% (BldA) [Mass fraction] 100 % Alfredo Wen [facility] 09-26-2022 11:39-0500 Systolic blood pressure 139 mm[Hg] Alfredo Wen [facility] 07-31-2022 22:50-0400 Diastolic blood pressure 78 mm[Hg] [facility]-31-[facility]22 22:50-0400 Heart rate 72 /min [employer] [facility] 07-31-2022 22:50-0400 Respiratory rate 13 /min [facility] 07-31-2022 22:50-0400 SaO2% (BldA) [Mass fraction] 97 % [employer] Comment on above: 07-31-2022 22:50-0400 Systolic blood pressure 135 mm[Hg] [employer] [facility] 07-07-2022 01:00-0400 Body temperature 98.6 [degF] Kaylinn Dokken [facility] 07-07-2022 01:00-0400 Diastolic blood pressure 63 mm[Hg] Kaylinn Dokken [facility] 07-07-2022 01:00-0400 Heart rate 70 /min Kaylinn Dokken [facility] 07-07-2022 01:00-0400 Mean blood pressure 75 mm[Hg] Kaylinn Dokken [facility] 07-07-2022 01:00-0400 Respiratory rate 18 /min Kaylinn Dokken [facility] 07-07-2022 01:00-0400 SaO2% (BldA) [Mass fraction] 100 % Kaylinn Dokken [facility] 07-07-2022 01:00-0400 Systolic blood pressure 98 mm[Hg] Kaylinn Dokken [facility] 07-07-2022 00:00-0400 Diastolic blood pressure 60 mm[Hg] Kaylinn Dokken [facility] 07-07-2022 00:00-0400 Heart rate 72 /min Kaylinn Dokken [facility] 07-07-2022 00:00-0400 Mean blood pressure 77 mm[Hg] Kaylinn Dokken [facility] 07-07-2022 00:00-0400 Respiratory rate 17 /min Kaylinn Dokken [facility] 07-07-2022 00:00-0400 SaO2% (BldA) [Mass fraction] 96 % Kaylinn Dokken [facility] 07-07-2022 00:00-0400 Systolic blood pressure 110 mm[Hg] Kaylinn Dokken [facility] 07-06-2022 23:00-0400 Diastolic blood pressure 118 mm[Hg] Kaylinn Dokken [facility] 07-06-2022 23:00-0400 Heart rate 93 /min Kaylinn Dokken [facility] 07-06-2022 23:00-0400 Mean blood pressure 126 mm[Hg] Kaylinn Dokken [facility] 07-06-2022 23:00-0400 SaO2% (BldA) [Mass fraction] 97 % Analisan Dokken [facility] 07-06-2022 23:00-0400 Systolic blood pressure 143 mm[Hg] Gabrielleinn Dokken [facility] 07-06-2022 22:47-0400 Heart rate 75 /min Analisan Dokken [facility] 06-12-2022 15:52-0400 Blood Pressure Location Alfredo Wen [facility] 06-12-2022 15:52-0400 Diastolic blood pressure 80 mm[Hg] Alfredo Wen [facility] 06-12-2022 15:52-0400 Heart rate 74 /min Alfredo Wen [facility] 06-12-2022 15:52-0400 Respiratory rate 18 /min Alfredo Wen [facility] 06-12-2022 15:52-0400 SaO2% (BldA) [Mass fraction] 100 % Alfredo Wen [facility] 06-12-2022 15:52-0400 Systolic blood pressure 140 mm[Hg] Alfredo Wen [facility] 05-12-2022 15:51-0400 Blood Pressure Location Alfredo Wen [facility] 05-12-2022 15:51-0400 Diastolic blood pressure 81 mm[Hg] Alfredo Wen [facility] 05-12-2022 15:51-0400 Heart rate 85 /min Alfredo Wen [facility] 05-12-2022 15:51-0400 Respiratory rate 18 /min Alfredo Wen [facility] 05-12-2022 15:51-0400 SaO2% (BldA) [Mass fraction] 98 % Alfredo Wen [facility] 05-12-2022 15:51-0400 Systolic blood pressure 123 mm[Hg] Alfredo Wen [facility] 04-25-2022 13:48-0400 Diastolic blood pressure 72 mm[Hg] Favio Doran [facility] 04-25-2022 13:48-0400 Heart rate 85 /min Favio Andreea [facility] 04-25-2022 13:48-0400 Mean blood pressure 85 mm[Hg] Favio Andreea [facility] 04-25-2022 13:48-0400 Respiratory rate 12 /min Favio Andreea [facility] 04-25-2022 13:48-0400 SaO2% (BldA) [Mass fraction] 97 % Favio Andreea [facility] 04-25-2022 13:48-0400 Systolic blood pressure 111 mm[Hg] Favio Andreea [facility] 04-25-2022 13:27-0400 Heart rate 70 /min Favio Andreea [facility] 04-25-2022 13:27-0400 Respiratory rate 12 /min Favio Andreea [facility] 04-25-2022 13:27-0400 SaO2% (BldA) [Mass fraction] 98 % Favio Andreea [facility] 04-25-2022 12:16-0400 Diastolic blood pressure 86 mm[Hg] Favio Andreea [facility] 04-25-2022 12:16-0400 Heart rate 72 /min Favio Andreea [facility] 04-25-2022 12:16-0400 Hourly Rounding Favio Andreea [facility] 04-25-2022 12:16-0400 Mean blood pressure 99 mm[Hg] Favio Andreea [facility] 04-25-2022 12:16-0400 Promise to Return Favio Andreea [facility] 04-25-2022 12:16-0400 Respiratory rate 22 /min Favio Andreea [facility] 04-25-2022 12:16-0400 SaO2% (BldA) [Mass fraction] 96 % Favio Andreea [facility] 04-25-2022 12:16-0400 Systolic blood pressure 125 mm[Hg] Favio Andreea [facility] 04-25-2022 11:21-0400 Hourly Rounding Favio Andreea [facility] 04-25-2022 11:21-0400 Promise to Return Favio Andreea [facility] 04-25-2022 11:20-0400 Diastolic blood pressure 80 mm[Hg] Favio Andreea [facility] 04-25-2022 11:20-0400 Mean blood pressure 94 mm[Hg] Favio Andreea [facility] 04-25-2022 11:20-0400 Systolic blood pressure 122 mm[Hg] Favio Andreea [facility] 04-25-2022 10:53-0400 gluc 113 mg/dL Favio Andreea [facility] 04-25-2022 10:53-0400 gluc Favio Doran [facility] 04-25-2022 10:46-0400 Body temperature 97.88 [degF] Favio Doran [facility] 04-25-2022 10:46-0400 Heart rate 85 /min Favio Doran [facility] 04-25-2022 10:46-0400 Respiratory rate 18 /min Favio Doran [facility] Encounters Encounter Date Encounter Type Care Provider Facility Start: 08-10-2025 End: 08-10-2025 ambulatory Gui Alvarez [facility] Start: 07-24-2025 End: 07-24-2025 ambulatory Kathe Figueroa Facility:[facility] Start: 07-14-2025 End: 07-14-2025 Clinisync Result Encounter Eloisa Soto NP Work Phone: [facility] External Department Unsolicited Start: 07-14-2025 End: 07-14-2025 Clinisync Result Encounter Eloisa Soto DRUM DRIER OPERATOR Work Phone: [facility] External Department Unsolicited Start: 07-14-2025 End: 07-14-2025 ambulatory WHNP Eloisa SOTO Facility:[facility] Start: 06-18-2025 End: 06-18-2025 Office outpatient visit 15 minutes Constantin R Dolce DPM FACFAS Work Phone: [facility] NMA POD Comment on above: Neoplasm of uncertai n behavior of skin (Primary Dx); Plantar verruca; Pain in left foot Start: 06-18-2025 End: 06-18-2025 Bamboo flowsheet Constantin R Dolce DPM FACFAS Work Phone: [facility] [place] Start: 06-18-2025 End: 06-18-2025 Bamboo flowsheet Constantin R Dolce DPM FACFAS Work Phone: [facility] [place] Start: 06-18-2025 End: 06-18-2025 Refill Constantin R Dolce DPM FACFAS Work Phone: [facility] NMA P[facility] Comment on above: Neoplasm of uncertai n behavior of skin Start: 06-04-2025 End: 06-04-2025 ambulatory CONSTANTIN R DOLCE Not Available Start: 06-04-2025 End: 06-04-2025 Office outpatient new 30 minutes Constantin R Dolce DPM FACFAS Work Phone: [facility] NMA P[facility] Comment on above: Neoplasm of uncertai n behavior of skin (Primary Dx); Plantar verruca; Pain in left foot Start: 06-04-2025 End: 06-04-2025 Bamboo flowsheet Constantin R Dolce DPM FACFAS Work Phone: [facility] ASC POD Start: 06-04-2025 End: 06-04-2025 Bamboo flowsheet Constantin R Dolce DPM FACFAS Work Phone: [facility] Start: 06-03-2025 End: 06-09-2025 Follow-up encounter Eloisa Soto DRUM DRIER OPERATOR Work Phone: [facility] NB OB Start: 06-02-2025 End: 06-02-2025 Office outpatient visit 15 minutes Eloisa Soto DRUM DRIER OPERATOR Work Phone: [facility] Comment on above: Delayed menses (Prim rubio Dx); examination or test, negative result; Galactorrhea of both breasts Start: 06-02-2025 End: 06-02-2025 ambulatory ELOISA SOTO Not Available Start: 06-02-2025 End: 06-02-2025 Bamboo flowsheet Eloisa Soto DRUM DRIER OPERATOR Work Phone: [facility] Start: 06-02-2025 End: 06-02-2025 Bamboo flowsheet Eloisa Soto DRUM DRIER OPERATOR Work Phone: [facility] Start: 06-02-2025 End: 06-02-2025 Clinisync Result Encounter Eloisa Soto DRUM DRIER OPERATOR Work Phone: [facility] External Department Unsolicited Start: 05-28-2025 End: 05-28-2025 Bamboo flowsheet Serge Singh PA Work Phone: [facility] SWS DERM Start: 05-28-2025 End: 05-28-2025 Bamboo flowsheet Serge Singh PA Work Phone: [facility] Start: 05-28-2025 End: 05-28-2025 ambulatory SERGE EVANS Not Available Start: 05-28-2025 End: 05-28-2025 Office outpatient visit 15 minutes Serge Evans PA Work Phone: [facility] Comment on above: Primary focal hyperh idrosis (Primary Dx); Other atopic dermatitis; Hirsutism; Acne vulgaris Start: 05-19-2025 End: 05-19-2025 ambulatory Gui Alvarez III DO Work Phone: [facility] Work Phone: Start: 05-19-2025 End: 05-19-2025 Patient encounter procedure Edgar Harris PhD -[facility] Work Phone: Start: 05-12-2025 End: 05-12-2025 Patient encounter procedure Kathe Figueroa DO -[facility] Work Phone: Start: 05-08-2025 End: 05-08-2025 Bamboo flowsheet Almaz Dorsey CCC-A Work Phone: [facility] Start: 05-08-2025 End: 05-08-2025 Bamboo flowsheet Almaz Dorsey CCC-A Work Phone: [facility] Start: 05-08-2025 End: 05-08-2025 Clinical Support Almaz Dorsey CCC-A Work Phone: [facility] Comment on above: Sensorineural hearin g loss (SNHL) of both ears (Primary Dx) Start: 04-01-2025 End: 04-01-2025 ambulatory Mac Jolly Facility:[facility] Start: 04-01-2025 End: 04-01-2025 Patient encounter procedure Mac Jolly [facility] Start: 03-28-2025 End: 03-31-2025 Refill Jasmin Granado DO Work Phone: [facility] Comment on above: Oral contraceptive p ill surveillance (Primary Dx) Start: 03-27-2025 End: 03-27-2025 Patient encounter procedure Una Pack [facility] Work Phone: Start: 03-19-2025 End: 06-23-2025 ambulatory Gui Alvarez Facility:[facility] Start: 03-02-2025 End: 03-02-2025 Bamboo flowsheet Edgar Rice PhD Work Phone: [facility] Start: 03-02-2025 End: 03-02-2025 Bamboo flowsronal Rice PhD Work Phone: [facility] Start: 03-02-2025 End: 03-02-2025 ambulatory EDGAR RICE Not Available Start: 03-02-2025 End: 03-02-2025 Patient encounter procedure Edgar Rice PhD Work Phone: [facility] Comment on above: Cognitive dysfunctio n (Primary Dx); Memory loss; Concentration deficit; MEEK (obstructive sleep apnea); Other insomnia; Other chronic pain; Expressive language impairment; Depression, unspecified depression type (CMS/HCC); Anxiety; Stress Start: 02-27-2025 End: 02-28-2025 Pre-admission assessment Gui Alvarez III [facility] Start: 02-24-2025 End: 02-25-2025 Pre-admission assessment Gui Alvarez III [facility] Start: 02-20-2025 End: 02-20-2025 Emergency department patient visit Favio Doran [facility] Start: 02-19-2025 End: 02-19-2025 Bamboo flowsheet Serge [facility] PA Work Phone: [facility] Start: 02-19-2025 End: 02-19-2025 [facility]amboo flowsheet [facility] Work Phone: [facility] Start: 02-19-2025 End: 02-19-2025 Office outpatient visit 25 minutes Serge [facility] PA Work Phone: [facility] Comment on above: Other atopic dermati tis (Primary Dx); Primary focal hyperhidrosis; Hirsutism; Acne vulgaris Start: 02-19-2025 End: 02-19-2025 ambulatory SERGE EVANS Not Available Start: 02-17-2025 End: 02-17-2025 Bamboo flowsheet Holley Jun DRUM DRIER OPERATOR Work Phone: [facility] Start: 02-17-2025 End: 02-17-2025 Bamboo flowsheet Holley Jun DRUM DRIER OPERATOR Work Phone: [facility] Start: 02-17-2025 End: 02-17-2025 Office outpatient visit 25 minutes Holley Barahona DRUM DRIER OPERATOR Work Phone: [facility] Comment on above: Chronic migraine wit hout aura without status migrainosus, not intractable (CMS/HCC) (Primary Dx); Fibromyalgia; Paresthesia of foot, bilateral; Carpal tunnel syndrome on both sides; Cognitive dysfunction; Daytime hypersomnolence Start: 02-17-2025 End: 02-17-2025 ambulatory HOLLEY BARAHONA Not Available Start: 01-31-2025 End: 01-31-2025 ambulatory Yamile Gaspar Facility:[facility] Start: 01-31-2025 End: 01-31-2025 Emergency department patient visit Davidson Jiang [facility] Start: 01-22-2025 End: 04-22-2025 ambulatory Gui Alvarez Facility:[facility] Start: 01-22-2025 End: 04-22-2025 Recurring Gui Alvarez III [facility] Start: 01-13-2025 End: 01-13-2025 Lab Drop off Yamile Gaspar [facility] Start: 01-13-2025 End: 01-13-2025 ambulatory Yamile Gaspar Facility:[facility] Start: 01-13-2025 End: 01-13-2025 Patient encounter procedure Yamile Gaspar [facility] Start: 01-05-2025 End: 01-05-2025 Bamboo flowsheet Osito Billy MD Work Phone: [facility] Start: 01-05-2025 End: 01-05-2025 Nirajo flowsronal Billy MD Work Phone: [facility] Start: 01-05-2025 End: 01-05-2025 Office outpatient visit 15 minutes Osito Billy MD Work Phone: [facility] Comment on above: Pharyngoesophageal d ysphagia (Primary Dx) Start: 01-05-2025 End: 01-05-2025 ambulatory OSITO BILLY Not Available Start: 12-29-2024 End: 12-29-2024 ambulatory [facility] Work Phone: Start: 12-29-2024 End: 12-29-2024 Patient encounter procedure [facility] Phys[facility] Work Phone: Start: 12-20-2024 End: 12-20-2024 ambulatory Yamile Gaspar Facility:[facility] Start: 12-20-2024 End: 12-20-2024 Patient encounter procedure Yamile Gaspar [facility] Start: 12-01-2024 End: 12-01-2024 ambulatory Osito Billy Facility:[facility] Start: 12-01-2024 End: 12-01-2024 Patient encounter procedure Osito Alvaradomis [facility] Start: 11-20-2024 End: 11-20-2024 ambulatory SERGE NORTHEIM Not Available Start: 11-20-2024 End: 11-20-2024 Office outpatient visit 25 minutes Serge Northeim PA Work Phone: [facility] Comment on above: Other atopic dermati tis (Primary Dx); Hirsutism; Primary focal hyperhidrosis Start: 11-20-2024 End: 11-20-2024 Bamboo flowsheet Serge Northeim PA Work Phone: [facility] Start: 11-20-2024 End: 11-20-2024 Bamboo flowsheet Sereg Northeim PA Work Phone: [facility] Start: 10-24-2024 End: 10-24-2024 Bamboo flowsheet Osito Billy MD Work Phone: [facility] ENT [facility] Start: 10-24-2024 End: 10-24-2024 Bamboo flowsheet Osito Billy MD Work Phone: [facility] PATRICIA [facility] Start: 10-24-2024 End: 10-31-2024 Pre-admission assessment Osito Alvaradomis [facility] Start: 10-24-2024 End: 10-24-2024 ambulatory OSITO Roberto TRISTAMIS Not Available Start: 10-14-2024 End: 10-14-2024 ambulatory GuiMicki Alvarez Facility:[facility] Start: 10-14-2024 End: 10-14-2024 Patient encounter procedure Lyn Limon [facility] Start: 10-13-2024 End: 10-13-2024 Patient encounter procedure [facility] Physician [facility] Work Phone: Start: 10-09-2024 End: 10-09-2024 Office outpatient visit 15 minutes Holley Barahona DRUM DRIER OPERATOR Work Phone: [facility] NE NEURO Comment on above: Chronic migraine wit hout aura without status migrainosus, not intractable (CMS/HCC) (Primary Dx); Fibromyalgia; Paresthesia of foot, bilateral; Carpal tunnel syndrome on both sides Start: 10-09-2024 End: 10-09-2024 ambulatory HOLLEY BARAHONA Not Available Start: 10-07-2024 End: 10-07-2024 ambulatory ELOISA SOTO Not Available Start: 10-07-2024 End: 10-07-2024 Office outpatient visit 15 minutes Eloisa Soto DRUM DRIER OPERATOR Work Phone: [facility] CHUN [facility] Comment on above: Follow-up encounter involving medication (Primary Dx); Irregular periods/menstrual cycles Start: 09-11-2024 End: 09-11-2024 Bamboo flowsheet Holley Barahona DRUM DRIER OPERATOR Work Phone: [facility] Start: 09-11-2024 End: 09-11-2024 Bamboo flowsheet Holley Barhaona DRUM DRIER OPERATOR Work Phone: [facility] Start: 09-11-2024 End: 09-11-2024 Office outpatient visit 25 minutes Holley Barahona DRUM DRIER OPERATOR Work Phone: [facility] Comment on above: Chronic migraine wit hout aura without status migrainosus, not intractable (CMS/HCC) (Primary Dx); Fibromyalgia; Paresthesia of foot, bilateral; Carpal tunnel syndrome on both sides Start: 09-11-2024 End: 09-11-2024 ambulatory HOLLEY BARAHONA Not Available Start: 09-01-2024 End: 09-01-2024 Emergency department patient visit Favio Doran [facility] Start: 08-29-2024 End: 08-29-2024 Bamboo flowsheet Serge Northeim PA Work Phone: [facility] Start: 08-29-2024 End: 08-29-2024 Bamboo flowsheet Serge Northeim PA Work Phone: [facility] Start: 08-29-2024 End: 08-29-2024 Office outpatient visit 15 minutes Serge Northeim PA Work Phone: [facility] Comment on above: Primary focal hyperh idrosis; Hirsutism Start: 08-29-2024 End: 08-29-2024 ambulatory SERGE NORTHEIM Not Available Start: 08-15-2024 End: 08-15-2024 ambulatory Sheng Zuleta Facility:[facility] Start: 07-31-2024 End: 07-31-2024 ambulatory DO Gui R Alvarez III Work Phone: [facility] Work Phone: Start: 07-31-2024 End: 07-31-2024 Patient encounter procedure DO Gui Alvarez III Work Phone: [facility] Work Phone: Start: 07-30-2024 ambulatory Gui R Soham rs III Facility:[facility] Start: 07-25-2024 End: 07-25-2024 ambulatory SERGE NORTHEIM Not Available Start: 07-18-2024 End: 07-18-2024 ambulatory Gui R Alvarez Facility:[facility] Start: 07-18-2024 End: 07-18-2024 Pain Management Lyn Limon [facility] Start: 07-01-2024 End: 07-01-2024 ambulatory DO Gui R Alvarez III Work Phone: [facility] Work Phone: Start: 07-01-2024 End: 07-01-2024 Patient encounter procedure DO Gui Alvarez III Work Phone: [facility] Work Phone: Start: 06-25-2024 End: 06-25-2024 Emergency department patient visit Kun Jassoner [facility] Start: 06-04-2024 End: 06-04-2024 ambulatory SERVER ASSISTANT-C UNA PENG Facility:[facility] Start: 06-04-2024 End: 06-04-2024 Patient encounter procedure UNA PENG [facility] Start: 05-26-2024 End: 05-26-2024 ambulatory Gui R Alvarez Facility:[facility] Start: 05-26-2024 End: 05-26-2024 Pain Management Lyn Limon [facility] Start: 05-20-2024 Non-patient / Non-visit DO Itzel land Alvarez III Work Phone: [facility] Physician [facility] G[facility] Work Phone: Start: 05-20-2024 End: 05-20-2024 Admission to same day surgery center DO Gui Alvarez III Work Phone: [facility] Work Phone: Start: 05-20-2024 End: 05-20-2024 ambulatory DO Gui R Alvarez III Work Phone: [facility] Work Phone: Start: 05-12-2024 Registered Recurring DO Maria Ran d Alvarez III Work Phone: [facility] Start: 04-21-2024 Registered Recurring DO Rollan d Alvarez III Work Phone: [facility] Start: 04-17-2024 End: 04-17-2024 ambulatory DO Gui R Alvarez III Work Phone: [facility] Work Phone: Start: 04-17-2024 End: 04-17-2024 Patient encounter procedure DO Gui Alvarez III Work Phone: [facility] Work Phone: Start: 04-07-2024 Registered Recurring DO Rollan d Alvarez III Work Phone: [facility] Start: 04-07-2024 End: 04-07-2024 ambulatory Gui R Alvarez Facility:[facility] Start: 04-07-2024 End: 04-07-2024 Pain Management Lyn Limon [facility] Start: 02-13-2024 End: 02-13-2024 [facility] Start: 02-05-2024 End: 02-05-2024 ambulatory [facility] Work Phone: Start: 02-05-2024 End: 02-05-2024 Patient encounter procedure [facility] Work Phone: Start: 11-07-2023 End: 11-07-2023 ambulatory Una Peng Other [employer] Other Start: 11-07-2023 Telephone encounter Una Bartholomew [facility] Start: 11-05-2023 End: 11-05-2023 ambulatory Una Peng Other [employer] Other Start: 11-05-2023 Telephone encounter Una Bartholomew [facility] Start: 10-30-2023 End: 10-30-2023 ambulatory Chong Cat Other [employer] Other Start: 10-30-2023 Postop follow up vis it related to original px Chong Cat [facility] Start: 10-19-2023 End: 10-19-2023 Admission to same day surgery center DO Gui Alvarez III Work Phone: [facility] Start: 10-19-2023 End: 10-19-2023 ambulatory DO Gui R Alvarez III Work Phone: [facility] Work Phone: Start: 10-03-2023 End: 10-03-2023 ambulatory Una Peng Other [employer] Other Start: 10-03-2023 Office outpatient vi sit [address] [facility] Start: 10-02-2023 End: 10-02-2023 ambulatory Chong Cat Other [employer] Other Start: 10-02-2023 Postop follow up vis it related to original px Chong Cat [facility] Start: 09-26-2023 End: 09-26-2023 ambulatory Una Peng Other [employer] Other Start: 09-26-2023 Telephone encounter Una Bartholomew [facility] Start: 09-21-2023 End: 09-21-2023 Admission to same day surgery center DO Gui Alvarez III Work Phone: [facility] Start: 09-21-2023 End: 09-21-2023 ambulatory DO Gui R Alvarez III Work Phone: [facility] Work Phone: Start: 09-20-2023 End: 09-20-2023 ambulatory Chong Cat Other [employer] Other Start: 09-20-2023 Telephone encounter Chong Cat [facility] Start: 09-19-2023 End: 09-19-2023 ambulatory DO Gui R Alvarez III Work Phone: [facility] Work Phone: Start: 09-19-2023 End: 09-19-2023 Patient encounter procedure DO Gui Alvarez III Work Phone: [facility] [place] Work Phone: Start: 09-11-2023 End: 09-11-2023 ambulatory DO Gui R Alvarez III Work Phone: [facility] Work Phone: Start: 09-11-2023 End: 09-11-2023 Patient encounter procedure DO Gui Alvarez III Work Phone: [facility] Start: 09-07-2023 End: 09-07-2023 ambulatory Una Peng Other [employer] Other Start: 09-07-2023 Telephone encounter Una Peng [facility] Start: 09-04-2023 End: 09-04-2023 ambulatory Una Peng Other [employer] Other Start: 09-04-2023 Office outpatient ne w [address] [facility] Start: 08-14-2023 End: 08-14-2023 ambulatory DO Gui R Alvarez III Work Phone: [facility] Work Phone: Start: 08-14-2023 End: 08-14-2023 Patient encounter procedure DO Gui Alvarez III Work Phone: [facility] [address] Work Phone: Start: 07-20-2023 End: 07-20-2023 ambulatory ANITA CORONA [facility] Start: 11-27-2022 End: 11-28-[address] ROSANNA PERALTA Facility:[facility] Start: 11-19-2022 End: 11-19-[address] CLARENCE CALDWELL Facility:[facility] Start: 11-02-2022 End: 11-02-[address] SHAZIA CASTRO Facility:[facility] Start: 10-06-2022 End: 10-21-2022 Pre-admission assessment Alfredo Wen [facility] Start: 10-06-2022 End: 10-06-2022 Patient encounter procedure Alfredo Wen [facility] Start: 09-26-2022 End: 09-26-2022 Patient encounter procedure Alfredo Wen [facility] Start: 08-22-2022 End: 08-22-[address] CLARENCE CALDWELL Facility:[facility] Start: 08-09-2022 End: 08-09-2022 ambulatory PILAR THAKKAR Facility:[facility] Start: 08-02-2022 End: 08-09-2022 ambulatory UNKNOWN PROVIDER Facility:[facility] Start: 08-01-2022 End: 08-01-2022 Patient encounter procedure Alfredo Wen [facility] Start: 07-31-2022 End: 07-31-2022 ambulatory [facility] Start: 07-31-2022 End: 07-31-2022 Emergency department patient visit [facility] T[facility], Treat [facility] Transport Comment on above: Arrived Start: 07-06-2022 End: 07-07-2022 Emergency department patient visit Libertad Doan [facility] Start: 06-12-2022 End: 06-12-2022 Patient encounter procedure Alfredo J Behzad [facility] Start: 06-08-2022 End: 06-08-2022 Patient encounter procedure Alfredo Anthony Behzad [facility] Start: 05-27-2022 End: 05-27-2022 Patient encounter procedure Alfredo Anthony Behzad [facility] Start: 05-19-2022 End: 05-19-2022 Patient encounter procedure Alfredo Anthony Behzad [facility] Start: 05-12-2022 End: 05-12-2022 Patient encounter procedure [facility] [facility] Start: 04-25-2022 End: 04-25-2022 Emergency department patient visit Favio Doran [facility] Procedures Date Procedure Procedure Detail Performing Clinician Start: 07-14-2025 MA MAMM DIAG W/CAD I F PERF AND 3D SAMIR Eloisa Soto [employer]UM DRIER OPERATOR Work Phone: Start: 06-02-2025 [facility] Robbie Soto DRUM DRIER OPERATOR Work Phone: Start: 06-02-2025 Urine test visual color cmprsn meths Eloisa Soto DRUM DRIER OPERATOR Work Phone: Start: 05-08-2025 AUDITORY FUNCTION TESTS Almaz Dorsey [facility] Work Phone: Start: 05-20-2024 Colonoscopy DO Gui Alvarez III Work Phone: Start: 05-20-2024 Colonoscopy Lyn bailon Start: 10-19-2023 Decompression of med gaston nerve [...] on above: Performed By: #### T SCR ####[address] [phone] Start: 03-20-2014 suction curettage Favio Doran Start: 08-28-2013 R/O right superficia l neck mass Favio Doran 2014 Favio Doran Myringotomy and inse rtion of T tube Favio Doran Plan of Treatment Date Care Activity Detail Author Start: 2042 Shingles (RZV) Vaccine (1 of 2) Shingles (RZV) Vaccine (1 of 2) [facility] Start: 11-30-2025 End: 11-30-2025 Patient encounter procedure [facility] M Start: 07-22-2025 End: 07-22-2025 Patient encounter procedure [facility] Start: 07-21-2025 End: 07-21-2025 Patient encounter procedure 07/21/2025 2:40 PM EDT Office Visit [facility] [address] [place] [address] DolFrancisco urenaeem R, DPM [facility] [address] [place] [address] [facility] Start: 07-02-2025 End: 07-02-2025 Patient encounter procedure 07/02/2025 2:40 PM EDT Office Visit [facility] [address] [place] [phone] Dolce Constantin R, DPM FACFAS [address] [place] [address] [facility] Start: 06-18-2025 End: 06-18-2025 Patient encounter procedure [facility] Comment on above: Arrived Start: 06-04-2025 End: 06-04-2025 Patient encounter procedure 06/04/2025 3:40 PM EDT Office Visit [facility] [address] [place] [address] DolFrancisco urenaeem R, DPM FACFAS [address] [place] [address] [facility] Start: 06-02-2025 End: 06-02-2025 Patient encounter procedure [facility] Comment on above: Arrived Start: 06-02-2025 End: 06-02-2026 hCG, quantitative, hCG, quantitative, Lab Routine Delayed menses Expected: 06/02/2025 (Approximate), Expires: 06/02/2026 [facility] Work Phone: Comment on above: Expected: 06/02/2025 (Approximate), Expi res: 06/02/2026 Start: 06-02-2025 End: 06-02-2026 Prolactin Prolactin Lab Routine Delayed menses Galactorrhea of both breasts Expected: 06/02/2025 (Approximate), Expires: 06/02/2026 [facility] Comment on above: Expected: 06/02/2025 (Approximate), Expi res: 06/02/2026 Start: 06-02-2025 End: 06-02-2026 Thyrotropin [Units/volume] in Serum or Plasma TSH Lab Routine Delayed menses Galactorrhea of both breasts Expected: 06/02/2025 (Approximate), Expires: 06/02/2026 [facility] Comment on above: Expected: 06/02/2025 (Approximate), Expi res: 06/02/2026 Start: 05-29-2025 End: 05-29-2025 Patient encounter procedure 05/29/2025 11:20 AM EDT Office Visit [facility] [address] [facility] [address] [place] [phone] Osito Billy MD [address] [facility] [address] [place] [address] [facility] [place] Start: 05-28-2025 End: 05-28-2025 Patient encounter procedure 05/28/2025 11:30 AM EDT Office Visit [facility] [address] [place] [phone] Serge Singh PA [address] [place] [phone] [facility] Start: 05-21-2025 End: 05-21-2025 Patient encounter procedure 05/21/2025 11:20 AM EDT Office Visit [facility] [address] [facility] [address] [place] [phone] Eloisa Soto NP [address] [place] [address] [facility] Start: 05-12-2025 End: 05-12-2025 Patient encounter procedure 05/12/2025 3:15 PM EDT Office Visit WILLIE MALDONADO [address] [facility] [address] [place] [phone] Kathe Figueroa, [address] [place] [address] WILLIE MALDONADO Start: 05-11-2025 End: 05-11-2025 Patient encounter procedure WILLIE MENDOZA Start: 05-08-2025 End: 05-08-2025 Clinical Support 05/08/2025 9:45 AM EDT Clinical Support [facility] [address] [place] [facility] [place] [address] Almaz Dorsye, CCC-A [address] [place] [address] [facility] Start: 04-24-2025 End: 04-24-2025 Patient encounter procedure 04/24/2025 11:10 AM EDT Office Visit [facility] [place] [address] [place] [address] sOito Billy MD 112 [facility] [address] [place] [address] [facility] [place] Start: 04-21-2025 End: 04-21-2025 Patient encounter procedure 04/21/2025 10:30 AM EDT Office Visit [facility] [address] [place] [address] Serge Singh PA [address] [place] [address] [facility] Start: 04-20-2025 End: 04-20-2025 Clinical Support 04/20/2025 8:45 AM EDT Clinical Support [facility] [address] [place] [address] Almaz Dorsey, CCC-A [address] [place] [address] [facility] Start: 04-06-2025 End: 04-06-2025 Patient encounter procedure 04/06/2025 10:45 AM EDT Office Visit [facility] [address] [place] [phone] Jasmin Granado, DO [address] [phone] [facility] Start: 03-23-2025 End: 03-23-2025 Patient encounter procedure 03/23/2025 12:30 PM EDT Office Visit WILLIE MALDONADO [address] [address] WILLIE MALDONADO Start: 03-02-2025 End: 03-02-2025 Patient encounter procedure 03/02/2025 11:00 AM EDT Office Visit WILLIE MALDONADO [address] [phone] Edgar Rice, PhD [address] [place], [place] [phone] WILLIE MALDONADO Start: 02-19-2025 End: 02-19-2025 Patient encounter procedure [facility] Comment on above: Arrived Start: 02-17-2025 End: 02-17-2026 CBC W Auto Differential panel - Blood CBC and differential Lab Routine Daytime hypersomnolence Expected: 02/17/2025 (Approximate), Expires: 02/17/2026 [facility] Comment on above: Expected: 02/17/2025 (Approximate), Expi res: 02/17/2026 Start: 02-17-2025 End: 02-17-2026 Cobalamin (Vitamin B12) [Mass/volume] in Serum or Plasma Vitamin B12 Lab Routine Cognitive dysfunction Daytime hypersomnolence Expected: 02/17/2025 (Approximate), Expires: 02/17/2026 [facility] Work Phone: Comment on above: Expected: 02/17/2025 (Approximate), Expi res: 02/17/2026 Start: 02-17-2025 End: 02-17-2026 Comprehensive metabolic 2000 panel - Serum or Plasma Comprehensive metabolic panel Lab Routine Daytime hypersomnolence Expected: 02/17/2025 (Approximate), Expires: 02/17/2026 [facility] Comment on above: Expected: 02/17/2025 (Approximate), Expi res: 02/17/2026 Start: 02-17-2025 End: 02-17-2026 Nuclear Ab [Titer] in Serum by Immunofluorescence WILLIE Lab Routine Daytime hypersomnolence Expected: 02/17/2025 (Approximate), Expires: 02/17/2026 [facility] Comment on above: Expected: 02/17/2025 (Approximate), Expi res: 02/17/2026 Start: 02-17-2025 End: 02-17-2026 Thyrotropin [Units/volume] in Serum or Plasma TSH Lab Routine Cognitive dysfunction Daytime hypersomnolence Expected: 02/17/2025 (Approximate), Expires: 02/17/2026 [facility] Comment on above: Expected: 02/17/2025 (Approximate), Expi res: 02/17/2026 Start: 02-17-2025 End: 02-17-2025 Patient encounter procedure WILLIE MENDOZA Comment on above: Chronic migraine without aura without st atus migrainosus, not intractable (CMS/HCC) (Primary Dx); Fibromyalgia; Paresthesia of foot, bilateral; Carpal tunnel syndrome on both sides Start: 01-29-2025 End: 01-29-2025 Patient encounter procedure 01/29/2025 1:00 PM EDT Office Visit [facility] [address] [place] [phone] Holley Barahona, CLARICE [address] [facility] [place] [address] [facility] Start: 01-05-2025 End: 01-05-2025 Patient encounter procedure 01/05/2025 9:00 AM EST Office Visit [facility] [place] [address] [place] [facility] [place] [address] Osito Billy MD [address] [facility] [address] [place] [address] Arrived [facility] [place] Comment on above: Arrived Start: 12-08-2024 End: 12-08-2024 Patient encounter procedure 12/08/2024 11:10 AM EST Office Visit [facility] [place] [address] [place] [phone] Osito Billy MD [address] [facility] [address] [place] [address] [facility] [place] Start: 11-17-2024 End: 11-17-2024 Patient encounter procedure 11/17/2024 11:20 AM EST Office Visit [facility] [address] [place] [address] Serge Singh PA [address] [place] [address] [facility] Start: 10-31-2024 End: 10-31-2024 Patient encounter procedure 10/31/2024 10:20 AM EST Office Visit [facility] [address] [place] [address] Serge Singh, PA [address] [place] [address] [facility] Start: 10-24-2024 End: 10-24-2024 Patient encounter procedure 10/24/2024 10:00 AM EST Office Visit [facility] [place] [address] [place] [phone] Osito Billy MD [address] [place] [address] [place] [address] Arrived [facility] PATRICIA [facility] Comment on above: Arrived Start: 10-09-2024 End: 10-09-2024 Patient encounter procedure 10/09/2024 1:20 PM EST Office Visit [facility] [address] [place] [phone] Holley Barahona, CLARICE [address] [place] [address] [facility] Start: 10-07-2024 End: 10-07-2024 Patient encounter procedure 10/07/2024 9:15 AM EST Office Visit [facility] [address] [address] Jasmin Granado DO [address] [address] [facility] Start: 09-11-2024 End: 09-11-2024 Patient encounter procedure [facility] Comment on above: Chronic migraine without aura without st atus migrainosus, not intractable (CMS/HCC) (Primary Dx); Fibromyalgia; Paresthesia of foot, bilateral; Carpal tunnel syndrome on both sides Start: 08-29-2024 End: 08-29-2024 Patient encounter procedure 08/29/2024 1:10 PM EDT Office Visit [facility] [address] [place] [address] Serge Singh PA [address] [place] [address] Arrived [facility] Comment on above: Arrived Start: 05-20-2024 [facility] Start: 10-20-2023 [facility] Start: 10-19-2023 End: 10-19-2023 [facility] Start: 09-21-2023 End: 09-21-2023 [facility] Start: 09-19-2023 Ova and Parasite Concentrate Exam Ova and Parasite Concentrate Exam [facility] Start: 08-14-2023 [facility] Start: 08-19-2022 Influenza vaccination Influenza Vaccine (#1) [facility] Start: 2013 Screening for malignant neoplasm of cervix Pap Smear [facility] Start: 2010 Hepatitis C screening Hepatitis C Antibody [facility] Start: 2010 Tetanus + diphtheria + acellular pertussis vaccine (product) Tdap Booster [facility] Start: 2007 HIV screening HIV Test [facility] Start: 02-28-1993 COVID-19 Vaccine (#1) COVID-19 Vaccine (#1) [facility] Bacteria identified in Stool by Culture [facility] Calprotectin [Mass/m ass] in Stool [facility] Elastase.pancreatic [Mass/mass] in Stool [facility] Endomysial antibody IgA level [facility] Gliadin peptide IgA Ab [Units/volume] in Serum [facility] Gliadin peptide IgG Ab [Units/volume] in Serum [facility] HIV 1+2 Ab+HIV1 p24 Ag [Presence] in Serum or Plasma by Immunoassay [facility] Homogenous nuclear A b pattern [Titer] in Serum [facility] IgA [Mass/volume] in Serum or Plasma [facility] Nuclear Ab [Titer] in Serum [facility] Ova and parasites identified in Unspecified specimen by Light microscopy [facility] Patient Education Hemorrhoids (D C) Know your Meds [facility] Work Phone: Tissue transglutamin ase IgA Ab [Units/volume] in Serum [facility] Tissue transglutamin ase IgG Ab [Units/volume] in Serum [facility] Immunizations Immunization Date Immunization Notes Care Provider Fa shawnty 10-03-2021 influenza virus vaccine, unspecified formulation Davidson [facility] 02-07-2021 tetanus toxoid, redu marek diphtheria toxoid, and acellular pertussis vaccine, adsorbed; Translations: [Adacel (Tdap)] Favio Doran [facility] Comment on above: Reason for Medicatio n: Other (see comment) 12-16-2020 tetanus toxoid, redu marek diphtheria toxoid, and acellular pertussis vaccine, adsorbed Favio Doran [facility] 09-10-2019 influenza virus vaccine, unspecified formulation [facility] 09-10-2019 influenza, injectabl e, quadrivalent, preservative free DO Gui Alvarez III Work Phone: [facility] 08-20-2018 influenza virus vaccine, unspecified formulation [facility] 09-06-2016 influenza virus vaccine, unspecified formulation [facility] 05-08-2015 tetanus toxoid, redu marek diphtheria toxoid, and acellular pertussis vaccine, adsorbed Favio Doran [facility] Payers Date Payer Category Payer Medicaid [id number] 2024 Medicaid [id number] 2024 Unknown [id number] 2023 Self-pay [id number] 2022 Unknown 1 2022 Private Health Insurance [id number] .[id number] 2022 Unknown [id number]. 1.13.693.2.7.3.144503.31 5 1992 Unknown [id number] 2.16. 840.1.500310.3.579.2.732 1992 Unknown [id number] 2.16.84 0.1.234796.3.579.2.593 1992 Unknown [id number] 2.16.84 0.1.285581.3.579.2.593 1992 Unknown [id number] 2.16.84 0.1.054548.3.579.2.593 1992 Unknown [id number] 2.16.84 0.1.812972.3.579.2.593 1992 Unknown [id number] 2.16.84 0.1.365372.3.579.2.593 1992 Unknown [id number] 2.16.8 40.1.126473.3.579.2.727 1992 Unknown [id number] 2.16.8 40.1.468333.3.579.2.727 1992 Unknown [id number] 2.16.8 40.1.425637.3.579.2.727 1992 Unknown [id number] 2.16.8 40.1.943432.3.579.2.727 1992 Unknown [id number] 2.16.8 40.1.701571.3.579.2.727 1992 Unknown [id number] 2.16.8 40.1.997741.3.579.2.727 1992 Unknown [id number] 2.16.8 40.1.963516.3.579.2.727 1992 Unknown [id number] 2.16.8 40.1.737431.3.579.2.727 1992 Unknown [id number] 2.16.8 40.1.430568.3.579.2.727 1992 Unknown [id number] 2.16.8 40.1.235198.3.579.2.727 1992 Unknown [id number] 2.16.8 40.1.703428.3.579.2.727 1992 Unknown [id number] 2.16.8 40.1.333535.3.579.2.727 1992 Unknown [id number] 2.16.8 40.1.576172.3.579.2.727 1992 Unknown [id number] 2.16.8 40.1.793973.3.579.2.727 1992 Unknown [id number] 2.16.8 40.1.898968.3.579.2.727 1992 Unknown [id number] 2.16.8 40.1.344253.3.579.2.727 1992 Unknown [id number] 2.16.8 40.1.508364.3.579.2.727 1992 Unknown [id number] 2.16.8 40.1.755747.3.579.2.1259 1992 Unknown [id number] 2.16.8 40.1.049774.3.579.2.1259 1992 Unknown [id number] 2.16.8 40.1.340369.3.579.2.1259 1992 Unknown [id number] 2.16.8 40.1.846364.3.579.2.1259 1992 Unknown [id number] 2.16.8 40.1.373268.3.579.2.1259 1992 Unknown [id number] 2.16.84 0.1.431698.3.579.2.1259 1992 Unknown [id number] 2.16.84 0.1.979583.3.579.2.1259 1992 Unknown [id number] 2.16.84 0.1.686698.3.579.2.1259 1992 Unknown [id number] 2.16.84 0.1.989523.3.579.2.1259 1992 Unknown [id number] 2.16.84 0.1.876497.3.579.2.1259 1992 Unknown [id number] 2.16.84 0.1.181268.3.579.2.1259 1992 Unknown [id number] 2.16.84 0.1.941422.3.579.2.1259 1992 Unknown [id number] 2.16.84 0.1.502604.3.579.2.1259 1992 Unknown [id number] 2.16.84 0.1.337971.3.579.2.1259 1992 Unknown [id number] 2.16.84 0.1.840035.3.579.2.1259 1992 Unknown [id number] 2.16.84 0.1.772405.3.579.2.1259 1992 Unknown [id number] 2.16.8 40.1.656722.3.579.2.727 1992 Unknown [id number] 2.16.8 40.1.548040.3.579.2.727 1992 Unknown [id number] 2.16.8 40.1.053036.3.579.2.727 1992 Unknown [id number] 2.16.8 40.1.038228.3.579.2.727 1992 Unknown [id number] 2.16.8 40.1.656281.3.579.2.727 1992 Unknown [id number] 2.16.8 40.1.388978.3.579.2.727 1992 Unknown [id number] 2.16.8 40.1.734131.3.579.2.727 [id number] [facility] [id number] Unknown [id number] 2.16.8 40.1.970704.3.579.2.531 Unknown [id number] 2.16.8 40.1.945161.3.579.2.531 Unknown [id number] 2.16.8 40.1.411756.3.579.2.531 Social History Date Type Detail Facility Start: 05-24-2021 End: 04-01-2024 Tobacco smoking status Never smoked tobacco (finding) [facility] Comment on above: denies Tobacco [facility] status [facility] Comment on above: denies Start: 08-29-2024 End: 06-18-2025 Sex Assigned At Female [facility] Start: 1990 Sex Assigned At Not on file [facility] Start: 1990 Sex Assigned At Female F [facility] Start: 04-01-2024 Tobacco use and exposure Smokeless tobacco non-user [facility] Start: 08-29-2024 End: 06-18-2025 Alcoholic beverage intake Lifetime non-drinker (finding) [facility] Start: 08-29-2024 End: 06-18-2025 History of Social function [facility] Start: 02-07-2019 End: 12-29-2024 Sex Female (finding) [facility] Sexual Orientation [facility] Goals Date Patient Goal Desired Activity /State Functional Status Date Assessment Result Facility 04-01-2025 Functional Status N/A [facility] 02-20-2025 Functional Status N/A [facility] 01-31-2025 Functional Status N/A [facility] 01-13-2025 Functional Status N/A [facility] 12-20-2024 Functional Status N/A [facility] 10-14-2024 Functional Status N/A [facility] 09-01-2024 Functional Status N/A [facility] 07-18-2024 Functional Status N/A [facility] 06-25-2024 Functional Status N/A [facility] 05-26-2024 Functional Status N/A [facility] 04-07-2024 Functional Status N/A [facility] 10-06-2022 Functional Status No [facility] 09-26-2022 Functional Status N/A [facility] 07-06-2022 Functional Status N/A [facility] 06-12-2022 Functional Status N/A [facility] 05-12-2022 Functional Status N/A [facility] Clinical Notes 06-12-2020 to 08-10-2025 Constantin Terrell DPM [facility] - 06/18/2025 3:30 PM EDTConstantin Terrell DPM [facility] - 06/04/2025 3:40 PM EDTSahsan Soto NP - 06/02/2025 2:40 PM GIANA Contreras - 05/28/2025 11:30 AM EDT Note Date & Type Note Facility 08-10-2025 Note Consultation Note Patient: SONIA MOTLEY Age: 34 years Sex: Female : 1990 Associated Diagnoses: None Author: Lyn Limon PA-C Subjective Chief complaint 08/10/2025 9:36 EDT back pain . Patient is a 34-year-old female. She presents today for follow-up for her fibromyalgia and global body pain. She tracey almost everywhere on her visual analog scale including her head, neck, upper back, lower back, arms and legs. She rates the pain a 5/10. She feels that the Lyrica 150 mg twice daily does work fairly well for her. She had wondered about an increase at her last appointment but due to some neurologic evaluation this was put on hold. She is still undergoing evaluation by neurology. She has a follow-up from her sleep study later this week. She feels that the fibromyalgia does give her some relief. Not quite enough but it does work. Health Status Allergies: Allergic Reactions (Selected) Severity Not Documented Nubain- Rash and shortness of breath. PredniSONE- Hives. Nonallergic Reactions (Selected) Severity Not Documented Azithromycin 5 Day Dose Pack- Diarrhea., Allergies (3) Active Severity Reaction Nubain rash, shortness of breath predniSONE Hives Azithromycin 5 Day Dose Pack Diarrhea Current medications: (Selected) Prescriptions Prescribed Zofran 4 mg Tab: 4 mg = 1 tab(s), Oral, q8hr, PRN Nausea/Vomiting, # 12 tab(s), Refills(s) 0, [id number], 157, cm, 12/20/24 12:20:00 EST, Height/Length Dosing, 106.8, kg, 12/20/24 12:20:00 EST, Weight Dosing hydrOXYzine hydrochloride 25 mg Tab: 25 mg = 1 tab(s), Oral, QID, PRN for itching, # 40 tab(s), Refills(s) 0, [id number], 157, cm, 06/25/24 2:31:00 EDT, Height/Length Dosing, 105.1, kg, 06/25/24 2:31:00 EDT, Weight Dosing pregabalin 150 mg Cap: 150 mg = 1 cap(s), Oral, BID, X 30 day(s), # 60 cap(s), Refills(s) 1, [id number], 155, cm, 08/10/25 9:45:00 EDT, Height/Length Dosing, 103.5, kg, 08/10/25 9:45:00 EDT, Weight Dosing promethazine 25 mg Tab: 25 mg = 1 tab(s), Oral, TID, # 15 tab(s), Refills(s) 0, [id number], 157, cm, 01/31/25 10:05:00 EDT, Height/Length Dosing, 104.4, kg, 01/31/25 10:05:00 EDT, Weight Dosing Documented Medications Documented Aurovela Fe 12/08 oral tablet: 1 tab(s), Oral, Daily, Refill(s) 0 alosetron 0.5 mg oral tablet: 0.5 mg = 1 tab(s), Oral, BID, Refills(s) 0 amitriptyline 25 mg Tab: 25 mg = 1 tab(s), Oral, Once a day (at bedtime), 2 tabs, 50mg total at bedtime, Refills(s) 0 buPROPion 150 mg/24 hours XL Tab: 150 mg = 1 tab(s), Refills(s) 0 cetirizine 10 mg Tab: Refills(s) 0 dicyclomine 20 mg Tab: 20 mg = 1 tab(s), Oral, TID, Refills(s) 0 escitalopram 10 mg Tab: Refills(s) 0 famotidine 40 mg Tab: 40 mg = 1 tab(s), Oral, BID, # 30 tab(s), Refills(s) 0 fluticasone Nasal 0.05 mg/inh [place]: 2 spray(s), Nasal, Daily, 16 gram, Refill(s) 0, each nostril glycopyrrolate 1 mg oral tablet: See Instructions, 2mg tabs- 3 tabs every morning, Refills(s) 0 ibuprofen 200 mg oral capsule: Oral, q6hr, PRN as needed for pain naratriptan 2.5 mg Tab: as needed for migraines, Refills(s) 0 spironolactone 100 mg Tab: 100 mg = 1 tab(s), Oral, Daily, Refills(s) 0 traZODONE 50 mg Tab: Refills(s) 0 Problem list: All Problems ESBL E. coli carrier / SNOMED CT 548778936 / Confirmed ESBL E coli in cervical culture 12/12/15 BMI 30+ - obesity / SNOMED CT 3521071639 / Confirmed BMI 30+ - obesity / SNOMED CT 9291321901 / Confirmed BMI 30+ - obesity / SNOMED CT 5499480684 / Confirmed Obesity / SNOMED CT 3725172385 / Confirmed Hypertension / SNOMED CT 5971277254 / Confirmed TMJ (dislocation of temporomandibular joint) / SNOMED CT 422099872 / Confirmed Influenza A / SNOMED CT 4617937122 / Confirmed Bronchitis / SNOMED CT 98649004 / Confirmed Migraines / SNOMED CT 53258525 / Confirmed Pharyngitis / SNOMED CT 0811013470 / Confirmed Right acute otitis media / SNOMED CT 309173602 / Confirmed Obesity / SNOMED CT [id number] / Possible Inactive: Pericarditis / SNOMED CT 8587650 2020 Resolved: / SNOMED CT 541943831 Resolved: / SNOMED CT 909968214 Resolved: / SNOMED CT 685906770 Resolved: / SNOMED CT 973345551 Resolved: Anxiety depression / SNOMED CT 322685071 Canceled: Bipolar / SNOMED CT 831454425 Canceled: Schizophrenia / SNOMED CT 24174837 Canceled: Depression / SNOMED CT 625661318 Canceled: anxiety disorder Canceled: panic attacks Canceled: Missed miscarriage / SNOMED CT 3275010216 Canceled: Obesity complicating , first trimester / SNOMED CT 2640768058 Canceled: Supervision of high risk in first trimester / SNOMED CT 36523684 Canceled: Hx of intrauterine growth restriction in prior , currently / SNOMED CT 168348844 Canceled: Supervision of high risk in second trimester / SNOMED CT 90132937 Canceled: Obes (more content not included)... [facility] [place] Comment on above: Result Comment: Elec tronically Signed By: Braxton PETERS, Lyn\.br\Date and Time Signed: 08/10/25 09:50 EDT 06-18-2025 History of Present illness Narrative Images from the original note were not included. Patient: Sonia Motley : 1990 PCP: GUI ALVAREZ DO SUBJECTIVE This is a 34 y.o. female that presents today with a chief complaint of a painful lesion plantar aspect of the foot. They state the lesion has been slow growing and has multipled. The area is painful and causes marked limitation in ambulation secondary to the pain. They have attempted vdav-tnt-dgrvbio anti-inflammatory medications as well as xjdc-qse-xteeent wart treatment to no avail. Pts areas are smaller and decreased pain. Allergies: Allergies Allergen Reactions Azithromycin Diarrhea Nalbuphine Other Reaction(s): Unknown Prednisone Other Reaction(s): Unknown Past Medical History: Active Ambulatory Problems Diagnosis Date Noted Carpal tunnel syndrome 03/09/2024 Carpal tunnel syndrome on both sides 03/09/2024 Fibromyalgia 03/09/2024 Chronic migraine without aura without status migrainosus, not intractable 03/09/2024 New daily persistent headache 03/09/2024 Paresthesia of foot, bilateral 03/09/2024 Ataxia 03/09/2024 Bipolar 1 disorder (HCC) 09/28/2020 Depression 10/15/2024 GERD (gastroesophageal reflux disease) 10/15/2024 IBS (irritable bowel syndrome) 10/15/2024 Infectious disease carrier 12/12/2015 Obesity with body mass index 30 or greater 10/15/2024 Anxiety disorder 09/28/2020 Panic attack due to exceptional stress 09/28/2020 Primary hypertension 07/20/2023 Rectal bleeding 10/15/2024 Schizophrenia (HCC) 09/28/2020 Suicidal ideation 10/15/2024 TMJ (dislocation of temporomandibular joint) 10/15/2024 Trauma 09/28/2020 Bronchitis 01/05/2025 Migraines 01/05/2025 Resolved Ambulatory Problems Diagnosis Date Noted No Resolved Ambulatory Problems Past Medical History: Diagnosis Date Carpal tunnel syndrome, bilateral Migraine Medications: Current Outpatient Medications: acetaminophen (Tylenol) 325 MG tablet, Take 650 mg by mouth every 6 (six) hours if needed, Disp: , Rfl: alosetron (Lotronex) 1 MG tablet, , Disp: , Rfl: aluminum chloride (Drysol) 20 % external solution, Apply to arm pits. Do not apply to broken or freshly shaven skin. 30 day supply, Disp: 60 mL, Rfl: 11 amitriptyline (Elavil) 25 MG tablet, Take 50 mg by mouth at bedtime, Disp: , Rfl: betamethasone dipropionate 0.05 % cream, Apply to affected areas, up to twice a day when flared, do not use one the face, groin, or underarms, 30 day supply, Disp: 45 g, Rfl: 11 buPROPion XL (Wellbutrin XL) 150 MG 24 hr tablet, 1 (one) time each day at the same time, Disp: , Rfl: lquhmhcvpr-cnsbgeszxuapz-szrhnlci 50-325-40 MG tablet, Take 1 tablet by mouth every 6 (six) hours if needed for migraine, Disp: , Rfl: clindamycin (Cleocin T) 1 % lotion, Apply thin later to affected areas on the body, once daily, 30 day supply, Disp: 60 mL, Rfl: 11 [employer] Allergy Relief,Cetirizine, 10 MG tablet, Take 10 mg by mouth in the morning and 10 mg before bedtime., Disp: , Rfl: dicyclomine (Bentyl) 20 MG tablet, Take 1 tablet by mouth in the morning and 1 tablet in the evening and 1 tablet before bedtime., Disp: , Rfl: escitalopram (Lexapro) 20 MG tablet, Take 20 mg by mouth Daily, Disp: , Rfl: esomeprazole (NexIUM) [address] capsule, , Disp: , Rfl: famotidine (Pepcid) 40 MG tablet, Take 40 mg by mouth in the morning and 40 mg before bedtime., Disp: , Rfl: fluticasone (Flonase) 50 MCG/ACT nasal spray, Administer 2 sprays into each nostril Daily, Disp: , Rfl: glycopyrrolate (Robinul-Forte) 2 MG tablet, Take 3 tablets by mouth, once daily, 30 day supply, Disp: 90 tablet, Rfl: 11 Mouthwashes (Biotene Dry Mouth) liquid, DIRECTED MOUTH/THROAT DAILY, Disp: , Rfl: naratriptan (Amerge) 2.5 MG tablet, TAKE 1 TABLET NEEDED AT ONSET OF MIGRAINE.MAY REPEAT DOSE ONCE IN 4 HRS IF IT PERSISTS.MAX 2/24HR, Disp: 9 tablet, Rfl: 1 norethindrone-ethinyl estradiol (Aurovela FE 12/08) 1-20 MG-MCG tablet, TAKE 1 TABLET BY MOUTH EVERY DAY, Disp: 84 tablet, Rfl: 1 omeprazole (PriLOSEC) [address] capsule, Take 40 mg by mouth in the morning. Take before meals., Disp: , Rfl: ondansetron ODT (Zofran-ODT) 4 MG disintegrating tablet, Take 4 mg by mouth Daily as needed for nausea or vomiting, Disp: , Rfl: phentermine (Adipex-P) 37.5 MG tablet, Take 37.5 mg by mouth Daily, Disp: , Rfl: pregabalin (Lyrica) 100 MG capsule, Take 150 mg by mouth in the morning and 150 mg before bedtime., Disp: , Rfl: pregabalin (Lyrica) 150 MG capsule, Take 150 mg by mouth in the morning and 150 mg before bedtime., Disp: , Rfl: promethazine (Phenergan) 25 MG tablet, Take 25 mg by mouth, Disp: , Rfl: pseudoephedrine (Sudafed) 30 MG tablet, Take 30 mg by mouth every 6 (six) hours if needed for congestion 2 tablets, Disp: , Rfl: spironolactone (Aldactone) 100 MG tablet, Take 1 tablet, by mouth, once daily, 30 days, Disp: 30 tablet, Rfl: 11 Tapinarof (Vtama) 1 % cream, Apply 1 Application topically Daily, Disp: 60 g, Rfl: 11 traZODone (Desyrel) 50 MG tablet, Take 50 mg by mouth at bedtime, Disp: , Rfl: triamcinolone (Kenalog) 0.1 % cream, Apply to affected areas, up to twice a day when flared, do not use one the face, groin, or underarms, 30 day supply, Disp: 454 g, Rfl: 11 urea (Carmol) 40 % cream, Apply to callous daily after bathing, Disp: 30 g, Rfl: 1 Review of systems: Constitutional: Denies fever, chills, nausea, vomiting GI: Denies abdominal pain, cramping, loose stool, gastric ulcers Musculoskeletal: Denies low back pain, knee pain, systemic arthritis Neurologic: Denies burning, tingling, transient paralysis OBJECTIVE Physical Examination: DERM: Positive hair growth to b/l feet with good skin turgor noted. Negative openings in skin. There is pinpoint bleeding noted upon debridement. Pain with lateral compression. No skin lines running through the lesion. The lesions are multiple and sporadic. VASC: DP /PT were palpable bilateral. Capillary refill time < 3 seconds Digits 1-5 bilateral NEURO: [place] 5.07 monofilament was intact B/L. Vibratory sensation was intact B/L Musculoskeletal: Muscle strength was +5 over 5 all intrinsic and extrinsic muscles tested. Radiographs: AP/MO/LAT: Diagnostic ultrasound: ASSESSMENT 1. Neoplasm of uncertain behavior of skin 2. Plantar verruca 3. Pain in left foot PLAN Patient was educated on the etiology of the plantar neoplasm. We discussed surgical versus conservative options. From a surgical standpoint we discussed excision with pathological examination versus Chemo -lytic treatment. Today I debrided the lesions to the level of pinpoint bleeding. I applied an application of 60 percent salicylic acid to the lesions. Covered with an occlusive dressing. CHRISTINA Zhu documented in this encounter [facility] 06-04-2025 History of Present illness Narrative Images from the original note were not included. Patient: Sonia Motley : 1990 PCP: GUI ALVAREZ DO SUBJECTIVE This is a 34 y.o. female that presents today with a chief complaint of a painful lesion plantar aspect of the foot. They state the lesion has been slow growing and has multipled. The area is painful and causes marked limitation in ambulation secondary to the pain. They have attempted cdvq-piv-ydfkabj anti-inflammatory medications as well as ehtm-ypo-oehzbpq wart treatment to no avail. Allergies: Allergies Allergen Reactions Azithromycin Diarrhea Nalbuphine Other Reaction(s): Unknown Prednisone Other Reaction(s): Unknown Past Medical History: Active Ambulatory Problems Diagnosis Date Noted Carpal tunnel syndrome 03/09/2024 Carpal tunnel syndrome on both sides 03/09/2024 Fibromyalgia 03/09/2024 Chronic migraine without aura without status migrainosus, not intractable 03/09/2024 New daily persistent headache 03/09/2024 Paresthesia of foot, bilateral 03/09/2024 Ataxia 03/09/2024 Bipolar 1 disorder (HCC) 09/28/2020 Depression 10/15/2024 GERD (gastroesophageal reflux disease) 10/15/2024 IBS (irritable bowel syndrome) 10/15/2024 Infectious disease carrier 12/12/2015 Obesity with body mass index 30 or greater 10/15/2024 Anxiety disorder 09/28/2020 Panic attack due to exceptional stress 09/28/2020 Primary hypertension 07/20/2023 Rectal bleeding 10/15/2024 Schizophrenia (HCC) 09/28/2020 Suicidal ideation 10/15/2024 TMJ (dislocation of temporomandibular joint) 10/15/2024 Trauma 09/28/2020 Bronchitis 01/05/2025 Migraines 01/05/2025 Resolved Ambulatory Problems Diagnosis Date Noted No Resolved Ambulatory Problems Past Medical History: Diagnosis Date Carpal tunnel syndrome, bilateral Migraine Medications: Current Outpatient Medications: pregabalin (Lyrica) 100 MG capsule, Take 150 mg by mouth in the morning and 150 mg before bedtime., Disp: , Rfl: acetaminophen (Tylenol) 325 MG tablet, Take 650 mg by mouth every 6 (six) hours if needed, Disp: , Rfl: alosetron (Lotronex) 1 MG tablet, , Disp: , Rfl: aluminum chloride (Drysol) 20 % external solution, Apply to arm pits. Do not apply to broken or freshly shaven skin. 30 day supply, Disp: 60 mL, Rfl: 11 amitriptyline (Elavil) 25 MG tablet, Take 50 mg by mouth at bedtime, Disp: , Rfl: betamethasone dipropionate 0.05 % cream, Apply to affected areas, up to twice a day when flared, do not use one the face, groin, or underarms, 30 day supply, Disp: 45 g, Rfl: 11 buPROPion XL (Wellbutrin XL) 150 MG 24 hr tablet, 1 (one) time each day at the same time, Disp: , Rfl: ccimhjoujn-yafqqogotukfk-puyxbunf 50-325-40 MG tablet, Take 1 tablet by mouth every 6 (six) hours if needed for migraine, Disp: , Rfl: clindamycin (Cleocin T) 1 % lotion, Apply thin later to affected areas on the body, once daily, 30 day supply, Disp: 60 mL, Rfl: 11 [employer] All[facility] Relief,Cetirizine, 10 MG tablet, Take 10 mg by mouth in the morning and 10 mg before bedtime., Disp: , Rfl: dicyclomine (Bentyl) 20 MG tablet, Take 1 tablet by mouth in the morning and 1 tablet in the evening and 1 tablet before bedtime., Disp: , Rfl: escitalopram (Lexapro) 20 MG tablet, Take 20 mg by mouth Daily, Disp: , Rfl: esomeprazole (NexIUM) [address] capsule, , Disp: , Rfl: famotidine (Pepcid) 40 MG tablet, Take 40 mg by mouth in the morning and 40 mg before bedtime., Disp: , Rfl: fluticasone (Flonase) 50 MCG/ACT nasal spray, Administer 2 sprays into each nostril Daily, Disp: , Rfl: glycopyrrolate (Robinul-Forte) 2 MG tablet, Take 3 tablets by mouth, once daily, 30 day supply, Disp: 90 tablet, Rfl: 11 Mouthwashes (Biotene Dry Mouth) liquid, DIRECTED MOUTH/THROAT DAILY, Disp: , Rfl: naratriptan (Amerge) 2.5 MG tablet, TAKE 1 TABLET NEEDED AT ONSET OF MIGRAINE.MAY REPEAT DOSE ONCE IN 4 HRS IF IT PERSISTS.MAX 2/24HR, Disp: 9 tablet, Rfl: 1 norethindrone-ethinyl estradiol (Aurovela FE 12/08) 1-20 MG-MCG tablet, TAKE 1 TABLET BY MOUTH EVERY DAY, Disp: 84 tablet, Rfl: 1 omeprazole (PriLOSEC) [address] capsule, Take 40 mg by mouth in the morning. Take before meals., Disp: , Rfl: ondansetron ODT (Zofran-ODT) 4 MG disintegrating tablet, Take 4 mg by mouth Daily as needed for nausea or vomiting, Disp: , Rfl: phentermine (Adipex-P) 37.5 MG tablet, Take 37.5 mg by mouth Daily, Disp: , Rfl: pregabalin (Lyrica) 150 MG capsule, Take 150 mg by mouth in the morning and 150 mg before bedtime., Disp: , Rfl: promethazine (Phenergan) 25 MG tablet, Take 25 mg by mouth, Disp: , Rfl: pseudoephedrine (Sudafed) 30 MG tablet, Take 30 mg by mouth every 6 (six) hours if needed for congestion 2 tablets, Disp: , Rfl: spironolactone (Aldactone) 100 MG tablet, Take 1 tablet, by mouth, once daily, 30 days, Disp: 30 tablet, Rfl: 11 Tapinarof (Vtama) 1 % cream, Apply 1 Application topically Daily, Disp: 60 g, Rfl: 11 traZODone (Desyrel) 50 MG tablet, Take 50 mg by mouth at bedtime, Disp: , Rfl: triamcinolone (Kenalog) 0.1 % cream, Apply to affected areas, up to twice a day when flared, do not use one the face, groin, or underarms, 30 day supply, Disp: 454 g, Rfl: 11 Review of systems: Constitutional: Denies fever, chills, nausea, vomiting GI: Denies abdominal pain, cramping, loose stool, gastric ulcers Musculoskeletal: Denies low back pain, knee pain, systemic arthritis Neurologic: Denies burning, tingling, transient paralysis OBJECTIVE Physical Examination: DERM: Positive hair growth to b/l feet with good skin turgor noted. Negative openings in skin. There is pinpoint bleeding noted upon debridement. Pain with lateral compression. No skin lines running through the lesion. The lesions are multiple and sporadic. Small cluster on the plantar forefoot left foot VASC: DP /PT were palpable bilateral. Capillary refill time < 3 seconds Digits 1-5 bilateral NEURO: [place] 5.07 monofilament was intact B/L. Vibratory sensation was intact B/L Musculoskeletal: Muscle strength was +5 over 5 all intrinsic and extrinsic muscles tested. Radiographs: AP/MO/LAT: Diagnostic ultrasound: ASSESSMENT 1. Plantar verruca 2. Neoplasm of uncertain behavior of skin 3. Pain in left foot PLAN Patient was educated on the etiology of the plantar neoplasm. We discussed surgical versus conservative options. From a surgical standpoint we discussed excision with pathological examination versus Chemo -lytic treatment. Today I debrided the lesions to the level of pinpoint bleeding. I applied an application of 60 percent salicylic acid to the lesions. Covered with an occlusive dressing. CHRISTINA Zhu documented in this encounter [facility] 06-02-2025 History of Present illness Narrative Name: Sonia Motley Date/Time of Service:06/02/2025 2:55 PM :1990 Age: 34 y.o. Chief Complaint Patient presents with Menstrual Problem SUBJECTIVE: History of Present Illness Sonia Motley is a 34 y.o. here for problem visit. LMP 4-16-25. She has had negative home tests. She feels she has been dealing with symptoms for a month and a half. States Dr. Alvarez ordered hcg labs and were neg. She has white in her nipples and lactated. States she leaked milk once. She feels her nipple color is darkening. Nausea and vomiting. She has lost wt but her belly has gotten bigger. (She is on adipex which could account for the wt loss) She had 2 instances of vaginal spotting. Once light pink and one brown. Lasted 2-3 days just when she wiped. Breasts feel full and she feels . She does not think she has changed any medications. She is taking her birthcontrol pills. Partner has vasectomy. Past Medical History: Diagnosis Date Carpal tunnel syndrome, bilateral Fibromyalgia IBS (irritable bowel syndrome) Migraine Review of Systems All others negative except those mentioned in HPI. Past Medical / Surgical History Past Medical History: Diagnosis Date Carpal tunnel syndrome, bilateral Fibromyalgia IBS (irritable bowel syndrome) Migraine Past Surgical History: Procedure Laterality Date CARPAL TUNNEL RELEASE Bilateral SECTION, LOW TRANSVERSE Family History Family History Problem Relation Name Age of Onset Depression Mother Diabetes Mother Hyperlipidemia Mother Hypertension Mother Migraines Mother Other (metastatic cancer) Mother Cancer Father Hypertension Father Heart attack Father Other (internal bleeding) Father Breast cancer Mother's Sister Mental illness Other Social History reports that she has never smoked. She has never used smokeless tobacco. She reports that she does not drink alcohol and does not use drugs. Vitals: 06/02/25 1434 BP: 124/76 MEDICATIONS: Current Outpatient Medications on File Prior to Visit Medication Sig Dispense Refill acetaminophen (Tylenol) 325 MG tablet Take 650 mg by mouth every 6 (six) hours if needed alosetron (Lotronex) 1 MG tablet aluminum chloride (Drysol) 20 % external solution Apply to arm pits. Do not apply to broken or freshly shaven skin. 30 day supply 60 mL 11 amitriptyline (Elavil) 25 MG tablet Take 50 mg by mouth at bedtime betamethasone dipropionate 0.05 % cream Apply to affected areas, up to twice a day when flared, do not use one the face, groin, or underarms, 30 day supply 45 g 11 buPROPion XL (Wellbutrin XL) 150 MG 24 hr tablet 1 (one) time each day at the same time svahvyknfq-zfjyimelvjjsh-juhrkynj 50-325-40 MG tablet Take 1 tablet by mouth every 6 (six) hours if needed for migraine clindamycin (Cleocin T) 1 % lotion Apply thin later to affected areas on the body, once daily, 30 day supply 60 mL 11 [employer] All[facility] Relief,Cetirizine, 10 MG tablet Take 10 mg by mouth in the morning and 10 mg before bedtime. dicyclomine (Bentyl) 20 MG tablet Take 1 tablet by mouth in the morning and 1 tablet in the evening and 1 tablet before bedtime. escitalopram (Lexapro) 20 MG tablet Take 20 mg by mouth Daily esomeprazole (NexIUM) [address] capsule famotidine (Pepcid) 40 MG tablet Take 40 mg by mouth in the morning and 40 mg before bedtime. fluticasone (Flonase) 50 MCG/ACT nasal spray Administer 2 sprays into each nostril Daily glycopyrrolate (Robinul-Forte) 2 MG tablet Take 3 tablets by mouth, once daily, 30 day supply 90 tablet 11 Mouthwashes (Biotene Dry Mouth) liquid DIRECTED MOUTH/THROAT DAILY naratriptan (Amerge) 2.5 MG tablet TAKE 1 TABLET NEEDED AT ONSET OF MIGRAINE.MAY REPEAT DOSE ONCE IN 4 HRS IF IT PERSISTS.MAX 2/24HR 9 tablet 1 norethindrone-ethinyl estradiol (Aurovela FE 12/08) 1-20 MG-MCG tablet TAKE 1 TABLET BY MOUTH EVERY DAY 84 tablet 1 omeprazole (PriLOSEC) [address] capsule Take 40 mg by mouth in the morning. Take before meals. ondansetron ODT (Zofran-ODT) 4 MG disintegrating tablet Take 4 mg by mouth Daily as needed for nausea or vomiting phentermine (Adipex-P) 37.5 MG tablet Take 37.5 mg by mouth Daily pregabalin (Lyrica) 150 MG capsule Take 150 mg by mouth in the morning and 150 mg before bedtime. promethazine (Phenergan) 25 MG tablet Take 25 mg by mouth pseudoephedrine (Sudafed) 30 MG tablet Take 30 mg by mouth every 6 (six) hours if needed for congestion 2 tablets spironolactone (Aldactone) 100 MG tablet Take 1 tablet, by mouth, once daily, 30 days 30 tablet 11 Tapinarof (Vtama) 1 % cream Apply 1 Application topically Daily 60 g 11 traZODone (Desyrel) 50 MG tablet Take 50 mg by mouth at bedtime triamcinolone (Kenalog) 0.1 % cream Apply to affected areas, up to twice a day when flared, do not use one the face, groin, or underarms, 30 day supply 454 g 11 [DISCONTINUED] amitriptyline (Elavil) 50 MG tablet TAKE 1 TABLET BY MOUTH AT BEDTIME 30 tablet 1 No current facility-administered medications on file prior to visit. Allergies Allergen Reactions Azithromycin Diarrhea Nalbuphine Other Reaction(s): Unknown Prednisone Other Reaction(s): Unknown PHYSICAL EXAM: Vitals: 06/02/25 1434 BP: 124/76 Body mass index is 41.7 kg/m . Physical Exam Constitutional: Appearance: Normal appearance. HENT: Head: Normocephalic. Eyes: Extraocular Movements: Extraocular movements intact. Conjunctiva/sclera: Conjunctivae normal. Pulmonary: Effort: Pulmonary effort is normal. Neurological: Mental Status: She is alert and oriented to person, place, and time. Skin: General: Skin is warm and dry. Psychiatric: Mood and Affect: Mood normal. Behavior: Behavior normal. ASSESSMENT / PLAN UPT neg in office today. Plan for labs. Low suspicion of . Diagnosis Plan 1. Delayed menses hCG, quantitative, Prolactin TSH hCG, quantitative, Prolactin TSH 2. examination or test, negative result POC , urine 3. Galactorrhea of both breasts Prolactin TSH Prolactin TSH No follow-ups on file. documented in this encounter [facility] 05-28-2025 History of Present illness Narrative Follow up Diagnosis: Hyperhidrosis Location: Axillae / Generalized Last visit: 3 months ago Symptoms: excessive sweating Status: worse due to it being hot outside Current treatment: Drysol Solution 20% Increased Glycopyrrolate to 6 mg daily. Follow up Diagnosis: Atopic Dermatitis Location: hands and legs Last visit: 3 months ago Symptoms: none Status: clear Treatments tried and failed: OTC creams and lotions Current treatment: Betamethasone Dipro 0.05% cream Follow up Diagnosis: Hirsutism Location: face Last visit: 3 months ago Symptoms: hair growth Status: not much change Current treatment: Aldactone 100 mg qd Follow up Diagnosis: Acne Location: face Last visit: 3 months ago Symptoms: red, bumps Status: clearing up Treatments tried and failed: OTC acne products Current treatment: Clindamycin Phosphate 1% lotion All pertinent medical history, medications, and allergies were reviewed. General Exam: alert, oriented to person, place, and time, normal affect, well appearing Unaccompanied A focused exam completed based on patient reported problems, see below: Skin Exam 1. PRIMARY FOCAL HYPERHIDROSIS Generalized Excess sweating noted in the axillae/generalized. HDSS score 2. Improving with treatment. Continue the Glycopyrrolate 6 mg daily by taking three 2mg pills once daily. Patient can decrease dose if she becomes too dry. Discussed potential side effects. Related Medications aluminum chloride (Drysol) 20 % external solution Apply to arm pits. Do not apply to broken or freshly shaven skin. 30 day supply glycopyrrolate (Robinul-Forte) 2 MG tablet Take 3 tablets by mouth, once daily, 30 day supply 2. OTHER ATOPIC DERMATITIS Left Hand - Anterior, Left Thigh - Anterior, Right Hand - Anterior, Right Thigh - Anterior Scaly erythematous plaques +/- dyspigmentation, lichenification, excoriations. Flaring today. BSA 10% Discussed that atopic dermatitis is a chronic condition that can be controlled but not cured. Continue the Vtama, apply once daily. Notify office if flaring despite treatment. Related Medications triamcinolone (Kenalog) 0.1 % cream Apply to affected areas, up to twice a day when flared, do not use one the face, groin, or underarms, 30 day supply betamethasone dipropionate 0.05 % cream Apply to affected areas, up to twice a day when flared, do not use one the face, groin, or underarms, 30 day supply Tapinarof (Vtama) 1 % cream Apply 1 Application topically Daily 3. HIRSUTISM Head - Anterior (Face) Excessive hair growth on the face. Improved from last visit but not at treatment goal Continue spironolactone to 100 mg daily. Patient denies history of low blood pressure, kidney problems, or current /plans to become . Caution with first dose - monitor for dizziness/lightheadedness, caution driving after first dose. Encouraged patient to stay hydrated while on this medication and avoid potassium supplements. Avoid while on this medication, discontinue immediately if occurs. Notify office if side effects develop. Related Medications spironolactone (Aldactone) 100 MG tablet Take 1 tablet, by mouth, once daily, 30 days 4. ACNE VULGARIS Head - Anterior (Face) Scattered comedones and inflammatory pustules. Improved. Continue Clindamycin lotion and Spironolactone, apply once daily in the morning. Related Medications clindamycin (Cleocin T) 1 % lotion Apply thin later to affected areas on the body, once daily, 30 day supply Next Visit: 3 months documented in this encounter [facility] 05-08-2025 History of Present illness Narrative History: Pt was referred to ENT because of hearing loss. Hearing loss runs in her mother's family. Pt's mother and all of her siblings have hearing loss. Pt also reports periodic tinnitus both ears. History negative for exposure to loud noise. Otoscopic Exam: Ear canal clear and TM intact AU Pure Tone Audiometry Right Ear: Mild sensorineural hearing loss at 6K Hz only Left Ear: Mild sensorineural hearing loss at 6K Hz only Speech Audiometry Right SRT = 30 dB and word discrimination score at 50 dBHL = 100% Left SRT = 20 dB and word discrimination score at 50 dBHL = 100% Tympanometry Right Ear: Type A tympanogram Left Ear: Type A tympanogram documented in this encounter [facility] 04-01-2025 Evaluation + Plan note Extrac damari from: Title:chronic pain Author:Mac Jolly DO Date:04/01/25 Patient is presenting with h istory of fibromyalgia as well as neurologic disorder that is currently undergoing workup. This was thought to be migraines for her unilateral deficits that have improved on the left side. However, she states that she is undergoing workup with her neurologist to better understand what is going on in undergo cognitive testing as well. She feels that pregabalin 150 mg twice daily is effectively reducing her pain to a 5/10 severity throughout her entire body secondary to fibromyalgia. However, she would like to discuss a dosage increase, we discussed that we should put this plan on hold at present as her neurologic workup should be completed first to ensure that there are no cognitive or other deficits that Lyrica may impact. She was understanding of this and agreeable. We discussed that we can consider this increase once her neurologic testing is completed. MARY Score: 26% PHQ-2: 3 Patient denies any symptoms of progressively worsening upper/lower extremity weakness, progressively worsening gait abnormality, new onset bowel/bladder incontinence/ urinary retention, or saddle anesthesia. No new or worsening symptoms of fever, chills, night sweats. 14 Point Review of systems negative unless otherwise noted. General: No acute distress. Patient appears well-nourished. HEENT: Head is normocephalic and external ears are normal in appearance. Cardiovascular: No signs of poor perfusion and no peripheral edema Pulmonary: Nonlabored breathing, symmetric chest movement. GI: Abdomen nondistended Integumentary: No lesions Neurologic: Alert, oriented x3. 5/5 strength grossly in the bilateral upper extremities. 5/5 strength grossly in the bilateral lower extremities. MSK/Special Testing: Multiple tender spots throughout body. History, physical examination, and personal review of pertinent imaging results indicate a diagnosis of: -Fibromyalgia - Neurologic disorder Plan: - Continue Lyrica 150 mg twice daily, can consider increasing after her neurologic workup is complete as we do not want to cause any significant side effects from medication adjustments that may impact her neurologic testing - Follow-up in 3 months or sooner if needed Patient was counseled on the above diagnosis and treatment, all questions were answered and patient agrees to adhere to the plan above. Risk and benefits of appropriate procedures and medications were reviewed as well with patient, who voiced understanding and agreeance. Patient was counseled on appropriate use of opioids if prescribed or renewed today and naloxone was offered to patient if opioids were prescribed or maintained at this visit. PHQ-2 scoring reviewed with patient and discussed seeking treatment for depression or mood disorder as appropriate. Patient was counseled on smoking cessation and/or continuing to abstain from nicotine/tobacco products as appropriate based on history for greater than 3 minutes if appropriate; as smoking/nicotine can contribute to increased pain overall and decreased wound healing, counseling performed for smoking cessation when appropriate for F17.200 nicotine dependence. MARY reviewed and discussed during encounter. Patient counseled on maintaining a healthy BMI as part of the total treatment of their pain and to reduce stress/strain on joints. Patient invited to return or call with any questions or concerns that arise. Future Appointments Appointment Date:04/02/2025 01:30:00 PM Scheduled Provider: Location:[facility] [place] Appointment Type:PT 45 (FT) Appointment Date:04/08/2025 02:00:00 PM Scheduled Provider: Location[facility] [place] Appointment Type:PT 45 (FT) Appointment Date:04/10/2025 02:45:00 PM Scheduled Provider: Location[facility] [place] Appointment Type:PT 45 (FT) Appointment Date:04/15/2025 01:30:00 PM Scheduled Provider: Location:[facility] [place] Appointment Type:PT Re-Eval 30 (FT) Appointment Date:07/03/2025 11:30:00 AM Scheduled Provider:Mac Jolly DO Location:.[facility] [place] Appointment Type:Pain Management - Follow Up ([facility]) [facility] 05-14-2025 NoteConsultation Note Patient is presenting with history of fibromyalgia as well as neurologic disorder that is currentlyundergoing workup. This was thought to be migraines for her unilateral deficits that have improved on the left side. However, she states that she is undergoing workup with her neurologist to better understand what is going on in undergo cognitive testing as well. She feels that pregabalin 150 mg twice daily is effectively reducing her pain to a 5/10 severity throughout her entire body secondary to fibromyalgia. However, she would like to discuss a dosage increase, we discussed that we should put this plan on hold at present as her neurologic workup should be completed first to ensure that there are no cognitive or other deficits that Lyrica may impact. She was understanding of this and agreeable. We discussed that we can consider this increase once her neurologic testing is completed. MARY Score: 26% PHQ-2: 3 Patient denies any symptoms of progressively worsening upper/lower extremity weakness, progressively worsening gait abnormality, new onset bowel/bladder incontinence/ urinary retention, or saddle anesthesia. No new or worsening symptoms of fever, chills, night sweats. 14 Point Review of systems negative unless otherwise noted. General: No acute distress. Patient appears well-nourished. HEENT: Head is normocephalic and external ears are normal in appearance. Cardiovascular: No signs of poor perfusion and no peripheral edema Pulmonary: Nonlabored breathing, symmetric chest movement. GI: Abdomen nondistended Integumentary: No lesions Neurologic: Alert, oriented x3. 5/5 strength grossly in the bilateral upper extremities. 5/5 strength grossly in the bilateral lower extremities. MSK/Special Testing: Multiple tender spots throughout body. History, physical examination, and personal review of pertinent imaging results indicate a diagnosis of: -Fibromyalgia - Neurologic disorder Plan: - Continue Lyrica 150 mg twice daily, can consider increasing after her neurologic workup is complete as we do not want to cause any significant side effects from medication adjustments that may impact her neurologic testing - Follow-up in 3 months or sooner if needed Patient was counseled on the above diagnosis and treatment, all questions were answered and patientagrees to adhere to the plan above. Risk and benefits of appropriate procedures and medications were reviewed as well with patient, who voiced understanding and agreeance. Patient was counseled on appropriate use of opioids if prescribed or renewed today and naloxone was offered to patient if opioids were prescribed or maintained at this visit. PHQ-2 scoring reviewed with patient and discussed seeking treatment for depression or mood disorder as appropriate. Patient was counseled on smoking cessation and/or continuing to abstain from nicotine/tobacco products as appropriate based on history for greater than 3 minutes if appropriate; as smoking/nicotine can contribute to increased pain overall and decreased wound healing, counseling performed for smoking cessation when appropriate for F17.200 nicotine dependence. MARY reviewed and discussed during encounter. Patient counseled on maintaining a healthy BMI as part of the total treatment of their pain and to reduce stress/strain on joints.Patient invited to return or call with any questions or concerns that arise.[facility] OhioComment on above:Result Comment: Electronically Signed By: Mac Jolly DO.br\Date and Time Signed: 04/01/25 10:18 EDT 03-27-2025 Evaluation note* Diagnosis Onset Date Resolution Status Admit Date Dyspepsia acute March 27, 2025 10:19am GERD (gastroesophageal reflu x disease) acute March 27, 2025 10 :19am Irritable bowel syndrome wit h diarrhea acute March 27, 2025 10 :19am Depression acute May 12 3:18pm Hypersomnia acute May 12 3:18pm Poor sleep acute May 12 3:18pm Daytime hypersomnolence chronic J une 2024 3:18pm Fibromyalgia chronic May 12, 2 025 3:18pm [facility] Work Phone: [phone] History of Present illness Narrative* Edgar Rice, PhD - 03/02/2025 11:00 AM EDT Images from the original note were not included. Edgar Rice, PhD NEUROBEHAVIORAL STATUS EXAMINATION Sonia Motley is a 34 y.o. female referred for neuropsychological evaluation to assist with facilitating and informing medical differential diagnosis and clinical decision-making. The following information was obtained during an interview with the patient and , as well as review of available records. PRESENTING PROBLEM AND HISTORY Decline in memory over the past 1+ years such as misplacing items around the home, forgetting what she was in the middle of doing, experiencing time/memory lapses, losing train of thought, mixing herwords up, stopping mid-sentence, occasionally staring off, as well as poor attention/concentration.Physically, uses rolling walker over the past week or so due to weakness, especially impacting the left-side of her body. Requires occasional assistance with dressing. Independent with household responsibilities. manages finances as before. Independently responsible for medication, althoughcan forget. completed most of the driving as patient has become less comfortable and fearful. Previously physically active, less so over the past 4 months. Questionable MEEK, PSG pending. Pain complaints include migraine and fibromyalgia. No prior neurological history. Family neurological history includes Parkinson's disease (grandmother) and memory issues (mother). Psychiatric history notable for depression, anxiety, and high stress. Denied any history of alcohol/substance abuse or smoking. [place] language [place]. Completed high school education. 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 Resides with of 11 years along with their 3 children, all of whom have speech delays. MEDICAL HISTORY/MEDICATION: Past Medical History: Diagnosis Date Carpal tunnel syndrome, bilateral Fibromyalgia IBS (irritable bowel syndrome) Migraine MEDICATIONS: Current Outpatient Medications Medication Instructions acetaminophen (TYLENOL) 650 mg, Every 6 hours PRN alosetron (Lotronex) 1 MG tablet TAKE 1 TABLET BY MOUTH TWICE A DAY FOR IBS-D aluminum chloride (Drysol) 20 % external solution Apply to arm pits. Do not apply to broken or freshly shaven skin. 30 day supply amitriptyline (ELAVIL) 50 mg, Oral, Nightly betamethasone dipropionate 0.05 % cream Apply to affected areas, up to twice a day when flared, do not use one the face, groin, or underarms, 30 day supply jxzkslnheh-zakhyrqsoxpoa-bjwkbhsy 50-325-40 MG tablet 1 tablet, Every 6 hours PRN clindamycin (Cleocin T) 1 % lotion Apply thin later to affected areas on the body, once daily, 30 day supply [facility] Allergy Relief(Cetirizine) 10 mg, 2 times daily dicyclomine (Bentyl) 20 MG tablet 1 tablet, 3 times daily escitalopram (LEXAPRO) 20 mg, Daily esomeprazole (NexIUM) [address] capsule TAKE 1 CAPSULE BY MOUITH 30 MINUTES BEFORE MORNING MEAL AND 30 MINUTES BEFORE EVENING MEAL. famotidine (PEPCID) 40 mg, 2 times daily fluticasone (Flonase) 50 MCG/ACT nasal spray 2 sprays, Daily glycopyrrolate (Robinul) 1 MG tablet Take 3 tablets ONCE daily, 30 day supply. glycopyrrolate (ROBINUL) 1 mg, Oral, Daily glycopyrrolate (Robinul-Forte) 2 MG tablet Take 3 tablets by mouth, once daily, 30 day supply 12/08 1-20 MG-MCG tablet 1 tablet, Daily levonorgestrel-ethinyl estradiol triphasic (TriVora,Enpresse) 50-30/75-40/ 125- 30 MCG per tablet 1 tablet, Oral, Daily naratriptan (Amerge) 2.5 MG tablet TAKE 1 TABLET NEEDED AT ONSET OF MIGRAINE.MAY REPEAT DOSE ONCE IN 4 HRS IF IT PERSISTS.MAX 2/24HR omeprazole (PRILOSEC) 40 mg, Daily before breakfast ondansetron ODT (ZOFRAN-ODT) 4 mg, Daily PRN phentermine (ADIPEX-P) 37.5 mg, Daily pregabalin (LYRICA) 150 mg, 2 times daily promethazine (PHENERGAN) 25 mg pseudoephedrine (SUDAFED) 30 mg, Every 6 hours PRN spironolactone (Aldactone) 100 MG tablet Take 1 tablet, by mouth, once daily, 30 days Tapinarof (Vtama) 1 % cream 1 Application, Apply externally, Daily traZODone (DESYREL) 50 mg, Nightly triamcinolone (Kenalog) 0.1 % cream Apply to affected areas, up to twice a day when flared, do not use one the face, groin, or underarms, 30 day supply INITIAL IMPRESSION AND PLAN: Memory loss, expressive language impairment, concentration deficit, insomnia, MEEK, chronic pain, depression, anxiety, and stress: The patient will be scheduled for neuropsychological assessment, which will include tests for memory, reasoning, language, problem-solving, attention, and mood. Thank you for allowing me to participate in the care of this individual. Please contact me with [facility] at [phone]. documented in this encounterWright Memorial [id number] Hospital Discharge instructions Patient Education 02/20/2025 18:12:17 Paresthesia Paresthesia Paresthesia is an abnormal burning or prickling sensation. It is usually felt in the hands, arms, legs, or feet. However, it may occur in any part of the body. Usually, paresthesia is not painful. Itmay feel like: Tingling or numbness. Buzzing. Itching. Paresthesia may occur without any clear cause, or it may be caused by: Breathing too quickly (hyperventilation). Pressure on a nerve. An underlying medical condition. Side effects of a medicine. Nutritional deficiencies. Exposure to toxic chemicals. Most people experience temporary (transient) paresthesia at some time in their lives. For some people, it may be long-lasting (chronic) because of an underlying medical condition. If you have paresthesia that lasts a long time, you need to be evaluated by your health care provider. Follow these instructions at home: Nutrition Eat a healthy diet. This includes: Eating foods that are high in fiber, such as beans, whole grains, and fresh fruits and vegetables. Limiting foods that are high in fat and processed sugars, such as fried or sweet foods. Alcohol use Avoid or limit alcohol. Too much alcohol can cause a vitamin B deficiency, and vitamin B is needed for healthy nerves. Do not drink alcohol if: ?Your health care provider tells you not to drink. ?You are , may be , or are planning to become . If you drink alcohol: ?Limit how much you have to: ?0 1 drink a day for women. ?0 2 drinks a day for men. ?Know how much alcohol is in your drink. In the [place] one drink equals one 12 oz bottle of beer (355 mL), one 5 oz glass of wine (148 mL), or one 1 oz glass of hard liquor (44 mL). General instructions Take zqmu-buu-zevaszq and prescription medicines only as told by your health care provider. Do not use any products that contain nicotine or tobacco. These products include cigarettes, chewing tobacco, and vaping devices, such as e-cigarettes. If you need help quitting, ask your health careprovider. If you have diabetes, work closely with your health care provider to keep your blood sugar under control. If you have numbness in your feet: ?Check every day for signs of injury or infection. Watch for redness, warmth, and swelling. ?Wear padded socks and comfortable shoes. These help protect your feet. Keep all follow-up visits. This is important. Contact a health care provider if you: Have paresthesia that gets worse or does not go away. Have numbness after an injury. Have a burning or prickling feeling that gets worse when you walk. Have pain, cramps, or dizziness, or you faint. Develop a rash. Get help right away if you: Feel muscle weakness. Develop new weakness in an arm or leg. Have trouble walking or moving. Have problems with speech, understanding, or vision. Feel confused. Cannot control your bladder or bowel movements. These symptoms may be an emergency. Get help right away. Call 911. Do not wait to see if the symptoms will go away. Do not drive yourself to the hospital. Summary Paresthesia is an abnormal burning or prickling sensation that is usually felt in the hands, arms, legs, or feet. It may also occur in other parts of the body. Paresthesia may occur without any clear cause, or it may be caused by breathing too quickly (hyperventilation), pressure on a nerve, an underlying medical condition, side effects of a medicine, nutritional deficiencies, or exposure to toxic chemicals. If you have paresthesia that lasts a long time, you need to be evaluated by your health care provider. This information is not intended to replace advice given to you by your health care provider. Make sure you discuss any questions you have with your health care provider. Document Revised: 07/17/2022 Document Reviewed: 07/17/2022 [employer] Patient Education 2023 [employer] 02/20/2025 18:12:17 Migraine Headache Migraine Headache A migraine headache is an intense pulsing or throbbing pain on one or both sides of the head. Migraine headaches may also cause other symptoms, such as nausea, vomiting, and sensitivity to light and noise. A migraine headache can last from 4 hours to 3 days. Talk with your health care provider about what things may bring on (trigger) your migraine headaches. What are the causes? The exact cause is not known. However, a migraine may be caused when nerves in the brain get irritated and release chemicals that cause blood vessels to become inflamed. This inflammation causes pain. Migraines may be triggered or caused by: Smoking. Medicines, such as: ?Nitroglycerin, which is used to treat chest pain. ? control pills. ?Estrogen. ?Certain blood pressure medicines. Foods or drinks that contain nitrates, glutamate, aspartame, MSG, or tyramine. Certain foods or drinks, such as aged cheeses, chocolate, alcohol, or caffeine. Doing physical activity that is very hard. Other triggers may include: Menstruation. . Hunger. Stress. Getting too much or too little sleep. Weather changes. Tiredness (fatigue). What increases the risk? The following factors may make you more likely to have migraine headaches: Being between the ages of 25-55 years old. Being female. Having a family history of migraine headaches. Being . Having a mental health condition, such as depression or anxiety. Being obese. What are the signs or symptoms? The main symptom of this condition is pulsing or throbbing pain. This pain may: Happen in any area of the head, such as on one or both sides. Make it hard to do daily activities. Get worse with physical activity. Get worse around bright lights, loud noises, or smells. Other symptoms may include: Nausea. Vomiting. Dizziness. Before a migraine headache starts, you may get warning signs (an aura). An aura may include: Seeing flashing lights or having blind spots. Seeing bright spots, halos, or zigzag lines. Having tunnel vision or blurred vision. Having numbness or a tingling feeling. Having trouble talking. Having muscle weakness. After a migraine ends, you may have symptoms. These may include: Feeling tired. Trouble concentrating. How is this diagnosed? A migraine headache can be diagnosed based on: Your symptoms. A physical exam. Tests, such as: ?A CT scan or an MRI of the head. These tests can help rule out other causes of headaches. ?Taking fluid from the spine (lumbar puncture) to examine it (cerebrospinal fluid analysis, or CSF analysis). How is this treated? This condition may be treated with medicines that: Relieve pain and nausea. Prevent migraines. Treatment may also include: Acupuncture. Lifestyle changes like avoiding foods that trigger migraine headaches. Learning ways to control your body (biofeedback). Talk therapy to help you know and deal with negative thoughts (cognitive behavioral therapy). Follow these instructions at home: Medicines Take kcwb-sxo-xkoqhbn and prescription medicines only as told by your provider. Ask your provider if the medicine prescribed to you: ?Requires you to avoid driving or using machinery. ?Can cause constipation. You may need to take these actions to prevent or treat constipation: ?Drink enough fluid to keep your pee (urine) pale yellow. ?Take phjm-qha-nasmtop or prescription medicines. ?Eat foods that are high in fiber, such as beans, whole grains, and fresh fruits and vegetables. ?Limit foods that are high in fat and processed sugars, such as fried or sweet foods. Lifestyle Do not drink alcohol. Do not use any products that contain nicotine or tobacco. These products include cigarettes, chewing tobacco, and vaping devices, such as e-cigarettes. If you need help quitting, ask your provider. Get 7 9 hours of sleep each night, or the amount recommended by your provider. Find ways to manage stress, such as meditation, deep breathing, or yoga. Try to exercise regularly. This can help lessen how bad and how often your migraines occur. General instructions Keep a journal to find out what triggers your migraines, so you can avoid those things. For example, write down: ?What you eat and drink. ?How much sleep you get. ?Any change to your diet or medicines. If you have a migraine headache: ?Avoid things that make your symptoms worse, such as bright lights. ?Lie down in a dark, quiet room. ?Do not drive or use machinery. ?Ask your provider what activities are safe for you while you have symptoms. Keep all follow-up visits. Your provider will monitor your symptoms and recommend any further treatment. Where to find more information Coalition for Headache and Migraine Patients (CHAMP): headachemigraine.org [place] Migraine Foundation: americanmigrainefoundation.org National Headache Foundation: headaches.org Contact a health care provider if: You have symptoms that are different or worse than your usual migraine headache symptoms. You have more than 15 days of headaches in one month. Get help right away if: Your migraine headache becomes severe or lasts more than 72 hours. You have a fever or stiff neck. You have vision loss. Your muscles feel weak or like you cannot control them. You lose your balance often or have trouble walking. You faint. You have a seizure. This information is not intended to replace advice given to you by your health care provider. Make sure you discuss any questions you have with your health care provider. Document Revised: 07/02/2023 Document Reviewed: 07/02/2023 [employer] Patient Education 2023 [employer] Follow Up Care 02/20/2025 13:51:45 With:Gui Alvarez Address: [address] [place] [address] [place] [address] Business (1) When:02/23/2025 17:58:53 Comments:Call Dr for diagnosis based follow up [facility] 04-04-2025 NoteED Patient Education Note Neurology Paresthesia Paresthesia is an abnormal burning or prickling sensation. It is usually felt in the hands, arms, legs, or feet. However, it may occur in any part of the body. Usually, paresthesia is not painful. Itmay feel like: ??? Tingling or numbness. ??? Buzzing. ??? Itching. Paresthesia may occur without any clear cause, or it may be caused by: ??? Breathing too quickly (hyperventilation). ??? Pressure on a nerve. ??? An underlying medical condition. ??? Side effects of a medicine. ??? Nutritional deficiencies. ??? Exposure to toxic chemicals. Most people experience temporary (transient) paresthesia at some time in their lives. For some people, it may be long-lasting (chronic) because of an underlying medical condition. If you have paresthesia that lasts a long time, you need to be evaluated by your health care provider. Follow these instructions at home: Nutrition Eat a healthy diet. This includes: ??? Eating foods that are high in fiber, such as beans, whole grains, and fresh fruits and vegetables. ??? Limiting foods that are high in fat and processed sugars, such as fried or sweet foods. Alcohol use ??? Avoid or limit alcohol. Too much alcohol can cause a vitamin B deficiency, and vitamin B is needed for healthy nerves. ??? Do not drink alcohol if: ? Your health care provider tells you not to drink. ? You are , may be , or are planning to become . ??? If you drink alcohol: ? Limit how much you have to: ? 0?1 drink a day for women. ? 0?2 drinks a day for men. ? Know how much alcohol is in your drink. In the [place] one drink equals one 12 oz bottle of beer (355 mL), one 5 oz glass of wine (148 mL), or one 1? oz glass of hard liquor (44 mL). General instructions ??? Take pmpe-zwk-jeggdcu and prescription medicines only as told by your health care provider. ??? Do not use any products that contain nicotine or tobacco. These products include cigarettes, chewing tobacco, and vaping devices, such as e-cigarettes. If you need help quitting, ask your health care provider. ??? If you have diabetes, work closely with your health care provider to keep your blood sugar under control. ??? If you have numbness in your feet: ? Check every day for signs of injury or infection. Watch for redness, warmth, and swelling. ? Wear padded socks and comfortable shoes. These help protect your feet. ??? Keep all follow-up visits. This is important. Contact a health care provider if you: ??? Have paresthesia that gets worse or does not go away. ??? Have numbness after an injury. ??? Have a burning or prickling feeling that gets worse when you walk. ??? Have pain, cramps, or dizziness, or you faint. ??? Develop a rash. Get help right away if you: ??? Feel muscle weakness. ??? Develop new weakness in an arm or leg. ??? Have trouble walking or moving. ??? Have problems with speech, understanding, or vision. ??? Feel confused. ??? Cannot control your bladder or bowel movements. These symptoms may be an emergency. Get help right away. Call 911. ??? Do not wait to see if the symptoms will go away. ??? Do not drive yourself to the hospital. Summary ??? Paresthesia is an abnormal burning or prickling sensation that is usually felt in the hands, arms, legs, or feet. It may also occur in other parts of the body. ??? Paresthesia may occur without any clear cause, or it may be caused by breathing too quickly (hyperventilation), pressure on a nerve, an underlying medical condition, side effects of a medicine, nutritional deficiencies, or exposure to toxic chemicals. ??? If you have paresthesia that lasts a long time, you need to be evaluated by your health care provider. This information is not intended to replace advice given to you by your health care provider. Make sure you discuss any questions you have with your health care provider. Document Revised: 07/17/2022 Document Reviewed: 07/17/2022 [employer] Patient Education ? 2023 [employer] Migraine Headache A migraine headache is an intense pulsing or throbbing pain on one or both sides of the head. Migraine headaches may also cause other symptoms, such as nausea, vomiting, and sensitivity to light and noise. A migraine headache can last from 4 hours to 3 days. Talk with your health care provider about what things may bring on (trigger) your migraine headaches. What are the causes? The exact cause is not known. However, a migraine may be caused when nerves in the brain get irritated and release chemicals that cause blood vessels to become inflamed. This inflammation causes pain. Migraines may be triggered or caused by: ??? Smoking. ??? Medicines, such as: ? Nitroglycerin, which is used to treat chest pain. ? control pills. ? Estrogen. ? Certain blood pressure medicines. ??? Foods or drinks that contain nitrates, (more content not included)...[facility] [place]04-03-2025 History of Present illness Narrative* GIANA Abreu - 02/19/2025 10:30 AM EDT Rash Location: thighs Duration: weeks Severity: moderate Quality: itchy Modifying Factors: none Associated symptoms: red bumps Treatments tried: TAC 0.1 % cream Current treatments: moisturizers Follow up Diagnosis: Hyperhidrosis Location: generalized Last visit: 3 months ago Symptoms: none Status: no change Treatments tried and failed: none Current treatment: Drysol 20% and Glycopyrrolate 4 mg (increased at last visit) once a day. Follow up Diagnosis: Hirsutism Location: face Last visit: 3 months ago Symptoms: none Status: no change Treatments tried and failed: None Current treatment: Spironolactone 50 mg Follow up Diagnosis: Atopic Dermatitis Location: hands Last visit: 3 months ago Symptoms: none Status: clear on the hands Treatments tried and failed: OTC creams and lotions Current treatment: Betamethasone Dipro 0.05% cream All pertinent medical history, medications, and allergies were reviewed. General Exam: alert, oriented to person, place, and time, normal affect, well appearing Accompanied by son A focused exam completed based on patient reported problems, see below: 1. Primary focal hyperhidrosis Excess sweating noted in the axillae/generalized. HDSS score 3. Improving with treatment. Patient tolerating 4 mg but is not at her treatment goal. Will start 6 mg daily by taking three 2mgpills once daily. Patient can decrease dose if she becomes too dry. Discussed potential side effects. Related Medications glycopyrrolate (Robinul) 1 MG tablet Take 1 tablet (1 mg) by mouth Daily aluminum chloride (Drysol) 20 % external solution Apply to arm pits. Do not apply to broken or freshly shaven skin. 30 day supply glycopyrrolate (Robinul) 1 MG tablet Take 3 tablets ONCE daily, 30 day supply. 2. Other atopic dermatitis Left Hand - Anterior, Left Thigh - Anterior, Right Hand - Anterior, Right Thigh - Anterior Scaly erythematous plaques +/- dyspigmentation, lichenification, excoriations. Flaring today. BSA 10% Discussed that atopic dermatitis is a chronic condition that can be controlled but not cured. Patient has tried and failed Triamcinolone cream and Betamethasone cream. She remains flared and is not sleeping well. Start Vtama once daily prn when flared, hold if smooth/asymptomatic. Encouraged daily moisturizing and gentle cleansers to prevent flares. She can continue the TAC cream until she receives the Vtama. This was sent to [facility]. Notify office if flaringdespite treatment. Related Medications Tapinarof (Vtama) 1 % cream Apply 1 Application topically Daily triamcinolone (Kenalog) 0.1 % cream Apply to affected areas, up to twice a day when flared, do not use one the face, groin, or underarms, 30 day supply betamethasone dipropionate 0.05 % cream Apply to affected areas, up to twice a day when flared, do not use one the face, groin, or underarms, 30 day supply 3. Hirsutism Head - Anterior (Face) Excessive hair growth on the face. Improved from last visit but not at treatment goal Will increase spironolactone to 100 mg daily. Patient denies history of low blood pressure, kidney problems, or current /plans to become . Caution with first dose - monitor for dizziness/lightheadedness, caution driving after first dose. Encouraged patient to stay hydrated while onthis medication and avoid potassium supplements. Avoid while on this medication, discontinue immediately if occurs. Notify office if side effects develop. spironolactone (Aldactone) 100 MG tablet - Head - Anterior (Face) Take 1 tablet, by mouth, once daily, 30 days 4. Acne vulgaris Head - Anterior (Face) Scattered comedones and inflammatory pustules. Flaring today Patient was counseled that this condition is chronic and can be controlled, but not cured. The patient and/or parent were counseled that it may take up to 2-3 months to notice significant improvementof the acne. Start Clindamycin lotion, apply once daily in the morning. clindamycin (Cleocin T) 1 % lotion - Head - Anterior (Face) Apply thin later to affected areas on the body, once daily, 30 day supply Next Visit: 2 [id number] History of Present illness Narrative* Holley Barahona NP - 02/17/2025 10:20 AM EDT Images from the original note were not included. Chief Complaint Patient presents with Migraine Numbness Memory difficulty Subjective Sonia Motley is a 34 y.o. female. History of Present Illness The patient presents today for follow-up. She believes her migraines have been stable since the prior neurology appointment on 10/09/2024. She is having approximately 2 migraines per week, and these are adequately relieved/reduced by naratriptan. Sleep also helps. She states her migraines often start in the evening and are gone by the morning 8 times out of 10. They have no new features. They areaccompanied by nausea and increased sensitivity to light and sounds. The patient has had 1 brief episode of right hand numbness since the previous appointment but otherwise denies numbness, pain, paresthesias, or weakness in the hands or wrists recently. She continuesto have intermittent numbness in the bilateral feet. This is worse in cold temperatures and winter months. She sometimes wears 2-3 pairs of socks in the winter. She denies swelling or skin discoloration in the lower extremities. The patient reports forgetfulness and brain fog with onset over 1 year ago. She believes these have worsened over the past year. She will sometimes lose her train of thought in the middle of a conversation or mix up her words. She could not remember how many Ts were in her last name earlier today. She states she sets her phone down and forgets where she placed it often. She uses her Apple watchto tell her the location of her phone around 5-15 times per day. She states her mind feels, fuzzy, and, overstimulated, and her brain feels, over- tired, due to fibromyalgia. She lives at home and remains independent with all ADLs and IADLs. She drives without difficulty and does not get lost.She sleeps well but does not feel well rested upon waking, even when she sleeps 10+ hours. States she goes to bed tired and then wakes up feeling tired. She snores loudly but denies apneic episodes while asleep. She reports her mother on January 19, 2024, and her father on October 20, 2023. She has been stressed at work. She has anxiety and major depressive disorder,moderate for which she regularly follows with psychiatry and counseling. She is on Lexapro but does not feel this is been helpful. She is worried about her memory. She denies any further new concerns. The patient denies history of cardiac disease, poorly controlled hypertension, cardiac arrhythmia, heart attack, transient ischemic attack, or stroke. Review of Systems Constitutional: Positive for fatigue. Negative for appetite change, chills, fever and unexpected weight change. HENT: Negative for trouble swallowing and voice change. Eyes: Denies visual change, double vision, or loss of vision Respiratory: Negative for cough, shortness of breath and wheezing. Cardiovascular: Negative for chest pain and palpitations. Gastrointestinal: Positive for nausea. Negative for abdominal pain and blood in stool. Musculoskeletal: Negative for arthralgias, gait problem and myalgias. Neurological: Positive for numbness and headaches (accompanied by photophobia, phonophobia, and nausea). Negative for dizziness, tremors, seizures, syncope, facial asymmetry, speech difficulty, weakness and light-headedness. Positive for memory difficulty and intermittent numbness/tingling in the bilateral feet Psychiatric/Behavioral: Negative for agitation, hallucinations, sleep disturbance and suicidal ideas. The patient is nervous/anxious. Positive for depression and stressors Past Medical History: Diagnosis Date Carpal tunnel syndrome, bilateral Fibromyalgia IBS (irritable bowel syndrome) Migraine Past Surgical History: Procedure Laterality Date CARPAL TUNNEL RELEASE Bilateral SECTION, LOW TRANSVERSE Family History Problem Relation Name Age of Onset Depression Mother Diabetes Mother Hyperlipidemia Mother Hypertension Mother Migraines Mother Other (metastatic cancer) Mother Cancer Father Hypertension Father Heart attack Father Other (internal bleeding) Father Breast cancer Mother's Sister Mental illness Other Social History Tobacco Use Smoking status: Never Smokeless tobacco: Never Substance Use Topics Alcohol use: Never Allergies: Nubain [nalbuphine] and Prednisone Vitals: 02/17/25 1011 BP: 118/78 Body mass index is 41.7 kg/m . weight: 228 lb Neurologic exam: Mental status and general appearance: Awake and alert with unlabored respirations. Oriented to person, place, and time. Recent and remotememory are intact. Speech is clear and fluent without aphasia. Speech is non-dysarthric. Attention and concentration are normal. Fund of knowledge is appropriate for level of education. Obese. Pleasant. Appears anxious. Cranial nerves: CN II: Visual acuity is normal. Visual sparrow full to confrontation. CN III, IV, : Pupils are equal, round, and reactive to light. Extraocular movements intact. No ptosis present. CN V: Facial sensation is normal. CN VII: Full and symmetric facial movement. CN VIII: Hearing is normal to finger rub bilaterally. CN IX and X: Palate elevates symmetrically. CN XI: Shoulder shrug is normal bilaterally. CN XII: Tongue is midline without atrophy or fasciculation. Motor: RUE strength deltoid , biceps , triceps , wrist extensors , wrist flexor , and assembler small products strength 5/5. LUE strength deltoid , biceps , triceps , wrist extensors , wrist flexor , and assembler small products strength 5/5. RLE strength iliopsoas, quadriceps, tibialis anterior, and plantar flexion strength 5/5. LLE strength iliopsoas, quadriceps, tibialis anterior, and plantar flexion strength 5/5. Tone and bulk are normal. Sensory: Sensation is intact to light touch throughout all four extremities. Sensation is intact to temperature in all extremities. Reflexes: RUE biceps reflex 2+ , brachioradialis reflex 2+. LUE biceps reflex 2+ , brachioradialis reflex 2+. RLE knee reflex 1+. LLE knee reflex 1+. Coordination: [id number]-[id number] testing normal. Rapid alternating movements are normal. Gait: Normal. Review and summary of old records: Labs on 04/05/24: Vitamin B12 444. Hemoglobin A1c 5.4%. TSH 0.937. EMG of the bilateral lower extremities at [facility] on 10/04/2023: Normal MRI of the brain w/o contrast at [facility] on 09/14/23: Some limitation with motion. No MRI evidence for acute ischemia. Unremarkable unenhanced MRI appearance of the brain. Mild sinus mucosal disease EMG of the bilateral upper extremities at [facility] on 08/28/23: Bilateral median neuropathies, at or distal to the wrist, such as in carpal tunnel syndrome, which are moderate on the left and very minimalon the right electrically. EMG of the bilateral upper extremities at [facility] on 08/05/19: Bilateral median neuropathies which are mild on the right and minimal on the left. Assessment/Plan Diagnoses and all orders for this visit: Cognitive dysfunction The patient reports subjective cognitive dysfunction. She remains independent with all ADLs and IADLs but admits to instances of losing her train of thought during conversations, mixing up words in conversation (sequence), and misplacing objects over the past 1+ year. I believe significant stress, anxiety, depression, recent of parents, fibromyalgia, and possible MEEK may be contributory to the patient's cognitive symptoms. However, will obtain further work up to evaluate her concerns. PLAN: - Referral for neuropsychological evaluation - Check labs (TSH and vitamin B12) - Referral to sleep medicine for MEEK work up as detailed below - Follow up closely with psychiatry and counseling for treatment of anxiety and depression, as these could contribute to cognitive impairment if not optimally managed Daytime hypersomnolence The patient reports daytime hypersomnolence, snoring, cognitive dysfunction, and not feeling well rested upon waking. She has an elevated BMI. Clinically, this raises suspicion for possible obstructive sleep apnea (MEEK). Will evaluate this further with sleep medicine referral and also check labs. Otilio think depression and fibromyalgia may be contributory to her fatigue. PLAN: - Check labs (CBC, CMP, WILLIE, TSH, and vitamin B12) - Referral to sleep medicine for evaluation and consideration of polysomnography to evaluate for sleep-related breathing disorders such as MEEK which could be contributory to the patient's symptoms Chronic migraine without aura without status migrainosus, not intractable (CMS/HCC) It is my impression that the patient has chronic migraine. Onset was reportedly in 4th grade. Priorto treatment, the patient reported 25+ migraine days per month. Migraine severity, duration, and frequency have significantly decreased since starting amitriptyline. She continues to have approximately 2 migraines per week. Gbrz-euw-iylxeor medications were ineffective previously. Sumatriptan was not tolerated due to GI intolerance/vomiting. Naratriptan has been well tolerated and highly effective for acute migraine treatment. MRI of the brain on 09/14/23 was unremarkable aside from mild sinus disease. PLAN: - Continue amitriptyline 50 mg by mouth once daily at bedtime for migraine prevention. This may also provide benefit for fibromyalgia, anxiety, and depression - Continue naratriptan 2.5 mg by mouth as needed for migraine . Take no more than 2 doses in 24 hours - Ensure adequate hydration, adequate sleep, healthy diet, and regular physical activity as tolerated - Work to manage anxiety and depression with psychiatry and counseling, as these could exacerbate migraines if not adequately managed Fibromyalgia History of fibromyalgia reported by patient. Gabapentin was not tolerated previously due to fatigue. PLAN: - Follow up with pain management at [facility] and/or Dr. Espitia for management - Regular physical activity - Lifestyle interventions to help promote weight loss encouraged Paresthesia of foot, bilateral The patient reports intermittent numbness in the bilateral (entire) feet starting around 2020. Unclear etiology at this time. Symptoms do not seem consistent with a particular dermatomal distribution, and BLE EMG on 10/04/23 was normal. TSH, vitamin B12, and hemoglobin A1c on 04/05/24 were within normal limits. She has a history of fibromyalgia which may be contributory. PLAN: - Monitor clinically - Consider further work up in the future if symptoms worsen. They reportedly have not Carpal tunnel syndrome on both sides BUE EMG from 08/28/23 revealed bilateral carpal tunnel syndrome (left more severe than right). The patient underwent left carpal tunnel release on 09/21/23 and right carpal tunnel release on 10/19/[address] Cat. Symptoms have significantly improved since. PLAN: - Follow up with orthopedic surgery per their recommendations Diagnosis and treatment options discussed in detail. All questions answered. The patient verbalizesunderstanding and is agreeable to the plan. Discussion in layman's terms. Follow up in the office within 1 to 2 months; sooner if needed for new or worsening symptoms. JULIET Rivers [facility] documented in this [facility]04-01-2025 Instructions* Patient Instructions* Holley Barahona NP - 02/17/2025 10:20 AM EDT - Sleep study ([facility]) - Neuropsychological evaluation - Check labs documented in this [facility]03-15-2025 Hospital Discharge instructions Patient Education 01/31/2025 13:51:41 Nausea and Vomiting, Adult Nausea and Vomiting, Adult Nausea is the feeling that you have an upset stomach or that you are about to vomit. As nausea getsworse, it can lead to vomiting. Vomiting is when stomach contents forcefully come out of your mouthas a result of nausea. Vomiting can make you feel weak and cause you to become dehydrated. Dehydration can make you feel tired and thirsty, cause you to have a dry mouth, and decrease how often you urinate. Older adults and people with other diseases or a weak disease-fighting system (immune system) are at higher risk for dehydration. It is important to treat your nausea and vomiting as told by your health care provider. Follow these instructions at home: Watch your symptoms for any changes. Tell your health care provider about them. Eating and drinking Take an oral rehydration solution (ORS). This is a drink that is sold at pharmacies and retail stores. Drink clear fluids slowly and in small amounts as you are able. Clear fluids include water, ice chips, low-calorie sports drinks, and fruit juice that has water added (diluted fruit juice). Eat bland, hxmx-cb-bifpqj foods in small amounts as you are able. These foods include bananas, applesauce, rice, lean meats, toast, and crackers. Avoid fluids that contain a lot of sugar or caffeine, such as energy drinks, sports drinks, and soda. Avoid alcohol. Avoid spicy or fatty foods. General instructions Take hunq-nud-fyigibk and prescription medicines only as told by your health care provider. Drink enough fluid to keep your urine pale yellow. Wash your hands often using soap and water for at least 20 seconds. If soap and water are not available, use hand zinc skimmer. Make sure that everyone in your household washes their hands well and often. Rest at home while you recover. Watch your condition for any changes. Take slow and deep breaths when you feel nauseous. Keep all follow-up visits. This is important. Contact a health care provider if: Your symptoms get worse. You have new symptoms. You have a fever. You cannot drink fluids without vomiting. Your nausea does not go away after 2 days. You feel light-headed or dizzy. You have a headache. You have muscle cramps. You have a rash. You have pain while urinating. Get help right away if: You have pain in your chest, neck, arm, or jaw. You feel extremely weak or you faint. You have persistent vomiting. You have vomit that is bright red or looks like black coffee grounds. You have bloody or black stools (feces) or stools that look like tar. You have a severe headache, a stiff neck, or both. You have severe pain, cramping, or bloating in your abdomen. You have difficulty breathing, or you are breathing very quickly. Your heart is beating very quickly. Your skin feels cold and clammy. You feel confused. You have signs of dehydration, such as: ?Dark urine, very little urine, or no urine. ?Cracked lips. ?Dry mouth. ?Sunken eyes. ?Sleepiness. ?Weakness. These symptoms may be an emergency. Get help right away. Call 911. Do not wait to see if the symptoms will go away. Do not drive yourself to the hospital. Summary Nausea is the feeling that you have an upset stomach or that you are about to vomit. As nausea getsworse, it can lead to vomiting. Vomiting can make you feel weak and cause you to become dehydrated. Follow instructions from your health care provider about eating and drinking to prevent dehydration. Take ggcn-xth-xycjczw and prescription medicines only as told by your health care provider. Contact your health care provider if your symptoms get worse, or you have new symptoms. Keep all follow-up visits. This is important. This information is not intended to replace advice given to you by your health care provider. Make sure you discuss any questions you have with your health care provider. Document Revised: 05/12/2022 Document Reviewed: 05/12/2022 [employer] Patient Education 2023 [employer]. 01/31/2025 13:51:41 Sinus Infection, Adult Sinus Infection, Adult A sinus infection, also called sinusitis, is inflammation of your sinuses. Sinuses are hollow spaces in the bones around your face. Your sinuses are located: Around your eyes. In the middle of your forehead. Behind your nose. In your cheekbones. Mucus normally drains out of your sinuses. When your nasal tissues become inflamed or swollen, mucus can become trapped or blocked. This allows bacteria, viruses, and fungi to grow, which leads to infection. Most infections of the sinuses are caused by a virus. A sinus infection can develop quickly. It can last for up to 4 weeks (acute) or for more than 12 weeks (chronic). A sinus infection often develops after a cold. What are the causes? This condition is caused by anything that creates swelling in the sinuses or stops mucus from draining. This includes: Allergies. Asthma. Infection from bacteria or viruses. Deformities or blockages in your nose or sinuses. Abnormal growths in the nose (nasal polyps). Pollutants, such as chemicals or irritants in the air. Infection from fungi. This is rare. What increases the risk? You are more likely to develop this condition if you: Have a weak body defense system (immune system). Do a lot of swimming or diving. Overuse nasal sprays. Smoke. What are the signs or symptoms? The main symptoms of this condition are pain and a feeling of pressure around the affected sinuses.Other symptoms include: Stuffy nose or congestion that makes it difficult to breathe through your nose. Thick yellow or greenish drainage from your nose. Tenderness, swelling, and warmth over the affected sinuses. A cough that may get worse at night. Decreased sense of smell and taste. Extra mucus that collects in the throat or the back of the nose (postnasal drip) causing a sore throat or bad breath. Tiredness (fatigue). Fever. How is this diagnosed? This condition is diagnosed based on: Your symptoms. Your medical history. A physical exam. Tests to find out if your condition is acute or chronic. This may include: ?Checking your nose for nasal polyps. ?Viewing your sinuses using a device that has a light (endoscope). ?Testing for allergies or bacteria. ?Imaging tests, such as an MRI or CT scan. In rare cases, a bone biopsy may be done to rule out more serious types of fungal sinus disease. How is this treated? Treatment for a sinus infection depends on the cause and whether your condition is chronic or acute. If caused by a virus, your symptoms should go away on their own within 10 days. You may be given medicines to relieve symptoms. They include: ?Medicines that shrink swollen nasal passages (decongestants). ?A spray that eases inflammation of the nostrils (topical intranasal corticosteroids). ?Rinses that help get rid of thick mucus in your nose (nasal saline washes). ?Medicines that treat allergies (antihistamines). ?Gotq-hld-kivnstk pain relievers. If caused by bacteria, your health care provider may recommend waiting to see if your symptoms improve. Most bacterial infections will get better without antibiotic medicine. You may be given antibiotics if you have: ?A severe infection. ?A weak immune system. If caused by narrow nasal passages or nasal polyps, surgery may be needed. Follow these instructions at home: Medicines Take, use, or apply dqcp-mqq-vseeyni and prescription medicines only as told by your health care provider. These may include nasal sprays. If you were prescribed an antibiotic medicine, take it as told by your health care provider. Do notstop taking the antibiotic even if you start to feel better. Hydrate and humidify Drink enough fluid to keep your urine pale yellow. Staying hydrated will help to thin your mucus. Use a cool mist humidifier to keep the humidity level in your home above 50%. Inhale steam for 10 15 minutes, 3 4 times a day, or as told by your health care provider. You can do this in the bathroom while a hot shower is running. Limit your exposure to cool or dry air. Rest Rest as much as possible. Sleep with your head raised (elevated). Make sure you get enough sleep each night. General instructions Apply a warm, moist washcloth to your face 3 4 times a day or as told by your health care provider.This will help with discomfort. Use nasal saline washes as often as told by your health care provider. Wash your hands often with soap and water to reduce your exposure to germs. If soap and water are not available, use hand zinc skimmer. Do not smoke. Avoid being around people who are smoking (secondhand smoke). Keep all follow-up visits. This is important. Contact a health care provider if: You have a fever. Your symptoms get worse. Your symptoms do not improve within 10 days. Get help right away if: You have a severe headache. You have persistent vomiting. You have severe pain or swelling around your face or eyes. You have vision problems. You develop confusion. Your neck is stiff. You have trouble breathing. These symptoms may be an emergency. Get help right away. Call 911. Do not wait to see if the symptoms will go away. Do not drive yourself to the hospital. Summary A sinus infection is soreness and inflammation of your sinuses. Sinuses are hollow spaces in the bones around your face. This condition is caused by nasal tissues that become inflamed or swollen. The swelling traps or blocks the flow of mucus. This allows bacteria, viruses, and fungi to grow, which leads to infection. If you were prescribed an antibiotic medicine, take it as told by your health care provider. Do notstop taking the antibiotic even if you start to feel better. Keep all follow-up visits. This is important. This information is not intended to replace advice given to you by your health care provider. Make sure you discuss any questions you have with your health care provider. Document Revised: 10/10/2022 Document Reviewed: 10/10/2022 [employer] Patient Education 2023 [employer]. Follow Up Care 01/31/2025 09:59:20 With:Gui Alvarez Address: [address] [place], [place] [address] [address]- Business (1) When:02/03/2025 13:23:29 [facility] 03-15-2025 Evaluation + Plan noteExtracted from: Title:ED Note Author:Sanchez Iglesias PA-C te:01/31/25 Nausea and vomiting (R11.2: Nausea with vomiting, unspecified) Sinusitis (J32.9: Chronic sinusitis, unspecified) Orders: diphenhydrAMINE, 25 mg = 0.5 mL, Injection, IV Push, Once, Stop date 01/31/25 10:12:00 EDT, STAT, Start date 01/31/25 10:12:00 EDT, 01/31/25 10:12:00 EDT loratadine-pseudoephedrine, 1 tab(s), Oral, q12hr for 10 day(s), 20 tab(s), Refill(s) 0, [id number], 157, cm, 01/31/25 10:05:00 EDT, Height/Length Dosing, 104.4, kg, 01/31/25 10:05:00 EDT, Weight Dosing promethazine, 25 mg = 1 tab(s), Oral, TID, # 15 tab(s), Refills(s) 0, Pharmacy: [id number], 157, cm, 01/31/25 10:05:00 EDT, Height/Length Dosing, 104.4, kg, 01/31/25 10:05:00 EDT, Weight Dosing Basic Metabolic Panel Beta hCG Qual CBC w/ Auto Diff eGFR Extra Blue Tube Extra Vazquez Tube Hepatic Function Panel Lipase Level UA with Cult Rflx Future Appointments Appointment Date:02/12/2025 09:00:00 AM Scheduled Provider: Location:[facility] Appointment Type:Nutrition Education - Follow Up 60 (FT) Appointment Date:04/08/2025 12:30:00 PM Scheduled Provider:Lyn Limon PA-C Location:[facility].Pain Mgmt [place] Appointment Type:Pain Management - Follow Up (FT) [facility] 03-15-2025 NoteED Patient Education Note Gastroenterology Nausea and Vomiting, Adult Nausea is the feeling that you have an upset stomach or that you are about to vomit. As nausea getsworse, it can lead to vomiting. Vomiting is when stomach contents forcefully come out of your mouthas a result of nausea. Vomiting can make you feel weak and cause you to become dehydrated. Dehydration can make you feel tired and thirsty, cause you to have a dry mouth, and decrease how often you urinate. Older adults and people with other diseases or a weak disease-fighting system (immune system) are at higher risk for dehydration. It is important to treat your nausea and vomiting as told by your health care provider. Follow these instructions at home: Watch your symptoms for any changes. Tell your health care provider about them. Eating and drinking ??? Take an oral rehydration solution (ORS). This is a drink that is sold at pharmacies and retail stores. ??? Drink clear fluids slowly and in small amounts as you are able. Clear fluids include water, icechips, low-calorie sports drinks, and fruit juice that has water added (diluted fruit juice). ??? Eat bland, gzga-pp-lzptvv foods in small amounts as you are able. These foods include bananas, applesauce, rice, lean meats, toast, and crackers. ??? Avoid fluids that contain a lot of sugar or caffeine, such as energy drinks, sports drinks, andsoda. ??? Avoid alcohol. ??? Avoid spicy or fatty foods. General instructions ??? Take jtgk-xfx-wgnumjy and prescription medicines only as told by your health care provider. ??? Drink enough fluid to keep your urine pale yellow. ??? Wash your hands often using soap and water for at least 20 seconds. If soap and water are not available, use hand zinc skimmer. ??? Make sure that everyone in your household washes their hands well and often. ??? Rest at home while you recover. ??? Watch your condition for any changes. ??? Take slow and deep breaths when you feel nauseous. ??? Keep all follow-up visits. This is important. Contact a health care provider if: ??? Your symptoms get worse. ??? You have new symptoms. ??? You have a fever. ??? You cannot drink fluids without vomiting. ??? Your nausea does not go away after 2 days. ??? You feel light-headed or dizzy. ??? You have a headache. ??? You have muscle cramps. ??? You have a rash. ??? You have pain while urinating. Get help right away if: ??? You have pain in your chest, neck, arm, or jaw. ??? You feel extremely weak or you faint. ??? You have persistent vomiting. ??? You have vomit that is bright red or looks like black coffee grounds. ??? You have bloody or black stools (feces) or stools that look like tar. ??? You have a severe headache, a stiff neck, or both. ??? You have severe pain, cramping, or bloating in your abdomen. ??? You have difficulty breathing, or you are breathing very quickly. ??? Your heart is beating very quickly. ??? Your skin feels cold and clammy. ??? You feel confused. ??? You have signs of dehydration, such as: ? Dark urine, very little urine, or no urine. ? Cracked lips. ? Dry mouth. ? Sunken eyes. ? Sleepiness. ? Weakness. These symptoms may be an emergency. Get help right away. Call 911. ??? Do not wait to see if the symptoms will go away. ??? Do not drive yourself to the hospital. Summary ??? Nausea is the feeling that you have an upset stomach or that you are about to vomit. As nausea gets worse, it can lead to vomiting. Vomiting can make you feel weak and cause you to become dehydrated. ??? Follow instructions from your health care provider about eating and drinking to prevent dehydration. ??? Take waqg-ppi-lgrgvdo and prescription medicines only as told by your health care provider. ??? Contact your health care provider if your symptoms get worse, or you have new symptoms. ??? Keep all follow-up visits. This is important. This information is not intended to replace advice given to you by your health care provider. Make sure you discuss any questions you have with your health care provider. Document Revised: 05/12/2022 Document Reviewed: 05/12/2022 [employer] Patient Education ? 2024 [employer] Infectious Disease Sinus Infection, Adult A sinus infection, also called sinusitis, is inflammation of your sinuses. Sinuses are hollow spaces in the bones around your face. Your sinuses are located: ??? Around your eyes. ??? In the middle of your forehead. ??? Behind your nose. ??? In your cheekbones. Mucus normally drains out of your sinuses. When your nasal tissues become inflamed or swollen, mucus can become trapped or blocked. This allows bacteria, viruses, and fungi to grow, which leads to infection. Most infections of the sinuses are caused by a virus. A sinus infection can develop quickly. It can last for up to 4 weeks (acute) (more content not included)...[facility]02-27-2025 Note Microbiology PROCEDURE: Strep Screen Culture [R1] SOURCE: Throat BODY SITE: COLLECTED DATE/TIME: 01/13/2025 13:04 EST RECEIVED DATE/TIME: 01/13/2025 17:47 EST START DATE/TIME: 01/13/2025 17:47 EST FREE TEXT SOURCE: Yamile Lacy Elizabeth L FINAL REPORTS Final Report [] Verified Date/Time: 01/15/2025 09:25 EST Streptococcus Group A screen negative Performing Locations R1: This test was performed at: [place], [address] [place] [address], [address] [place] [address], QqgynrKing[facility]Comment on above:Performed By: #### [id number] #### [facility] [address] [place] [address] [id number] NoteMicrobiology PROCEDURE: Strep Screen Culture [R1] SOURCE: Throat BODY SITE: COLLECTED DATE/TIME: 01/13/2025 13:04 EST RECEIVED DATE/TIME: 01/13/2025 17:47 EST START DATE/TIME: 01/13/2025 17:47 EST FREE TEXT SOURCE: Yamile Lacy Elizabeth L FINAL REPORTS Final Report [] Verified Date/Time: 01/15/2025 09:25 EST Streptococcus Group A screen negative Performing Locations R1: This test was performed at: [place], [address] [place] [address], [id number] , [place], IqznlrKing'[facility]Comment on above:Performed By: #### [id number] #### [facility] [address] [place] [address] [id number] Hospital Discharge instructions Patient Education 01/13/2025 12:50:29 Otitis Media, Adult Otitis Media, Adult Otitis media occurs when there is inflammation and fluid in the middle ear with signs and symptoms of an acute infection. The middle ear is a part of the ear that contains bones for hearing as well as air that helps send sounds to the brain. When infected fluid builds up in this space, it causes pressure and can lead to an ear infection. The eustachian tube connects the middle ear to the back of the nose (nasopharynx) and normally allows air into the middle ear. If the eustachian tube becomes blocked, fluid can build up and become infected. What are the causes? This condition is caused by a blockage in the eustachian tube. This can be caused by mucus or by swelling of the tube. Problems that can cause a blockage include: A cold or other upper respiratory infection. Allergies. An irritant, such as tobacco smoke. Enlarged adenoids. The adenoids are areas of soft tissue located high in the back of the throat, behind the nose and the roof of the mouth. They are part of the body's defense system (immune system). A mass in the nasopharynx. Damage to the ear caused by pressure changes (barotrauma). What increases the risk? You are more likely to develop this condition if you: Smoke or are exposed to tobacco smoke. Have an opening in the roof of your mouth (cleft palate). Have gastroesophageal reflux. Have an immune system disorder. What are the signs or symptoms? Symptoms of this condition include: Ear pain. Fever. Decreased hearing. Tiredness (lethargy). Fluid leaking from the ear, if the eardrum is ruptured or has burst. Ringing in the ear. How is this diagnosed? This condition is diagnosed with a physical exam. During the exam, your health care provider will use an instrument called an otoscope to look in your ear and check for redness, swelling, and fluid. He or she will also ask about your symptoms. Your health care provider may also order tests, such as: A pneumatic otoscopy. This is a test to check the movement of the eardrum. It is done by squeezing a small amount of air into the ear. A tympanogram. This is a test that shows how well the eardrum moves in response to air pressure in the ear canal. It provides a graph for your health care provider to review. How is this treated? This condition can go away on its own within 3 5 days. But if the condition is caused by a bacterial infection and does not go away on its own, or if it keeps coming back, your health care provider may: Prescribe antibiotic medicine to treat the infection. Prescribe or recommend medicines to control pain. Follow these instructions at home: Take yups-lor-hgoxnof and prescription medicines only as told by your health care provider. If you were prescribed an antibiotic medicine, take it as told by your health care provider. Do notstop taking the antibiotic even if you start to feel better. Keep all follow-up visits. This is important. Contact a health care provider if: You have bleeding from your nose. There is a lump on your neck. You are not feeling better in 5 days. You feel worse instead of better. Get help right away if: You have severe pain that is not controlled with medicine. You have swelling, redness, or pain around your ear. You have stiffness in your neck. A part of your face is not moving (paralyzed). The bone behind your ear (mastoid bone) is tender when you touch it. You develop a severe headache. Summary Otitis media is redness, soreness, and swelling of the middle ear, usually resulting in pain and decreased hearing. This condition can go away on its own within 3 5 days. If the problem does not go away in 3 5 days, your health care provider may give you medicines to treat the infection. If you were prescribed an antibiotic medicine, take it as told by your health care provider. Follow all instructions that were given to you by your health care provider. This information is not intended to replace advice given to you by your health care provider. Make sure you discuss any questions you have with your health care provider. Document Revised: 02/13/2022 Document Reviewed: 02/13/2022 [employer] Patient Education 2023 [employer]. 01/13/2025 12:50:27 Pharyngitis Pharyngitis Pharyngitis is inflammation of the throat (pharynx). It is a very common cause of sore throat. Pharyngitis can be caused by a bacteria, but it is usually caused by a virus. Most cases of pharyngitis get better on their own without treatment. What are the causes? This condition may be caused by: Infection by viruses (viral). Viral pharyngitis spreads easily from person to person (is contagious) through coughing, sneezing, and sharing of personal items or utensils such as cups, forks, spoons,and toothbrushes. Infection by bacteria (bacterial). Bacterial pharyngitis may be spread by touching the nose or faceafter coming in contact with the bacteria, or through close contact, such as kissing. Allergies. Allergies can cause buildup of mucus in the throat (post-nasal drip), leading to inflammation and irritation. Allergies can also cause blocked nasal passages, forcing breathing through themouth, which dries and irritates the throat. What increases the risk? You are more likely to develop this condition if: You are 5 24 years old. You are exposed to crowded environments such as daycare, school, or dormitory living. You live in a cold climate. You have a weakened disease-fighting (immune) system. What are the signs or symptoms? Symptoms of this condition vary by the cause. Common symptoms of this condition include: Sore throat. Fatigue. Low-grade fever. Stuffy nose (nasal congestion) and cough. Headache. Other symptoms may include: Glands in the neck (lymph nodes) that are swollen. Skin rashes. Plaque-like film on the throat or tonsils. This is often a symptom of bacterial pharyngitis. Vomiting. Red, itchy eyes (conjunctivitis). Loss of appetite. Joint pain and muscle aches. Enlarged tonsils. How is this diagnosed? This condition may be diagnosed based on your medical history and a physical exam. Your health careprovider will ask you questions about your illness and your symptoms. A swab of your throat may be done to check for bacteria (rapid strep test). Other lab tests may also be done, depending on the suspected cause, but these are rare. How is this treated? Many times, treatment is not needed for this condition. Pharyngitis usually gets better in 3 4 dayswithout treatment. Bacterial pharyngitis may be treated with antibiotic medicines. Follow these instructions at home: Medicines Take cnas-yiw-oureqja and prescription medicines only as told by your health care provider. If you were prescribed an antibiotic medicine, take it as told by your health care provider. Do notstop taking the antibiotic even if you start to feel better. Use throat sprays to soothe your throat as told by your health care provider. Children can get pharyngitis. Do not give your child aspirin because of the association with Efren'ssyndrome. Managing pain To help with pain, try: Sipping warm liquids, such as broth, herbal tea, or warm water. Eating or drinking cold or frozen liquids, such as frozen ice pops. Gargling with a mixture of salt and water 3 4 times a day or as needed. To make salt water, completely dissolve 1 tsp (3 6 g) of salt in 1 cup (237 mL) of warm water. Sucking on hard candy or throat lozenges. Putting a cool-mist humidifier in your bedroom at night to moisten the air. Sitting in the bathroom with the door closed for 5 10 minutes while you run hot water in the shower. General instructions Do not use any products that contain nicotine or tobacco. These products include cigarettes, chewing tobacco, and vaping devices, such as e-cigarettes. If you need help quitting, ask your health careprovider. Rest as told by your health care provider. Drink enough fluid to keep your urine pale yellow. How is this prevented? To help prevent becoming infected or spreading infection: Wash your hands often with soap and water for at least 20 seconds. If soap and water are not available, use hand zinc skimmer. Do not touch your eyes, nose, or mouth with unwashed hands, and wash hands after touching these areas. Do not share cups or eating utensils. Avoid close contact with people who are sick. Contact a health care provider if: You have large, tender lumps in your neck. You have a rash. You cough up green, yellow-brown, or bloody mucus. Get help right away if: Your neck becomes stiff. You drool or are unable to swallow liquids. You cannot drink or take medicines without vomiting. You have severe pain that does not go away, even after you take medicine. You have trouble breathing, and it is not caused by a stuffy nose. You have new pain and swelling in your joints such as the knees, ankles, wrists, or elbows. These symptoms may represent a serious problem that is an emergency. Do not wait to see if the symptoms will go away. Get medical help right away. Call your local emergency services (911 in the [place] Do not drive yourself to the hospital. Summary Pharyngitis is redness, pain, and swelling (inflammation) of the throat (pharynx). While pharyngitis can be caused by a bacteria, the most common causes are viral. Most cases of pharyngitis get better on their own without treatment. Bacterial pharyngitis is treated with antibiotic medicines. This information is not intended to replace advice given to you by your health care provider. Make sure you discuss any questions you have with your health care provider. Document Revised: 02/01/2022 Document Reviewed: 02/01/2022 [employer] Patient Education 2023 [employer]. Follow Up Care 01/13/2025 09:10:04 With:Antonio TAM DO, THAI Damico Address: [address] [place] [phone] When: Unknown [facility] 02-25-2025 NotePatient Education ENT Otitis Media, Adult Otitis media occurs when there is inflammation and fluid in the middle ear with signs and symptoms of an acute infection. The middle ear is a part of the ear that contains bones for hearing as well as air that helps send sounds to the brain. When infected fluid builds up in this space, it causes pressure and can lead to an ear infection. The eustachian tube connects the middle ear to the back of the nose (nasopharynx) and normally allows air into the middle ear. If the eustachian tube becomes blocked, fluid can build up and become infected. What are the causes? This condition is caused by a blockage in the eustachian tube. This can be caused by mucus or by swelling of the tube. Problems that can cause a blockage include: ??? A cold or other upper respiratory infection. ??? Allergies. ??? An irritant, such as tobacco smoke. ??? Enlarged adenoids. The adenoids are areas of soft tissue located high in the back of the throat, behind the nose and the roof of the mouth. They are part of the body's defense system (immune system). ??? A mass in the nasopharynx. ??? Damage to the ear caused by pressure changes (barotrauma). What increases the risk? You are more likely to develop this condition if you: ??? Smoke or are exposed to tobacco smoke. ??? Have an opening in the roof of your mouth (cleft palate). ??? Have gastroesophageal reflux. ??? Have an immune system disorder. What are the signs or symptoms? Symptoms of this condition include: ??? Ear pain. ??? Fever. ??? Decreased hearing. ??? Tiredness (lethargy). ??? Fluid leaking from the ear, if the eardrum is ruptured or has burst. ??? Ringing in the ear. How is this diagnosed? This condition is diagnosed with a physical exam. During the exam, your health care provider will use an instrument called an otoscope to look in your ear and check for redness, swelling, and fluid. He or she will also ask about your symptoms. Your health care provider may also order tests, such as: ??? A pneumatic otoscopy. This is a test to check the movement of the eardrum. It is done by squeezing a small amount of air into the ear. ??? A tympanogram. This is a test that shows how well the eardrum moves in response to air pressurein the ear canal. It provides a graph for your health care provider to review. How is this treated? This condition can go away on its own within 3?5 days. But if the condition is caused by a bacterial infection and does not go away on its own, or if it keeps coming back, your health care provider may: ??? Prescribe antibiotic medicine to treat the infection. ??? Prescribe or recommend medicines to control pain. Follow these instructions at home: ??? Take alxx-uaa-twaiaus and prescription medicines only as told by your health care provider. ??? If you were prescribed an antibiotic medicine, take it as told by your health care provider. Donot stop taking the antibiotic even if you start to feel better. ??? Keep all follow-up visits. This is important. Contact a health care provider if: ??? You have bleeding from your nose. ??? There is a lump on your neck. ??? You are not feeling better in 5 days. ??? You feel worse instead of better. Get help right away if: ??? You have severe pain that is not controlled with medicine. ??? You have swelling, redness, or pain around your ear. ??? You have stiffness in your neck. ??? A part of your face is not moving (paralyzed). ??? The bone behind your ear (mastoid bone) is tender when you touch it. ??? You develop a severe headache. Summary ??? Otitis media is redness, soreness, and swelling of the middle ear, usually resulting in pain and decreased hearing. ??? This condition can go away on its own within 3?5 days. ??? If the problem does not go away in 3?5 days, your health care provider may give you medicines to treat the infection. ??? If you were prescribed an antibiotic medicine, take it as told by your health care provider. ??? Follow all instructions that were given to you by your health care provider. This information is not intended to replace advice given to you by your health care provider. Make sure you discuss any questions you have with your health care provider. Document Revised: 02/13/2022 Document Reviewed: 02/13/2022 [employer] Patient Education ? 2023 [employer] Infectious Disease Pharyngitis Pharyngitis is inflammation of the throat (pharynx). It is a very common cause of sore throat. Pharyngitis can be caused by a bacteria, but it is usually caused by a virus. Most cases of pharyngitis get better on their own without treatment. What are the causes? This condition may be caused by: ??? Infection by viruses (viral). Viral pharyngitis spreads easily from person to person (is contagious) through coughing, sneezing, and sharing of (more content not included)...[facility] [place]02-17-2025 History of Present illness Narrative* Osito Billy MD - 01/05/2025 9:00 AM EST Subjective Patient ID: Sonia oMtley is a 34 y.o. female who presents for Pharyngoesophageal dysphagia (Follow up swallow study [facility] [place] 10/30/25) No definitive abnormality noted on MBS. Speech tx recommended alternating small bites with thin liquids. Speech tx not recommended. Pt states she is still having some issue, but is improved. Family History Problem Relation Name Age of Onset Depression Mother Diabetes Mother Hyperlipidemia Mother Hypertension Mother Migraines Mother Other (metastatic cancer) Mother Cancer Father Hypertension Father Heart attack Father Other (internal bleeding) Father Breast cancer Mother's Sister Mental illness Other Active Ambulatory Problems Diagnosis Date Noted Carpal tunnel syndrome 03/09/2024 Carpal tunnel syndrome on both sides 03/09/2024 Fibromyalgia 03/09/2024 Chronic migraine without aura without status migrainosus, not intractable (CMS/HCC) 03/09/2024 New daily persistent headache 03/09/2024 Paresthesia of foot, bilateral 03/09/2024 Ataxia 03/09/2024 Bipolar 1 disorder (CMS/HCC) 09/28/2020 Depression (CMS/HCC) 10/15/2024 GERD (gastroesophageal reflux disease) 10/15/2024 IBS (irritable bowel syndrome) 10/15/2024 Infectious disease carrier 12/12/2015 Obesity with body mass index 30 or greater 10/15/2024 Anxiety disorder 09/28/2020 Panic attack due to exceptional stress (CMS/HCC) 09/28/2020 Primary hypertension (CMS/HCC) 07/20/2023 Rectal bleeding 10/15/2024 Schizophrenia (CMS/HCC) 09/28/2020 Suicidal ideation 10/15/2024 TMJ (dislocation of temporomandibular joint) 10/15/2024 Trauma 09/28/2020 Bronchitis 01/05/2025 Migraines (CMS/HCC) 01/05/2025 Resolved Ambulatory Problems Diagnosis Date Noted No Resolved Ambulatory Problems Past Medical History: Diagnosis Date Carpal tunnel syndrome, bilateral Migraine (CMS/HCC) Past Surgical History: Procedure Laterality Date CARPAL TUNNEL RELEASE Bilateral SECTION, LOW TRANSVERSE Allergies Allergen Reactions Nubain [Nalbuphine] Prednisone Current Outpatient Medications on File Prior to Visit Medication Sig Dispense Refill acetaminophen (Tylenol) 325 MG tablet Take 650 mg by mouth every 6 (six) hours if needed alosetron (Lotronex) 0.5 MG tablet Take 0.5 mg by mouth aluminum chloride (Drysol) 20 % external solution Apply to arm pits. Do not apply to broken or freshly shaven skin. 30 day supply 60 mL 11 amitriptyline (Elavil) 50 MG tablet TAKE 1 TABLET BY MOUTH AT BEDTIME 30 tablet 1 betamethasone dipropionate 0.05 % cream Apply to affected areas, up to twice a day when flared, do not use one the face, groin, or underarms, 30 day supply 45 g 11 rctooibdlf-nwpzeuwirxfaq-bvuiirbs 50-325-40 MG tablet Take 1 tablet by mouth every 6 (six) hours ifneeded for migraine dicyclomine (Bentyl) 20 MG tablet Take 1 tablet by mouth in the morning and 1 tablet in the eveningand 1 tablet before bedtime. famotidine (Pepcid) 40 MG tablet Take 40 mg by mouth in the morning and 40 mg before bedtime. fluticasone (Flonase) 50 MCG/ACT nasal spray Administer 2 sprays into each nostril Daily glycopyrrolate (Robinul) 1 MG tablet Take 1 tablet (1 mg) by mouth Daily 30 tablet 11 glycopyrrolate (Robinul) 2 MG tablet Take 1 tablet (2 mg) by mouth in the morning and 1 tablet (2 mg) before bedtime. 60 tablet 3 levonorgestrel-ethinyl estradiol triphasic (TriVora,Enpresse) 50-30/75-40/ 125- 30 MCG per tablet Take 1 tablet by mouth Daily 84 tablet 4 naratriptan (Amerge) 2.5 MG tablet Take 1 tablet by mouth as needed at the onset of migraine. May repeat dose (1 tablet) once after 4 hours if migraine persists. Take NO more than 2 doses in 24 hours. 9 tablet 2 omeprazole (PriLOSEC) [address] capsule Take 40 mg by mouth in the morning. Take before meals. ondansetron ODT (Zofran-ODT) 4 MG disintegrating tablet Take 4 mg by mouth Daily as needed for nausea or vomiting pregabalin (Lyrica) 150 MG capsule Take 150 mg by mouth in the morning and 150 mg before bedtime. pseudoephedrine (Sudafed) 30 MG tablet Take 30 mg by mouth every 6 (six) hours if needed for congestion 2 tablets spironolactone (Aldactone) 50 MG tablet Take 1 tablet (50 mg) by mouth Daily 30 tablet 3 [DISCONTINUED] Misc Natural Products (FIBER 7 PO) Take by mouth No current facility-administered medications on file prior to visit. Objective Last Recorded Vitals Vitals: 01/05/25 0859 BP: (!) 129/94 Pulse: 101 ENT Physical Exam Constitutional Appearance: patient appears well-developed, well-nourished and well-groomed, Communication/Voice: communication appropriate for developmental age; vocal quality normal; Assessment/Plan Diagnoses and all orders for this visit: Pharyngoesophageal dysphagia MBS reviewed with pt. Continue speech recommendations. As improving will hold further eval. [id number] Discharge instructions Patient Education 12/20/2024 12:58:02 Migraine Headache Migraine Headache A migraine headache is an intense pulsing or throbbing pain on one or both sides of the head. Migraine headaches may also cause other symptoms, such as nausea, vomiting, and sensitivity to light and noise. A migraine headache can last from 4 hours to 3 days. Talk with your health care provider about what things may bring on (trigger) your migraine headaches. What are the causes? The exact cause is not known. However, a migraine may be caused when nerves in the brain get irritated and release chemicals that cause blood vessels to become inflamed. This inflammation causes pain. Migraines may be triggered or caused by: Smoking. Medicines, such as: ?Nitroglycerin, which is used to treat chest pain. ? control pills. ?Estrogen. ?Certain blood pressure medicines. Foods or drinks that contain nitrates, glutamate, aspartame, MSG, or tyramine. Certain foods or drinks, such as aged cheeses, chocolate, alcohol, or caffeine. Doing physical activity that is very hard. Other triggers may include: Menstruation. . Hunger. Stress. Getting too much or too little sleep. Weather changes. Tiredness (fatigue). What increases the risk? The following factors may make you more likely to have migraine headaches: Being between the ages of 25-55 years old. Being female. Having a family history of migraine headaches. Being . Having a mental health condition, such as depression or anxiety. Being obese. What are the signs or symptoms? The main symptom of this condition is pulsing or throbbing pain. This pain may: Happen in any area of the head, such as on one or both sides. Make it hard to do daily activities. Get worse with physical activity. Get worse around bright lights, loud noises, or smells. Other symptoms may include: Nausea. Vomiting. Dizziness. Before a migraine headache starts, you may get warning signs (an aura). An aura may include: Seeing flashing lights or having blind spots. Seeing bright spots, halos, or zigzag lines. Having tunnel vision or blurred vision. Having numbness or a tingling feeling. Having trouble talking. Having muscle weakness. After a migraine ends, you may have symptoms. These may include: Feeling tired. Trouble concentrating. How is this diagnosed? A migraine headache can be diagnosed based on: Your symptoms. A physical exam. Tests, such as: ?A CT scan or an MRI of the head. These tests can help rule out other causes of headaches. ?Taking fluid from the spine (lumbar puncture) to examine it (cerebrospinal fluid analysis, or CSF analysis). How is this treated? This condition may be treated with medicines that: Relieve pain and nausea. Prevent migraines. Treatment may also include: Acupuncture. Lifestyle changes like avoiding foods that trigger migraine headaches. Learning ways to control your body (biofeedback). Talk therapy to help you know and deal with negative thoughts (cognitive behavioral therapy). Follow these instructions at home: Medicines Take rmmk-qls-enhudyn and prescription medicines only as told by your provider. Ask your provider if the medicine prescribed to you: ?Requires you to avoid driving or using machinery. ?Can cause constipation. You may need to take these actions to prevent or treat constipation: ?Drink enough fluid to keep your pee (urine) pale yellow. ?Take rsma-hbw-tgpkvqk or prescription medicines. ?Eat foods that are high in fiber, such as beans, whole grains, and fresh fruits and vegetables. ?Limit foods that are high in fat and processed sugars, such as fried or sweet foods. Lifestyle Do not drink alcohol. Do not use any products that contain nicotine or tobacco. These products include cigarettes, chewing tobacco, and vaping devices, such as e-cigarettes. If you need help quitting, ask your provider. Get 7 9 hours of sleep each night, or the amount recommended by your provider. Find ways to manage stress, such as meditation, deep breathing, or yoga. Try to exercise regularly. This can help lessen how bad and how often your migraines occur. General instructions Keep a journal to find out what triggers your migraines, so you can avoid those things. For example, write down: ?What you eat and drink. ?How much sleep you get. ?Any change to your diet or medicines. If you have a migraine headache: ?Avoid things that make your symptoms worse, such as bright lights. ?Lie down in a dark, quiet room. ?Do not drive or use machinery. ?Ask your provider what activities are safe for you while you have symptoms. Keep all follow-up visits. Your provider will monitor your symptoms and recommend any further treatment. Where to find more information Coalition for Headache and Migraine Patients (CHAMP): headachemigraine.org [place] [employer]: americanmigrainefoundation.org National Headache Foundation: headaches.org Contact a health care provider if: You have symptoms that are different or worse than your usual migraine headache symptoms. You have more than 15 days of headaches in one month. Get help right away if: Your migraine headache becomes severe or lasts more than 72 hours. You have a fever or stiff neck. You have vision loss. Your muscles feel weak or like you cannot control them. You lose your balance often or have trouble walking. You faint. You have a seizure. This information is not intended to replace advice given to you by your health care provider. Make sure you discuss any questions you have with your health care provider. Document Revised: 07/02/2023 Document Reviewed: 07/02/2023 [employer] Patient Education 2023 [employer] 12/20/2024 12:58:00 Acute Bronchitis, Adult Acute Bronchitis, Adult Acute bronchitis is sudden inflammation of the main airways (bronchi) that come off the windpipe (trachea) in the lungs. The swelling causes the airways to get smaller and make more mucus than normal. This can make it hard to breathe and can cause coughing or noisy breathing (wheezing). Acute bronchitis may last several weeks. The cough may last longer. Allergies, asthma, and exposureto smoke may make the condition worse. What are the causes? This condition can be caused by germs and by substances that irritate the lungs, including: Cold and flu viruses. The most common cause of this condition is the virus that causes the common cold. Bacteria. This is less common. Breathing in substances that irritate the lungs, including: ?Smoke from cigarettes and other forms of tobacco. ?Dust and pollen. ?Fumes from household cleaning products, gases, or burned fuel. ?Indoor or outdoor air pollution. What increases the risk? The following factors may make you more likely to develop this condition: A weak body's defense system, also called the immune system. A condition that affects your lungs and breathing, such as asthma. What are the signs or symptoms? Common symptoms of this condition include: Coughing. This may bring up clear, yellow, or green mucus from your lungs (sputum). Wheezing. Runny or stuffy nose. Having too much mucus in your lungs (chest congestion). Shortness of breath. Aches and pains, including sore throat or chest. How is this diagnosed? This condition is usually diagnosed based on: Your symptoms and medical history. A physical exam. You may also have other tests, including tests to rule out other conditions, such as pneumonia. These tests include: A test of lung function. Test of a mucus sample to look for the presence of bacteria. Tests to check the oxygen level in your blood. Blood tests. Chest X-ray. How is this treated? Most cases of acute bronchitis clear up over time without treatment. Your health care provider may recommend: Drinking more fluids to help thin your mucus so it is easier to cough up. Taking inhaled medicine (inhaler) to improve air flow in and out of your lungs. Using a vaporizer or a humidifier. These are machines that add water to the air to help you breathebetter. Taking a medicine that thins mucus and clears congestion (expectorant). Taking a medicine that prevents or stops coughing (cough suppressant). It is not common to take an antibiotic medicine for this condition. Follow these instructions at home: Take pdhp-fxt-avlnrlk and prescription medicines only as told by your health care provider. Use an inhaler, vaporizer, or humidifier as told by your health care provider. Take two teaspoons (10 mL) of honey at bedtime to lessen coughing at night. Drink enough fluid to keep your urine pale yellow. Do not use any products that contain nicotine or tobacco. These products include cigarettes, chewing tobacco, and vaping devices, such as e-cigarettes. If you need help quitting, ask your health careprovider. Get plenty of rest. Return to your normal activities as told by your health care provider. Ask your health care provider what activities are safe for you. Keep all follow-up visits. This is important. How is this prevented? To lower your risk of getting this condition again: Wash your hands often with soap and water for at least 20 seconds. If soap and water are not available, use hand zinc skimmer. Avoid contact with people who have cold symptoms. Try not to touch your mouth, nose, or eyes with your hands. Avoid breathing in smoke or chemical fumes. Breathing smoke or chemical fumes will make your condition worse. Get the flu shot every year. Contact a health care provider if: Your symptoms do not improve after 2 weeks. You have trouble coughing up the mucus. Your cough keeps you awake at night. You have a fever. Get help right away if you: Cough up blood. Feel pain in your chest. Have severe shortness of breath. Faint or keep feeling like you are going to faint. Have a severe headache. Have a fever or chills that get worse. These symptoms may represent a serious problem that is an emergency. Do not wait to see if the symptoms will go away. Get medical help right away. Call your local emergency services (911 in the [place] Do not drive yourself to the hospital. Summary Acute bronchitis is inflammation of the main airways (bronchi) that come off the windpipe (trachea)in the lungs. The swelling causes the airways to get smaller and make more mucus than normal. Drinking more fluids can help thin your mucus so it is easier to cough up. Take hgwu-uzy-wonzfwa and prescription medicines only as told by your health care provider. Do not use any products that contain nicotine or tobacco. These products include cigarettes, chewing tobacco, and vaping devices, such as e-cigarettes. If you need help quitting, ask your health careprovider. Contact a health care provider if your symptoms do not improve after 2 weeks. This information is not intended to replace advice given to you by your health care provider. Make sure you discuss any questions you have with your health care provider. Document Revised: 02/15/2023 Document Reviewed: 03/08/2022 [employer] Patient Education 2023 [employer]. 12/20/2024 12:57:58 Influenza, Adult Influenza, Adult Influenza, also called the flu, is a viral infection that mainly affects the respiratory tract. This includes the lungs, nose, and throat. The flu spreads easily from person to person (is contagious). It causes common cold symptoms, along with high fever and body aches. What are the causes? This condition is caused by the influenza virus. You can get the virus by: Breathing in droplets that are in the air from an infected person's cough or sneeze. Touching something that has the virus on it (has been contaminated) and then touching your mouth, nose, or eyes. What increases the risk? The following factors may make you more likely to get the flu: Not washing or sanitizing your hands often. Having close contact with many people during cold and flu season. Touching your mouth, eyes, or nose without first washing or sanitizing your hands. Not getting an annual flu shot. You may have a higher risk for the flu, including serious problems, such as a lung infection (pneumonia), if you: Are older than 65. Are . Have a weakened disease-fighting system (immune system). This includes people who have HIV or AIDS,are on chemotherapy, or are taking medicines that reduce (suppress) the immune system. Have a long-term (chronic) illness, such as heart disease, kidney disease, diabetes, or lung disease. Have a liver disorder. Are severely overweight (morbidly obese). Have anemia. Have asthma. What are the signs or symptoms? Symptoms of this condition usually begin suddenly and last 4 14 days. These may include: Fever and chills. Headaches, body aches, or muscle aches. Sore throat. Cough. Runny or stuffy (congested) nose. Chest discomfort. Poor appetite. Weakness or fatigue. Dizziness. Nausea or vomiting. How is this diagnosed? This condition may be diagnosed based on: Your symptoms and medical history. A physical exam. Swabbing your nose or throat and testing the fluid for the influenza virus. How is this treated? If the flu is diagnosed early, you can be treated with antiviral medicine that is given by mouth (orally) or through an IV. This can help reduce how severe the illness is and how long it lasts. Taking care of yourself at home can help relieve symptoms. Your health care provider may recommend: Taking vxiv-uwd-ofmymdg medicines. Drinking plenty of fluids. In many cases, the flu goes away on its own. If you have severe symptoms or complications, you may be treated in a hospital. Follow these instructions at home: Activity Rest as needed and get plenty of sleep. Stay home from work or school as told by your health care provider. Unless you are visiting your health care provider, avoid leaving home until your fever has been gone for 24 hours without taking medicine. Eating and drinking Take an oral rehydration solution (ORS). This is a drink that is sold at pharmacies and retail stores. Drink enough fluid to keep your urine pale yellow. Drink clear fluids in small amounts as you are able. Clear fluids include water, ice chips, fruit juice mixed with water, and low-calorie sports drinks. Eat bland, zxce-qa-vsdmgt foods in small amounts as you are able. These foods include bananas, applesauce, rice, lean meats, toast, and crackers. Avoid drinking fluids that contain a lot of sugar or caffeine, such as energy drinks, regular sports drinks, and soda. Avoid alcohol. Avoid spicy or fatty foods. General instructions Take qaxp-jsf-cffszhy and prescription medicines only as told by your health care provider. Use a cool mist humidifier to add humidity to the air in your home. This can make it easier to breathe. ?When using a cool mist humidifier, clean it daily. Empty the water and replace it with clean water. Cover your mouth and nose when you cough or sneeze. Wash your hands with soap and water often and for at least 20 seconds, especially after you cough or sneeze. If soap and water are not available, use alcohol-based hand zinc skimmer. Keep all follow-up visits. This is important. How is this prevented? Get an annual flu shot. This is usually available in late summer, fall, or winter. Ask your health care provider when you should get your flu shot. Avoid contact with people who are sick during cold and flu season. This is generally fall and winter. Contact a health care provider if: You develop new symptoms. You have: ?Chest pain. ?Diarrhea. ?A fever. Your cough gets worse. You produce more mucus. You feel nauseous or you vomit. Get help right away if you: Develop shortness of breath or have difficulty breathing. Have skin or nails that turn a bluish color. Have severe pain or stiffness in your neck. Develop a sudden headache or sudden pain in your face or ear. Cannot eat or drink without vomiting. These symptoms may represent a serious problem that is an emergency. Do not wait to see if the symptoms will go away. Get medical help right away. Call your local emergency services (911 in the [place] Do not drive yourself to the hospital. Summary Influenza, also called the flu, is a viral infection that primarily affects your respiratory tract. Symptoms of the flu usually begin suddenly and last 4 14 days. Getting an annual flu shot is the best way to prevent getting the flu. Stay home from work or school as told by your health care provider. Unless you are visiting your health care provider, avoid leaving home until your fever has been gone for 24 hours without taking medicine. Keep all follow-up visits. This is important. This information is not intended to replace advice given to you by your health care provider. Make sure you discuss any questions you have with your health care provider. Document Revised: 06/24/2021 Document Reviewed: 06/24/2021 [employer] Patient Education 2022 [employer]. Follow Up Care 12/20/2024 09:07:40 With:YOUR PCP Address: When: Unknown [facility] 02-01-2025 NotePatient Education Infectious Disease Influenza, Adult Influenza, also called the flu, is a viral infection that mainly affects the respiratory tract. This includes the lungs, nose, and throat. The flu spreads easily from person to person (is contagious). It causes common cold symptoms, along with high fever and body aches. What are the causes? This condition is caused by the influenza virus. You can get the virus by: ??? Breathing in droplets that are in the air from an infected person's cough or sneeze. ??? Touching something that has the virus on it (has been contaminated) and then touching your mouth, nose, or eyes. What increases the risk? The following factors may make you more likely to get the flu: ??? Not washing or sanitizing your hands often. ??? Having close contact with many people during cold and flu season. ??? Touching your mouth, eyes, or nose without first washing or sanitizing your hands. ??? Not getting an annual flu shot. You may have a higher risk for the flu, including serious problems, such as a lung infection (pneumonia), if you: ??? Are older than 65. ??? Are . ??? Have a weakened disease-fighting system (immune system). This includes people who have HIV or AIDS, are on chemotherapy, or are taking medicines that reduce (suppress) the immune system. ??? Have a long-term (chronic) illness, such as heart disease, kidney disease, diabetes, or lung disease. ??? Have a liver disorder. ??? Are severely overweight (morbidly obese). ??? Have anemia. ??? Have asthma. What are the signs or symptoms? Symptoms of this condition usually begin suddenly and last 4?14 days. These may include: ??? Fever and chills. ??? Headaches, body aches, or muscle aches. ??? Sore throat. ??? Cough. ??? Runny or stuffy (congested) nose. ??? Chest discomfort. ??? Poor appetite. ??? Weakness or fatigue. ??? Dizziness. ??? Nausea or vomiting. How is this diagnosed? This condition may be diagnosed based on: ??? Your symptoms and medical history. ??? A physical exam. ??? Swabbing your nose or throat and testing the fluid for the influenza virus. How is this treated? If the flu is diagnosed early, you can be treated with antiviral medicine that is given by mouth (orally) or through an IV. This can help reduce how severe the illness is and how long it lasts. Taking care of yourself at home can help relieve symptoms. Your health care provider may recommend: ??? Taking cwzc-fco-afqnbdd medicines. ??? Drinking plenty of fluids. In many cases, the flu goes away on its own. If you have severe symptoms or complications, you may be treated in a hospital. Follow these instructions at home: Activity ??? Rest as needed and get plenty of sleep. ??? Stay home from work or school as told by your health care provider. Unless you are visiting your health care provider, avoid leaving home until your fever has been gone for 24 hours without taking medicine. Eating and drinking ??? Take an oral rehydration solution (ORS). This is a drink that is sold at pharmacies and retail stores. ??? Drink enough fluid to keep your urine pale yellow. ??? Drink clear fluids in small amounts as you are able. Clear fluids include water, ice chips, fruit juice mixed with water, and low-calorie sports drinks. ??? Eat bland, ural-jt-mxojmx foods in small amounts as you are able. These foods include bananas, applesauce, rice, lean meats, toast, and crackers. ??? Avoid drinking fluids that contain a lot of sugar or caffeine, such as energy drinks, regular sports drinks, and soda. ??? Avoid alcohol. ??? Avoid spicy or fatty foods. General instructions ??? Take csgi-tbu-gfyqwkx and prescription medicines only as told by your health care provider. ??? Use a cool mist humidifier to add humidity to the air in your home. This can make it easier to breathe. ? When using a cool mist humidifier, clean it daily. Empty the water and replace it with clean water. ??? Cover your mouth and nose when you cough or sneeze. ??? Wash your hands with soap and water often and for at least 20 seconds, especially after you cough or sneeze. If soap and water are not available, use alcohol-based hand zinc skimmer. ??? Keep all follow-up visits. This is important. How is this prevented? Get an annual flu shot. This is usually available in late summer, fall, or winter. Ask your health care provider when you should get your flu shot. ??? Avoid contact with people who are sick during cold and flu season. This is generally fall and winter. Contact a health care provider if: ??? You develop new symptoms. ??? You have: ? Chest pain. ? Diarrhea. ? A fever. ??? Your cough gets worse. ??? You produce more mucus. ??? You feel nauseous or you vomit. Get help right away if you: ??? Develop shortness of breath or have diffi (more content not included)... [facility] [place]01-02-2025 History of Present illness Narrative* GIANA Abreu - 11/20/2024 2:50 PM EST Follow up Diagnosis: Hyperhidrosis Location: generalized Last visit: 08/29/2024 Symptoms: none Status: a lot better, not at treatment goal yet Treatments tried and failed: none Current treatment: Drysol 20% and Glycopyrrolate 2 mg once a day Follow up Diagnosis: Hirsutism Location: face Last visit: 08/29/2024 Symptoms: nonne Status: improved Treatments tried and failed: None Current treatment: Spironolactone 50mg Other Problem: dry cracked Location: hands Duration: months Current treatment: Moisturizers All pertinent medical history, medications, and allergies were reviewed. General Exam: alert, oriented to person, place, and time, normal affect, well appearing Unaccompanied A focused exam completed based on patient reported problems, see below: 1. Other atopic dermatitis Left Hand - Anterior, Right Hand - Anterior Scaly erythematous plaques +/- dyspigmentation, lichenification, excoriations. Flaring today Discussed that atopic dermatitis is a chronic condition that can be controlled but not cured. StartBetamethasone cream bid prn when flared, hold if smooth/asymptomatic. Encouraged daily moisturizingand gentle cleansers to prevent flares. May wear gloves when washing dishes and at nighttime to help. Notify office if flaring despite treatment. Related Medications betamethasone dipropionate 0.05 % cream Apply to affected areas, up to twice a day when flared, do not use one the face, groin, or underarms, 30 day supply 2. Hirsutism Head - Anterior (Face) Excessive hair growth on the face. Improved from last visit Continue current treatment plan at this time with spironolactone 50 mg Related Medications spironolactone (Aldactone) 50 MG tablet Take 1 tablet (50 mg) by mouth Daily 3. Primary focal hyperhidrosis Excess sweating noted in the axillae/generalized. HDSS score 3. Improving with treatment. Patient tolerating 2 mg per day of glycopyrrolate. Will increase to 4 mg as patient is not quite ather treatment goal. Patient can decrease dose if she becomes too dry. glycopyrrolate (Robinul) 2 MG tablet Take 1 tablet (2 mg) by mouth in the morning and 1 tablet (2 mg) before bedtime. Related Medications glycopyrrolate (Robinul) 1 MG tablet Take 1 tablet (1 mg) by mouth Daily glycopyrrolate (Robinul-Forte) 2 MG tablet Take 1 tablet (2 mg) by mouth Daily aluminum chloride (Drysol) 20 % external solution Apply to arm pits. Do not apply to broken or freshly shaven skin. 30 day supply Next Visit: 3 months documented [facility] [id number] Evaluation + Plan note Extracted from: Title:Pain Managment Follow up Author:Lyn Batista Date:10/14/24 Impression and Plan Patient is a 34-year-old female with a past medical history significant for fibromyalgia. At this time, she is doing fairly well on the Lyrica at 150 mg twice daily. She does not want to increase it at this time as she states that it makes her a little bit tired when she first switches the dose and she does not have the support at home right now to be tired. She feels that things are overall fairly well-controlled and at this time, she is doing well and she overall feels that things are stable. She does not want to make any changes. She is going to follow-up in 6 months. She will continue on the medication. OARRS was reviewed. Refill sent to the pharmacy. She will call us in the interim should she require anything from our services. MARY score: 26%. [facility] [id number] NoteConsultation Note Patient: SONIA MOTLEY Age: 34 years Sex: Female : 1990 Associated Diagnoses: None Author: Lyn Limon PA-C Subjective Chief complaint 10/14/2024 11:07 EST General body pain . Patient is a 33-year-old female. She presents today with her young son. She has a past medical history significant for fibromyalgia and she is using Lyrica. 150 mg twice daily. She feels that this has helped her. Is not perfect but it is better than before. She tolerates it. She states that the first few days when she switches doses makes her very tired but this has gotten better. She states thatright now, she does not have the support at home so she does not want to continue to increase it. She rates her pain a 5/10. She tracey multiple areas on her visual analog scale including her head, neck, lower back, arms, and legs. She states that this is not perfect but this is the best she has felt in a long time. Health Status Allergies: Allergic Reactions (Selected) Severity Not Documented Nubain- Shortness of breath and rash. PredniSONE- Hives., Allergies (2) Active Severity Reaction Nubain rash, shortness of breath predniSONE Hives Current medications: (Selected) Prescriptions Prescribed Naprosyn 500 mg Tab: 500 mg = 1 tab(s), Oral, BID, PRN for pain, # 20 tab(s), Refills(s) 0, Pharmacy: [facility]/pharmacy #[id number], 157.5, cm, 09/01/24 10:51:00 EDT, Height/Length Dosing, 106.8, kg, 09/01/24 10:51:00 EDT, Weight Dosing hydrOXYzine hydrochloride 25 mg Tab: 25 mg = 1 tab(s), Oral, QID, PRN for itching, # 40 tab(s), Refills(s) 0, Pharmacy: [facility]/pharmacy #[id number], 157, cm, 06/25/24 2:31:00 EDT, Height/Length Dosing, 105.1,kg, 06/25/24 2:31:00 EDT, Weight Dosing pregabalin 100 mg Cap: 100 mg = 1 cap(s), Oral, BID, # 60 cap(s), Refills(s) 1, Pharmacy: [facility]/pharmacy #[id number], 158, cm, 05/26/24 10:21:00 EDT, Height/Length Dosing, 105.9, kg, 05/26/24 10:21:00 EDT, Weight Dosing pregabalin 150 mg Cap: 150 mg = 1 cap(s), Oral, BID, X 90 day(s), # 180 cap(s), Refills(s) 1, Pharmacy: [facility]/pharmacy #[id number], 157.5, cm, 10/14/24 11:14:00 EST, Height/Length Dosing, 108, kg, 10/14/24 11:14:00 EST, Weight Dosing Documented Medications Documented Aurovela Fe 12/08 oral tablet: 1 tab(s), Oral, Daily, Refill(s) 0 alosetron 0.5 mg oral tablet: 0.5 mg = 1 tab(s), Oral, Daily, # 30 tab(s), Refills(s) 0 amitriptyline 25 mg Tab: 25 mg = 1 tab(s), Oral, Once a day (at bedtime), Refills(s) 0 dicyclomine 20 mg Tab: 20 mg = 1 tab(s), Oral, TID, Refills(s) 0 famotidine 40 mg Tab: 40 mg = 1 tab(s), Oral, Once a day (at bedtime), # 30 tab(s), Refills(s) 0 fluticasone Nasal 0.05 mg/inh [place]: 2 spray(s), Nasal, Daily, 16 gram, Refill(s) 0, each nostril ibuprofen 600 mg Tab: 600 mg = 1 tab(s), Oral, q8hr lisinopril 20 mg Tab: 20 mg = 1 tab(s), Oral, Daily, # 30 tab(s), Refills(s) 0 omeprazole 40 mg Cap-DR: 40 mg = 1 cap(s), Oral, BID, Refills(s) 0 ondansetron 4 mg Dis Tab: 4 mg = 1 tab(s), Oral, TID, Refills(s) 0 Problem list: All Problems ESBL E. coli carrier / SNOMED CT 517934909 / Confirmed ESBL E coli in cervical culture 12/12/15 BMI 30+ - obesity / SNOMED CT 7101888426 / Confirmed BMI 30+ - obesity / SNOMED CT 7541036616 / Confirmed BMI 30+ - obesity / SNOMED CT 8836508382 / Confirmed Obesity / SNOMED CT 9228334074 / Confirmed Hypertension / SNOMED CT 3616281686 / Confirmed TMJ (dislocation of temporomandibular joint) / SNOMED CT 792628491 / Confirmed Obesity / SNOMED CT [id number] / Possible Inactive: Pericarditis / SNOMED CT 1420968 2020 Resolved: / SNOMED CT 536065591 Resolved: / SNOMED CT 755231535 Resolved: / SNOMED CT 817810975 Resolved: / SNOMED CT 938715233 Resolved: Anxiety depression / SNOMED CT 167657599 Canceled: Bipolar / SNOMED CT 081484048 Canceled: Schizophrenia / SNOMED CT 91474276 Canceled: Depression / SNOMED CT 908953254 Canceled: anxiety disorder Canceled: panic attacks Canceled: Missed miscarriage / SNOMED CT 3184190686 Canceled: Obesity complicating , first trimester / SNOMED CT 0548700633 Canceled: Supervision of high risk in first trimester / SNOMED CT 49805536 Canceled: Hx of intrauterine growth restriction in prior , currently / SNOMED CT 549775926 Canceled: Supervision of high risk in second trimester / SNOMED CT 96485975 Canceled: Obesity complicating , second trimester / SNOMED CT 8720134968 Canceled: Sinus arrhythmia seen on electrocardiogram / SNOMED CT 5209944071 Canceled: Supervision of high risk in third trimester / SNOMED CT 38884961 Canceled: Obesity complicating , third trimester / SNOMED CT 7580120733 Canceled: Previous section complicating , antepartum condition or complication / SNOMED CT 619158614 Objective Vital Signs 10/14/2024 11:07 EST Peripheral Pulse Rate 100 bpm Re (more content not included)...[facility] [place]: Result Comment: Electronically Signed By: Lyn Limon PA-C\.br\Date and Time Signed: 10/14/24 11:28 [id number] Evaluation note* Diagnosis Onset Date Resolution Status Admit Date GERD (gastroesophageal reflux disease) acute October 13, 2 024 10:14am Rectal bleeding acute October 13, 2024 10:14am IBS (irritable bowel syndrome) chronic October 13 024 10:14am Dyspepsia acute December 29, 2024 10:18am GERD (gastroesophageal reflux disease) acute December 29, 025 10:18am IBS (irritable bowel syndrome) chronic December 29 10:18am [facility] Work Phone: [phone] 239-574111-21-2024 History of Present illness Narrative* Holley Barahona, [employer] OPERATOR - 10/09/2024 1:20 PM EST Images from the original note were not included. Chief Complaint Patient presents with Migraine Subjective Sonia Motley is a 34 y.o. female. History of Present Illness The patient presents today for follow-up for migraines. She is having approximately 3 migraines perweek. She believes the frequency may have increased due to increased stress in her life recently. The patient's migraines are accompanied by nausea and increased sensitivity to light and sound. They are not accompanied by vomiting, numbness, paresthesias, or weakness. At the prior appointment, naratriptan was prescribed. The patient states naratriptan will effectively abort her migraines or reduce them to the point where they are, barely there. She denies any adverse effects to the medication. She states sleep also helps her migraines. The patient states she is pleased with the current regimen of amitriptyline and naratriptan. She denies any recent numbness, pain, paresthesias, or weakness in her hands/wrists. She denies any further new concerns. The patient denies history of cardiac disease, poorly controlled hypertension, cardiac arrhythmia, heart attack, transient ischemic attack, or stroke. Review of Systems Constitutional: Negative for appetite change, chills, fatigue, fever and unexpected weight change. HENT: Negative for trouble swallowing and voice change. Eyes: Denies visual change, double vision, or loss of vision Respiratory: Negative for cough, shortness of breath and wheezing. Cardiovascular: Negative for chest pain and palpitations. Gastrointestinal: Positive for nausea. Negative for abdominal pain and blood in stool. Musculoskeletal: Negative for arthralgias, gait problem and myalgias. Neurological: Positive for numbness and headaches (accompanied by photophobia, phonophobia, and nausea). Negative for dizziness, tremors, seizures, syncope, facial asymmetry, speech difficulty, weakness and light-headedness. Positive for intermittent numbness/tingling in the bilateral feet Psychiatric/Behavioral: Negative for confusion, hallucinations and suicidal ideas. The patient is not nervous/anxious. Past Medical History: Diagnosis Date Carpal tunnel syndrome, bilateral Fibromyalgia IBS (irritable bowel syndrome) Migraine (CMS/HCC) Past Surgical History: Procedure Laterality Date CARPAL TUNNEL RELEASE Bilateral SECTION, LOW TRANSVERSE Family History Problem Relation Name Age of Onset Depression Mother Diabetes Mother Hyperlipidemia Mother Hypertension Mother Migraines Mother Other (metastatic cancer) Mother Cancer Father Hypertension Father Heart attack Father Other (internal bleeding) Father Breast cancer Mother's Sister Mental illness Other Social History Tobacco Use Smoking status: Never Smokeless tobacco: Never Substance Use Topics Alcohol use: Never Allergies: Nubain [nalbuphine] and Prednisone Vitals: 10/09/24 1317 BP: 121/86 Pulse: 92 SpO2: 97% Body mass index is 43.53 kg/m . weight: 238 lb Neurologic exam: Mental status and general appearance: Awake and alert with unlabored respirations. Oriented to person, place, and time. Recent and remotememory are intact. Speech is clear and fluent without aphasia. Speech is non-dysarthric. Attention and concentration are normal. Fund of knowledge is appropriate for level of education. Obese. Pleasant. Cranial nerves: CN II: Visual acuity is normal. Visual sparrow full to confrontation. CN III, IV, : Pupils are equal, round, and reactive to light. Extraocular movements intact. No ptosis present. CN V: Facial sensation is normal. CN VII: Full and symmetric facial movement. CN VIII: Hearing is normal to finger rub bilaterally. CN IX and X: Palate elevates symmetrically. CN XI: Shoulder shrug is normal bilaterally. CN XII: Tongue is midline without atrophy or fasciculation. Motor: RUE strength deltoid , biceps , triceps , wrist extensors , wrist flexor , and assembler small products strength 5/5. LUE strength deltoid , biceps , triceps , wrist extensors , wrist flexor , and assembler small products strength 5/5. RLE strength iliopsoas, quadriceps, tibialis anterior, plantar flexion, and dorsiflexion strength 5/5. LLE strength iliopsoas, quadriceps, tibialis anterior, plantar flexion, and dorsiflexion strength 5/5. Tone and bulk are normal. Sensory: Sensation is intact to light touch throughout all four extremities. Sensation is intact to temperature in all extremities. Reflexes: RUE biceps reflex 2+ , brachioradialis reflex 2+. LUE biceps reflex 2+ , brachioradialis reflex 2+. RLE knee reflex 1+. LLE knee reflex 1+. Coordination: Ehmuvh-sh-armo testing normal. Rapid alternating movements are normal. Gait: Normal. Review and summary of old records: Labs on 04/05/24: Vitamin B12 444. Hemoglobin A1c 5.4%. TSH 0.937. EMG of the bilateral lower extremities at [facility] on 10/04/2023: Normal MRI of the brain w/o contrast at [facility] on 09/14/23: Some limitation with motion. No MRI evidence for acute ischemia. Unremarkable unenhanced MRI appearance of the brain. Mild sinus mucosal disease EMG of the bilateral upper extremities at [facility] on 08/28/23: Bilateral median neuropathies, at or distal to the wrist, such as in carpal tunnel syndrome, which are moderate on the left and very minimalon the right electrically. EMG of the bilateral upper extremities at [facility] on 08/05/19: Bilateral median neuropathies which are mild on the right and minimal on the left. Assessment/Plan Diagnoses and all orders for this visit: Chronic migraine without aura without status migrainosus, not intractable (CMS/HCC) It is my impression that the patient has chronic migraine. Onset was reportedly in 4th grade. Priorto treatment, the patient reported 25+ migraine days per month. Migraine severity, duration, and frequency have significantly decreased since starting amitriptyline. She continues to have approximately 3 migraines per week. Uksw-esr-vfuanqg medications were ineffective previously. Sumatriptan was not tolerated due to GI intolerance/vomiting. Naratriptan has been well tolerated and highly effective for acute migraine treatment. The patient is pleased with the current regimen and does not wish tomake any medication adjustments at this time. MRI of the brain on 09/14/23 was unremarkable aside fr om mild sinus disease. PLAN: - Continue amitriptyline 50 mg by mouth once daily at bedtime for migraine prevention. This may also provide benefit for fibromyalgia, anxiety, and depression - Continue naratriptan 2.5 mg by mouth as needed for migraine . Take no more than 2 doses in 24 hours - Adequate hydration, regular physical activity, and sleep hygiene - Stress management techniques Fibromyalgia History of fibromyalgia reported by patient. Gabapentin was not tolerated previously due to fatigue. PLAN: - Follow up with pain management at [facility] and Dr. Espitia for management - I have recommended regular physical activity and encouraged weight reduction Paresthesia of foot, bilateral The patient reports intermittent numbness in the bilateral (entire) feet starting around 2020. Unclear etiology at this time. Symptoms do not seem consistent with a particular dermatomal distribution, and BLE EMG on 10/04/23 was normal. TSH, vitamin B12, and hemoglobin A1c on 04/05/24 were within normal limits. She has a history of fibromyalgia which may be contributory. PLAN: - Monitor clinically - Consider further work up in the future if symptoms worsen. They reportedly have not Carpal tunnel syndrome on both sides BUE EMG from 08/28/23 revealed bilateral carpal tunnel syndrome (left more severe than right). The patient underwent left carpal tunnel release on 09/21/23 and right carpal tunnel release on 10/19/[address] Cat. Symptoms have resolved since that time. PLAN: - Follow up with orthopedic surgery per their recommendations Diagnosis and treatment options discussed in detail. All questions answered. The patient verbalizesunderstanding and is agreeable to the plan. Discussion in layman's terms. Follow up in the office within 4 months; sooner if needed for new or worsening symptoms. JULIET Rivers [facility] documented in this [facility]11-19-2024 History of Present illness Narrative* Eloisa Soto NP - 10/07/2024 9:15 AM EST Name: Sonia Motley Date/Time of Service:10/07/2024 9:26 AM :1990 Age: 34 y.o. Chief Complaint Patient presents with Follow-up Patient here for a 3 month follow up. She was started on Loestrin Fe 12/08 for irregular periods. Patient states that she did not take the OCP like she should have, plans to start back on the pill after this period LMP 10/05/24 SUBJECTIVE: History of Present Illness Sonia Motley is a 34 y.o. here for She started it at the wrong time and stopped it, then re-started on her next cycle and then she hadsome stress, lost her pill pack. She plans to start back on the pills Sunday since she is currentlymenstruating. She has felt more hormonal around her period. She would like to try a different pill - she wonders about Trivora, she had been on it for years without problems. Past Medical History: Diagnosis Date Carpal tunnel syndrome, bilateral Fibromyalgia IBS (irritable bowel syndrome) Migraine (CMS/HCC) Review of Systems All others negative except those mentioned in HPI. Past Medical / Surgical History Past Medical History: Diagnosis Date Carpal tunnel syndrome, bilateral Fibromyalgia IBS (irritable bowel syndrome) Migraine (CMS/HCC) Past Surgical History: Procedure Laterality Date CARPAL TUNNEL RELEASE Bilateral SECTION, LOW TRANSVERSE Family History Family History Problem Relation Name Age of Onset Depression Mother Diabetes Mother Hyperlipidemia Mother Hypertension Mother Migraines Mother Other (metastatic cancer) Mother Cancer Father Hypertension Father Heart attack Father Other (internal bleeding) Father Breast cancer Mother's Sister Mental illness Other Social History reports that she has never smoked. She has never used smokeless tobacco. She reports that she does not drink alcohol and does not use drugs. Vitals: 10/07/24 0914 BP: 124/80 MEDICATIONS: Current Outpatient Medications on File Prior to Visit Medication Sig Dispense Refill acetaminophen (Tylenol) 325 MG tablet Take 650 mg by mouth every 6 (six) hours if needed alosetron (Lotronex) 0.5 MG tablet Take 0.5 mg by mouth aluminum chloride (Drysol) 20 % external solution Apply to arm pits. Do not apply to broken or freshly shaven skin. 30 day supply 60 mL 11 amitriptyline (Elavil) 50 MG tablet Take 1 tablet (50 mg) by mouth at bedtime 30 tablet 1 vnqusjbcjr-krhtofkbpwtkf-usygtgbs 50-325-40 MG tablet Take 1 tablet by mouth every 6 (six) hours ifneeded for migraine (Patient not taking: Reported on 09/11/2024) dicyclomine (Bentyl) 20 MG tablet Take 1 tablet by mouth in the morning and 1 tablet in the eveningand 1 tablet before bedtime. fluticasone (Flonase) 50 MCG/ACT nasal spray Administer 2 sprays into each nostril Daily glycopyrrolate (Robinul) 1 MG tablet Take 1 tablet (1 mg) by mouth Daily (Patient not taking: Reported on 09/11/2024) 30 tablet 11 glycopyrrolate (Robinul-Forte) 2 MG tablet Take 1 tablet (2 mg) by mouth Daily 30 tablet 3 Misc Natural Products (FIBER 7 PO) Take by mouth naratriptan (Amerge) 2.5 MG tablet Take 1 tablet by mouth as needed at the onset of migraine. May repeat dose (1 tablet) once after 4 hours if migraine persists. Take NO more than 2 doses in 24 hours. 9 tablet 2 omeprazole (PriLOSEC) [address] capsule Take 40 mg by mouth in the morning. Take before meals. ondansetron ODT (Zofran-ODT) 4 MG disintegrating tablet Take 4 mg by mouth Daily as needed for nausea or vomiting pregabalin (Lyrica) 150 MG capsule Take 150 mg by mouth in the morning and 150 mg before bedtime. pseudoephedrine (Sudafed) 30 MG tablet Take 30 mg by mouth every 6 (six) hours if needed for congestion 2 tablets spironolactone (Aldactone) 50 MG tablet Take 1 tablet (50 mg) by mouth Daily 30 tablet 3 [DISCONTINUED] aspirin 81 MG EC tablet Take 81 mg by mouth Daily (Patient not taking: Reported on 09/11/2024) [DISCONTINUED] lisinopril 20 MG tablet Take 20 mg by mouth Daily 1 tablet (Patient not taking: Reported on 09/11/2024) [DISCONTINUED] norethindrone-ethinyl estradiol (Loestrin Fe 12/08) 1-20 MG-MCG tablet Take 1 tablet by mouth Daily 84 tablet 3 [DISCONTINUED] omeprazole OTC (PriLOSEC OTC) 20 MG EC tablet Take 20 mg by mouth in the morning. Take before meals. Do not crush, chew, or split.. (Patient not taking: Reported on 09/11/2024) [DISCONTINUED] spironolactone (Aldactone) 25 MG tablet Take 25 mg by mouth in the morning. (Patientnot taking: Reported on 09/11/2024) No current facility-administered medications on file prior to visit. Allergies Allergen Reactions Nubain [Nalbuphine] Prednisone PHYSICAL EXAM: Vitals: 10/07/24 0914 BP: 124/80 Body mass index is 42.62 kg/m . Physical Exam Constitutional: Appearance: Normal appearance. HENT: Head: Normocephalic. Eyes: Extraocular Movements: Extraocular movements intact. Conjunctiva/sclera: Conjunctivae normal. Pulmonary: Effort: Pulmonary effort is normal. Neurological: Mental Status: She is alert and oriented to person, place, and time. Skin: General: Skin is warm and dry. Psychiatric: Mood and Affect: Mood normal. Behavior: Behavior normal. ASSESSMENT / PLAN Discontinued the loestrin d/t worsening PMS. Offered to give it more time, but pt wants to start back trivora. Discussed it can take the body 3 months to adjust to new hormones. Discussed tips for remembering to take it daily. Diagnosis Plan 1. Follow-up encounter involving medication levonorgestrel-ethinyl estradiol triphasic (TriVora,Enpresse) 50-30/75-40/ 125-30 MCG per tablet 2. Irregular periods/menstrual cycles levonorgestrel-ethinyl estradiol triphasic (TriVora,Enpresse)50-30/75-40/ 125-30 MCG per tablet No follow-ups on file. documented in this encounterWright [facility] [id number] History of Present illness Narrative* Holley Barahona NP - 09/11/2024 1:20 PM EDT Images from the original note were not included. Holley Barahona NP Chief Complaint Patient presents with Migraine Subjective Sonia Motley is a 34 y.o. female. History of Present Illness The patient presents today for follow up. At the prior appointment, amitriptyline dose was increased. The patient is taking amitriptyline 50 mg once daily at bedtime. She denies any apparent adverse effects. The patient has had 2 to 3 migraines per week recently. These are unchanged in location or characteristic. They are unilateral and left-sided. They are accompanied by nausea and increased sensitivityto light and sound. They are not accompanied by vomiting recently. They are not accompanied by numbness, paresthesias, or weakness. They last 1 day or less. The patient has tried Tylenol for her symptoms with no relief. She states the only thing that seems to relieve her migraines is sleep. She sleeps well and denies any recent numbness, pain, paresthesias, or weakness in her hands. She is interested in an abortive medication for her migraines. She denies any further new concerns. The patient denies history of cardiac disease, poorly controlled hypertension, cardiac arrhythmia, heart attack, transient ischemic attack, or stroke. Review of Systems Constitutional: Negative for appetite change, chills, fatigue, fever and unexpected weight change. HENT: Negative for trouble swallowing and voice change. Eyes: Denies visual change, double vision, or loss of vision Respiratory: Negative for cough, shortness of breath and wheezing. Cardiovascular: Negative for chest pain and palpitations. Gastrointestinal: Negative for abdominal pain and blood in stool. Musculoskeletal: Negative for arthralgias, gait problem and myalgias. Neurological: Positive for numbness and headaches (associated with photophobia, phonophobia, and nausea. Vomiting at times). Negative for dizziness, tremors, seizures, syncope, facial asymmetry, speech difficulty, weakness and light-headedness. Admits intermittent numbness/tingling in the bilateral feet Psychiatric/Behavioral: Negative for confusion, hallucinations and suicidal ideas. The patient is not nervous/anxious. Past Medical History: Diagnosis Date Carpal tunnel syndrome, bilateral Fibromyalgia IBS (irritable bowel syndrome) Migraine (CMS/HCC) Past Surgical History: Procedure Laterality Date CARPAL TUNNEL RELEASE Bilateral SECTION, LOW TRANSVERSE Family History Problem Relation Name Age of Onset Depression Mother Diabetes Mother Hyperlipidemia Mother Hypertension Mother Migraines Mother Other (metastatic cancer) Mother Cancer Father Hypertension Father Heart attack Father Other (internal bleeding) Father Breast cancer Mother's Sister Mental illness Other Social History Tobacco Use Smoking status: Never Smokeless tobacco: Never Substance Use Topics Alcohol use: Never Allergies: Nubain [nalbuphine] and Prednisone Vitals: 09/11/24 1309 BP: 138/82 Pulse: 99 SpO2: 99% Body mass index is 42.62 kg/m . weight: 233 lb Neurologic exam: Mental status: Awake and alert with unlabored respirations. Oriented to person, place, and time. Recent and remotememory are intact. Speech is clear and fluent without aphasia. Speech is non-dysarthric. Attention and concentration are normal. Fund of knowledge is appropriate for level of education. Cranial nerves: CN II: Visual acuity is normal. Visual sparrow full to confrontation. CN III, IV, : Pupils are equal, round, and reactive to light. Extraocular movements intact. No ptosis present. CN V: Facial sensation is normal. CN VII: Full and symmetric facial movement. CN VIII: Hearing is normal to finger rub bilaterally. CN IX and X: Palate elevates symmetrically. CN XI: Shoulder shrug is normal bilaterally. CN XII: Tongue is midline without atrophy or fasciculation. Motor: RUE strength deltoid , biceps , triceps , wrist extensors , wrist flexor , and assembler small products strength 5/5. LUE strength deltoid , biceps , triceps , wrist extensors , wrist flexor , and assembler small products strength 5/5. RLE strength illopsoas, quadriceps, tibialis anterior, plantar flexion, and dorsiflexion strength 5/5. LLE strength illopsoas, quadriceps, tibialis anterior, plantar flexion, and dorsiflexion strength 5/5. Tone and bulk are normal. Sensory: Sensation is intact to light touch throughout all four extremities. Sensation is intact to temperature in all extremities. Reflexes: RUE biceps reflex 2+ , brachioradialis reflex 2+. LUE biceps reflex 2+ , brachioradialis reflex 2+. RLE knee reflex 1+. LLE knee reflex 1+. Coordination: Aibybu-ef-vbls testing normal. Rapid alternating movements are normal. Gait: Normal. Review and summary of old records: Labs on 04/05/24: Vitamin B12 444. Hemoglobin A1c 5.4%. TSH 0.937. EMG of the bilateral lower extremities at [facility] on 10/04/2023: Normal MRI of the brain w/o contrast at [facility] on 09/14/23: Some limitation with motion. No MRI evidence for acute ischemia. Unremarkable unenhanced MRI appearance of the brain. Mild sinus mucosal disease EMG of the bilateral upper extremities at [facility] on 08/28/23: Bilateral median neuropathies, at or distal to the wrist, such as in carpal tunnel syndrome, which are moderate on the left and very minimalon the right electrically. EMG of the bilateral upper extremities at [facility] on 08/05/19: Bilateral median neuropathies which are mild on the right and minimal on the left. Assessment/Plan Diagnoses and all orders for this visit: Chronic migraine without aura without status migrainosus, not intractable (CMS/HCC) It is my impression that the patient has chronic migraine. Onset was reportedly in 4th grade. Priorto treatment, the patient reported 25+ migraine days per month. Migraine severity, duration, and frequency have significantly decreased since starting amitriptyline. She continues to have 2 to 3 migraines per week, and these are not amendable to tjgz-zyq-rtgrvwk medications. She would like to try an alternative abortive medication but states sumatriptan was not tolerated in the past due to GI intolerance/vomiting. MRI of the brain on 09/14/23 was unremarkable aside from mild sinus disease. PLAN: - Continue amitriptyline 50 mg by mouth once daily at bedtime for migraine prevention. This may also provide benefit for fibromyalgia, anxiety, and depression - Start naratriptan 2.5 mg by mouth as needed for migraine . I counseled the patient on proper use and potential side effects. I advised her to notify the office if she experiences any adverse effects. She verbalizes understanding and wishes to proceed - Could consider Nurtec in the future if naratriptan is ineffective or not tolerated - Adequate hydration, regular physical activity, and sleep hygiene encouraged Fibromyalgia History of fibromyalgia reported by patient. Gabapentin was not tolerated previously due to fatigue. PLAN: - Follow up with pain management at [facility] and Dr. Espitia for management - I have recommended regular physical activity and encouraged weight reduction Paresthesia of foot, bilateral The patient reports intermittent numbness in the bilateral (entire) feet starting around 2020. Unclear etiology at this time. Symptoms do not seem consistent with a particular dermatomal distribution, and BLE EMG on 10/04/23 was normal. TSH, vitamin B12, and hemoglobin A1c on 04/05/24 were within normal limits. She has a history of fibromyalgia which may be contributory. PLAN: - Monitor clinically - Consider further work up in the future if symptoms worsen Carpal tunnel syndrome on both sides BUE EMG from 08/28/23 revealed bilateral carpal tunnel syndrome (left more severe than right). The patient underwent left carpal tunnel release on 09/21/23 and right carpal tunnel release on 10/19/[address] Cat. Symptoms have resolved since that time. PLAN: - Monitor clinically - Follow up with orthopedic surgery per their recommendations Diagnosis and treatment options discussed in detail. All questions answered. The patient verbalizesunderstanding and is agreeable to the plan. Discussion in layman's terms. Follow up in the office within 1 to 2 months; sooner if needed for new or worsening symptoms. Holley Barahona NP [facility] documented in this [facility]10-24-2024 Instructions* Patient Instructions* Holley Barahona NP - 09/11/2024 1:20 PM EDT - Start naratriptan as directed documented in this [facility]10-14-2024 Hospital Discharge instructions Patient Education 09/01/2024 13:05:51 Neck Contusion Neck Contusion A neck contusion is a deep bruise in the neck. It is caused by a direct force (blunt trauma) to theneck. Although neck contusions can be mild, this type of neck injury can also be quite dangerous because it could affect the important structures in your neck, including: Neck muscles. Large blood vessels (carotid arteries and jugular veins). The bones of the the cervical spine (vertebrate) and the spinal cord nerves. The airway. This includes the voice box (larynx) and the windpipe (trachea). The tube that lets you swallow (esophagus). A neck contusion can cause swelling and bleeding in your neck that can press on your throat and larynx. This can narrow your airway and cause difficulty with breathing (respiratory distress). Contusions may also be associated with other injuries, such as broken bones (fractures) and cuts (lacerations) to the skin and deeper neck structures. What are the causes? This condition may be caused by: Motor vehicle accidents that cause: ?Blunt trauma to the neck. ?Extreme and sudden twisting motion of the head (whiplash). ?Injuries from the seatbelt across the neck. Sports injuries, such as blows from football, martial arts, wrestling, and hockey. Bicycle injuries. Assault injuries, including choking (strangulation). What are the signs or symptoms? Symptoms of this condition include: Pain. Swelling and discoloration. Bruising or stiffness. Blood accumulation under the skin (hematoma). Other symptoms depend on what structures are affected. A contusion that affects a carotid artery may cause an expanding lump in the neck, as well as: Dizziness. Decreasing consciousness. Weakness on the side of the body that is opposite from the contusion, due to decreased blood flow to the brain. A contusion that affects the airway may cause: Difficulty with breathing. Noisy breathing. A hoarse or weak voice. Coughing up blood. A contusion that affects the esophagus may cause: Difficulty with swallowing. Spitting up blood. How is this diagnosed? This condition is diagnosed based on: A physical exam. Your symptoms. Your history of blunt trauma. You may also have tests to help rule out a more serious injury. Tests may include: X-ray. CT scan. MRI. Angiography. Certain areas of the neck contain more important structures and may require more evaluation than others. Sometimes, more testing may may be needed to check for injuries. this may include a test that allows a health care provider to view the airway from inside (video laryngoscopy). How is this treated? In most cases, an uncomplicated neck contusion can be treated with home care. This includes rest, ice, and yypf-oru-zycztwj pain medicine, such as ibuprofen. Other treatment depends on possible complications that you may have. Respiratory distress is the most dangerous complication of neck contusion. This is a medical emergency that requires immediate treatment. Treatment may include having: A breathing tube inserted into your larynx (endotracheal intubation). An emergency procedure to create a hole in your larynx or trachea for a breathing tube (tracheotomyor cricothyrotomy). Surgery to repair any damage to the esophagus or the large blood vessels in the neck. Drainage of a hematoma in your neck. A brace may be used (cervical collar) if you have injured your spine. This will keep your neck frommoving and prevent any further injury to your spine. Follow these instructions at home: Managing pain, stiffness, and swelling If directed, put ice on the injured area: ?Put ice in a plastic bag. ?Place a towel between your skin and the bag. ?Leave the ice on for 20 minutes, 2 3 times a day. ?Remove the ice if your skin turns bright red. This is very important. If you cannot feel pain, heat, or cold, you have a greater risk of damage to the area. Raise (elevate) the injured area above the level of your heart while you are sitting or lying down. General instructions Take wgju-jvz-ttcsqoa and prescription medicines only as told by your health care provider. Rest at told by your doctor. Keep your head and neck elevated above the level of your heart while you sleep. If you were given a cervical collar, wear it as told by your health care provider. Do not continue to wear the collar for longer than recommended by your health care provider. Follow instructions from your health care provider about what you can or cannot eat. Often, only fluids and soft foods are recommended until you heal. Keep all follow-up visits. This is important. Contact a health care provider if: Your pain does not get better in 2 3 days. You develop increasing pain or difficulty with swallowing. You develop a fever. Get help right away if: You suddenly have difficulty breathing. Your swelling gets worse. You have noisy breathing. You cough up blood. You cannot swallow. You vomit. You are dizzy or you faint. You develop a drooping face, sudden weakness on one side of your body, difficulty speaking, or difficulty understanding speech. These symptoms may represent a serious problem that is an emergency. Do not wait to see if the symptoms will go away. Get medical help right away. Call your local emergency services (911 in the [place] Do not drive yourself to the hospital. Summary A neck contusion is a deep bruise in the neck. It is caused by a direct force (blunt trauma) to theneck. This type of neck injury is dangerous because it could affect the important structures in your neck. These include blood vessels, airway structures, bones and spinal cord nerves. Take iswm-kst-zebtbwo and prescription medicines only as told by your health care provider. Keep your head and neck at least partially raised (elevated) above the level of your heart. Do thiseven when you sleep. Get help right away if you have difficulty breathing, cough up blood, cannot swallow, or have othernew or worsening symptoms. This information is not intended to replace advice given to you by your health care provider. Make sure you discuss any questions you have with your health care provider. Document Revised: 12/12/2021 Document Reviewed: 12/12/2021 PK Clean Patient Education 2023 [employer]. Follow Up Care 09/01/2024 10:41:48 With:Gui Alvarez Address: [address] [place] [address] [place] [address] Business (1) When:09/04/2024 12:49:58 [facility] 10-14-2024 NoteED Patient Education Note Orthopedics Neck Contusion A neck contusion is a deep bruise in the neck. It is caused by a direct force (blunt trauma) to theneck. Although neck contusions can be mild, this type of neck injury can also be quite dangerous because it could affect the important structures in your neck, including: ? Neck muscles. ? Large blood vessels (carotid arteries and jugular veins). ? The bones of the the cervical spine (vertebrate) and the spinal cord nerves. ? The airway. This includes the voice box (larynx) and the windpipe (trachea). ? The tube that lets you swallow (esophagus). A neck contusion can cause swelling and bleeding in your neck that can press on your throat and larynx. This can narrow your airway and cause difficulty with breathing (respiratory distress). Contusions may also be associated with other injuries, such as broken bones (fractures) and cuts (lacerations) to the skin and deeper neck structures. What are the causes? This condition may be caused by: ? Motor vehicle accidents that cause: ? Blunt trauma to the neck. ? Extreme and sudden twisting motion of the head (whiplash). ? Injuries from the seatbelt across the neck. ? Sports injuries, such as blows from football, martial arts, wrestling, and hockey. ? Bicycle injuries. ? Assault injuries, including choking (strangulation). What are the signs or symptoms? Symptoms of this condition include: ? Pain. ? Swelling and discoloration. ? Bruising or stiffness. ? Blood accumulation under the skin (hematoma). Other symptoms depend on what structures are affected. A contusion that affects a carotid artery may cause an expanding lump in the neck, as well as: ? Dizziness. ? Decreasing consciousness. ? Weakness on the side of the body that is opposite from the contusion, due to decreased blood flowto the brain. A contusion that affects the airway may cause: ? Difficulty with breathing. ? Noisy breathing. ? A hoarse or weak voice. ? Coughing up blood. A contusion that affects the esophagus may cause: ? Difficulty with swallowing. ? Spitting up blood. How is this diagnosed? This condition is diagnosed based on: ? A physical exam. ? Your symptoms. ? Your history of blunt trauma. You may also have tests to help rule out a more serious injury. Tests may include: ? X-ray. ? CT scan. ? MRI. ? Angiography. Certain areas of the neck contain more important structures and may require more evaluation than others. Sometimes, more testing may may be needed to check for injuries. this may include a test that allows a health care provider to view the airway from inside (video laryngoscopy). How is this treated? In most cases, an uncomplicated neck contusion can be treated with home care. This includes rest, ice, and hwnb-ngv-sfpfqsk pain medicine, such as ibuprofen. Other treatment depends on possible complications that you may have. Respiratory distress is the most dangerous complication of neck contusion. This is a medical emergency that requires immediate treatment. Treatment may include having: ? A breathing tube inserted into your larynx (endotracheal intubation). ? An emergency procedure to create a hole in your larynx or trachea for a breathing tube (tracheotomy or cricothyrotomy). ? Surgery to repair any damage to the esophagus or the large blood vessels in the neck. ? Drainage of a hematoma in your neck. ? A brace may be used (cervical collar) if you have injured your spine. This will keep your neck from moving and prevent any further injury to your spine. Follow these instructions at home: Managing pain, stiffness, and swelling ? If directed, put ice on the injured area: ? Put ice in a plastic bag. ? Place a towel between your skin and the bag. ? Leave the ice on for 20 minutes, 2?3 times a day. ? Remove the ice if your skin turns bright red. This is very important. If you cannot feel pain, heat, or cold, you have a greater risk of damage to the area. ? Raise (elevate) the injured area above the level of your heart while you are sitting or lying down. General instructions ? Take ymaf-ycf-yvsvhpo and prescription medicines only as told by your health care provider. ? Rest at told by your doctor. ? Keep your head and neck elevated above the level of your heart while you sleep. ? If you were given a cervical collar, wear it as told by your health care provider. Do not continue to wear the collar for longer than recommended by your health care provider. ? Follow instructions from your health care provider about what you can or cannot eat. Often, only fluids and soft foods are recommended until you heal. ? Keep all follow-up visits. This is important. Contact a health care provider if: ? Your pain does not get better in 2?3 days. ? You develop increasing pain or difficulty with swallowing. ? You develop a fever. Get he (more content not included)...[facility]10-11-2024 History of Present illness Narrative* GIANA Abreu - 08/29/2024 1:10 PM EDT Follow up Diagnosis: Hyperhidrosis Location: generalized Last visit: 07/25/2024 Symptoms: excessive sweating Status: half better since starting medications Treatments tried and failed: none Current treatment: Drysol 20% and glycopyrrolate 1 mg once a day Follow up Diagnosis: Hirsutism Location: face Last visit: 07/25/2024 Symptoms: excessive facial hair growth Status: no change Treatments tried and failed: None Current treatment: She did speak with her marketing content manager and she was switched from lisinopril to spironolactone All pertinent medical history, medications, and allergies were reviewed. General Exam: alert, oriented to person, place, and time, normal affect, well appearing Unaccompanied A focused exam completed based on patient reported problems, see below: 1. Primary focal hyperhidrosis Excess sweating noted to be generalized. Improvement since last visit. Patient has generalized hyperhidrosis since having her kids. Continue Drysol Deoderant to arm pits once daily at night and then rinse area in the morning. Make sure area is clean and dry before applying. Increase Glycopyrrolate to 2 mg once daily. Discussed side effects including dry mouth, dry eyes, tachycardia, dizziness and constipation. Inform the office if any of these adverse effects occur.Appropriate use of medication discussed patient voiced understanding. Avoid while on thismedication, pt denies current /plans to become . Follow up in 2 months. May decrease dose again if not tolerating glycopyrrolate (Robinul-Forte) 2 MG tablet Take 1 tablet (2 mg) by mouth Daily Related Medications aluminum chloride (Drysol) 20 % external solution Apply to arm pits. Do not apply to broken or freshly shaven skin. 30 day supply glycopyrrolate (Robinul) 1 MG tablet Take 1 tablet (1 mg) by mouth Daily 2. Hirsutism Head - Anterior (Face) Excessive hair growth on the face. Since last visit patient discussed with [employer] on switching her lisinopril to Spironolactone,she is on a low dose of 25 mg once a day. We will increase Spironolactone to 50 mg once a day. Patient will notify [employer] of this change. Follow up in 2 months. Notify office of any adverse effects. spironolactone (Aldactone) 50 MG tablet - Head - Anterior (Face) Take 1 tablet (50 mg) by mouth Daily Next Visit: 2 months [facility] [id number] Evaluation + Plan note Extracted from: Title:Pain Managment Follow up Author:Lyn Batista Date:07/18/24 Impression and Plan Patient is a 33-year-old female with a past medical history significant fibromyalgia. The Lyrica has worked well for her. She still feels that there is some room for improvement but she states that this is the best she has felt in years. She is not tired with the medication thus far either. At this time, we discussed increasing this. We are going to have her increase to 150 mg twice daily. Had a switch was discussed. OARRS was reviewed. Prescription sent to the pharmacy. At this time, she is going to trial the medication at the higher dose and follow-up in 4 to 6 weeks. She will call us in the interim should she require anything from our services. MARY score: 26%. Future Appointments Appointment Date:08/29/2024 10:30:00 AM Scheduled Provider:Lyn Limon PA-C [facility] Appoint[facility] Type:Pain Management - Follow Up (FT) [facility] 2024 NoteConsultation Note Patient: SONIA MOTLEY Age: 33 years Sex: Female : 1990 Associated Diagnoses: None Author: Lyn Limon PA-C Subjective Chief complaint 07/18/2024 10:32 EDT Neck shoulders low back and hips . Patient is a 33-year-old female. She presents today with her young son. She has a past medical history significant for fibromyalgia and she was previously started on gabapentin. This made her tired so we switched to Lyrica. She is using Lyrica 100 mg twice daily and she states that this is the bestshe has felt in years. She was able to take her son to the park. This has made her happy. She stillfeels that there is room for improvement but she wants to be very cautious in increasing the medication because she cannot be too tired. She has 3 small children. She needs to be able to get up and function. She tracey her upper back, shoulders, lower back and legs on her visual analog scale and rates her pain a 5/10. She would be interested in increasing this as long as it does not make her too tired. Health Status Allergies: Allergic Reactions (Selected) Severity Not Documented Nubain- Shortness of breath and rash. PredniSONE- Hives., Allergies (2) Active Severity Reaction Nubain rash, shortness of breath predniSONE Hives Current medications: (Selected) Prescriptions Prescribed hydrOXYzine hydrochloride 25 mg Tab: 25 mg = 1 tab(s), Oral, QID, PRN for itching, # 40 tab(s), Refills(s) 0, Pharmacy: [facility]/pharmacy #[id number], 157, cm, 06/25/24 2:31:00 EDT, Height/Length Dosing, 105.1,kg, 06/25/24 2:31:00 EDT, Weight Dosing pregabalin 100 mg Cap: 100 mg = 1 cap(s), Oral, BID, # 60 cap(s), Refills(s) 1, Pharmacy: [facility]/pharmacy #[id number], 158, cm, 05/26/24 10:21:00 EDT, Height/Length Dosing, 105.9, kg, 05/26/24 10:21:00 EDT, Weight Dosing pregabalin 150 mg Cap: 150 mg = 1 cap(s), Oral, BID, # 60 cap(s), Refills(s) 1, Pharmacy: [facility]/pharmacy #[id number], 157, cm, 07/18/24 10:46:00 EDT, Height/Length Dosing, 106, kg, 07/18/24 10:46:00 EDT, Weight Dosing Documented Medications Documented Aurovela Fe 12/08 oral tablet: 1 tab(s), Oral, Daily, Refill(s) 0 alosetron 0.5 mg oral tablet: 0.5 mg = 1 tab(s), Oral, Daily, # 30 tab(s), Refills(s) 0 amitriptyline 25 mg Tab: 25 mg = 1 tab(s), Oral, Once a day (at bedtime), Refills(s) 0 dicyclomine 20 mg Tab: 20 mg = 1 tab(s), Oral, TID, Refills(s) 0 famotidine 40 mg Tab: 40 mg = 1 tab(s), Oral, Once a day (at bedtime), # 30 tab(s), Refills(s) 0 fluticasone Nasal 0.05 mg/inh [place]: 2 spray(s), Nasal, Daily, 16 gram, Refill(s) 0, each nostril ibuprofen 600 mg Tab: 600 mg = 1 tab(s), Oral, q8hr lisinopril 20 mg Tab: 20 mg = 1 tab(s), Oral, Daily, # 30 tab(s), Refills(s) 0 omeprazole 40 mg Cap-DR: 40 mg = 1 cap(s), Oral, BID, Refills(s) 0 ondansetron 4 mg Dis Tab: 4 mg = 1 tab(s), Oral, TID, Refills(s) 0 Problem list: All Problems ESBL E. coli carrier / SNOMED CT 995010567 / Confirmed ESBL E coli in cervical culture 12/12/15 BMI 30+ - obesity / SNOMED CT 7313736376 / Confirmed BMI 30+ - obesity / SNOMED CT 7661700173 / Confirmed BMI 30+ - obesity / SNOMED CT 0887347813 / Confirmed Obesity / SNOMED CT 6103268707 / Confirmed Hypertension / SNOMED CT 1575822767 / Confirmed TMJ (dislocation of temporomandibular joint) / SNOMED CT 867586355 / Confirmed Obesity / SNOMED CT [id number] / Possible Inactive: Pericarditis / SNOMED CT 6449503 2020 Resolved: / SNOMED CT 069079052 Resolved: / SNOMED CT 741811639 Resolved: / SNOMED CT 379676539 Resolved: / SNOMED CT 521321813 Resolved: Anxiety depression / SNOMED CT 682025924 Canceled: Bipolar / SNOMED CT 265140033 Canceled: Schizophrenia / SNOMED CT 70669590 Canceled: Depression / SNOMED CT 002928061 Canceled: anxiety disorder Canceled: panic attacks Canceled: Missed miscarriage / SNOMED CT 0234861650 Canceled: Obesity complicating , first trimester / SNOMED CT 7216479626 Canceled: Supervision of high risk in first trimester / SNOMED CT 91701763 Canceled: Hx of intrauterine growth restriction in prior , currently / SNOMED CT 646896920 Canceled: Supervision of high risk in second trimester / SNOMED CT 80726368 Canceled: Obesity complicating , second trimester / SNOMED CT 2394113224 Canceled: Sinus arrhythmia seen on electrocardiogram / SNOMED CT 4545331942 Canceled: Supervision of high risk in third trimester / SNOMED CT 41648749 Canceled: Obesity complicating , third trimester / SNOMED CT 3011033021 Canceled: Previous section complicating , antepartum condition or complication / SNOMED CT 028870802 Objective Vital Signs 07/18/2024 10:32 EDT Peripheral Pulse Rate 83 bpm Respiratory Rate 16 br/min Systolic Blood Pressure 118 mmHg Diastolic Blood Pressure 78 mmHg Mean Arterial Pressure, Cuff 91 mmHg General: (more content not included)...[facility] [place] on above:Result Comment: Electronically Signed By: Lyn Limon PA-C\.br\Date and Time Signed: 07/18/24 10:52 [id number] Evaluation + Plan noteExtracted from: Title:ED Note Author:Kun Russo DO Date :06/25/24 Rash (R21: Rash and other no nspecific skin eruption) Orders: fluconazole, 150 mg = 1 tab(s), Tab, Oral, Once, Stop date 06/25/24 2:55:00 EDT, STAT, Start date 06/25/24 2:55:00 EDT, 06/25/24 2:55:00 EDT fluconazole, 150 mg = 1 tab(s), Oral, Once, # 1 tab(s), Refills(s) 0, [id number], cm, 06/25/24 2:31:00 EDT, Height/Length Dosing, 105.1, kg, 06/25/24 2:31:00 EDT, Weight Dosing hydrOXYzine, 25 mg = 1 tab(s), Oral, QID, PRN for itching, # 40 tab(s), Refills(s) 0, [id number], cm, 06/25/24 2:31:00 EDT, Height/Length Dosing, 105.1, kg, 06/25/24 2:31:00 EDT, Weight Dosing Future Appointments Appointment Date:07/18/2024 10:30:00 AM Scheduled Provider:Lyn Limon PA-C Location:[facility] Appointment Type:Pain Management - Follow Up (FT) [facility] 08-07-2024 Hospital Discharge instructions Patient Education 06/25/2024 03:03:26 Rash, Adult Rash, Adult A rash is a change in the color of your skin. A rash can also change the way your skin feels. Thereare many different conditions and factors that can cause a rash. Some rashes may disappear after a few days, but some may last for a few weeks. Common causes of rashes include: Viral infections, such as: ?Colds. ?Measles. ?Hand, foot, and mouth disease. Bacterial infections, such as: ?Scarlet fever. ?Impetigo. Fungal infections, such as Lela. Allergic reactions to food, medicines, or skin care products. Follow these instructions at home: The goal of treatment is to stop the itching and keep the rash from spreading. Pay attention to anychanges in your symptoms. Follow these instructions to help with your condition: Medicine Take or apply kjkn-uys-auahlny and prescription medicines only as told by your health care provider. These may include: Corticosteroid creams to treat red or swollen skin. Anti-itch lotions. Oral allergy medicines (antihistamines). Oral corticosteroids for severe symptoms. Skin care Apply cool compresses to the affected areas. Do not scratch or rub your skin. Avoid covering the rash. Make sure the rash is exposed to air as much as possible. Managing itching and discomfort Avoid hot showers or baths, which can make itching worse. A cold shower may help. Try taking a bath with: ?Epsom salts. Follow school bus mechanic instructions on the packaging. You can get these at your local pharmacy or grocery store. ?Baking soda. Pour a small amount into the bath as told by your health care provider. ?Colloidal oatmeal. Follow school bus mechanic instructions on the packaging. You can get this at your local pharmacy or grocery store. Try applying baking soda paste to your skin. Stir water into baking soda until it reaches a paste-like consistency. Try applying calamine lotion. This is an meyk-vfr-qbsvfos lotion that helps to relieve itchiness. Keep cool and out of the sun. Sweating and being hot can make itching worse. General instructions Rest as needed. Drink enough fluid to keep your urine pale yellow. Wear loose-fitting clothing. Avoid scented soaps, detergents, and perfumes. Use gentle soaps, detergents, perfumes, and other cosmetic products. Avoid any substance that causes your rash. Keep a journal to help track what causes your rash. Write down: ?What you eat. ?What cosmetic products you use. ?What you drink. ?What you wear. This includes jewelry. Keep all follow-up visits as told by your health care provider. This is important. Contact a health care provider if: You sweat at night. You lose weight. You urinate more than normal. You urinate less than normal, or you notice that your urine is a darker color than usual. You feel weak. You vomit. Your skin or the whites of your eyes look yellow (jaundice). Your skin: ?Tingles. ?Is numb. Your rash: ?Does not go away after several days. ?Gets worse. You are: ?Unusually thirsty. ?More tired than normal. You have: ?New symptoms. ?Pain in your abdomen. ?A fever. ?Diarrhea. Get help right away if you: Have a fever and your symptoms suddenly get worse. Develop confusion. Have a severe headache or a stiff neck. Have severe joint pains or stiffness. Have a seizure. Develop a rash that covers all or most of your body. The rash may or may not be painful. Develop blisters that: ?Are on top of the rash. ?Grow larger or grow together. ?Are painful. ?Are inside your nose or mouth. Develop a rash that: ?Looks like purple pinprick-sized spots all over your body. ?Has a bull's eye or looks like a target. ?Is not related to sun exposure, is red and painful, and causes your skin to peel. Summary A rash is a change in the color of your skin. Some rashes disappear after a few days, but some may last for a few weeks. The goal of treatment is to stop the itching and keep the rash from spreading. Take or apply wels-yef-qtdthpa and prescription medicines only as told by your health care provider. Contact a health care provider if you have new or worsening symptoms. Keep all follow-up visits as told by your health care provider. This is important. This information is not intended to replace advice given to you by your health care provider. Make sure you discuss any questions you have with your health care provider. Document Revised: 08/17/2022 Document Reviewed: 08/17/2022 PK Clean Patient Education 2022 Flexiroam. Follow Up Care 06/25/2024 02:18:25 With:Gui Alvarez Address: [address] [place] [address] [place] [address]- Business (1) When:Within 3 Day(s) [facility] 08-07-2024 NoteED Patient Education Note Infectious Disease Rash, Adult A rash is a change in the color of your skin. A rash can also change the way your skin feels. Thereare many different conditions and factors that can cause a rash. Some rashes may disappear after a few days, but some may last for a few weeks. Common causes of rashes include: ? Viral infections, such as: ? Colds. ? Measles. ? Hand, foot, and mouth disease. ? Bacterial infections, such as: ? Scarlet fever. ? Impetigo. ? Fungal infections, such as Lela. ? Allergic reactions to food, medicines, or skin care products. Follow these instructions at home: The goal of treatment is to stop the itching and keep the rash from spreading. Pay attention to anychanges in your symptoms. Follow these instructions to help with your condition: Medicine Take or apply wbuc-yhl-whzbrwv and prescription medicines only as told by your health care provider. These may include: ? Corticosteroid creams to treat red or swollen skin. ? Anti-itch lotions. ? Oral allergy medicines (antihistamines). ? Oral corticosteroids for severe symptoms. Skin care ? Apply cool compresses to the affected areas. ? Do not scratch or rub your skin. ? Avoid covering the rash. Make sure the rash is exposed to air as much as possible. Managing itching and discomfort ? Avoid hot showers or baths, which can make itching worse. A cold shower may help. ? Try taking a bath with: ? Epsom salts. Follow school bus mechanic instructions on the packaging. You can get these at your local pharmacy or grocery store. ? Baking soda. Pour a small amount into the bath as told by your health care provider. ? Colloidal oatmeal. Follow school bus mechanic instructions on the packaging. You can get this at your local pharmacy or grocery store. ? Try applying baking soda paste to your skin. Stir water into baking soda until it reaches a paste-like consistency. ? Try applying calamine lotion. This is an debk-tyd-uofrwpt lotion that helps to relieve itchiness. ? Keep cool and out of the sun. Sweating and being hot can make itching worse. General instructions ? Rest as needed. ? Drink enough fluid to keep your urine pale yellow. ? Wear loose-fitting clothing. ? Avoid scented soaps, detergents, and perfumes. Use gentle soaps, detergents, perfumes, and other cosmetic products. ? Avoid any substance that causes your rash. Keep a journal to help track what causes your rash. Write down: ? What you eat. ? What cosmetic products you use. ? What you drink. ? What you wear. This includes jewelry. ? Keep all follow-up visits as told by your health care provider. This is important. Contact a health care provider if: ? You sweat at night. ? You lose weight. ? You urinate more than normal. ? You urinate less than normal, or you notice that your urine is a darker color than usual. ? You feel weak. ? You vomit. ? Your skin or the whites of your eyes look yellow (jaundice). ? Your skin: ? Tingles. ? Is numb. ? Your rash: ? Does not go away after several days. ? Gets worse. ? You are: ? Unusually thirsty. ? More tired than normal. ? You have: ? New symptoms. ? Pain in your abdomen. ? A fever. ? Diarrhea. Get help right away if you: ? Have a fever and your symptoms suddenly get worse. ? Develop confusion. ? Have a severe headache or a stiff neck. ? Have severe joint pains or stiffness. ? Have a seizure. ? Develop a rash that covers all or most of your body. The rash may or may not be painful. ? Develop blisters that: ? Are on top of the rash. ? Grow larger or grow together. ? Are painful. ? Are inside your nose or mouth. ? Develop a rash that: ? Looks like purple pinprick-sized spots all over your body. ? Has a bull's eye or looks like a target. ? Is not related to sun exposure, is red and painful, and causes your skin to peel. Summary ? A rash is a change in the color of your skin. Some rashes disappear after a few days, but some may last for a few weeks. ? The goal of treatment is to stop the itching and keep the rash from spreading. ? Take or apply cfwj-jyb-zihhhxi and prescription medicines only as told by your health care provider. ? Contact a health care provider if you have new or worsening symptoms. ? Keep all follow-up visits as told by your health care provider. This is important. This information is not intended to replace advice given to you by your health care provider. Make sure you discuss any questions you have with your health care provider. Document Revised: 08/17/2022 Document Reviewed: 08/17/2022 PK Clean Patient Education ? 2022 [employer]am.[facility] [place] 05-26-2024 Evaluation + Plan noteExtracted from: Title:Pain Managment Follow up Author:Lyn Batista Date:05/26/24 Impression and Plan Patient is a 33-year-old female with a past medical history signet for fibromyalgia somewhat improved from Lyrica. She is using 75 mg twice daily. Gabapentin caused side effects. She was drowsy and unable to get out of bed. The Lyrica has not caused this. We discussed different options. We discussed the medication. We discussed titration of it and potential side effects. She is going to go to 100 mg twice daily. OARRS is reviewed. Prescription to the pharmacy. Follow-up in 6 to 8 weeks. Call the clinic in the interim should she require anything from our services. MARY score: 20%. Future Appointments Appointment Date:07/18/2024 10:30:00 AM Scheduled Provider:Lyn Limon PA-C [facility] Appointment Type:Pain Management - Follow Up (FT) [facility]07-08-2024 NoteConsultation Note Patient: SONIA MOTLEY Age: 33 years Sex: Female : 1990 Associated Diagnoses: None Author: Lyn Limon PA-C Subjective Chief complaint 05/26/2024 10:12 EDT Back pain . Patient is a 33-year-old female. She presents today for follow-up after starting gabapentin. Unfortunate, the gabapentin made her tired so we had switched it to Lyrica. She has been using 75 mg twicedaily. This has given her improvement. She tracey her upper back and her lower back on her visual analog scale and rates the pain a 3/10 but she states that things have been better. She has not had any side effects and she feels it is helping. She does not want to be tired as she has 3 small children at home but does hope to maybe get a little bit better control of her pain. She feels that things are better with the Lyrica. Health Status Allergies: Allergic Reactions (Selected) Severity Not Documented Nubain- Shortness of breath and rash. PredniSONE- Hives., Allergies (2) Active Severity Reaction Nubain rash, shortness of breath predniSONE Hives Current medications: (Selected) Prescriptions Prescribed Lyrica 75 mg Cap: 75 mg = 1 cap(s), Oral, BID, DNF 7-2-24, X 30 day(s), # 60 cap(s), Refills(s) 0, Pharmacy: [facility]/pharmacy #[id number], 158, cm, 04/07/24 10:43:00 EDT, Height/Length Dosing, 107, kg, 04/07/24 10:43:00 EDT, Weight Dosing pregabalin 100 mg Cap: 100 mg = 1 cap(s), Oral, BID, # 60 cap(s), Refills(s) 1, Pharmacy: [facility]/pharmacy #[id number], 158, cm, 05/26/24 10:21:00 EDT, Height/Length Dosing, 105.9, kg, 05/26/24 10:21:00 EDT, Weight Dosing Documented Medications Documented Aurovela Fe 12/08 oral tablet: 1 tab(s), Oral, Daily, Refill(s) 0 amitriptyline 25 mg Tab: 25 mg = 1 tab(s), Oral, Once a day (at bedtime), Refills(s) 0 dicyclomine 20 mg Tab: 20 mg = 1 tab(s), Oral, TID, Refills(s) 0 fluticasone Nasal 0.05 mg/inh [place]: 2 spray(s), Nasal, Daily, 16 gram, Refill(s) 0, each nostril ibuprofen 600 mg Tab: 600 mg = 1 tab(s), Oral, q8hr lisinopril 20 mg Tab: 20 mg = 1 tab(s), Oral, Daily, # 30 tab(s), Refills(s) 0 omeprazole 40 mg Cap-DR: 40 mg = 1 cap(s), Oral, BID, Refills(s) 0 ondansetron 4 mg Dis Tab: 4 mg = 1 tab(s), Oral, TID, Refills(s) 0 Problem list: All Problems ESBL E. coli carrier / SNOMED CT 866033123 / Confirmed ESBL E coli in cervical culture 12/12/15 BMI 30+ - obesity / SNOMED CT 4491200178 / Confirmed BMI 30+ - obesity / SNOMED CT 9865931794 / Confirmed BMI 30+ - obesity / SNOMED CT 1857046043 / Confirmed Obesity / SNOMED CT 4666133155 / Confirmed Hypertension / SNOMED CT 2725332250 / Confirmed TMJ (dislocation of temporomandibular joint) / SNOMED CT 170114897 / Confirmed Obesity / SNOMED CT [id number] / Possible Inactive: Pericarditis / SNOMED CT 7960550 2020 Resolved: / SNOMED CT 241204364 Resolved: / SNOMED CT 447958256 Resolved: / SNOMED CT 310897052 Resolved: / SNOMED CT 450194979 Resolved: Anxiety depression / SNOMED CT 390249574 Canceled: Bipolar / SNOMED CT 787032947 Canceled: Schizophrenia / SNOMED CT 78212416 Canceled: Depression / SNOMED CT 090711355 Canceled: anxiety disorder Canceled: panic attacks Canceled: Missed miscarriage / SNOMED CT 1889637507 Canceled: Obesity complicating , first trimester / SNOMED CT 1685419410 Canceled: Supervision of high risk in first trimester / SNOMED CT 49115032 Canceled: Hx of intrauterine growth restriction in prior , currently / SNOMED CT 309704956 Canceled: Supervision of high risk in second trimester / SNOMED CT 74877203 Canceled: Obesity complicating , second trimester / SNOMED CT 1838226797 Canceled: Sinus arrhythmia seen on electrocardiogram / SNOMED CT 4400396283 Canceled: Supervision of high risk in third trimester / SNOMED CT 67774793 Canceled: Obesity complicating , third trimester / SNOMED CT 1809371397 Canceled: Previous section complicating , antepartum condition or complication / SNOMED CT 206384336 Objective Vital Signs 05/26/2024 10:12 EDT Peripheral Pulse Rate 91 bpm Respiratory Rate 14 br/min Systolic Blood Pressure 136 mmHg Diastolic Blood Pressure 81 mmHg Mean Arterial Pressure, Cuff 99 mmHg General: Alert and oriented, No acute distress. Eye: Normal conjunctiva. HENT: Normocephalic, Normal hearing. Cardiovascular: No edema. Musculoskeletal Normal range of motion. Normal strength. 5/5 strength throughout Integumentary: Warm, Dry, [place]. Neurologic: Alert, Oriented. Psychiatric: Cooperative, Appropriate mood & affect. 14 point review of systems was negative unless otherwise noted. Impression and Plan Patient is a 33-year-old female with a past medical history signet for fibromyalgia somewhat improved from Lyrica. She is using 75 mg twice daily. Gabapentin caused side effects. (more content not included)...[facility] [place]Comment on above:Result Comment: Electronically Signed By: Braxton PETERS, Lyn\.br\Date and Time Signed: 05/26/24 10:29 [id number] History and physical note Author Salud Bowman [facility] May 20, 2024 9:27am Note Date/Time May 20, 2024 8:09a m [place] [facility] [address] [place] [address] Gastroenterology H&P Signed Patient: Sonia Motley MR#: [id number] : 1990 Acct:[id number] Age/Sex: 33 / F Adm Date: 4 Loc: Room: Type: [facility] Attending Dr: Salud Bowman DO Copies to: DO Gui Choudhury III, ~ Date of Service: 05/20/2024 HISTORY & PHYSICAL: Patient's history with special attention to the cardiovascular, pulmonary systems and the current problem was reviewed with the patient immediately prior to the procedure. Present medications and doses reviewed in the EMR. Allergies and pertinent laboratory tests were also reviewedat this time in the EMR. The physical examination, as below, was then performed. Indication, assessment and HPI: Patient is a 33-year-old female who presents forcolonoscopy for diarrhea and rectal bleeding. last colonoscopy a few yrs ago at [facility]SH per pt. Family history of GI malignancy? No PHYSICAL EXAMINATION General appearance: cooperative, NAD Skin: No jaundice, no rash or lesions Head: NCAT Eyes: Anicteric Neck: Supple Lungs: Normal respiratory effort, no use of accessory muscles Abdomen: Soft, nondistended Neuro: No focal deficits, Ox3. REVIEW OF SYSTEMS Constitutional: Denies malaise, fevers Cardiovascular: Denies chest pain, palpitations Respiratory: Denies shortness of breath, wheezing Gastrointestinal: As per HPI Genitourinary: Denies dysuria, polyuria Musculoskeletal: Denies joint swelling, joint stiffness Neurological: Denies confusion, numbness, tingling Endocrine: Denies fatigue Written informed consent obtained from the patient. Risks (including but not limited to perforation, infection, bloating, bleeding, need for emergent surgeryand loss of life), benefits and alternatives explained and questions answered. The patient verbalized understanding. Based on history patient is an appropriate candidate for the procedure. Salud Bowman DO Documented By: Salud Bowman DO 05/20/24 0809 Signed By: <Electronically signed by Salud Bowman DO> 05/20/2488 [facility] Work Phone: 1(953) 463-337907-02-2024 Procedure [facility]05-20-2024 Evaluation + Plan noteExtracted from: Title:Pain Managment H&P new patient Author:Lyn Yepez PA-C Date:04/07/24 Impression and Plan Patient is a 33-year-old female with a past medical history significant for fibromyalgia. She states that she was diagnosed last fall and has tried to do some aquatic therapy without improvement but she does not have the time to go 3-4 times a week as recommended by the doctor. She states that she was advised by a few doctors that they either do not treat fibromyalgia or they do not treat with medications and she is here today to discuss her medication options. She is very busy. She is a ikel-uy-ehyy mother 2-3 very young children. She has a third child who is in second grade. She states that her whole body pain is a 5/10. She has brain fog and other issues associated with fibromyalgia. We discussed gabapentin titration. Patient side effects were discussed. Titration schedule was given. At this time, she will discharge medication and follow-up in 3 to 4 weeks. Call the clinic sooner if necessary. OARRS reviewed. MARY score: 22% Future Appointments Appointment Date:05/26/2024 10:00:00 AM Scheduled Provider:Lyn Limon PA-C Location[facility] Appointment Type:Pain Management - Follow Up (FT) [facility] Chief Complaint: Patient here [...] Her father had a heart attack after Thanks and in October. Her mother was diagnosed with metastatic cancer and in January. Her chest pain has been on and off since. It is associated with chest wall tenderness. She was diagnosed with fibromyalgia by her wrapper leaf inspector. Her blood pressure at home has been [...] She is to continue follow-up with her wrapper leaf inspector and costume cutter. Given her current clinical picture, plausible explanations for her chest pain, and multiple prior investigations, I do not believe further cardiovascular testing is warranted. We would be happy to see her on an as-needed basis. Rosanna Peralta MD, MPH, FACC, [facility], [facility] Interventional Cardiology Pager Email: [email or web address]12-20-2023 Evaluation note* Encounter Date Diagnosis Assessment Notes Treatment Notes Treatment Clinical Notes Oct, Irritable bowel syndrome, unspecified type (ICD-10 - K58.9) Oct, GERD (gastroesophageal reflux disease) (ICD-10 - K21.9) [employer] Other 12-18-2023 Evaluation note* Encounter Date Diagnosis Assessment Notes Treatment Notes Treatment Clinical Notes Oct, Irritable bowel syndrome, unspecified type (ICD-10 - K58.9) Oct, GERD (gastroesophageal reflux disease) (ICD-10 - K21.9) [employer] Other 12-12-2023 Evaluation note* Encounter Date Diagnosis [...] needed or call the office with questions. [employer] Other 11-15-2023 Evaluation note* Encounter Date Diagnosis [...] before eating Pt RTO in a month [employer] Other 11-14-2023 Evaluation note* Encounter Date Diagnosis [...] follow up 10-14 days after next surgery. [employer] Other 11-08-2023 Evaluation note* Encounter Date Diagnosis Assessment Notes Treatment Notes Treatment Clinical Notes Sep, Gastroesophageal ref lux disease without esophagitis (ICD-10 - K21.9) [employer] Other 11-02-2023 Evaluation note* Encounter Date Diagnosis Assessment Notes Treatment Notes Treatment Clinical Notes Sep, Other specified postprocedural states (ICD-10 - Z98.890) [employer] Other 10-17-2023 Evaluation note* Encounter Date Diagnosis [...] this 30 minutes prior to a meal [employer] Other 09-01-2023 [facility] NoteHypertension is uncontrolled at home and b/p is typically 130-140/80-90 Will increase dose to lisinopril 20 mg daily with repeat bmp in 1-2 weeks to assess renal functionCleveland Clinic [facility]09-01-2023 NotePatient here for elevated BP's lately. She [...] light-headedness. All other systems reviewed and are negative.[facility] 07-20-2023 NoteUTP CARDIOLOGY PROGRESS NOTE HPI: Sonia [...] function Obesity F/u with PCP RTC 3-6 monthsC[facility] Clinic [facility]11-18-2022 Evaluation + Plan note Future Scheduled Tests Laboratory* C-Reactive Protein High Sensitivity 10/06/22 Radiology* Echo [facility]ansthoracic [facility] 12/27/22 * Echo Transthoracic Complete 10/06/22 [facility]09-14-2022 History of Present illness Narrative* Bereket Vaughn, - 08/02/2022 1:04 PM EDT Images from the original note were not included. EMERGENCY TRIAGE, TREAT AND TRANSPORT (ET3) DOCUMENTATION OF TELEHEALTH VISIT Date / Time: 07/31/20222249 Name: Sonia Motley : 1990 SSN: (Not on file) EMS Agency: [facility] [x] Verbal consent obtained [...] by: Bereket Vaughn DO documented in this [id number] Hospital Discharge instructions Patient Education 07/07/2022 01:32:46 Abdominal Pain, Adult, Ovgy-cx-Dmxe Abdominal Pain, Adult Many things can cause belly (abdominal) pain. Most times, belly pain is not dangerous. Many cases of belly pain can be watched and treated at home. Sometimes, though, belly pain is serious. Your doctor will try to find the cause of your belly pain. Follow these instructions at home: Medicines Take oatm-nou-pofvkvq and prescription medicines only as told by [...] your belly pain for any changes. Take ljmr-hio-tgxtrix and prescription medicines only as told by [...] 04/23/2009 Document Revised: 03/15/2020 Document Reviewed: 03/15/2020 PK Clean Patient Education 2019 [employer] Follow Up Care 07/06/2022 22:47:40 With:Gui Alvarez Address: [address] [place] [address] [facility] [address] Business (1) When:07/10/2022 Comments:Can use the nausea medication every 6 hours as needed for nausea, please follow-up with your primary care doctor in the next 2 to 3 days for further evaluation management. If your pain worsens or if you have any new or concerning symptoms please return to the ED for further evaluation and management. [facility]08-18-2022 Evaluation + Plan noteExtracted from: Title:ED Note [...] Rest/Stress-Res Appointment Date:08/01/2022 12:30:00 PM Scheduled Provider: Location:.[facility] Appointment Type:NM Myocard Spect Multi Rest/Stress [...] NM Myocardial Spect Rest/Stress 1 Day 08/01/22 [facility]06-07-2022 Hospital Discharge instructions Patient Education 04/25/2022 13:22:14 [...] home: Managing pain, stiffness, and swelling Take qxgp-cmf-afodzyq and prescription medicines only as told by [...] as fried and sweet foods. ?Take an vpld-deg-hlzvqde or prescription medicine for constipation. Contact a [...] 07/31/2002 Document Revised: 01/01/2020 Document Reviewed: 11/25/2018 PK Clean Patient Education 2020 [employer]. 04/25/2022 13:22:14 Nonspecific Chest Pain, Adult Nonspecific [...] Follow these instructions at home: Medicines Take qtbc-que-spaxone and prescription medicines only as told by [...] 08/15/2006 Document Revised: 05/08/2019 Document Reviewed: 05/08/2019 PK Clean Patient Education 2020 [employer]. Follow Up Care 04/25/2022 10:43:39 With:Alfredo Wen Address: [address] [place] [id number] [phone] Business (1) When:04/28/2022 13:22:01 With:Gui Alvarez Address: [address] [place] [id number] Business (1) When:Within 3 Day(s) [facility]06-07-2022 Evaluation + Plan noteExtracted from: Title:ED Note [...] Troponin 9 Hr. XR Chest Single View [facility]07-23-2021 NoteHNO ID: [id number] Author: Catrachita Mcguire DO Service: ? Author [...] due to exceptional stress 09/28/2020 - Schizophrenia ([facility]) 09/28/2020 SOCIAL HISTORY: Tobacco Use: Never [...] results and radiologist's interpretation, available in the [facility] health record. Images were reviewed with the patient/family members in the office today. My personal interpretation of the performed imaging is healing fracture CLINICAL IMPRESSION / ASSESSMENT: (S59.396X) Other closed intra-articular fracture of distal end [...] treatment plan as detailed above. Catrachita Mcguire, [facility]21 NoteHNO ID: [id number] Author: RT Son(R) Service: Radiology Author Type: Chemical Tester Type: Progress Notes Filed: 06/10/2021 3:22 PM [...] BY: RT Son(R) June 10, 2021 3:19 [facility]04-23-2021 NoteHNO ID: [id number] Author: GIANA Johnston (Pa) Service: ? Author Type: Physician Store Stock Associate Type: Progress Notes Filed: 03/11/2021 4:17 PM [...] PROBLEM LIST Bipolar 1 Disorder ([facility]) History of Prior With [facility] [place] Obesity Anxiety Disorder Panic Attack Due to Exceptional Stress Schizophrenia ([facility]) Trauma PAST MEDICAL HISTORY Diagnosis Date - Anxiety disorder 09/28/2020 - Bipolar 1 disorder ([facility]) 09/28/2020 - History of prior with IUGR 09/28/2020 X 2 - Obesity 09/28/2020 BMI = 43.77 No 1 hr GCT yet - Panic attack due to exceptional stress 09/28/2020 - Schizophrenia ([facility]) 09/28/2020 PAST SURGICAL HISTORY Procedure Laterality [...] strength. Wrist extension: 5/5 Wrist flexion: 5/5 Automatic Centrifugal Station Operator: 5/5 Tests Phalen?s Sign: negative Tinel's sign [...] strength. Wrist extension: 5/5 Wrist flexion: 5/5 Automatic Centrifugal Station Operator: 5/5 Tests Phalen?s Sign: negative Alyson's test: negative Other Erythema: absent Scars: absent Sen (more content not included)...[facility]03-09-2021 NoteHNO ID: [id number] Author: Lang Jacobson (Pa) Service: ? Author Type: Physician Store Stock Associate Type: Progress Notes Filed: 01/27/2021 6:32 PM [...] Follow-up: 4-6 weeks with hand provider. GIANA [facility]03-09-2021 NoteHNO ID: [id number] Author: Allison (Rt) Neetu Estrada Service: ? Author Type: Chemical Tester Type: Progress Notes Filed: 01/25/2021 3:16 PM [...] BY: RT Fadi January 25, 2021 1:57 [facility]01-26-2021 NoteHNO ID: [id number] Author: Neetu Aponte (Rt) Service: ? Author Type: Chemical Tester Type: Progress Notes Filed: 12/14/2020 1:45 PM [...] BY: RT Fadi December 14, 2020 1:44 [facility]01-26-2021 NoteHNO ID: [id number] Author: Lang Jacobson (Pa) Service: ? Author Type: Physician Store Stock Associate Type: Progress Notes Filed: 12/14/2020 2:20 PM [...] - Follow-up: 6 weeks, repeat x-rays. GIANA [facility]07-25-2020 Evaluation + Plan note Future Appointments Appointment Date:06/08/2022 03:00:00 PM Scheduled Provider: Location:FT.CARDIO Appointment Type:CV Echo (FT) Appointment Date:06/12/2022 03:45:00 PM Scheduled Provider:Alfredo Wen MD Location:FT.Cardiology Clinic Appointment Type:Cardiology Follow Up (FT) Future Scheduled Tests Laboratory* C-Reactive Protein High Sensitivity 05/12/22 * Lipid Panel 05/12/22 Radiology* Echo Transthoracic Complete 06/08/22 [facility]07-25-2020 Evaluation + Plan note Future Appointments Appointment Date:06/08/2022 03:00:00 PM Scheduled Provider: Location:.CARDIO Appointment Type:CV Echo (FT) Appointment Date:06/12/2022 03:45:00 PM Scheduled Provider:Alfredo Wen MD Location:FT.Cardiology Clinic Appointment Type:Cardiology Follow Up (FT) Future Scheduled Tests Radiology* Echo Transthoracic [facility]08[facility] Future App[facility]ments Appointment Date:05/19/2022 02:30:00 PM Scheduled Provider: Location:.CARDIO Appointment Type:CV Stress (FT) Appointment Date:06/12/2022 03:45:00 PM Scheduled Provider:Alfredo Wen MD Location:FT.Cardiology Clinic Appointment Type:Cardiology Follow Up (FT) Future Scheduled Tests Laboratory* C-Reactive Protein High Sensitivity 05/12/22 * Lipid Panel 05/12/22 Radiology* Echo Transthoracic Complete 05/12/22 * ECG Stress Exercise [facility]19/[facility] Future Appointments Appointment Date:06/12/2022 03:45:00 PM Scheduled Provider:Alfredo Wen MD Location:FT.Cardiology Clinic Appointment Type:Cardiology Follow Up (FT) [facility] Future Appointments Appointment Date:07/13/2022 03:30:00 PM Scheduled Provider:Alfredo Wen MD Location:FT.Cardiology Clinic Appointment Type:Cardiology Follow Up (FT) Future Scheduled Tests Radiology* NM Myocardial Spect Rest/Stress 1 Day 06/12/22 [facility] Future Appointments Appointment Date:08/09/2022 03:15:00 PM Scheduled Provider:Alfredo Wen MD Location:FT.Cardiology Clinic Appointment Type:Cardiology Follow Up ([facility]) [facility] Future Scheduled Tests Radiology* Echo Transthoracic Lmtd 12/27/22 [facility] Future Appointments Appointment Date:10/20/2022 11:45:00 AM Scheduled Provider:Alfredo Wen MD Location:FT.Cardiology Clinic Appointment Type:Cardiology Follow Up (FT) Future Scheduled Tests Laboratory* C-Reactive Protein High Sensitivity 10/06/22 Radiology* Echo Transthoracic [facility] 12/27/22 * Echo Transthoracic Complete [facility]/06/[facility] Future Appointments Appointment Date:07/18/2024 10:30:00 AM Scheduled Provider:Lyn Limon PA-C Location:FT[facility] [place] Appointment Type:Pain Management - Follow Up (FT) [facility] Future Appointments Appointment Date:09/16/2024 10:00:00 AM Scheduled Provider:Lyn Limon PA-C Location:FT[facility] [place] Appointment Type:Pain Management - Follow Up (FT) [facility] evaluation + Plan note Future Appointments Appointment Date:04/08/2025 12:30:00 PM Scheduled Provider:Lyn Limon PA-C Location:FT.[facility] [place] Appointment Type:Pain Management - Follow Up (FT) [facility] Evaluation + Plan note Future Appointments Appointment Date:04/08/2025 12:30:00 PM Scheduled Provider:Lyn Limon PA-C Location:FT.[facility] [place] Appointment Type:Pain Management - Follow Up (FT) Diagnostic Tests Pending * Strep Screen Culture 01/13/25 [facility] Evaluation + Plan note Future Appointments Appointment Date:02/24/2025 10:15:00 AM Scheduled Provider: Location:FT.PHYSICAL [place] Appointment Type:PT Eval (FT) Appointment Date:03/02/2025 09:30:00 AM Scheduled Provider: Location:FT.DIETARY Appointment Type:Nutrition Education - Follow Up 60 (FT) Appointment Date:04/08/2025 12:30:00 PM Scheduled Provider:Lyn Limon PA-C Location:FT.[facility] [place] Appointment Type:Pain Management - Follow Up (FT) [facility] evaluation + Plan note Future Appointments Appointment Date:02/27/2025 10:45:00 AM Scheduled Provider: Location:FT.PHYSICAL [place] Appointment Type:PT Eval (FT) Appointment Date:03/02/2025 09:30:00 AM Scheduled Provider: Location:FT.DIETARY Appointment Type:Nutrition Education - Follow Up 60 (FT) Appointment Date:04/08/2025 12:30:00 PM Scheduled Provider:Lyn Limon PA-C Location:FT.[facility] [place] Appointment Type:Pain Management - Follow Up (FT) [facility] evaluation + Plan note Future Appointments Appointment Date:03/02/2025 09:30:00 AM Scheduled Provider: Location:FT.DIETARY Appointment Type:Nutrition Education - Follow Up 60 (FT) Appointment Date:04/08/2025 12:30:00 PM Scheduled Provider:Lyn Limon PA-C Location:FT.[facility] [place] Appointment Type:Pain Management - Follow Up (FT) [facility] evaluation + Plan note Future Appointments Appointment Date:07/03/2025 11:30:00 AM Scheduled Provider:Mac Jolly DO Location:FT.[facility] [place] Appointment Type:Pain Management - Follow Up (FT) [facility] evaluation note* Diagnosis Chest pain, unspecified type- Primary documented [facility] encounter [facility] noteNo assessment information availableP[facility] Work Phone: Evaluation noteNo InformationNorth Game Trust Other Evaluation note* Diagnosis Onset Date Resolution Status GERD (gastroesophageal reflux disease) acute IBS (irritable bowel syndrome) chronic [facility] Work Phone: Evaluation note* Diagnosis Onset Date Resolution Status GERD (gastroesophageal reflux disease) acute IBS (irritable bowel syndrome) chronic GERD (gastroesophageal reflux disease) acute Rectal bleeding acute IBS (irritable bowel syndrome) chronic FHx: liver cancer noneactive [facility] Work Phone: Evaluation note* Diagnosis Onset Date Resolution Status GERD (gastroesophageal reflux disease) acute Rectal bleeding acute IBS (irritable bowel syndrome) chronic FHx: liver cancer noneactive [facility] Work Phone: Evaluation note* Diagnosis Onset Date Resolution Status GERD (gastroesophageal reflux disease) acute Rectal bleeding acute IBS (irritable bowel syndrome) chronic FHx: liver cancer noneactive GERD (gastroesophageal reflux disease) acute Rectal bleeding acute [facility] Work Phone: Evaluation note* Diagnosis Onset Date Resolution Status GERD (gastroesophageal reflux disease) acute Rectal bleeding acute GERD (gastroesophageal reflux disease) acute [facility] Work Phone: Evaluation note* Diagnosis Primary focal hyperhidrosis Hirsutism [facility] Diagnosis Chronic migraine without aura without status migrainosus, not intractable (CMS/HCC)- Primary Fibromyalgia Unspecified myalgia and myositis Paresthesia of foot, bilateral Carpal tunnel syndrome on both sides Carpal tunnel syndrome [facility]* Diagnosis Follow-up encounter involving medication- Primary Irregular periods/menstrual cycles [facility]* Diagnosis Chronic migraine without aura without status migrainosus, not intractable (CMS/HCC)- Primary Fibromyalgia Unspecified myalgia and myositis Paresthesia of foot, bilateral Carpal tunnel syndrome on both sides Carpal tunnel syndrome [facility]* Diagnosis Other atopic dermatitis- Primary Hirsutism Primary focal hyperhidrosis [facility]* Diagnosis Pharyngoesophageal dysphagia- Primary Dysphagia, pharyngoesophageal phase [facility]* Diagnosis Chronic migraine without aura without status migrainosus, not intractable (CMS/HCC)- Primary Fibromyalgia Unspecified myalgia and myositis Paresthesia of foot, bilateral Carpal tunnel syndrome on both sides Carpal tunnel syndrome Cognitive dysfunction Unspecified persistent mental disorders due to conditions classified elsewhere Daytime hypersomnolence [facility]* Diagnosis Other atopic dermatitis- Primary Primary focal hyperhidrosis Hirsutism Acne vulgaris Other acne [facility]* Diagnosis Cognitive dysfunction- Primary Unspecified persistent mental disorders due to conditions classified elsewhere Memory loss Concentration deficit MEEK (obstructive sleep apnea) Obstructive sleep apnea (adult) (pediatric) Other insomnia Other chronic pain Expressive language impairment Depression, unspecified depression type (CMS/HCC) Anxiety Anxiety state, unspecified Stress Other psychological or physical stress, not elsewhere classified [facility]* Diagnosis Oral contraceptive pill surveillance- Primary [facility]* Diagnosis Sensorineural hearing loss (SNHL) of both ears- Primary [facility]* Diagnosis Primary focal hyperhidrosis- Primary Other atopic dermatitis Hirsutism Acne vulgaris Other acne [facility]* Diagnosis Delayed menses- Primary Other disorder of menstruation and other abnormal bleeding from female genital tract examination or test, negative result Galactorrhea of both breasts Galactorrhea not associated with childbirth [facility]* Diagnosis Neoplasm of uncertain behavior of skin- Primary Plantar verruca Pain in left foot Pain in soft tissues of limb [facility]* Diagnosis Neoplasm of uncertain behavior of skin [facility]* Diagnosis Neoplasm of uncertain behavior of skin- Primary Plantar verruca Pain in left foot Pain in soft tissues of limb documented [facility] Narrative - Reported* Type Description Date Medical History high blood pressure Medical History heartburn Surgical History C section X3 Surgical History D&C Surgical History cyst removal Hospitalization History childbirth [employer] Other Hospital course Narrative No data available for this section [facility] No data available for this section [facility] Additional Instructions Post-operative Instructions Carpal Tunnel Surgery Chong Cat DO Orthopedic Surgeon [facility] The following instructions will help you know [...] any questions or concerns. Office number - [facility] Work Phone: Progress note No data available for this section [facility] referral (narrative)No reason for referral information availableChildren'[facility] Work Phone: Reason for visit Narrative* Consultation (Routine) - Closed Specialty Diagnoses / Procedures Referred By Margareth t Referred To Contact Neuropsychology Diagnoses Cognitive dysfunction Procedures PA OFFICE/OUTPATIENT NEW HIGH MDM 60 MINUTES Holley Barahona NP [address] [place] [phone] Phone: tel: Edgar Rice, PhD [address] [phone] Phone: tel: fax: Referral ID Status Reason Start Date Expiration Date V isits Requested Visits Authorized [id number] Closed Specialty Services Required 02/17/2025 08/16/2025 1 1 [facility] Healthcare Summary Purpose Family History No Family History [...] Unknown Family history of mental disorder Unknown Relationship Condition Age at Onset Recorded Date/T yoni father History of coronary artery stent placement Unknown Unknown Hypertension Unknown Malignant neoplasm of urinary bladder Unk nown mother Diabetes mellitus Unknown Bipolar disorder Unknown Family history of mental disorder Unknown Malignant neoplasm of liver Unknown Malignant neoplasm of uterus Unknown Advance Directives No Advanced Directives Records [...] al reflux disease) IBS (irritable bowel syndrome) Chief Complaint follow up BH 1 month follow up/diarrhea Reason for Visit GERD (gastroesophage al reflux disease) IBS (irritable bowel syndrome) GERD (gastroesophageal reflux disease) Rectal bleeding IBS (irritable bowel syndrome) FHx: liver cancer Chief Complaint 1 month follow up/di arrhea BH rectal bleeding, diarrhea rectal bleeding, diarrhea Reason for Visit GERD (gastroesophage al reflux disease) Rectal bleeding IBS (irritable bowel syndrome) FHx: liver cancer Chief Complaint 1 month follow up/di arrhea BH rectal bleeding, diarrhea rectal bleeding, diarrhea follow up Reason for Visit GERD (gastroesophage al reflux disease) Rectal bleeding IBS (irritable bowel syndrome) FHx: liver cancer GERD (gastroesophageal reflux disease) Rectal bleeding Chief Complaint BH rectal bleeding, diarrhea rectal bleeding, diarrhea follow up 1 month / gerd Reason for Visit GERD (gastroesophage al reflux disease) Rectal bleeding GERD (gastroesophageal reflux disease) Chief Complaint Admit Date f/u EGD October 13, 2024 10:14am 3 month follow up December 29, 2024 10:18am Reason for Visit Admit Date GERD (gastroesophageal reflux disease) N ovember 2023 10:14am Rectal bleeding October 13, 2024 10:14am IBS (irritable bowel syndrome) October 13, 2024 10:14am Dyspepsia December 29, 2024 10:18am GERD (gastroesophageal reflux disease) F ebruary 2024 10:18am IBS (irritable bowel syndrome) December 29, 2024 10:18am Chief Complaint Admit Date 6 WK FOLLOW UP / GERD/IBS March 27, 2025 10:19am ROMRbeau to schedule May 19, 2025 2: 06pm Reason for Visit Admit Date Dyspepsia March 27, 2025 10:19a m GERD (gastroesophageal reflux disease) M ay 2024 10:19am Irritable bowel syndrome with diarrhea M ay 2024 10:19am Depression May 12, 2025 3:18 pm Hypersomnia May 12, 2025 3:18 pm Poor sleep May 12, 2025 3:18 pm Daytime hypersomnolence May 12, 2025 3:18pm Fibromyalgia May 12, 2025 3:18 pm Additional Source Comments INFORMATION SOURCE (unrecogn ized section and content) DATE CREATED AUTHOR 09/30/2020 [facility] DATE CREATED AUTHOR AUTHOR'S ORGANIZ ATION 10/07/2020 [facility] DATE CREATED AUTHOR AUTHOR'S ORGANIZ ATION 12/12/2021 [facility] DATE CREATED AUTHOR AUTHOR'S ORGANIZ ATION 08/28/2022 [facility] DATE CREATED AUTHOR AUTHOR'S ORGANIZ ATION 11/30/[address] [facility] DATE CREATED AUTHOR AUTHOR'S ORGANIZ ATION 02/14/2024 [facility] DATE CREATED AUTHOR AUTHOR'S ORGANIZ ATION 10/19/2024 [facility] DATE CREATED AUTHOR AUTHOR'S ORGANIZ ATION 01/17/2025 [facility] DATE CREATED AUTHOR AUTHOR'S ORGANIZ ATION 02/03/2025 [facility] DATE CREATED AUTHOR AUTHOR'S ORGANIZ ATION 02/11/2025 [facility] DATE CREATED AUTHOR AUTHOR'S ORGANIZ ATION 02/23/2025 [facility] DATE CREATED AUTHOR AUTHOR'S ORGANIZ ATION 04/24/2025 [facility] DATE CREATED AUTHOR AUTHOR'S ORGANIZ ATION 06/06/2025 [facility] DATE CREATED AUTHOR AUTHOR'S ORGANIZ ATION 06/21/2025 [facility] DATE CREATED AUTHOR AUTHOR'S ORGANIZ ATION 06/25/2025 [facility] DATE CREATED AUTHOR AUTHOR'S ORGANIZ ATION 08/11/2025 [facility] Care Team (unrecognized sect ion and content) Team Status: Active Member Role Status Dates Gui Alvarez III , DO Primary Care Provider Active Team Status: Inactive Member Role Status Dates Gui Alvarez III , DO Primary Care Provider Active Start: October 13, 2024 End: October 13, 2024 Una Peng APRN Attending Provider Active Start: October 13, 2024 End: October 13, 2024 Team Status: Inactive Member Role Status Dates Gui Alvarez III , DO Primary Care Provider Active Start: December 29, 2024 End: December 29, 2024 Una Peng APRN Attending Provider Active Start: December 29, 2024 End: December 29, 2024 Team Status: Active Member Role Status Dates Gui Alvarez III , DO Primary Care Provider Active Start: May 12, 2024 Brayden Bennett MD Attending Provider Active Start: May 12, 2024 Team Status: Inactive Member Role Status Dates Gui Alvarez III , DO Primary Care Provider Active Start: May 20, 2024 End: May 20, 2024 Salud Bowman DO Attending Provider Active St art: May 20, 2024 End: May 20, 2024 Team Status: Active Member Role Status Dates Gui Alvarez III , DO Primary Care Provider Active Start: May 20, 2024 Salud Bowman , DO Attending Provider, Other Provider Active Start: May 20, 2024 Team Status: Inactive Member Role Status Dates Gui R Alvarez III , DO Primary Care Provider Active Start: July 01, 2024 End: July 01, 2024 Una Peng APRN Attending Provider Active Start: July 01, 2024 End: July 01, 2024 Team Status: Inactive Member Role Status Dates Gui R Alvarez III , DO Primary Care Provider Active Start: July 31, 2024 End: July 31, 2024 Una Peng APRN Attending Provider Active Start: July 31, 2024 End: July 31, 2024 Team Status: Inactive Member Role Status Dates Gui R Alvarez III , DO Primary Care Provider Active Philipp Espitia MD Attending Provider Active Team Status: Inactive Member Role Status Dates Gui R Alvarez III , DO Primary Care Provider Active Chong Cat , Attending Provider Active Team Status: Inactive Member Role Status Dates Gui R Alvarez III , DO Primary Care Provider Active Una Peng APRN Attending Provider Active Team Status: Inactive Member Role Status Dates Gui R Alvarez III , DO Primary Care Provider Active Start: February 05, 2024 End: February 05, 2024 Una Peng APRN Attending Provider Active Start: February 05, 2024 End: February 05, 2024 Team Status: Active Member Role Status Dates Gui Alvarez III , DO Primary Care Provider Active Start: April 07, 2024 Brayden Bennett MD Attending Provider Active Start: April 07, 2024 Team Status: Inactive Member Role Status Dates Gui R Alvarez III , DO Primary Care Provider Active Start: April 17, 2024 End: April 17, 2024 Una Peng APRN Attending Provider Active Start: April 17, 2024 End: April 17, 2024 Team Status: Active Member Role Status Dates Gui Garcia Alvarez III , DO Primary Care Provider Active Start: April 21, 2024 Brayden Bennett MD Attending Provider Active Start: April 21, 2024 Silver Recovery Operator Relationship Specialty Start Date End Date Gui Alvarez DO [address] [phone] PCP - General Family Medicine 04/02/24 Silver Recovery Operator Relationship Specialty Start Date End Date Gui Alvarez DO [address] [place] [address] PCP - General Family Medicine 04/02/24 Silver Recovery Operator Relationship Specialty Start Date End Date Gui Alvarez DO [address] [place] [address] PCP - General Family Medicine 04/02/24 Silver Recovery Operator Relationship Specialty Start Date End Date Gui Alvarez DO [address] [place] [address] PCP - General Family Medicine 04/02/24 Silver Recovery Operator Relationship Specialty Start Date End Date Gui Alvarez DO [address] [place] [address] PCP - General Family Medicine 04/02/24 Silver Recovery Operator Relationship Specialty Start Date End Date Gui Alvarez DO [address] [place] [address] PCP - General Family Medicine 04/02/24 Silver Recovery Operator Relationship Specialty Start Date End Date Gui Alvarez DO [address] [place] [address] PCP - General Family Medicine 04/02/24 Silver Recovery Operator Relationship Specialty Start Date End Date Gui Alvarez DO [address] [place] [facility] [place] [address] PCP - General Family Medicine 04/02/24 Silver Recovery Operator Relationship Specialty Start Date End Date Gui Alvarez DO [address] [facility] [place] [phone] PCP - General Family Medicine 04/02/24 Silver Recovery Operator Relationship Specialty Start Date End Date Gui Alvarez DO [address] [facility] [place] [phone] PCP - General Family Medicine 04/02/24 Silver Recovery Operator Relationship Specialty Start Date End Date Gui Alvarez DO [address] [place] [phone] PCP - General Family Medicine 04/02/24 Silver Recovery Operator Relationship Specialty Start Date End Date Gui Alvarez DO [address] [place] [phone] PCP - General Family Medicine 04/02/24 Silver Recovery Operator Relationship Specialty Start Date End Date Gui Alvarez DO [address] [place] [address] PCP - General Family Medicine 04/02/24 Silver Recovery Operator Relationship Specialty Start Date End Date Gui Alvarez DO [address] [place] [address] PCP - General Family Medicine 04/02/24 Anuj Smith DO [address] [id number] Referring Physician Neurology 03/02/25 Silver Recovery Operator Relationship Specialty Start Date End Date Gui Alvarez DO [address] [place] [address] [phone] PCP - General Family Medicine 04/02/24 Anuj Smith DO [address] [place] [phone] Referring Physician Neurology 03/02/25 Silver Recovery Operator Relationship Specialty Start Date End Date Gui Alvarez DO PCP - General Family Medicine 04/02/24 Anuj Smith DO [address] [place] [phone] Referring Physician Neurology 03/02/25 Silver Recovery Operator Relationship Specialty Start Date End Date Gui Alvarez DO [address] [phone] PCP - General Family Medicine 05/04/25 Anuj Smith DO [address] [place] [phone] Referring Physician Neurology 03/02/25 Silver Recovery Operator Relationship Specialty Start Date End Date Gui Alvarez DO [address] [phone] PCP - General Family Medicine 05/04/25 Anuj Smith DO [address] [place] [phone] Referring Physician Neurology 03/02/25 Team Status: Inactive Member Role Status Dates Gui Alvarez III , DO Primary Care Provider Active Start: March 27, 2025 End: March 27, 2025 Una Peng APRN Attending Provider Active Start: March 27, 2025 End: March 27, 2025 Team Status: Inactive Member Role Status Dates Gui Alvarez III , DO Primary Care Provider Active Start: May 12, 2025 End: May 12, 2025 Kathe Figueroa DO Attending Provider Active Sta rt: May 12, 2025 End: May 12, 2025 Team Status: Inactive Member Role Status Dates Gui Alvarez III , DO Primary Care Provider Active Start: May 19, 2025 End: May 19, 2025 Edgar Rice , PhD Attending Provider Active Start: May 19, 2025 End: May 19, 2025 Silver Recovery Operator Relationship Specialty Start Date End Date AlvarezGui DO [address] [phone] PCP - General Family Medicine 05/04/25 Anuj Smith DO [address] [place] [phone] Referring Physician Neurology 03/02/25 Silver Recovery Operator Relationship Specialty Start Date End Date Alvarez GuiDO [address] [phone] PCP - General Family Medicine 05/04/25 Anuj Smith DO [address] [place] [address] [phone] Referring Physician Neurology 03/02/25 Silver Recovery Operator Relationship Specialty Start Date End Date Alvarez Gui, DO [address] [place] [address] [phone] PCP - General Family Medicine 05/04/25 Anuj Smith DO [address] [place] [address] Referring Physician Neurology 03/02/25 Silver Recovery Operator Relationship Specialty Start Date End Date Gui Alvarez DO [address] [place] [address] [phone] PCP - General Family Medicine 05/04/25 Anuj Smith DO [address] [place], [place] [phone] Referring Physician Neurology 03/02/25 Silver Recovery Operator Relationship Specialty Start Date End Date Gui Alvarez DO [address] [phone] PCP - General Family Medicine 05/04/25 Anuj Smith DO [address] [place], [place] [phone] Referring Physician Neurology 03/02/25 Silver Recovery Operator Relationship Specialty Start Date End Date Gui Alvarez DO [address] [phone] PCP - General Family Medicine 05/04/25 Anuj Smith DO [address] [place] [address] Referring Physician Neurology 03/02/25 Silver Recovery Operator Relationship Specialty Start Date End Date Gui Alvarez DO [address] [place] [address] [phone] PCP - General Family Medicine 05/04/25 Anuj Smith [address] [place] [address] Referring Physician Neurology 03/02/25 Reason for Visit (unrecogniz ed section and content) Reason Comments Chest symptoms/complaints Reason Comments Follow-up Reason Comments Migraine Reason Comments Follow-up Patient here for a 3 month follow up. She was started on Loestrin Fe 12/08 for irregular periods. Patient states that she did not take the OCP like she should have, plans to start back on the pill after this period LMP 10/05/24 Reason Comments Migraine Reason Comments Pharyngoesophageal dysphagia Follow up s jose roberto study [facility] 10/30/25 Reason Comments Migraine Numbness Memory difficulty Reason Comments Med Refill Reason Comments Menstrual Problem Reason Comments Med Change Request Reason Comments Plantar Warts F/U B/L lesions on f eet Goals (unrecognized section and content) Goals may [...] BE BASED ON THE PRIMARY CLINICAL RECORDS. [employer] provides no warranty or guarantee of the accuracy or completeness of information in this document.
[2025-08-13 15:09] LABS: Hematocrit 41.4 % (36.0-48.0); Hemoglobin 13.7 g/dL (12.0-16.0); Immature Granulocytes Abs Auto 0.02 10^3/uL (0.00-0.03); Immature Granulocytes Pct Auto 0.2 % (0.0-0.5); Lymphocytes Absolute Auto 2.6 10^3/uL (1.2-3.8); Mean Corpuscular HGB Conc 33.1 g/dL (29.9-35.2); Mean Corpuscular Hemoglobin 28.7 pg (26.7-34.0); Mean Corpuscular Volume 86.6 fL (81.0-99.0); Platelet Count 254 10^3/uL (150-450); Red Blood Count 4.78 10^6/uL (4.20-5.40); White Blood Count 11.5 10^3/uL (4.0-11.0)
[2025-08-13 15:10] LABS: Glucose Urine UA NEGATIVE (NEGATIVE)
[2025-08-13 15:23] LABS: Cast Seen? NONE SEEN #/LPF (NONE SEEN); Crystals Seen? None Seen #/HPF (None Seen); Urine Culture Indicated NO
[2025-08-13 15:27] LABS: Alanine Aminotransferase 33 U/L (14-59); Albumin Globulin Ratio 0.7; Albumin Level 3.5 g/dL (3.4-5.0); Alkaline Phosphatase 117 U/L (46-116); Anion Gap 10.5; Aspartate Amino Transferase 19 U/L (15-37); Blood Urea Nitrogen 13.0 mg/dL (7.0-18.0); Calcium 9.0 mg/dL (8.5-10.1); Carbon Dioxide 26.2 mmol/L (21.0-32.0); Chloride 101 mmol/L (98-107); Estimated GFR (African America >60 (>=60 mL/min/1.73m^2); Estimated GFR (Non-African Ame >60 (>=60 mL/min/1.73m^2); Globulin 4.9 g/dL; Glucose 94 mg/dL (74-106); Potassium 3.7 mmol/L (3.5-5.1); Sodium 134 mmol/L (136-145); Total Protein 8.4 g/dL (6.4-8.2)
--- NOTE | 2025-08-13 16:04 | ED.FEMALEGU1 ---
HPI - Female Genitourinary General Chief complaint: Urogenital-Female Stated complaint: ABDOMINAL & VAGINAL PAIN/PRESSURE Time Seen by Provider: 08/13/25 14:16 Source: patient Mode of arrival: walk-in History of Present Illness HPI Narrative: Patient presents to the ED with concern for amenorrhea since February and a sensation that she might be . She reports intermittent cramping in her lower abdomen that began today, describing them as ?contractions.? She denies vaginal bleeding or discharge, urinary symptoms, bowel changes, vision changes, headaches, dizziness, or lightheadedness. She reports weight gain over 4 months, breast tenderness, intermittent nausea, and some . She has had multiple negative tests since February, including one done by her physician. She has not yet been evaluated by a regulatory and compliance technician but has an appointment scheduled within the week. She denies concern for sexually transmitted infections. Related Data Home Medications ?Medication ?Instructions ?Recorded ?Confirmed albuterol sulfate 90 mcg/actuation inhalation 08/13/25 aerosol inhaler alosetron 1 mg tablet mg 08/13/25 aluminum chloride 20 % topical topical 08/13/25 solution (Drysol Dab-O-Matic) amitriptyline 50 mg tablet mg 08/13/25 bupropion HCl 100 mg tablet 100 mg PO BID 08/13/25 08/13/25 bupropion HCl 150 mg 24 hr tablet, mg PO 08/13/25 extended release cetirizine 10 mg tablet mg 08/13/25 dicyclomine 20 mg tablet mg 08/13/25 escitalopram oxalate 20 mg tablet mg 08/13/25 esomeprazole magnesium 40 mg mg 08/13/25 capsule,delayed release famotidine 40 mg tablet mg 08/13/25 glycopyrrolate 1 mg tablet mg 08/13/25 glycopyrrolate 2 mg tablet mg 08/13/25 l.norgest-eth.estradiol triphasic tab 08/13/25 50-30 (6)/75-40(5)/125-30(10) tablet (Enpresse) naratriptan 2.5 mg tablet mg 08/13/25 pregabalin 150 mg capsule mg 08/13/25 spironolactone 100 mg tablet mg 08/13/25 trazodone 50 mg tablet mg 08/13/25 Allergies Allergy/AdvReac Type Severity Reaction Status Date / Time nalbuphine (From [facility]) Allergy Anaphylaxis Verified 08/13/25 13:55 prednisone AdvReac felt out Verified 08/13/25 13:55 of it' PFSH PFSH Social History Little interest or pleasure in doing things: not at all Feeling down, depressed, or hopeless: not at all Exam Narrative Exam Narrative: General: Alert, oriented, no acute distress Vital Signs: BP 160/93 on arrival Cardiac/Respiratory: Heart and lung exam unremarkable, normal pulses in all extremities Abdomen: Obese habitus (BMI 42), soft, no focal tenderness except mild suprapubic discomfort reported, no rebound or guarding Neuro: No focal deficits, no vision changes, no headache reported, no enlarged thyroid, pupils equal and reactive. Constitutional Vital Signs, click to edit/add: Last Vital Signs Temp 98.4 F 08/13/25 14:01 Pulse 83 08/13/25 16:40 Resp 18 08/13/25 16:40 BP 135/99 H 08/13/25 16:40 Pulse Ox 97 08/13/25 16:40 O2 Del Method Room Air 08/13/25 16:40 Course Vital Signs Vital signs: Vital Signs Temperature 98.4 F 08/13/25 14:01 Pulse Rate 106 H 08/13/25 14:01 Respiratory Rate 18 08/13/25 14:01 Blood Pressure 160/93 H 08/13/25 14:01 Pulse Oximetry 98 08/13/25 14:01 Oxygen Delivery Method Room Air 08/13/25 14:01 Temperature 98.4 F 08/13/25 14:01 Pulse Rate 83 08/13/25 16:40 Respiratory Rate 18 08/13/25 16:40 Blood Pressure 135/99 H 08/13/25 16:40 Pulse Oximetry 97 08/13/25 16:40 Oxygen Delivery Method Room Air 08/13/25 16:40 MDM - Female Genitourinary MDM Narrative Medical decision making narrative: This patient presents with secondary amenorrhea, lower abdominal cramping, and symptoms concerning to her for , despite several months of negative HCG testing. Differential diagnosis includes ,hypothalamic or pituitary dysfunction, medication-related amenorrhea, polycystic ovarian syndrome (PCOS), perimenopause, and psychosomatic causes. Quantitative hCG today is negative (0), ruling out . Exam reveals no abdominal exam with no rebound or guarding. Blood pressure is mildly elevated and should be rechecked and monitored with her primary care provider. There are no acute findings requiring intervention in the ED. Given her upcoming gynecology appointment, we discussed the importance of keeping this follow-up for further workup including possible hormonal panel, pelvic ultrasound, and medication review. She was counseled on return precautions for worsening abdominal pain, vaginal bleeding, severe headache, vision changes, or syncope. Discussed patient with ED attending Dr. Puente prior to discharge. Medical Records Attestation: I reviewed the patient's medical records. Lab Data Attestation: I reviewed the patient's lab results. Labs: Lab Results 08/13/25 08/13/25 Range/Units 14:45 14:58 WBC 11.5 H (4.0-11.0) 10^3/uL RBC 4.78 (4.20-5.40) 10^6/uL Hgb 13.7 (12.0-16.0) g/dL Hct 41.4 (36.0-48.0) % MCV 86.6 (81.0-99.0) fL MCH 28.7 (26.7-34.0) pg MCHC 33.1 (29.9-35.2) g/dL RDW 13.6 (11.0-15.0) % Plt Count 254 (150-450) 10^3/uL MPV 10.8 (9.5-13.5) fL Neut % (Auto) 70.7 (43.0-75.0) % Lymph % (Auto) 22.7 (20.5-60.0) % Rowan % (Auto) 5.7 (1.7-12.0) % Eos % (Auto) 0.4 L (0.9-7.0) % Baso % (Auto) 0.3 (0.2-2.0) % Neut # (Auto) 8.1 H (1.4-6.5) 10^3/uL Lymph # (Auto) 2.6 (1.2-3.8) 10^3/uL Rowan # (Auto) 0.7 (0.3-0.8) 10^3/uL Eos # (Auto) 0.1 (0.0-0.7) 10^3/uL Baso # (Auto) 0.0 (0.0-0.1) 10^3/uL Abs Immat Gran (auto) 0.02 (0.00-0.03) 10^3/uL Imm/Tot Granulo (auto) 0.2 (0.0-0.5) % Sodium 134 L (136-145) mmol/L Potassium 3.7 (3.5-5.1) mmol/L Chloride 101 (98-107) mmol/L Carbon Dioxide 26.2 (21.0-32.0) mmol/L Anion Gap 10.5 BUN 13.0 (7.0-18.0) mg/dL Creatinine 0.66 (0.55-1.02) mg/dL Est GFR ( Amer) >60 (>=60 mL/min/1.73m^2) Est GFR (Non-Af Amer) >60 (>=60 mL/min/1.73m^2) BUN/Creatinine Ratio 19.7 Glucose 94 (74-106) mg/dL Calcium 9.0 (8.5-10.1) mg/dL Total Bilirubin 0.2 (0.2-1.0) mg/dL AST 19 (15-37) U/L ALT 33 (14-59) U/L Alkaline Phosphatase 117 H (46-116) U/L Total Protein 8.4 H (6.4-8.2) g/dL Albumin 3.5 (3.4-5.0) g/dL Globulin 4.9 g/dL Albumin/Globulin Ratio 0.7 TSH & Free T4 Interp 1.858 (0.358-3.740) uIU/mL HCG, Quant <1 mIU/mL Urine Color Lt. yellow (YELLOW) Urine Clarity Clear (CLEAR) Urine pH 6.0 (5.0-9.0) Ur Specific [place] 1.020 (1.005-1.025) Urine Protein Negative (NEG/TRACE) mg/dL Urine Glucose (UA) Negative (NEGATIVE) mg/dL Urine Ketones Negative (NEGATIVE) mg/dL Urine Occult Blood Negative (NEGATIVE) Urine Nitrite Negative (NEGATIVE) Urine Bilirubin Negative (NEGATIVE) Urine Urobilinogen 0.2 (0.2-1.0) EU/dL Ur Leukocyte Esterase Trace A (NEGATIVE) Urine RBC 0-2 (0-2) #/HPF Urine WBC 0-2 A (NONE SEEN) #/HPF Ur Squamous Epith Cells Few A (NONE/RARE) #/LPF Urine Crystals None seen (None Seen) #/HPF Urine Bacteria Trace A (NONE SEEN) #/HPF Urine Casts None seen (NONE SEEN) #/LPF Urine Mucus None seen (NONE SEEN) Ur Culture Indicated? No Discharge Plan Discharge Chief Complaint: Urogenital-Female Clinical Impression: Amenorrhea, Pelvic pain Patient Disposition: Home, Self-Care Time of Disposition Decision: 16:09 Condition: Good Prescriptions / Home Meds: No Action glycopyrrolate 1 mg tablet trazodone 50 mg tablet cetirizine 10 mg tablet famotidine 40 mg tablet spironolactone 100 mg tablet Drysol Dab-O-Matic 20 % solution TOPICAL amitriptyline 50 mg tablet alosetron 1 mg tablet dicyclomine 20 mg tablet esomeprazole magnesium 40 mg capsule,delayed release(DR/EC) albuterol sulfate 90 mcg/actuation HFA aerosol inhaler INHALATION naratriptan 2.5 mg tablet glycopyrrolate 2 mg tablet escitalopram oxalate 20 mg tablet bupropion HCl 150 mg tablet extended release 24 hr PO levonorg-eth estrad triphasic [Enpresse] 50-30 (6)/75-40 (5)/125-30(10) tablet pregabalin 150 mg capsule bupropion HCl 100 mg tablet 100 mg PO BID Print Language: Telugu Instructions: Pelvic Pain (ED) Additional Instructions: Discharge Instructions: Your test today was negative. Keep your appointment with your regulatory and compliance technician this week for further evaluation of amenorrhea, breast symptoms, and abdominal cramping. Monitor your blood pressure at home if possible and share results with your primary care provider. Return to the ED if you develop: Severe abdominal pain Vaginal bleeding Severe headache or vision changes Dizziness, fainting, or other concerning symptoms Referrals: Gui Alvarez DO [Primary Care Provider] - 1 week Discharge Date/Time: 08/13/25 16:42
[2025-08-13 16:16] LABS: TSH W/ REFLEX FT4 1.858 uIU/mL (0.358-3.740)
[2025-08-13 16:40] VITALS: BP 135/99; PULSE 83; O2SAT 97
== END 2025-08-13 16:42 | disposition home or self-care (01) ==
PROVIDERS: Physician Assistant; Emergency Provider Emergency Medicine; PCP Family Medicine
DX: N91.2 Amenorrhea, unspecified (principal); R10.2 Pelvic and perineal pain
CPT/HCPCS: 36415; 80053; 81001; 84443; 84702; 85025; 99284